=== PATIENT | female | born 1950 | race Caucasian/White ===

== ENCOUNTER → 2016-12-18 | Outpatient (CLI) | payer OTHER ==
[~2016-12-18] MED LIST: ACET-1256 PO; AZO PO; CALC500C70 PO; CYM/30 PO; DILT120C68 PO; GABA-112 PO; GLC/500 PO; METO1TAB69 PO; MULT-506 PO; PARO1TAB29 PO; PRD/1 PO; PRLSR20 PO; TRAM-10 PO; WARF-285 PO; WARF4TAB8 PO
[2016-12-18 17:09] LABS: BASO % 0.3 %; BASO ABS # 0.03 K/uL (0-0.2); COMPLETE YES; EOS % 1.3 %; HEMATOCRIT 38.4 % (37-47); IG% 0.2 %; LYMPH % 11.9 %; LYMPH ABS # 1.03 K/uL (1.2-3.4); MEAN CELL VOLUME 90.8 fL (80-100); MEAN CORPUSCULAR HEMOGLOBIN 29.8 pg (25-34); MEAN CORPUSCULAR HGB CONC 32.8 g/dl (32-36); MEAN PLATELET VOLUME 9.4 fL (7.4-10.4); MONO % 8.4 %; NEUT % 77.9 %; PLATELET COUNT 296 K/uL (130-400); RED BLOOD COUNT 4.23 M/uL (4.2-5.4); WHITE BLOOD COUNT 8.69 K/uL (4.8-10.8)
[2016-12-18 17:24] LABS: ALT/SGPT 23 U/L (12-78); AMYLASE 30 U/L (25-115); BLOOD UREA NITROGEN 15 mg/dl (7-18); CALCIUM 9.6 mg/dl (8.5-10.1); CARBON DIOXIDE 30 mmol/L (21-32); CHLORIDE 102 mmol/L (98-107); CREATININE 0.73 mg/dl (0.60-1.20); GLUCOSE 103 mg/dl (70-99); SODIUM 139 mmol/L (136-145)
[2016-12-18 17:27] LABS: ALB/GLOB RATIO 0.9 (0.9-2); ALKALINE PHOSPHATASE 61 U/L (45-117); AST/SGOT 17 U/L (15-37)
[2016-12-18 17:30] LABS: URINE PROTIEN/CREAT RATIO 0.1 (0-0.2)
[2016-12-18 18:04] LABS: URINE APPEARANCE CLEAR (CLEAR); URINE BILIRUBIN NEG (NEG); URINE COLOR DK YELLOW; URINE EPITHELIAL CELL AUTO >30 /lpf (0-5); URINE NITRITE NEG (NEG); URINE SPECIFIC GRAVITY 1.026 (1.000-1.030); UROBILINOGEN POS (NEG); ZZUR CULT IF INDIC CLEAN CATCH NO
[2016-12-18 18:08] LABS: MANUAL MICROSCOPIC REQUIRED? NO; REVIEW REQ? YES
[2016-12-19 07:22] LABS: ESTIMATED AVERAGE GLUCOSE 120 mg/dl; HA1C FLAG Normal (Normal)
== END | disposition home or self-care (01) ==
LOC: C.LABBC 12:21
PROVIDERS: ATTEND Internal Medicine Geriatric Medicine
DX: E11.29 Type 2 diabetes mellitus with other diabetic kidney complication (principal); R10.9 Unspecified abdominal pain; M19.90 Unspecified osteoarthritis, unspecified site; I10 Essential (primary) hypertension; I48.91 Unspecified atrial fibrillation; M48.00 Spinal stenosis, site unspecified; E55.9 Vitamin D deficiency, unspecified

== ENCOUNTER → 2016-12-25 | Outpatient (CLI) | payer OTHER ==
--- NOTE | 2016-12-25 09:00 | DIAGNOSTIC IMAGING REPORT ---
ABDOMEN COMPLETE (US) CLINICAL HISTORY: Generalized abdominal pain COMPARISON STUDY: Biliary ultrasound dated 10/20/2015, CT scan dated 10/20/2015 FINDINGS: The liver is of increased echogenicity, nonspecific finding most often seen in hepatic steatosis. There is a large gallbladder calculus. There is no gallbladder wall thickening. There is no pericholecystic fluid. The pancreas appears normal as visualized. There is no ductal dilatation. The common bile duct measures 5 mm. The spleen measures 9.8 cm in length. The right kidney measures 10.4 cm in length. The left kidney measures 11.2 cm in length. No renal masses are visualized. There is no hydronephrosis. There is no evidence of abdominal aortic dilatation. The IVC appears patent. IMPRESSION: Cholelithiasis. No evidence of ductal dilatation. Electronically signed by: Andres Grover M.D. 12/25/2016 8:58 AM Dictated Date/Time: 12/25/2016 8:56 AM
== END | disposition home or self-care (01) ==
LOC: C.ULTRBC 08:22
PROVIDERS: ATTEND Internal Medicine Geriatric Medicine
DX: R10.9 Unspecified abdominal pain (principal); K80.20 Calculus of gallbladder without cholecystitis without obstruction

== ENCOUNTER → 2017-01-02 | Outpatient (CLI) | payer OTHER ==
--- NOTE | 2017-01-02 09:54 | DIAGNOSTIC IMAGING REPORT ---
NUCLEAR HEPATOBILIARY SCAN CLINICAL HISTORY: Right upper quadrant abdominal pain. COMPARISON STUDY: Abdominal ultrasound dated 12/25/2016. Nuclear hepatobiliary scan dated 10/21/2015. TECHNIQUE: Dynamic images of the liver and anterior abdomen were obtained every 5 minutes for a total of 60 minutes following the IV administration of 5.4mCi of technetium 99m Choletec. FINDINGS: The hepatobiliary scan shows prompt and homogeneous hepatic uptake. There is visualized activity within the intra and extrahepatic biliary tree at 15 minutes, and within the gallbladder at 45 minutes. There is normal biliary to bowel transit, with small bowel visualized by 30 minutes. IMPRESSION: Unremarkable nuclear hepatobiliary scan. There is no scintigraphic evidence of cholecystitis. Electronically signed by: Geronimo Chapa M.D. 01/02/2017 9:52 AM Dictated Date/Time: 01/02/2017 9:51 AM
== END | disposition home or self-care (01) ==
LOC: C.NUCL 07:36
PROVIDERS: ATTEND Internal Medicine Geriatric Medicine
DX: R10.9 Unspecified abdominal pain (principal)

== ENCOUNTER → 2017-01-10 | Outpatient (CLI) | payer OTHER ==
[~2017-01-10] MED LIST changes: -CYM/30 PO
== END | disposition home or self-care (01) ==
LOC: C.LAB 12:19
PROVIDERS: ATTEND Internal Medicine Rheumatology
DX: M35.3 Polymyalgia rheumatica (principal); Z79.52 Long term (current) use of systemic steroids; M75.100 Unspecified rotator cuff tear or rupture of unspecified shoulder, not specified as traumatic; Z51.81 Encounter for therapeutic drug level monitoring; Z79.01 Long term (current) use of anticoagulants; I48.91 Unspecified atrial fibrillation; M48.06 Spinal stenosis, lumbar region; M54.16 Radiculopathy, lumbar region; M81.0 Age-related osteoporosis without current pathological fracture; M46.1 Sacroiliitis, not elsewhere classified; J45.909 Unspecified asthma, uncomplicated; Z86.73 Personal history of transient ischemic attack (TIA), and cerebral infarction without residual deficits; E78.5 Hyperlipidemia, unspecified; I10 Essential (primary) hypertension; E11.9 Type 2 diabetes mellitus without complications

== ENCOUNTER → 2017-01-16 | Outpatient (CLI) | payer OTHER ==
--- NOTE | 2017-01-16 16:34 | MAMMOGRAPHY REPORT ---
BILATERAL DIGITAL SCREENING MAMMOGRAM WITH CAD: 01/16/2017 CLINICAL HISTORY: Routine screening. Patient has no complaints. TECHNIQUE: Current study was also evaluated with a Computer Aided Detection (CAD) system. Bilatera l CC and MLO views were obtained. COMPARISON: Comparison is made to exams dated: 07/28/2014 mammogram, 10/12/2015 mammogram, 07/26/2013 mammogram, 08/26/2014 mammogram, 07/23/2012 mammogram, and 07/23/2011 mammogram - [facility]. BREAST COMPOSITION: The tissue of both breasts is almost entirely fatty. FINDINGS: No suspicious masses, calcifications, or areas of architectural distortion are noted in e ither breast. There has been no significant interval change compared to prior exams. IMPRESSION: ACR BI-RADS CATEGORY 1: NEGATIVE There is no mammographic evidence of malignancy. A 1 year screening mammogram is recommended. The p atient will receive written notification of the results. Approximately 10% of breast cancers are not detected with mammography. A negative mammographic repor t should not delay biopsy if a clinically suggestive mass is present. Nevaeh Jay M.D. ah/:01/16/2017 15:30:48 Forestry Professor: Lidia SAGE(Heri)(M), [facility] letter sent: Normal 1/2 BI-RADS Code: ACR BI-RADS Category 1: Negative
== END | disposition home or self-care (01) ==
LOC: C.MAMM 14:59
PROVIDERS: ATTEND Internal Medicine Geriatric Medicine
DX: Z12.31 Encounter for screening mammogram for malignant neoplasm of breast (principal)

== ENCOUNTER → 2017-04-02 | Day surgery (SDC) | payer OTHER ==
[2016-12-02 13:50] VITALS: BMI 50.0
[2017-03-27 10:17] VITALS: Ht 160 cm; Wt 129.6 kg
[~2017-04-02] VITALS: Ht 160 cm; Wt 129.6 kg
[~2017-04-02] MED LIST changes: +LIDOCAINE HCL 2% 2 ML VIAL (20MG/ML) ONE; +METO100T44 PO; -METO1TAB69 PO; +PROPOFOL IV EMULSION 10 MG/ML 20 ML VIAL IV ONE; +SODIUM CHLORIDE 0.9% 500ML 500 ML IV ONE
--- NOTE | 2017-04-02 08:38 | Endo History and Physical ---
History & Physical Date of Service: April 02, 2017. Chief Complaint: 5 year f/u colon polyps Referring Physician: Dillon Genao History of Present Illness 66 yo CF who presents for colonoscopy secondary to history of colon polyps. Past Medical History Atrial Fibrillation, Diabetes, Hypertension, Chronic Steroid Use Past Surgical History Hx Cardiac Surgery: No Hx Abdominal Surgery: Yes (D&C , GABI ,LAP BAND OF STOMACH) Hx of Implantable Prosthesis: No Hx Post-Op Nausea and Vomiting: No Hx Cancer Surgery: No Hx Thoracic Surgery: Yes (BRONCHOSCOPY) Hx Orthopedic: Yes (R/L TKA) Hx Urinary Tract Surgery: No Family History Colon CA Social History Smoking Status: Former Smoker Hx Substance Use: No Hx Alcohol Use: No Allergies Coded Allergies: Sulfa Antibiotics (Verified Allergy, Intermediate, RASH, 03/27/17) Current Medications Reported Home Medications Medications Dose Route/Sig Max Daily Dose Days Date Category Dose Instructions Prednisone 1 Mg Tab 2 Mg PO QAM 03/27/17 Reported Paxil (Paroxetine HCl) 40 Mg Tab 40 Mg PO QAM 01/03/17 Reported Jantoven (Warfarin Sodium) 4 Mg Tab 4 Mg PO 2XWK 12/12/16 Reported Friday/ Tiazac (Diltiazem HCl) 120 Mg Capcr 120 Mg PO QPM 12/02/16 Reported [Azo] 1 Tab PO TID 07/18/16 Reported Toprol-Xl (Metoprolol Succinate) 100 Mg Tabcr 100 Mg PO BID 10/20/15 Reported Os-Esdras 500 Plus D (Calcium/Vitamin D) Tab 3 Tab PO HS 01/02/15 Reported Glucophage (Metformin Hcl) 500 Mg Tab 500 Mg PO BIDM 01/02/15 Reported Warfarin Sodium 3 Mg Tab 3 Mg PO 5XWK 01/02/15 Reported Tylenol (Acetaminophen) 500 Mg Tab 500 Mg PO TID PRN 12/04/08 Reported Ultram (Tramadol HCl) 50 Mg Tab 100 Mg PO TID 12/04/08 Reported Multivitamin (Multivitamins) Tab 1 Tablet PO HS 12/04/08 Reported Prilosec (Omeprazole) 20 Mg Capcr 40 Mg PO QAM 12/04/08 Reported Vital Signs Weight (Kilograms): 129.55 Height (Feet): 5 Height (Inches): 3 Date Time Temp Pulse Resp B/P Pulse Ox O2 Delivery O2 Flow Rate FiO2 04/02/17 08:30 36.5 93 18 133/85 93 Room Air Physical Exam General Appearance: WD/WN, no apparent distress Respiratory/Chest: Auscultation: breath sounds normal Cardiovascular: Heart Auscultation: RRR Abdomen: Bowel Sounds: normal Inspection & Palpation: soft, non-distended, no tenderness, guarding & rebound Assessment and Plan Assessment: 66 yo CF who presents for colonoscopy secondary to history of colon polyps. Plan: Proceed with colonoscopy.
--- NOTE | 2017-04-02 09:01 | Discharge Instructions ---
Endoscopy Patient Instructions Date / Procedure(s) Performed April 02, 2017. Colonoscopy Allergy Information Coded Allergies: Sulfa Antibiotics (Verified Allergy, Intermediate, RASH, 03/27/17) Discharge Date / Findings April 02, 2017. Diverticulosis Internal hemorrhoids Fair bowel prep Medication Instructions Stopped Medication(s): Warfarin OK to resume all medications today as prescribed Reported Home Medications Medications Dose Route/Sig Max Daily Dose Days Date Category Dose Instructions Prednisone 1 Mg Tab 2 Mg PO QAM 03/27/17 Reported Paxil (Paroxetine HCl) 40 Mg Tab 40 Mg PO QAM 01/03/17 Reported Jantoven (Warfarin Sodium) 4 Mg Tab 4 Mg PO 2XWK 12/12/16 Reported Friday/ Tiazac (Diltiazem HCl) 120 Mg Capcr 120 Mg PO QPM 12/02/16 Reported [Azo] 1 Tab PO TID 07/18/16 Reported Toprol-Xl (Metoprolol Succinate) 100 Mg Tabcr 100 Mg PO BID 10/20/15 Reported Os-Esdras 500 Plus D (Calcium/Vitamin D) Tab 3 Tab PO HS 01/02/15 Reported Glucophage (Metformin Hcl) 500 Mg Tab 500 Mg PO BIDM 01/02/15 Reported Warfarin Sodium 3 Mg Tab 3 Mg PO 5XWK 01/02/15 Reported Tylenol (Acetaminophen) 500 Mg Tab 500 Mg PO TID PRN 12/04/08 Reported Ultram (Tramadol HCl) 50 Mg Tab 100 Mg PO TID 12/04/08 Reported Multivitamin (Multivitamins) Tab 1 Tablet PO HS 12/04/08 Reported Prilosec (Omeprazole) 20 Mg Capcr 40 Mg PO QAM 12/04/08 Reported Provider Instructions Activity Restrictions - No exercising or heavy lifting for 24 hours. - Do not drink alcohol the day of the procedure. - Do not drive a car or operate machinery until the day after the procedure. - Do not make any important decisions or sign important papers in 24 hours after the procedure. Following Day: - Return to full activity which may include returning to work/school. Diet Start your diet with liquids and light foods (jello, soup, juice, toast). Then eat your usual diet if not nauseated. Treatment For Common After Affects For mild abdominal pain, bloating, or excessive gas: - Rest - Eat lightly - Lie on right side Follow-Up Information Follow-up with Dillon Genao as scheduled Anesthesia Information What You Should Know You have had a procedure that required some medicine to reduce anxiety and discomfort. This treatment is called moderate sedation. After receiving the treatment, you may be sleepy, but you will be able to breathe on your own. The effects of the treatment may last for several hours. Follow these instructions along with Activity/Diet recommendations noted above: * Do NOT do anything where dizziness or clumsiness would be dangerous. * Rest quietly at home today, then you can be up and about tomorrow. * Have a responsible person stay with you the rest of today. * You may have had an I.V. today. If so, you may take the dressing off later today. Recommendations Call your doctor if: * Trouble breathing * Continuous vomiting for more than 24 hours * Temperature above 101 degrees * Severe abdominal pain or bloating * Pain not relieved by pain medicine ordered * There is increased drainage or redness from any incision * A large amount of rectal bleeding greater than 2-3 tablespoons. (If you had a polyp/s removed or have hemorrhoids, a small amount of blood - from the rectum is to be expected.) * You have any unanswered questions or concerns. IN THE EVENT OF A SERIOUS EMERGENCY, GO TO THE NEAREST EMERGENCY ROOM Your discharge instructions were prepared by provider Joe Laird. Patient Instructions Signature Page Jocelyne Hardwick Patient (or Guardian) Signature/Date: I have read and understand the instructions given to me by my caregivers. Caregiver/RN/Doctor Signature/Date: The above-named patient and/or guardian has received patient instructions on this date. + Original Patient Signature Page (only) stays with chart. Please make copy for patient.
--- NOTE | 2017-04-02 09:08 | GI REPORT ---
Procedure Date: 04/02/2017 8:38 AM Procedure: Colonoscopy Indications: High risk colon cancer surveillance: Personal history of colonic polyps Medicines: Monitored Anesthesia Care Complications: No immediate complications. Estimated Blood Loss: Estimated blood loss: none. Procedure: Pre-Anesthesia Assessment: - Prior to the procedure, a History and Physical was performed, and patient medications and allergies were reviewed. The patient's tolerance of previous anesthesia was also reviewed. The risks and benefits of the procedure and the sedation options and risks were discussed with the patient. All questions were answered, and informed consent was obtained. Prior Anticoagulants: The patient has taken Coumadin (warfarin), last dose was 5 days prior to procedure. ASA Grade Assessment: III - A patient with severe systemic disease. After reviewing the risks and benefits, the patient was deemed in satisfactory condition to undergo the procedure. After I obtained informed consent, the scope was passed under direct vision. Throughout the procedure, the patient's blood pressure, pulse, and oxygen saturations were monitored continuously. The scope was introduced through the anus and advanced to the cecum, identified by appendiceal orifice and ileocecal valve. The colonoscopy was performed without difficulty. The patient tolerated the procedure well. The quality of the bowel preparation was fair. The terminal ileum, ileocecal valve, appendiceal orifice, and rectum were photographed. Findings: Multiple small-mouthed diverticula were found in the sigmoid colon. Non-bleeding internal hemorrhoids were found during retroflexion. The hemorrhoids were small. Impression: - Diverticulosis in the sigmoid colon. - Non-bleeding internal hemorrhoids. - No specimens collected. Recommendation: - Resume previous diet. - Continue present medications. - Repeat colonoscopy in 3 months because the bowel preparation was poor. - Return to primary care physician as previously scheduled. Joe Laird DO 04/02/2017 9:07:44 AM This report has been signed electronically. Note Initiated On: 04/02/2017 8:38 AM I attest to the content of the Intraoperative Record and orders documented therein, exceptions below
--- NOTE | 2017-04-02 09:11 | Anesthesiology Progress Note ---
Anesthesia Post Op Note Date & Time April 02, 2017 at 09:11 Vital Signs Vital Signs Past 12 Hours Date Time Temp Pulse Resp B/P Pulse Ox O2 Delivery O2 Flow Rate FiO2 04/02/17 08:30 36.5 93 18 133/85 93 Room Air Notes Mental Status: alert / awake / arousable, participated in evaluation Pt Amnestic to Procedure: Yes Nausea / Vomiting: adequately controlled Pain: adequately controlled Airway Patency, RR, SpO2: stable & adequate BP & HR: stable & adequate Hydration State: stable & adequate Anesthetic Complications: no major complications apparent
[2017-04-02 09:29] VITALS: BP 112/84; PULSE 93; O2SAT 98
== END | disposition home or self-care (01) ==
LOC: C.GI 07:55
PROVIDERS: ATTEND Internal Medicine
DX: Z12.11 Encounter for screening for malignant neoplasm of colon (principal); Z86.010 Personal history of colon polyps; K57.30 Diverticulosis of large intestine without perforation or abscess without bleeding; K64.8 Other hemorrhoids; J45.909 Unspecified asthma, uncomplicated; I48.91 Unspecified atrial fibrillation; I10 Essential (primary) hypertension; E11.9 Type 2 diabetes mellitus without complications; E66.9 Obesity, unspecified; Z68.43 Body mass index [BMI] 50.0-59.9, adult; Z88.2 Allergy status to sulfonamides; Z79.01 Long term (current) use of anticoagulants; Z98.890 Other specified postprocedural states; Z98.49 Cataract extraction status, unspecified eye; Z96.653 Presence of artificial knee joint, bilateral; Z90.89 Acquired absence of other organs; Z79.52 Long term (current) use of systemic steroids; Z80.0 Family history of malignant neoplasm of digestive organs

== ENCOUNTER → 2017-07-15 | Outpatient (CLI) | payer OTHER ==
[~2017-07-15] MED LIST changes: -LIDOCAINE HCL 2% 2 ML VIAL (20MG/ML) ONE; -METO100T44 PO; +METO1TAB69 PO; -PROPOFOL IV EMULSION 10 MG/ML 20 ML VIAL IV ONE; -SODIUM CHLORIDE 0.9% 500ML 500 ML IV ONE
[2017-07-15 16:00] LABS: BLOOD UREA NITROGEN 13 mg/dl (7-18); CALCIUM 9.1 mg/dl (8.5-10.1); CARBON DIOXIDE 30 mmol/L (21-32); CHLORIDE 104 mmol/L (98-107); CHOLESTEROL 164 mg/dl (0-200); CREATININE 0.61 mg/dl (0.60-1.20); GLUCOSE 93 mg/dl (70-99); POTASSIUM 4.3 mmol/L (3.5-5.1); SODIUM 138 mmol/L (136-145); TRIGLYCERIDES 168 mg/dl (0-150); VERY LOW DENSITY LIPOPROT CALC 34 mg/dl
[2017-07-15 16:10] LABS: CHOLESTEROL/HDL RATIO 3.7; HDL CHOLESTEROL 44 mg/dl; LDL CHOLESTEROL CALCULATED 86 mg/dl
[2017-07-15 16:27] LABS: BASO % 0.3 %; BASO ABS # 0.02 K/uL (0-0.2); COMPLETE YES; EOS % 2.1 %; HEMATOCRIT 36.7 % (37-47); IG% 0.3 %; LYMPH % 15.2 %; LYMPH ABS # 1.07 K/uL (1.2-3.4); MEAN CELL VOLUME 92.2 fL (80-100); MEAN CORPUSCULAR HEMOGLOBIN 29.1 pg (25-34); MEAN CORPUSCULAR HGB CONC 31.6 g/dl (32-36); MEAN PLATELET VOLUME 9.1 fL (7.4-10.4); MONO % 8.1 %; PLATELET COUNT 256 K/uL (130-400); RED BLOOD COUNT 3.98 M/uL (4.2-5.4); WHITE BLOOD COUNT 7.06 K/uL (4.8-10.8)
[2017-07-16 07:08] LABS: ESTIMATED AVERAGE GLUCOSE 126 mg/dl; HA1C FLAG Normal (Normal)
== END | disposition home or self-care (01) ==
LOC: C.LAB1850 14:22
PROVIDERS: ATTEND Internal Medicine Rheumatology
DX: I10 Essential (primary) hypertension (principal); Z79.01 Long term (current) use of anticoagulants; I48.2 Chronic atrial fibrillation; E11.29 Type 2 diabetes mellitus with other diabetic kidney complication; M35.3 Polymyalgia rheumatica; Z79.52 Long term (current) use of systemic steroids

== ENCOUNTER → 2018-01-14 | Outpatient (CLI) | payer OTHER ==
[~2018-01-14] MED LIST changes: +METO100T44 PO; -METO1TAB69 PO
[2018-01-14 16:33] LABS: BASO % 0.2 %; BASO ABS # 0.02 K/uL (0-0.2); EOS % 1.1 %; EOS ABS # 0.11 K/uL (0-0.5); HEMATOCRIT 37.6 % (37-47); HEMOGLOBIN 12.1 g/dL (12.0-16.0); IG# 0.01 K/uL (0.00-0.02); LYMPH % 15.3 %; LYMPH ABS # 1.48 K/uL (1.2-3.4); MEAN CELL VOLUME 92.6 fL (80-100); MEAN CORPUSCULAR HEMOGLOBIN 29.8 pg (25-34); MEAN CORPUSCULAR HGB CONC 32.2 g/dl (32-36); MEAN PLATELET VOLUME 8.9 fL (7.4-10.4); MONO % 5.7 %; MONO ABS # 0.55 K/uL (0.11-0.59); NEUT % 77.6 %; NEUT ABS # 7.48 K/uL (1.4-6.5); PLATELET COUNT 267 K/uL (130-400); RED CELL DISTRIBUTION WIDTH CV 14.3 % (11.5-14.5); RED CELL DISTRIBUTION WIDTH SD 47.8 fL (36.4-46.3); WHITE BLOOD COUNT 9.65 K/uL (4.8-10.8)
[2018-01-14 17:15] LABS: ALBUMIN 3.3 gm/dl (3.4-5.0); ALT/SGPT 20 U/L (12-78); BLOOD UREA NITROGEN 17 mg/dl (7-18); CALCIUM 9.2 mg/dl (8.5-10.1); CARBON DIOXIDE 30 mmol/L (21-32); CHOLESTEROL 130 mg/dl (0-200); CREATININE 0.76 mg/dl (0.60-1.20); GLUCOSE 110 mg/dl (70-99); POTASSIUM 4.3 mmol/L (3.5-5.1); SODIUM 140 mmol/L (136-145)
[2018-01-14 17:18] LABS: ALKALINE PHOSPHATASE 60 U/L (45-117); AST/SGOT 12 U/L (15-37); LDL CHOLESTEROL CALCULATED 55 mg/dl; TOTAL PROTEIN 7.6 gm/dl (6.4-8.2)
[2018-01-15 06:40] LABS: HEMOGLOBIN A1C 5.9 % (4.5-5.6)
== END ==
LOC: C.LAB 16:09
PROVIDERS: ATTEND Internal Medicine Geriatric Medicine
DX: I10 Essential (primary) hypertension (principal); M35.3 Polymyalgia rheumatica; Z79.01 Long term (current) use of anticoagulants; M48.00 Spinal stenosis, site unspecified; E55.9 Vitamin D deficiency, unspecified; E11.29 Type 2 diabetes mellitus with other diabetic kidney complication; I48.2 Chronic atrial fibrillation

== ENCOUNTER 2019-10-09 01:02 | Inpatient (IN) ==
[2019-10-09] MEDS ORDERED: SODIUM CHLORIDE 0.9% 1000ML 500 ML IV ONE (01:44)
--- NOTE | 2019-10-09 01:48 | Emergency Department Note ---
History of Present Illness General Chief complaint: Back Injury/Pain Stated complaint: back pain Time Seen by Provider: 10/09/19 01:36 History of Present Illness This is a 68-year-old female that presents to the emergency department via private vehicle with complaints of "back pain". The patient denies any known trauma or fall. She states that she was seen here the other day and diagnosed with fractures of the inferior thoracic spine. She was discharged home with pain medication but unfortunately has not done well secondary to the pain and has not been out of bed for quite some time. The male at bedside is concerned as she is not eating or drinking much. Patient notes the pain is a 10/10. It has worsened but she denies any new trauma or injury. No fevers or chills. Today she developed some abdominal discomfort. Home Medications Home Medications Medication Instructions Recorded Confirmed Type multivitamin 1 tab PO DAILY 08/25/18 10/09/19 History pumpkin seed extract-soy germ [Azo 300 mg PO TID 08/25/18 10/09/19 History Bladder Control] calcium carbonate 500 mg (1,250 1 tab PO HS tab 08/26/18 10/09/19 History mg)-vitamin D3 200 unit tablet acetaminophen 500 mg tablet 1,000 mg PO BID tab 07/20/19 10/09/19 History cholecalciferol (vitamin D3) 50 2,000 units PO DAILY 07/20/19 10/09/19 History mcg (2,000 unit) capsule metoprolol succinate ER 100 mg 100 mg PO Q12 #180 tab 07/20/19 10/09/19 Rx tablet,extended release 24 hr omeprazole 20 mg capsule,delayed 20 mg PO DAILY #90 cap 07/20/19 10/09/19 Rx release gabapentin 300 mg capsule 300 mg PO TID #90 cap 08/13/19 10/09/19 Rx paroxetine 40 mg tablet 40 mg PO DAILY #90 tab 08/16/19 10/09/19 Rx metformin 500 mg tablet 500 mg PO BIDM #90 tab 09/14/19 10/09/19 Rx diltiazem ER 120 mg 120 mg PO QPM #90 tab 10/01/19 10/09/19 Rx tablet,extended release 24 hr tramadol 50 mg tablet 100 mg PO TID PRN #180 tab 10/01/19 10/09/19 Rx atorvastatin 10 mg tablet 10 mg PO DAILY tab 10/06/19 10/09/19 History docusate sodium [Colace] 100 mg PO BID #60 cap 10/06/19 10/09/19 Rx oxycodone 5 mg PO Q6H PRN #14 tab 10/06/19 10/09/19 Rx sennosides [Senokot] 8.6 mg PO HS #30 tab 10/06/19 10/09/19 Rx warfarin 3 mg PO DAILY 10/09/19 10/09/19 History Allergies Allergy/AdvReac Type Severity Reaction Status Date / Time Sulfa (Sulfonamide Allergy Intermediate RASH Verified 10/09/19 01:25 Antibiotics) Past Med/Surg History Medical History Choledocholithiasis Chronic pain Closed fracture of tibia H/O: hysterectomy Herpes zoster Hyperplastic colon polyp Hypertension Osteoarthritis Seborrheic dermatitis Spinal stenosis Trochanteric bursitis Surgical History Hx of laparoscopic gastric banding Family History Other Diabetes Graves disease Uremia Social History Preferred Language: Grenadian Communication Ability: Effective Physician Scribe Required: No Beliefs That Will Affect Care: None marital status: Current Living Situation: Spouse Feels Safe at Home: Yes Smoking Status: Former smoker Hx Alcohol Use: Yes Hx Substance Use: No Review of Systems A total of 10 systems reviewed and were otherwise negative Physical Exam Vital Signs Vital Signs - 24 hr 10/09/19 01:45 10/09/19 02:31 10/09/19 03:59 Temperature 36.3 C L Temperature Source Oral Sepsis Recent Fever Within 48 Hours No Sepsis New/Unexplained Change in Mental Status No Sepsis Action Taken by Nursing No Action Required Pulse Rate 110 H 138 H Pulse Rate [Apical] 111 H Pulse Rate from SpO2 Sensor 125 H Pulse Rhythm Irregular Pulse Rhythm [Apical] Irregular Pulse Strength [Apical] Normal Respiratory Rate 24 22 16 Respiratory Effort / Characteristics Non-Labored Spontaneous Non-Labored Respiratory Depth Normal Normal Respiratory Pattern Regular Regular Blood Pressure 136/100 119/72 Blood Pressure [Left Radial Artery] 112/82 Blood Pressure Mean 112 87 Blood Pressure Mean [Left Radial Artery] 92 Blood Pressure Position Lying Blood Pressure Position [Left Radial Artery] Lying Pulse Oximetry 96 94 97 Oxygen Delivery Method Room Air Room Air 10/09/19 04:00 10/09/19 05:16 10/09/19 05:22 Temperature Temperature Source Sepsis Recent Fever Within 48 Hours Sepsis New/Unexplained Change in Mental Status Sepsis Action Taken by Nursing Pulse Rate 123 H 128 H 126 H Pulse Rate [Apical] Pulse Rate from SpO2 Sensor 118 H 108 H 116 H Pulse Rhythm Pulse Rhythm [Apical] Pulse Strength [Apical] Respiratory Rate 27 H 20 16 Respiratory Effort / Characteristics Respiratory Depth Respiratory Pattern Blood Pressure 95/76 L 128/89 121/72 Blood Pressure [Left Radial Artery] Blood Pressure Mean 82 102 88 Blood Pressure Mean [Left Radial Artery] Blood Pressure Position Blood Pressure Position [Left Radial Artery] Pulse Oximetry 97 97 98 Oxygen Delivery Method 10/09/19 05:30 Temperature Temperature Source Sepsis Recent Fever Within 48 Hours Sepsis New/Unexplained Change in Mental Status Sepsis Action Taken by Nursing Pulse Rate 125 H Pulse Rate [Apical] Pulse Rate from SpO2 Sensor 128 H Pulse Rhythm Pulse Rhythm [Apical] Pulse Strength [Apical] Respiratory Rate 23 Respiratory Effort / Characteristics Respiratory Depth Respiratory Pattern Blood Pressure 100/75 Blood Pressure [Left Radial Artery] Blood Pressure Mean 83 Blood Pressure Mean [Left Radial Artery] Blood Pressure Position Blood Pressure Position [Left Radial Artery] Pulse Oximetry 95 Oxygen Delivery Method VITAL SIGNS - Vital signs and nursing notes were reviewed. She was seen in room B9 GENERAL -68-year-old female appearing her stated age who is in no acute distress but appears to be in pain and slightly groggy. Communicates well with provider and answers questions appropriately. SKIN - Without rashes. HEAD - NC/AT. EYES - PERRL with EOMI bilaterally. Sclera anicteric. EARS - No deformities of external structures noted on gross examination bilaterally. NOSE - Midline and without cyanosis. No epistaxis or purulent drainage noted. Septum midline without deviation or septal hematoma noted. MOUTH/OROPHARYNX - Without perioral cyanosis. Buccal mucosa pink and moist and without leukoplakia. Tongue midline with equal elevation of palate bilaterally. NECK - Neck with FROM. Supple to palpation.No nuchal rigidity. LUNGS - Chest wall symmetric without accessory muscle use, intercostals retractions, or central cyanosis. CARDIAC- Irregular rate and rhythm ABDOMEN - Abdominal contour normal without pulsations or visible masses. BS normoactive all four quadrants. No tenderness, palpable masses, hepatosplenomegaly, or ascites noted. EXTREMITIES - No pretibial edema present. +5/5 strength noted in UE/LE bilaterally. MUSCULOSKELETAL: There is tenderness to palpation overlying the posterior inferior thoracic and superior lumbar spine. NEUROLOGIC - Cranial nerves II through XII grossly intact. Sensory intact to light touch throughout. PSYCH - A&Ox3 and cooperates fully with examiner. Pt is very pleasant and interacts well with examiner. Course Administered Medications Ioversol (Optiray 320 100ml) 93 ml IV ONCE PRN PRN Reason: Interaction Checking Stop: 10/13/19 03:18 Last Admin: 10/09/19 03:19 Dose: 93 ml Documented by: [id number] Ondansetron HCl (Zofran) 4 mg IV Q6H PRN PRN Reason: Nausea Stop: 11/08/19 06:35 Last Admin: 10/09/19 08:14 Dose: 4 mg Documented by: [id number] Discontinued Medications Fentanyl Citrate (Fentanyl Citrate) 25 mcg IV NOW STA Stop: 10/09/19 04:30 Last Admin: 10/09/19 05:17 Dose: 25 mcg Documented by: [id number] Sodium Chloride (Nss 1000ml) 500 mls @ 999 mls/hr IV .Q31M ONE Stop: 10/09/19 02:14 Last Infusion: 10/09/19 03:20 Dose: 0 mls/hr Documented by: [id number] Admin: 10/09/19 02:33 Dose: 999 mls/hr Documented by: [id number] Sodium Chloride (Nss 1000ml) 1,000 mls @ 999 mls/hr IV .Q1H1M BRANDAN Stop: 10/09/19 05:45 Last Infusion: 10/09/19 06:20 Dose: 0 mls/hr Documented by: [id number] Admin: 10/09/19 05:14 Dose: 999 mls/hr Documented by: [id number] Metoprolol Tartrate (Lopressor) 5 mg IV NOW STA Stop: 10/09/19 04:37 Last Admin: 10/09/19 05:50 Dose: 5 mg Documented by: [id number] Medical Decision Making Laboratory Data Result diagrams: 10/09/19 02:21 10/09/19 02:21 Lab Results 10/09/19 10/09/1910/09/19 Range/Units 02:21 02:21 02:21 WBC 12.88 H (4.8-10.8) K/uL RBC 4.59 (4.2-5.4) M/uL Hgb 13.8 (12.0-16.0) g/dL Hct 41.2 (37-47) % MCV 89.8 (80-100) fL MCH 30.1 (25-34) pg MCHC 33.5 (32-36) g/dL RDW Std Deviation 45.9 (36.4-46.3) fL RDW Coeff of Dorita 13.9 (11.5-14.5) % Plt Count 270 (130-400) K/uL MPV 8.8 (7.4-10.4) fL Immature Gran % (Auto) 0.2 % Neut % (Auto) 82.6 % Lymph % (Auto) 8.2 % [place] % (Auto) 8.2 % Eos % (Auto) 0.6 % Baso % (Auto) 0.2 % Immature Gran # (Auto) 0.03 H (0.00-0.02) K/uL Neut # (Auto) 10.63 H (1.4-6.5) K/uL Lymph # (Auto) 1.05 L (1.2-3.4) K/uL [place] # (Auto) 1.06 H (0.11-0.59) K/uL Eos # (Auto) 0.08 (0-0.5) K/uL Baso # (Auto) 0.03 (0-0.2) K/uL PT 38.2 H (9.0-12.0) Seconds INR 4.1 H (0.9-1.1) APTT 52.3 H* (21.0-31.0) Seconds PTT Ratio 1.9 Sodium 138 (136-145) mmol/L Potassium 4.2 (3.5-5.1) mmol/L Chloride 101 (98-107) mmol/L Carbon Dioxide 31 (21-32) mmol/L Anion Gap 6.0 (3-11) BUN 18 (7-18) mg/dl Creatinine 0.71 (0.6-1.2) mg/dl Est Cr Clr Drug Dosing 90.6 ml/min Est GFR ( Amer) 100.0 Est GFR (Non-Af Amer) 86.3 BUN/Creatinine Ratio 26.0 H (10-20) Glucose 121 H (70-99) mg/dl Calcium 9.5 (8.5-10.1) mg/dl Total Bilirubin 1.2 H (0.2-1) mg/dl AST 17 (15-37) U/L ALT 25 (12-78) U/L Alkaline Phosphatase 56 (45-117) U/L Total Creatine Kinase 118 (26-192) U/L Troponin I < 0.015 (0-0.045) ng/ml Total Protein 7.8 (6.4-8.2) gm/dl Albumin 3.2 L (3.4-5.0) gm/dl Globulin 4.6 H (2.5-4.0) gm/dl Albumin/Globulin Ratio 0.7 L (0.9-2) Urine Color Urine Appearance (Clear) Urine pH (4.5-7.5) Ur Specific [place] (1.000-1.030) Urine Protein (Negative) Urine Glucose (UA) (Negative) Urine Ketones (Negative) Urine Blood (Negative) Urine Nitrite (Negative) Urine Bilirubin (Negative) Urine Urobilinogen (Negative) Ur Leukocyte Esterase (Negative) Urine WBC (Auto) (0-5) /hpf Urine RBC (Auto) (0-4) /hpf U Hyaline Cast (Auto) (0-5) /lpf U Epithel Cells (Auto) (0-5) /lpf Urine Bacteria (Auto) (Negative) Hepatitis C Ab Screen (Neg) 10/09/19 10/09/19 Range/Units 02:21 03:05 WBC (4.8-10.8) K/uL RBC (4.2-5.4) M/uL Hgb (12.0-16.0) g/dL Hct (37-47) % MCV (80-100) fL MCH (25-34) pg MCHC (32-36) g/dL RDW Std Deviation (36.4-46.3) fL RDW Coeff of Dorita (11.5-14.5) % Plt Count (130-400) K/uL MPV (7.4-10.4) fL Immature Gran % (Auto) % Neut % (Auto) % Lymph % (Auto) % [place] % (Auto) % Eos % (Auto) % Baso % (Auto) % Immature Gran # (Auto) (0.00-0.02) K/uL Neut # (Auto) (1.4-6.5) K/uL Lymph # (Auto) (1.2-3.4) K/uL [place] # (Auto) (0.11-0.59) K/uL Eos # (Auto) (0-0.5) K/uL Baso # (Auto) (0-0.2) K/uL PT (9.0-12.0) Seconds INR (0.9-1.1) APTT (21.0-31.0) Seconds PTT Ratio Sodium (136-145) mmol/L Potassium (3.5-5.1) mmol/L Chloride (98-107) mmol/L Carbon Dioxide (21-32) mmol/L Anion Gap (3-11) BUN (7-18) mg/dl Creatinine (0.6-1.2) mg/dl Est Cr Clr Drug Dosing ml/min Est GFR ( Amer) Est GFR (Non-Af Amer) BUN/Creatinine Ratio (10-20) Glucose (70-99) mg/dl Calcium (8.5-10.1) mg/dl Total Bilirubin (0.2-1) mg/dl AST (15-37) U/L ALT (12-78) U/L Alkaline Phosphatase (45-117) U/L Total Creatine Kinase (26-192) U/L Troponin I (0-0.045) ng/ml Total Protein (6.4-8.2) gm/dl Albumin (3.4-5.0) gm/dl Globulin (2.5-4.0) gm/dl Albumin/Globulin Ratio (0.9-2) Urine Color Yellow Urine Appearance Clear (Clear) Urine pH 5.0 (4.5-7.5) Ur Specific [place] 1.018 (1.000-1.030) Urine Protein Negative (Negative) Urine Glucose (UA) Negative (Negative) Urine Ketones 2+ H (Negative) Urine Blood 2+ H (Negative) Urine Nitrite Negative (Negative) Urine Bilirubin Negative (Negative) Urine Urobilinogen Negative (Negative) Ur Leukocyte Esterase Trace H (Negative) Urine WBC (Auto) 1-5 (0-5) /hpf Urine RBC (Auto) >30 H (0-4) /hpf U Hyaline Cast (Auto) 1-5 (0-5) /lpf U Epithel Cells (Auto) >30 H (0-5) /lpf Urine Bacteria (Auto) Negative (Negative) Hepatitis C Ab Screen Neg (Neg) Imaging Data Radiologist's Impression: CT ABDOMEN & PELVIS With Contrast: Prior CT abdomen pelvis from 10/20/15, [facility] scan. 01/02/2017, 10/06/19 CT pelvis, lumbar spine Compression deformities of T11 and T12 with approximately 30% height loss and similar to the recent prior 10/06/19. Fracture line noted at the anterosuperior T12 vertebral body. Mild surrounding stranding. Findings likely represent recent T11 and T12 fractures as seen on the recent CT lumbar spine. If there is further concern, MRI may be helpful. No retropulsion. Degenerative changes throughout the lumbosacral spine and mild L5-S1 anterolisthesis. Normal appendix. No free air, free fluid. No bowel obstruction. Gastric band, stable. No hydronephrosis or obstructing calculus. 3 cm gallstone within mildly distended gallbladder. Somewhat similar appearance to the prior. No obvious surrounding inflammatory changes. No biliary dilation. Absent uterus. Moderate atherosclerotic calcifications of the aorta, iliac arteries. Radiologist: Dayanara Rice M.D. Study ready at 03:55 and initial results transmitted at 04:14 MDM Narrative Patient was seen and evaluated as above in room B9. Review was performed of nursing notes and vital signs. After obtaining a thorough history and physical examination the above work up was performed. She presents to us today with back pain. She has a known compression fracture in the inferior T-spine diagnosed on 10/06. She was discharged home on pain medication and notes she has not done well because the pain. She comes to us today with increasing pain. She denies abdominal pain. Labs were drawn. CT scan was obtained as the patient is anticoagulated to rule out internal bleeding. Results as above. There is no hemorrhage. Given the patient's inability to function at home and with her pain level already being quite high noting she took oxycodone at home and even with the fentanyl here it is felt that further evaluation and management is warranted in the inpatient setting. CBC reveals slight leukocytosis of 12.88 without anemia. INR 4.1. Glucose 121. BUN/creatinine ratio 20 point 6T bili 1.2. I discussed options of care with the patient, and through shared decision making it was felt that hospitalization would be warranted as the patient notes that she is not able to function at home. Urinalysis does not suggest infection. Please refer to further documentation regarding her stay. Patient was persistently tachycardic and was ordered 5 mg Lopressor IV, fentanyl 25 mg IV for pain, and fluids. Case was discussed with the attending physician. EKG was reviewed by myself and found to be atrial fibrillation with RVR at a rate of 102 beats per minute and per my interpretation reveals no evidence of OR and when compared with previous no significant change was found. QTc 470. I attest that I have personally reviewed the patient medication list. I attest that I have reviewed the patient's blood pressure and it was found to be elevated likely secondary to presentation. GCS: 15 In the evaluation and treatment of this patient the following differential diagnoses were entertained: Fracture, dislocation, subluxation, electrolyte d isturbance, hemorrhage, among others. Impression & Plan Back pain, Compression fracture, Atrial fibrillation Discharge Plan Visit Data *Final* Discharge Date/Time: 10/09/19 06:08 Chief Complaint: Back Injury/Pain Stated Complaint: back pain ED Provider: Bisi Salazar ED Midlevel Provider: Rick Flores Discharge Problem: Back pain, Compression fracture, Atrial fibrillation Patient Disposition: Admitted As Inpatient Condition: Good Discharge Instructions Interventions: ED Discharge Assessment Last Done: 10/09/19 06:08
[2019-10-09 02:40] LABS: Basophils # (auto) 0.03 K/uL (0-0.2); Basophils % (auto) 0.2 %; Eosinophils # (auto) 0.08 K/uL (0-0.5); Eosinophils % (auto) 0.6 %; Hematocrit (blood only) 41.2 % (37-47); Hemoglobin 13.8 g/dL (12.0-16.0); Immature Granulocytes # (auto) 0.03 K/uL (0.00-0.02); Immature Granulocytes % (auto) 0.2 %; Lymphocytes # (auto) 1.05 K/uL (1.2-3.4); Lymphocytes % (auto) 8.2 %; Mean Corpuscular Hemoglobin 30.1 pg (25-34); Mean Corpuscular Hgb Conc 33.5 g/dL (32-36); Mean Corpuscular Volume 89.8 fL (80-100); Mean Platelet Volume 8.8 fL (7.4-10.4); Monocytes # (auto) 1.06 K/uL (0.11-0.59); Monocytes % (auto) 8.2 %; Neutrophils # (auto) 10.63 K/uL (1.4-6.5); Neutrophils % (auto) 82.6 %; Platelet Count 270 K/uL (130-400); RDW Coefficient of Variation 13.9 % (11.5-14.5); RDW Standard Deviation 45.9 fL (36.4-46.3); Red Blood Count 4.59 M/uL (4.2-5.4); White Blood Count 12.88 K/uL (4.8-10.8)
[2019-10-09 03:04] LABS: Partial Thromboplastin Ratio 1.9; Prothrombin Time 38.2 Seconds (9.0-12.0)
[2019-10-09 03:05] LABS: Alanine Aminotransferase 25 U/L (12-78); Albumin Level 3.2 gm/dl (3.4-5.0); Aspartate Aminotransferase 17 U/L (15-37); Blood Urea Nitrogen 18 mg/dl (7-18); Calcium 9.5 mg/dl (8.5-10.1); Carbon Dioxide 31 mmol/L (21-32); Chloride 101 mmol/L (98-107); Creatinine Clr Calc Pharmacy 90.6 ml/min; Est GFR (Non-African American) 86.3; Glucose 121 mg/dl (70-99); Potassium 4.2 mmol/L (3.5-5.1); Sodium 138 mmol/L (136-145)
[2019-10-09 03:10] LABS: Albumin Globulin Ratio 0.7 (0.9-2); Alkaline Phosphatase 56 U/L (45-117); Bilirubin,Total 1.2 mg/dl (0.2-1); Creatine Kinase 118 U/L (26-192); Globulin 4.6 gm/dl (2.5-4.0); Total Protein 7.8 gm/dl (6.4-8.2); Troponin I < 0.015 ng/ml (0-0.045)
[2019-10-09 03:16] LABS: Partial Thromboplastin Time 52.3 Seconds (21.0-31.0)
[2019-10-09] MEDS ORDERED: IOVERSOL 100ml IV PRN (03:19)
[2019-10-09 03:23] LABS: Appearance Urine Clear (Clear); Bacteria Urine Automated Negative (Negative); Bilirubin Urine Negative (Negative); Blood Urine 2+ (Negative); Color Urine Yellow; Epithelial Cell Urine Auto >30 /lpf (0-5); Glucose Urine UA Negative (Negative); Ketones Urine 2+ (Negative); Leukocyte Esterase Urine Trace (Negative); Nitrite Urine Negative (Negative); Protein Urine Negative (Negative); RBC Urine Automated >30 /hpf (0-4); Specific Gravity Urine 1.018 (1.000-1.030); Urobilinogen Urine Negative (Negative)
[2019-10-09 03:31] LABS: INR 4.1 (0.9-1.1)
[2019-10-09] MEDS ORDERED: fentaNYL citrate 100 MCG/2 ML VIAL IV STA (04:29)
[2019-10-09] MEDS ORDERED: METOPROLOL TARTRATE 1 MG/ML VIAL IV STA (04:36)
[2019-10-09] MEDS ORDERED: SODIUM CHLORIDE 0.9% 1000ML 1,000 ML IV SCH (04:45)
--- NOTE | 2019-10-09 05:39 | History & Physical Report ---
Date of Service October 09, 2019 Assessment & Plan (1) Compression fracture: 68yo F PMH HTN, HLD, T2DM, PMR, chronic pain 2/2 OA, Osteoporosis, Afib presents with intractable back pain 2/2 thoracic compression fracture. Compression fracture/Back pain/Chronic pain -PT/OT consulted -CM referral placed, likely needs placement -Pt given 25mcg fentanyl in ER at ~0530 on 10/09/19 -Has home tramadol and gabapentin, and acetaminophen ordered but further pain relief deferred to day team. Osteoporosis -Recommend continuing calcium vit D; outpatient management Afib -given lopressor in ER for rate control -Cont home meds (dilt,metoprolol) -Supratherapeutic INR of 4.1; holding metformin; recheck INR ordered for 10/10 HTN -dilt/metoprolol as above Hx TIA -Holding warfarin as above -Cont statin Depression -Cont paxil T2DM -On metformin at home; converted to ISS while inpatient Code: Full Dispo: admit obs to med tele DVTP: scd. holding chemoppx due to supratherapeutic INR (2) Back pain: (3) Chronic pain: (4) Mood disorder: (5) Hyperlipidemia: (6) Hypertension: (7) Diabetes mellitus, type II: (8) History of polymyalgia rheumatica: (9) Generalized osteoarthritis: (10) Atrial fibrillation: (11) History of TIA (transient ischemic attack): History of Present Illness Chief Complaint: Intractable back pain Primary Care Provider: Luis Daniel Hall MD Patient is a 68yo F PMH HTN, T2DM, HLD, PMR, afib, osteoporosis, osteoarthritis with chronic pain, TIA, depression presents 3 days after she was found to have an uncomplicated compression fracture in her thoracic spine with intractable back pain and failure to thrive in her home. Patient was discharged from the ER on 10.06.19 after "sliding" injury in tub resulted in T12 spinal fracture and was discharged with oxyIR for pain. She has been taking the oxy along with her chronic pain meds tramadol and gabapentin, and she states the medications help but not fully. reports that she has been unable to care for herself or get out of bed due to the pain, and that the oxycodone made her "out of her head" for a few hours after taking. She has been incontinent of urine in her bed due to not being able to get up to the bathroom. Has been experiencing what appears to be constipation with overflow diarrhea and "upset stomach" which patient states is now resolved. PDMP reviewed, consistent with chronic tramadol use and recent oxyIR script from ER. ER course: AF, HR elevated in 120s, VSS, Labs overall WNL aside from supratherapeutic INR of 4.1. No s/s of active bleeding. Abnormal UA with blood and trace leuks. CT abdomen and pelvis revealed known thoracic fracture. Patient given 1500cc IVF, 25mcg IV fentanyl, 5mg IV lopressor Allergies Allergy/AdvReac Type Severity Reaction Status Date / Time Sulfa (Sulfonamide Allergy Intermediate RASH Verified 10/09/19 01:25 Antibiotics) Home Medications Home Medications Medication Instructions Recorded Confirmed Type multivitamin 1 tab PO DAILY 08/25/18 10/09/19 History pumpkin seed extract-soy germ [Azo 300 mg PO TID 08/25/18 10/09/19 History Bladder Control] calcium carbonate 500 mg (1,250 1 tab PO HS tab 08/26/18 10/09/19 History mg)-vitamin D3 200 unit tablet acetaminophen 500 mg tablet 1,000 mg PO BID tab 07/20/19 10/09/19 History cholecalciferol (vitamin D3) 50 2,000 units PO DAILY 07/20/19 10/09/19 History mcg (2,000 unit) capsule metoprolol succinate ER 100 mg 100 mg PO Q12 #180 tab 07/20/19 10/09/19 Rx tablet,extended release 24 hr omeprazole 20 mg capsule,delayed 20 mg PO DAILY #90 cap 07/20/19 10/09/19 Rx release gabapentin 300 mg capsule 300 mg PO TID #90 cap 08/13/19 10/09/19 Rx paroxetine 40 mg tablet 40 mg PO DAILY #90 tab 08/16/19 10/09/19 Rx metformin 500 mg tablet 500 mg PO BIDM #90 tab 09/14/19 10/09/19 Rx diltiazem ER 120 mg 120 mg PO QPM #90 tab 10/01/19 10/09/19 Rx tablet,extended release 24 hr tramadol 50 mg tablet 100 mg PO TID PRN #180 tab 10/01/19 10/09/19 Rx atorvastatin 10 mg tablet 10 mg PO DAILY tab 10/06/19 10/09/19 History docusate sodium [Colace] 100 mg PO BID #60 cap 10/06/19 10/09/19 Rx oxycodone 5 mg PO Q6H PRN #14 tab 10/06/19 10/09/19 Rx sennosides [Senokot] 8.6 mg PO HS #30 tab 10/06/19 10/09/19 Rx warfarin 3 mg PO DAILY 10/09/19 10/09/19 History Past Med/Surg History Medical History Choledocholithiasis Chronic pain Closed fracture of tibia H/O: hysterectomy Herpes zoster Hyperplastic colon polyp Hypertension Osteoarthritis Seborrheic dermatitis Spinal stenosis Trochanteric bursitis Surgical History Hx of laparoscopic gastric banding Family History Other Diabetes Graves disease Uremia Social History Preferred Language: [place] Communication Ability: Effective 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 Beliefs That Will Affect Care: None marital status: Current Living Situation: Spouse Other Information That Helps Us Care for You: No Feels Safe at Home: Yes Safety Concerns: Feels Safe At This Time Smoking Status: Former smoker Hx Alcohol Use: Yes Hx Substance Use: No Review of Systems Review of Systems: All systems reviewed & are unremarkable except as noted in HPI & below Constitutional: + fatigue, + weakness and + anorexia Respiratory: no cough and no dyspnea Cardiovascular: no chest pain, no radiating jaw, neck or arm pain and no dyspnea at rest Gastrointestinal: + abdominal pain, + change in stools, + constipation and + diarrhea/loose stools Genitourinary: + urinary incontinence; no dysuria, no urinary frequency and no urinary hesitancy Musculoskeletal: + back pain Neurologic: + gait abnormality, + unsteadiness, + generalized weakness and + lack of coordination Physical Exam Constitutional: WD/WN, vitals as above + morbidly obese Eyes: PERRL, conjunctivae normal, anicteric sclerae ENMT: external ear and nose normal, oropharynx normal Neck: normal visual inspection Respiratory: normal respiratory effort, lungs clear to auscultation Cardiovascular: RRR, no murmur, no edema Gastrointestinal (Abdomen): normal bowel sounds, soft, nontender, no hepatosplenomegaly Musculoskeletal: no cyanosis or clubbing, extremities motor strength 5/5 Extremities: + limited ROM of extremities Skin: no rashes, warm and dry Neurologic: PERRL, EOMI, accommodation nl, no face palsy, no dysarthria Psychiatric: A+Ox3, euthymic affect Results & Data Vital Signs (Past 12 Hours) Vital Signs Temp Pulse Pulse Resp BP BP Pulse Ox 10/09/19 05:30 125 H 23 100/75 95 10/09/19 05:22 126 H 16 121/72 98 10/09/19 05:16 128 H 20 128/89 97 10/09/19 04:00 123 H 27 H 95/76 L 97 10/09/19 03:59 138 H 16 119/72 97 10/09/19 02:31 111 H 22 112/82 94 10/09/19 01:45 97.3 F L 110 H 24 136/100 96 Laboratory Results 10/09/19 10/09/19 10/09/19 Range/Units 03:05 02:21 02:21 WBC (4.8-10.8) K/uL RBC (4.2-5.4) M/uL Hgb (12.0-16.0) g/dL Hct (37-47) % MCV (80-100) fL MCH (25-34) pg MCHC (32-36) g/dL RDW Std Deviation (36.4-46.3) fL RDW Coeff of Dorita (11.5-14.5) % Plt Count (130-400) K/uL MPV (7.4-10.4) fL Immature Gran % (Auto) % Neut % (Auto) % Lymph % (Auto) % [place] % (Auto) % Eos % (Auto) % Baso % (Auto) % Immature Gran # (Auto) (0.00-0.02) K/uL Neut # (Auto) (1.4-6.5) K/uL Lymph # (Auto) (1.2-3.4) K/uL [place] # (Auto) (0.11-0.59) K/uL Eos # (Auto) (0-0.5) K/uL Baso # (Auto) (0-0.2) K/uL PT 38.2 H (9.0-12.0) Seconds INR 4.1 H (0.9-1.1) APTT 52.3 H* (21.0-31.0) Seconds PTT Ratio 1.9 Sodium 138 (136-145) mmol/L Potassium 4.2 (3.5-5.1) mmol/L Chloride 101 (98-107) mmol/L Carbon Dioxide 31 (21-32) mmol/L Anion Gap 6.0 (3-11) BUN 18 (7-18) mg/dl Creatinine 0.71 (0.6-1.2) mg/dl Est Cr Clr Drug Dosing 90.6 ml/min Est GFR ( Amer) 100.0 Est GFR (Non-Af Amer) 86.3 BUN/Creatinine Ratio 26.0 H (10-20) Glucose 121 H (70-99) mg/dl Calcium 9.5 (8.5-10.1) mg/dl Total Bilirubin 1.2 H (0.2-1) mg/dl AST 17 (15-37) U/L ALT 25 (12-78) U/L Alkaline Phosphatase 56 (45-117) U/L Total Creatine Kinase 118 (26-192) U/L Troponin I < 0.015 (0-0.045) ng/ml Total Protein 7.8 (6.4-8.2) gm/dl Albumin 3.2 L (3.4-5.0) gm/dl Globulin 4.6 H (2.5-4.0) gm/dl Albumin/Globulin Ratio 0.7 L (0.9-2) Urine Color Yellow Urine Appearance Clear (Clear) Urine pH 5.0 (4.5-7.5) Ur Specific [place] 1.018 (1.000-1.030) Urine Protein Negative (Negative) Urine Glucose (UA) Negative (Negative) Urine Ketones 2+ H (Negative) Urine Blood 2+ H (Negative) Urine Nitrite Negative (Negative) Urine Bilirubin Negative (Negative) Urine Urobilinogen Negative (Negative) Ur Leukocyte Esterase Trace H (Negative) Urine WBC (Auto) 1-5 (0-5) /hpf Urine RBC (Auto) >30 H (0-4) /hpf U Hyaline Cast (Auto) 1-5 (0-5) /lpf U Epithel Cells (Auto) >30 H (0-5) /lpf Urine Bacteria (Auto) Negative (Negative) 10/09/19 Range/Units 02:21 WBC 12.88 H (4.8-10.8) K/uL RBC 4.59 (4.2-5.4) M/uL Hgb 13.8 (12.0-16.0) g/dL Hct 41.2 (37-47) % MCV 89.8 (80-100) fL MCH 30.1 (25-34) pg MCHC 33.5 (32-36) g/dL RDW Std Deviation 45.9 (36.4-46.3) fL RDW Coeff of Dorita 13.9 (11.5-14.5) % Plt Count 270 (130-400) K/uL MPV 8.8 (7.4-10.4) fL Immature Gran % (Auto) 0.2 % Neut % (Auto) 82.6 % Lymph % (Auto) 8.2 % [place] % (Auto) 8.2 % Eos % (Auto) 0.6 % Baso % (Auto) 0.2 % Immature Gran # (Auto) 0.03 H (0.00-0.02) K/uL Neut # (Auto) 10.63 H (1.4-6.5) K/uL Lymph # (Auto) 1.05 L (1.2-3.4) K/uL [place] # (Auto) 1.06 H (0.11-0.59) K/uL Eos # (Auto) 0.08 (0-0.5) K/uL Baso # (Auto) 0.03 (0-0.2) K/uL PT (9.0-12.0) Seconds INR (0.9-1.1) APTT (21.0-31.0) Seconds PTT Ratio Sodium (136-145) mmol/L Potassium (3.5-5.1) mmol/L Chloride (98-107) mmol/L Carbon Dioxide (21-32) mmol/L Anion Gap (3-11) BUN (7-18) mg/dl Creatinine (0.6-1.2) mg/dl Est Cr Clr Drug Dosing ml/min Est GFR ( Amer) Est GFR (Non-Af Amer) BUN/Creatinine Ratio (10-20) Glucose (70-99) mg/dl Calcium (8.5-10.1) mg/dl Total Bilirubin (0.2-1) mg/dl AST (15-37) U/L ALT (12-78) U/L Alkaline Phosphatase (45-117) U/L Total Creatine Kinase (26-192) U/L Troponin I (0-0.045) ng/ml Total Protein (6.4-8.2) gm/dl Albumin (3.4-5.0) gm/dl Globulin (2.5-4.0) gm/dl Albumin/Globulin Ratio (0.9-2) Urine Color Urine Appearance (Clear) Urine pH (4.5-7.5) Ur Specific [place] (1.000-1.030) Urine Protein (Negative) Urine Glucose (UA) (Negative) Urine Ketones (Negative) Urine Blood (Negative) Urine Nitrite (Negative) Urine Bilirubin (Negative) Urine Urobilinogen (Negative) Ur Leukocyte Esterase (Negative) Urine WBC (Auto) (0-5) /hpf Urine RBC (Auto) (0-4) /hpf U Hyaline Cast (Auto) (0-5) /lpf U Epithel Cells (Auto) (0-5) /lpf Urine Bacteria (Auto) (Negative) Code Status & VTE Plan Code Status full VTE Prophylaxis Plan VTE Prophylaxis will be ordered: Yes Supervising Physician Co-Signing Physician Notes Patient was seen and examined by me personally. I reviewed the chart, the orders and discussed the case in detail with Dr. Chela Snyder MD . I read this H&P and agree with its contents to entirety. Resident Activity Tracking Resident Involvement: Resident Care Provided Care Provided: Adult Hospital Medicine (1) Diabetes mellitus, type II Diabetes mellitus complication status: without complication Diabetes mellitus fpc insulin use: without keno terminal operator use Qualified Code(s): E11.9 - Type 2 diabetes mellitus without complications (2) Back pain Back pain laterality: midline Back pain location: low back pain Chronicity: acute Sciatica presence: without sciatica Qualified Code(s): M54.5 - Low back pain (3) Atrial fibrillation Atrial fibrillation type: persistent Qualified Code(s): I48.1 - Persistent atrial fibrillation (4) Hyperlipidemia Hyperlipidemia type: unspecified Qualified Code(s): E78.5 - Hyperlipidemia, unspecified (5) Hypertension Hypertension type: essential hypertension Qualified Code(s): I10 - Essential (primary) hypertension
[2019-10-09] MEDS ORDERED: CARBOHYDRATES FOR HYPOGLYCEMIA PO PRN (06:36)
[2019-10-09] MEDS ORDERED: POLYETHYLENE (MIRALAX) 17 GM PACK PO PRN (06:36)
[2019-10-09] MEDS ORDERED: GLUCAGON FOR INJ 1 MG VIAL SQ PRN (06:36)
[2019-10-09] MEDS ORDERED: GLUCOSE 40% GEL 15 GM TUBE PO PRN (06:36)
[2019-10-09] MEDS ORDERED: ALUMINUM/MAGNESIUM SUSP 30 ML UDC PO PRN (06:36)
[2019-10-09] MEDS ORDERED: GLUCOSE 10 TABS/TUBE PO PRN (06:36)
[2019-10-09] MEDS ORDERED: DEXTROSE 50% 50 ML SYRINGE IV PRN (06:36)
[2019-10-09] MEDS ORDERED: MAGNESIUM HYDROXIDE SUSP 30 ML UDC PO PRN (06:36)
--- NOTE | 2019-10-09 06:53 | Billing Data ---
Coding Level of Care Code 18217 OBS Care - Level 2
--- NOTE | 2019-10-09 07:41 | CT Scan Report ---
CT abd pelvis IV con only CLINICAL HISTORY: Diffuse abdominal and back pain COMPARISON STUDY: October 2015 TECHNIQUE: The patient was scanned in a dynamic helical fashion during intravenous administration of 93 cc of Optiray 320 A dose lowering technique was utilized adhering to the principles of ALARA. CT DOSE: 1584.03 mGy.cm FINDINGS: Lower chest: There are mild dependent atelectatic changes. There is a gastric laparoscopic band prese nt. Liver: The contrast-enhanced liver is normal in size, contour, and attenuation. There is no intrahepa tic biliary ductal dilatation. The hepatic veins and portal veins are patent. Gallbladder: Cholelithiasis. Spleen: Normal in size and attenuation. Pancreas: Unremarkable. Adrenal glands: Unremarkable. Kidneys: There is symmetric renal cortical enhancement. The kidneys are normal in size without hydron ephrosis. Bowel: There are no transition zones indicate bowel obstruction. There is no acute diverticulitis. Th ere is no evidence of acute appendicitis. Peritoneum: There is no intraperitoneal free air or abdominal ascites. There is a small fat-containin g umbilical hernia Vasculature: The abdominal aorta is normal in course and caliber. Adenopathy: None. Pelvic viscera: The uterus appears surgically absent Skeletal structures: No destructive lesions are visualized. There is a grade 1 spinal listhesis of L5 and S1. There are T11 and T12 compression deformities, a finding similar to a prior CT scan of the l umbar spine performed 10/06/2019 IMPRESSION: 1. No evidence of bowel obstruction. No evidence of free air. 2. Gastric band device in place 3. Cholelithiasis. 4. No evidence of acute appendicitis. No evidence of acute diverticulitis. 5. T11 and T12 compression fractures. These are likely acute/subacute as evidence by mild paravertebr al edema Electronically signed by: Andres Grover M.D. 10/09/2019 7:40 AM
[2019-10-09] MEDS: ONDANSETRON INJ 2 MG/ML 2 ML VIAL IV PRN (08:14)
[2019-10-09] MEDS: DOCUSATE SODIUM 100 MG CAP PO SCH ×2 (09:02→20:09)
[2019-10-09] MEDS: PARoxetine HCl 20 MG TAB PO SCH (09:02)
[2019-10-09] MEDS: METOPROLOL SUCC 50MG EXT REL TAB PO SCH ×2 (09:02→20:10)
[2019-10-09] MEDS: ATORVASTATIN 10 MG TAB PO SCH (09:02)
[2019-10-09] MEDS: GABAPENTIN 300 MG CAP PO SCH ×3 (09:03→20:09)
[2019-10-09] MEDS: INSULIN GLARGINE SOLOSTAR 100 UNITS/ML 3 ML PEN SC SCH ×2 (09:04→21:16)
[2019-10-09] MEDS: INSULIN ASPART 100 UNITS/ML 3 ML PEN SC SCH ×4 (09:05→21:15)
[2019-10-09] MEDS: TRAMADOL HCL 50 MG TABLET PO PRN ×2 (09:09→17:34)
--- NOTE | 2019-10-09 15:53 | Hospitalist Progress Note ---
Date of Service October 09, 2019 Assessment & Plan (1) Compression fracture: Admit to [facility] on telemetry Vital signs every 4 hours Consult orthopedics for T11 and T12 compression fracture which is acute/subacute with mild paravertebral edema. Physical and Occupational Therapy Started calcitonin-salmon 1 spray per nostril daily/alternate no nostrils scheduled for compression fracture pain. Continue tramadol only as as needed 100 mg p.o. 3 times daily. Discontinue fentanyl patch 25 MCG's IV DVT prophylaxis: Hold warfarin 3 mg p.o. daily for afibs Continue supratherapeutic of 4.1. Monitor daily INR. Check for bruises, fecal occult blood, internal bleeding. Continue checking CBC daily. Patient is full code Present on Admission?: Yes (2) Back pain: As the above Present on Admission?: Yes (3) Chronic pain: As the above Present on Admission?: Yes (4) Mood disorder: Stable at this point, continue paroxetine 40 mg p.o. daily. Present on Admission?: Yes (5) Hyperlipidemia: Lipid panel pending, continue home dose of atorvastatin 10 mg p.o. daily Present on Admission?: Yes (6) Hypertension: Stable, continue metoprolol succinate 100 mg tablet extended release every 24 hours. Present on Admission?: Yes (7) Diabetes mellitus, type II: Pending A1c, the most recent A1c was in October 2018 6.1. Hold metformin while patient is in the hospital. Accu-Cheks before meals and at bedtime and sliding scale insulin as needed. Present on Admission?: Yes (8) History of polymyalgia rheumatica: It is not an flare. Continue tramadol 50 mg p.o. 3 times daily as needed and started calcitonin salmon 1 spray and a daily. Present on Admission?: Yes (9) Generalized osteoarthritis: As the above, because of chronic pain. Present on Admission?: Yes (10) Atrial fibrillation: Long-term atrial fibrillation persistent. Patient is on warfarin. Supratherapeutic at this point 4.1. Holding warfarin. Recheck INR daily and restart when INR less than 2.5. Present on Admission?: Yes (11) History of TIA (transient ischemic attack): See the management above. Present on Admission?: Yes Subjective Patient seen and examined at the bedside. Reports most multiple whole falls at home and now having uncomplicated compression fracture in her thoracic spine with intractable back pain. Patient is morbidly obese. Patient has several episodes of sliding injury in the tub resulted with T12 spinal fracture for which she takes OxyContin IR for pain. Along with that patient takes tramadol and gabapentin. Per her patient is unable to take care of herself at home. Patient is also incontinent for urine for not being able to get up and go to the bathroom. On occasion patient is severely constipated and I will have bowel movement for days. Patient is pleasant in person but very poor historian. She reports no pain whatsoever today patient reports being able to take a deep breath without any pleurisy pain. Patient stated that she would like to have catheter replaced or Urovac so she does not get wet. Patient denies fever, chills, chest pain, shortness of breath, abdominal pain, frequency, urgency, melena, hematuria, dysuria. Review of Systems Review of Systems: All systems reviewed & are unremarkable except as noted in HPI & below Physical Exam Constitutional: WD/WN, vitals as above well developed and + morbidly obese Eyes: PERRL, conjunctivae normal, anicteric sclerae ENMT: external ear and nose normal, oropharynx normal Neck: trachea midline, no thyromegaly Respiratory: normal respiratory effort, lungs clear to auscultation Cardiovascular: Rate/Rhythm: + irregularly irregular Heart Sounds: normal S1, normal S2 and + murmur Vessels: dorsalis pedis pulses present Gastrointestinal (Abdomen): normal bowel sounds, soft, nontender, no hepatosplenomegaly Musculoskeletal: no cyanosis or clubbing, extremities motor strength 5/5 Skin: Typical bruises all over patient body. Small in size. Neurologic: patellar DTR's 2+ bilat, sensation intact Psychiatric: Orientation: alert, oriented x 3 and cooperative Mood: + dysphoric mood Insight: + limited insight Genitourinary: Incontinent for urine Lymphatic: no cervical or axillary lymphadenopathy Results & Data Vital Signs (Past 12 Hours) Vital Signs Temp Pulse Pulse Resp BP BP BP 10/09/19 12:00 37.3 C 115 H 20 110/77 10/09/19 06:30 37.2 C 115 H 18 133/86 10/09/19 06:00 114 H 18 126/86 10/09/19 05:53 128 H 22 10/09/19 05:50 118 H 118/85 10/09/19 05:45 122 H 21 118/85 10/09/19 05:30 125 H 23 100/75 10/09/19 05:22 126 H 16 121/72 10/09/19 05:16 128 H 20 128/89 10/09/19 04:00 123 H 27 H 95/76 L 10/09/19 03:59 138 H 16 119/72 Pulse Ox 10/09/19 12:00 9 L 10/09/19 06:30 91 10/09/19 06:00 96 10/09/19 05:53 96 10/09/19 05:50 10/09/19 05:45 95 10/09/19 05:30 95 10/09/19 05:22 98 10/09/19 05:16 97 10/09/19 04:00 97 10/09/19 03:59 97 PG Care Time/CCT Total # of Minutes Spent Total Time Spent with Patient: Total time spent is greater than 50% in coordination of care (as documented) at patient's floor/unit and/or counseling patient: (1) Hyperlipidemia Hyperlipidemia type: unspecified Qualified Code(s): E78.5 - Hyperlipidemia, unspecified (2) Hypertension Hypertension type: essential hypertension Qualified Code(s): I10 - Essential (primary) hypertension (3) Diabetes mellitus, type II Diabetes mellitus penitentiary insulin use: without penitentiary use Diabetes mellitus complication status: without complication Qualified Code(s): E11.9 - Type 2 diabetes mellitus without complications
[2019-10-09] MEDS: CALCITONIN SALMON NA 200 IU/AC 3.7 ML BTL SCH (18:11)
[2019-10-09] MEDS: dilTIAZem HCL 120 MG CAPCR PO SCH (20:10)
[2019-10-09] MEDS: SENNA 8.6 MG TAB PO SCH (20:11)
[2019-10-09] MEDS ORDERED: INFLUENZA ADMINISTRATION CHARGE ONE (21:45)
[2019-10-09] MEDS ORDERED: PNEUMOCOCCAL ADMINISTRATION CHARGE ONE (21:45)
[2019-10-09] MEDS ORDERED: INFLUENZA VACCINE HIGH DOSE 65+ 0.5 ML SYR IM ONE (21:45)
[2019-10-09] MEDS ORDERED: PNEUMOCOCCAL POLYSACCHARIDES 25 MCG/0.5 ML VIAL/SYR IM ONE (21:45)
[2019-10-10 06:36] LABS: Basophils # (auto) 0.03 K/uL (0-0.2); Basophils % (auto) 0.3 %; Eosinophils # (auto) 0.18 K/uL (0-0.5); Eosinophils % (auto) 1.9 %; Hematocrit (blood only) 38.5 % (37-47); Hemoglobin 12.3 g/dL (12.0-16.0); Immature Granulocytes # (auto) 0.03 K/uL (0.00-0.02); Immature Granulocytes % (auto) 0.3 %; Lymphocytes # (auto) 1.87 K/uL (1.2-3.4); Lymphocytes % (auto) 19.9 %; Mean Corpuscular Hemoglobin 29.2 pg (25-34); Mean Corpuscular Hgb Conc 31.9 g/dL (32-36); Mean Corpuscular Volume 91.4 fL (80-100); Mean Platelet Volume 9.2 fL (7.4-10.4); Monocytes # (auto) 0.96 K/uL (0.11-0.59); Monocytes % (auto) 10.2 %; Neutrophils # (auto) 6.33 K/uL (1.4-6.5); Neutrophils % (auto) 67.4 %; Platelet Count 271 K/uL (130-400); RDW Coefficient of Variation 14.5 % (11.5-14.5); RDW Standard Deviation 48.7 fL (36.4-46.3); Red Blood Count 4.21 M/uL (4.2-5.4)
[2019-10-10 06:44] LABS: Prothrombin Time 28.6 Seconds (9.0-12.0)
[2019-10-10 07:08] LABS: BUN Creatinine Ratio 25.3 (10-20); Calcium 9.1 mg/dl (8.5-10.1); Creatinine Clr Calc Pharmacy 89.6 ml/min; Est GFR (African American) 101.7; Est GFR (Non-African American) 87.8; Potassium 3.9 mmol/L (3.5-5.1)
[2019-10-10] MEDS: METOPROLOL SUCC 50MG EXT REL TAB PO SCH ×2 (08:34→20:08)
[2019-10-10] MEDS: ATORVASTATIN 10 MG TAB PO SCH (08:34)
[2019-10-10] MEDS: DOCUSATE SODIUM 100 MG CAP PO SCH ×2 (08:34→20:09)
[2019-10-10] MEDS: GABAPENTIN 300 MG CAP PO SCH ×3 (08:34→20:09)
[2019-10-10] MEDS: PARoxetine HCl 20 MG TAB PO SCH (08:35)
[2019-10-10] MEDS: CALCITONIN SALMON NA 200 IU/AC 3.7 ML BTL SCH (08:35)
[2019-10-10] MEDS: INSULIN GLARGINE SOLOSTAR 100 UNITS/ML 3 ML PEN SC SCH ×2 (08:35→20:18)
[2019-10-10] MEDS: INSULIN ASPART 100 UNITS/ML 3 ML PEN SC SCH ×4 (08:36→20:17)
[2019-10-10] MEDS: TRAMADOL HCL 50 MG TABLET PO PRN ×2 (08:41→17:05)
--- NOTE | 2019-10-10 08:42 | Consultation ---
Date of Consultation October 10, 2019 Assessment & Plan (1) Compression fracture: Patient has acute T11 and T12 compression fracture status post fall. We have elected to continue with conservative treatment in light of her multiple medical comorbidities. Activity as tolerated. Would recommend walker when ambulating. Continue with pain control. May start physical therapy when pain is under control. We have discussed bracing, but due to her body habitus and this being quite cumbersome we have elected to forego this. No lifting over 5 pounds. She may follow-up in the office in roughly 2 weeks for updated x-rays. [phone]. Thank you for this consult Supervising Physician Co-Signing Physician Notes Dr. Luis Whitney History of Present Illness This is a pleasant 68-year-old female that we are asked to see in consultation regarding acute/subacute thoracic compression fractures. Patient reports a fall out of a tub a few days ago. Denies loss of consciousness. Reports her helped her get out of the tub. She was in the ER both on October 06 and then October 09 with subsequent admission for back pain. This morning she rates her back pain to be a 5 out of 10. At home she states she ambulates with a cane. She is been doing well with ambulating with a walker while in the hospital. She denies radicular leg pain. Attending Physician: Ishan Carbajal DO Allergies Allergy/AdvReac Type Severity Reaction Status Date / Time Sulfa (Sulfonamide Allergy Intermediate RASH Verified 10/09/19 01:25 Antibiotics) Home Medications Home Medications Medication Instructions Recorded Confirmed Type multivitamin 1 tab PO DAILY 08/25/18 10/09/19 History pumpkin seed extract-soy germ [Azo 300 mg PO TID 08/25/18 10/09/19 History Bladder Control] calcium carbonate 500 mg (1,250 1 tab PO HS tab 08/26/18 10/09/19 History mg)-vitamin D3 200 unit tablet acetaminophen 500 mg tablet 1,000 mg PO BID tab 07/20/19 10/09/19 History cholecalciferol (vitamin D3) 50 2,000 units PO DAILY 07/20/19 10/09/19 History mcg (2,000 unit) capsule metoprolol succinate ER 100 mg 100 mg PO Q12 #180 tab 07/20/19 10/09/19 Rx tablet,extended release 24 hr omeprazole 20 mg capsule,delayed 20 mg PO DAILY #90 cap 07/20/19 10/09/19 Rx release gabapentin 300 mg capsule 300 mg PO TID #90 cap 08/13/19 10/09/19 Rx paroxetine 40 mg tablet 40 mg PO DAILY #90 tab 08/16/19 10/09/19 Rx metformin 500 mg tablet 500 mg PO BIDM #90 tab 09/14/19 10/09/19 Rx diltiazem ER 120 mg 120 mg PO QPM #90 tab 10/01/19 10/09/19 Rx tablet,extended release 24 hr tramadol 50 mg tablet 100 mg PO TID PRN #180 tab 10/01/19 10/09/19 Rx atorvastatin 10 mg tablet 10 mg PO DAILY tab 10/06/19 10/09/19 History docusate sodium [Colace] 100 mg PO BID #60 cap 10/06/19 10/09/19 Rx oxycodone 5 mg PO Q6H PRN #14 tab 10/06/19 10/09/19 Rx sennosides [Senokot] 8.6 mg PO HS #30 tab 10/06/19 10/09/19 Rx warfarin 3 mg PO DAILY 10/09/19 10/09/19 History Patient History Medical History Choledocholithiasis Chronic pain Closed fracture of tibia H/O: hysterectomy Herpes zoster Hyperplastic colon polyp Hypertension Osteoarthritis Seborrheic dermatitis Spinal stenosis Trochanteric bursitis Surgical History Hx of laparoscopic gastric banding Family History Other Diabetes Graves disease Uremia Social History Preferred Language: Portuguese Communication Ability: Effective 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 Alert and oriented x3. No obvious distress. Cooperative with exam. She is able to lean forward so I may examine her thoracolumbar spine. She is tender to patient midline throughout the thoracolumbar spine. No lacerations noted. Strength is 5/ 5 bilateral EHL, dorsiflexion, plantarflexion, quadriceps, hamstrings. Negative logrolling bilateral lower extremities. Calves soft nontender bilateral lower extremity's. Constitutional: WD/WN, vitals as above well developed Eyes: normal visual fernandes by confrontation ENMT: external ear and nose normal, oropharynx normal Neck: normal visual inspection Respiratory: normal respiratory effort Cardiovascular: Vessels: dorsalis pedis pulses present Extremities: normal capillary refill Gastrointestinal (Abdomen): Inspection/Auscultation: abdomen normal to inspection Musculoskeletal: Extremities: strength 5/5 throughout Skin: no rashes, warm and dry Neurologic: patellar DTR's 2+ bilat, sensation intact moves all extremities Psychiatric: A+Ox3, euthymic affect Results & Data Vital Signs (Past 12 Hours) Vital Signs Temp Pulse Resp BP Pulse Ox 10/10/19 07:00 36.7 C 80 20 101/72 92 10/09/19 23:36 37.0 C 102 H 20 101/67 93 Diagnostic Findings [phone] CT Scan Report Patient: DAMI AMEZQUITA Date: 10/06/19 MR#: [id number]: [address] [facility] Acct ID:[id number]: Date: 1950[facility] Zip: [place] [address] Age: 68Location: ED Sex: F Room/Bed: Att Phy:Diagnosis: LT SIDED FLANK PAIN Esperanza Phy: Luis Daniel Hall MDService Date: 10/06/19 Fam Phy:Interpreting Phy: Yuan Somers Admit Phy: Ordering Phy: Jeanmarie Ruelas MD cc: ~ CT lumbar spine wo con HISTORY: 68 years-old Female Pt c/o low back pain acute low back pain without known injury COMPARISON: MR lumbar spine 06/28/2016 TECHNIQUE: Multiple axial CT images of the lumbar spine were obtained without the use of IV contrast. A dose lowering technique was used consistent with the principals of ALARA. FINDINGS: Demineralized appearance the bones. Mild convex left curvature of the lumbar spine. Moderate degenerative changes of the SI joints. The imaged sacrum and iliac bones appear intact. The imaged ribs also appear intact. No acute fracture or subluxation identified. 10 mm anterolisthesis L5 on S1 has mildly progressed from prior study, previously measuring 8 mm. This appears to be secondary to severe facet arthrosis at this interspace. There is severe multilevel facet arthrosis with advanced disc space narrowing, spondylitic spurring and posterior disc osteophyte complex formation. Age-indeterminate 20% anterior endplate compression deformity of T11 with mild superior endplate compression of less than 20% at T12, both of which are new from comparison. Mild paravertebral edema at T12. No acute fracture of the lumbar spine identified. Evaluation of the central canal and neuroforamina is better assessed by MRI. Multilevel foraminal narrowing is noted. Moderate central canal stenosis at L3-L4. At least moderate central canal stenosis at L5-S1. Calcified plaque the abdominal aorta. Partially imaged device is noted adjacent to the proximal stomach. Paraspinal tissues are unremarkable. IMPRESSION: 1. Age-indeterminate compression deformities at T11 and T12, both of which are new from 10/06/2019. Mild paravertebral edema surrounding the T12 vertebral level is suspicious for acute fracture without retropulsion. Correlate clinically. 2. No acute fracture or subluxation of the lumbar spine. 3. Generalized appearance of the bones with advanced multilevel degenerative changes as above. 4. Progressive anterolisthesis at L5-S1 likely secondary to long-standing facet arthrosis. 5. Lumbar levoscoliosis. The above report was generated using voice recognition software. It may contain grammatical, syntax or spelling errors. Electronically signed by: Solis Somers M.D. 10/06/2019 3:19 PM [phone] CT Scan Report Patient: DAMI AMEZQUITA Date: 10/09/19 MR#: [id number]: [address] [facility] [place] Acct ID:[id number]: Date: 1950[place] [address] Age: 68Location: 2N Sex: F Room/Bed: N280-2 Att Phy: Ishan Carbajal, DODiagnosis: THORACIC COMPRESSION FRACUTRE,INTRACTABLE PAIN Esperanza Phy: Luis Daniel Hall, MDService Date: 10/09/19 Fam Phy:Interpreting Phy: Andres Grover MD Admit Phy: Chela Snyder MD Ordering Phy: Rick Flores PA-C cc: ~ CT abd pelvis IV con only CLINICAL HISTORY: Diffuse abdominal and back pain COMPARISON STUDY: October 2015 TECHNIQUE: The patient was scanned in a dynamic helical fashion during intravenous administration of 93 cc of Optiray 320 A dose lowering technique was utilized adhering to the principles of ALARA. CT DOSE: 1584.03 mGy.cm FINDINGS: Lower chest: There are mild dependent atelectatic changes. There is a gastric laparoscopic band present. Liver: The contrast-enhanced liver is normal in size, contour, and attenuation. There is no intrahepatic biliary ductal dilatation. The hepatic veins and portal veins are patent. Gallbladder: Cholelithiasis. Spleen: Normal in size and attenuation. Pancreas: Unremarkable. Adrenal glands: Unremarkable. Kidneys: There is symmetric renal cortical enhancement. The kidneys are normal in size without hydronephrosis. Bowel: There are no transition zones indicate bowel obstruction. There is no acute diverticulitis. There is no evidence of acute appendicitis. Peritoneum: There is no intraperitoneal free air or abdominal ascites. There is a small fat-containing umbilical hernia Vasculature: The abdominal aorta is normal in course and caliber. Adenopathy: None. Pelvic viscera: The uterus appears surgically absent Skeletal structures: No destructive lesions are visualized. There is a grade 1 spinal listhesis of L5 and S1. There are T11 and T12 compression deformities, a finding similar to a prior CT scan of the lumbar spine performed 10/06/2019 IMPRESSION: 1. No evidence of bowel obstruction. No evidence of free air. 2. Gastric band device in place 3. Cholelithiasis. 4. No evidence of acute appendicitis. No evidence of acute diverticulitis. 5. T11 and T12 compression fractures. These are likely acute/subacute as evidence by mild paravertebral edema Electronically signed by: Andres Grover M.D. 10/09/2019 7:40 AM Dictated: 10/09/19 0733
--- NOTE | 2019-10-10 09:25 | Hospitalist Progress Note ---
Date of Service October 10, 2019 Assessment & Plan (1) Compression fracture: Continue admit to [facility] on telemetry Vital signs every 4 hours Consult orthopedics for T11 and T12 compression fracture which is acute/subacute with mild paravertebral edema. Recommendation is to continue conservative treatment in light of her multiple medical comorbidities. They recommended activity as tolerated. Orthopedics also recommended walker when ambulating, pain control. No lifting over 5 pounds. They will follow-up with her in 2 weeks for updated x-rays. Physical and Occupational Therapy Continue calcitonin-salmon 1 spray per nostril daily/alternate no nostrils scheduled for compression fracture pain. Appears that that helps. Continue tramadol only as as needed 100 mg p.o. 3 times daily. Discontinue fentanyl patch 25 MCG's IV DVT prophylaxis: Hold warfarin 3 mg p.o. daily for afibs INR was supratherapeutic of 4.1 yesterday. today 3. Monitor daily INR. Check for bruises, fecal occult blood, internal bleeding. Consider restarting warfarin tomorrow if INR between 2 and 3. Continue checking CBC daily. Patient is full code (2) Back pain: As the above (3) Chronic pain: As the above (4) Mood disorder: Stable at this point, continue paroxetine 40 mg p.o. daily. (5) Hyperlipidemia: Lipid panel: Total cholesterol 146 normal, LDL 92 high for patient comorbidities, HDL low 36. We will increase continue home dose of atorvastatin 10 mg p.o. daily to 20 mg p.o. daily. (6) Hypertension: Stable, continue metoprolol succinate 100 mg tablet extended release every 24 hours. (7) Diabetes mellitus, type II: Pending A1c, the most recent A1c was in October 2018 6.1. Hold metformin while patient is in the hospital. Accu-Cheks before meals and at bedtime and sliding scale insulin as needed. (8) History of polymyalgia rheumatica: It is not an flare. Continue tramadol 50 mg p.o. 3 times daily as needed and started calcitonin salmon 1 spray and a daily. (9) Generalized osteoarthritis: As the above, because of chronic pain. (10) Atrial fibrillation: Long-term atrial fibrillation persistent. Patient is on warfarin. Supratherapeutic at this point 4.1-->3. Holding warfarin. Recheck INR daily and restart when INR between 2-3. (11) History of TIA (transient ischemic attack): See the management above. Subjective Patient seen and examined at the bedside. Patient reports no back pain today. She is resting comfortably in the bed. Patient is afebrile. Patient denies fever, chills, chest pain, shortness of breath, abdominal pain, frequency, urgency, melena, hematuria, dysuria. Review of Systems Review of Systems: All systems reviewed & are unremarkable except as noted in HPI & below Physical Exam Constitutional: WD/WN, vitals as above well developed and + morbidly obese Eyes: PERRL, conjunctivae normal, anicteric sclerae ENMT: external ear and nose normal, oropharynx normal Neck: trachea midline, no thyromegaly Respiratory: normal respiratory effort, lungs clear to auscultation Cardiovascular: Rate/Rhythm: + irregularly irregular Heart Sounds: normal S1, normal S2 and + murmur Vessels: dorsalis pedis pulses present Gastrointestinal (Abdomen): normal bowel sounds, soft, nontender, no hepatosplenomegaly Musculoskeletal: no cyanosis or clubbing, extremities motor strength 5/5 Neurologic: patellar DTR's 2+ bilat, sensation intact Psychiatric: Orientation: alert, oriented x 3 and cooperative Mood: + dysphoric mood Insight: + limited insight Lymphatic: no cervical or axillary lymphadenopathy Results & Data Vital Signs (Past 12 Hours) Vital Signs Temp Pulse Resp BP Pulse Ox 10/10/19 07:00 36.7 C 80 20 101/72 92 10/09/19 23:36 37.0 C 102 H 20 101/67 93 PG Care Time/CCT Total # of Minutes Spent Total Time Spent with Patient: Total time spent is greater than 50% in coordination of care (as documented) at patient's floor/unit and/or counseling patient: (1) Diabetes mellitus, type II Diabetes mellitus complication status: without complication Diabetes mellitus usp insulin use: without intermodal truck driver use Qualified Code(s): E11.9 - Type 2 diabetes mellitus without complications (2) Hyperlipidemia Hyperlipidemia type: unspecified Qualified Code(s): E78.5 - Hyperlipidemia, unspecified (3) Hypertension Hypertension type: essential hypertension Qualified Code(s): I10 - Essential (primary) hypertension
[2019-10-10] MEDS: ACETAMINOPHEN 325 MG TAB PO PRN ×2 (14:22→23:36)
[2019-10-10] MEDS: SENNA 8.6 MG TAB PO SCH (20:08)
[2019-10-10] MEDS: dilTIAZem HCL 120 MG CAPCR PO SCH (20:09)
[2019-10-11 05:36] LABS: Basophils # (auto) 0.03 K/uL (0-0.2); Basophils % (auto) 0.3 %; Hematocrit (blood only) 37.6 % (37-47); Hemoglobin 12.2 g/dL (12.0-16.0); Immature Granulocytes # (auto) 0.02 K/uL (0.00-0.02); Immature Granulocytes % (auto) 0.2 %; Lymphocytes # (auto) 2.18 K/uL (1.2-3.4); Lymphocytes % (auto) 21.8 %; Mean Corpuscular Hemoglobin 29.7 pg (25-34); Mean Corpuscular Hgb Conc 32.4 g/dL (32-36); Mean Corpuscular Volume 91.5 fL (80-100); Mean Platelet Volume 8.9 fL (7.4-10.4); Monocytes # (auto) 1.25 K/uL (0.11-0.59); Monocytes % (auto) 12.5 %; Neutrophils % (auto) 63.2 %; Platelet Count 264 K/uL (130-400); RDW Coefficient of Variation 14.4 % (11.5-14.5); RDW Standard Deviation 48.6 fL (36.4-46.3); Red Blood Count 4.11 M/uL (4.2-5.4); White Blood Count 9.98 K/uL (4.8-10.8)
[2019-10-11 06:47] LABS: Albumin Level 2.6 gm/dl (3.4-5.0); BUN Creatinine Ratio 27.8 (10-20); Calcium 8.9 mg/dl (8.5-10.1); Creatinine Clr Calc Pharmacy 89.2 ml/min; Est GFR (African American) 98.3; Est GFR (Non-African American) 84.9; Potassium 3.7 mmol/L (3.5-5.1)
[2019-10-11 06:49] LABS: Albumin Globulin Ratio 0.6 (0.9-2); Bilirubin,Total 0.7 mg/dl (0.2-1); Globulin 4.6 gm/dl (2.5-4.0); Total Protein 7.2 gm/dl (6.4-8.2)
[2019-10-11 07:29] LABS: Estimated Average Glucose 128 mg/dl; Hemoglobin A1C 6.1 % (4.5-5.6)
[2019-10-11] MEDS: METOPROLOL SUCC 50MG EXT REL TAB PO SCH ×2 (08:06→20:57)
[2019-10-11] MEDS: CALCITONIN SALMON NA 200 IU/AC 3.7 ML BTL SCH (08:06)
[2019-10-11] MEDS: GABAPENTIN 300 MG CAP PO SCH ×3 (08:06→20:59)
[2019-10-11] MEDS: PARoxetine HCl 20 MG TAB PO SCH (08:07)
[2019-10-11] MEDS: ATORVASTATIN 20 MG TAB PO SCH (08:07)
[2019-10-11] MEDS: INSULIN GLARGINE SOLOSTAR 100 UNITS/ML 3 ML PEN SC SCH ×2 (08:07→21:00)
[2019-10-11] MEDS: INSULIN ASPART 100 UNITS/ML 3 ML PEN SC SCH ×4 (08:09→20:58)
[2019-10-11] MEDS: DOCUSATE SODIUM 100 MG CAP PO SCH ×2 (08:11→20:57)
[2019-10-11] MEDS: TRAMADOL HCL 50 MG TABLET PO PRN ×2 (13:36→21:08)
--- NOTE | 2019-10-11 13:48 | Hospitalist Progress Note ---
Date of Service October 11, 2019 Assessment & Plan (1) Compression fracture: 68yo F PMH HTN, HLD, T2DM, PMR, chronic pain 2/2 OA, Osteoporosis, Afib presents with intractable back pain 2/2 thoracic compression fracture. Compression fracture/Back pain/Chronic pain -PT/OT consulted -CM referral placed, likely needs placement -Pt given 25mcg fentanyl in ER at ~0530 on 10/09/19 -Has home tramadol and gabapentin, and acetaminophen ordered but further pain relief deferred to day team. Osteoporosis -Recommend continuing calcium vit D; outpatient management Afib -given lopressor in ER for rate control -Cont home meds (dilt,metoprolol) -Supratherapeutic INR of 4.1; holding metformin; recheck INR ordered for 10/10 HTN -dilt/metoprolol as above Hx TIA -Holding warfarin as above -Cont statin Depression -Cont paxil T2DM -On metformin at home; converted to ISS while inpatient Code: Full Dispo: admit obs to med tele DVTP: scd. holding chemoppx due to supratherapeutic INR (2) Back pain: (3) Chronic pain: (4) Mood disorder: (5) Hyperlipidemia: (6) Hypertension: (7) Diabetes mellitus, type II: (8) History of polymyalgia rheumatica: (9) Generalized osteoarthritis: (10) Atrial fibrillation: (11) History of TIA (transient ischemic attack): Supervising Physician Co-Signing Physician Notes I personally examined the patient and verified all lazar points of history and exam, discussed case, and agree with decision making with Dr Herbert. pain under reasonable control. awaiting approval for rehab. no other new complaints vitals noted nad heent nc at mmm breathing unlabored no accessory muscles good effort no rashes no pallor or icterus no focal neuro deficits presumed osteoporotic compression fracture/intractable pain -doing better/under better control -further osteoporosis management as outpt (D level if one not done recently, likely start a bisphosphonate in a month once she's had a chance to have early healing) -continue micalcin nasal for now -PT/OT eval and treat -anticipate rehab once able to be arranged otherwise as above Subjective Pt continues to have low back pain with movement; feels like her pain is better controlled overall at this time Review of Systems Gastrointestinal: no nausea, no vomiting and no fecal incontinence Genitourinary: no urinary incontinence Physical Exam Constitutional: WD/WN, vitals as above Respiratory: normal respiratory effort, lungs clear to auscultation Cardiovascular: RRR, no murmur, no edema Musculoskeletal: Spine: + limited thoraco-lumbar ROM (secondary to pain) Extremities: extremities normal to inspection and strength 5/5 throughout Results & Data Vital Signs (Past 12 Hours) Vital Signs Temp Pulse Pulse Resp BP BP Pulse Ox 10/11/19 07:25 81 10/11/19 07:19 36.6 C 71 20 118/79 95 10/11/19 04:01 36.6 C 91 H 20 127/84 93 Laboratory Results 10/11/19 10/11/19 10/11/19 Range/Units 11:00 07:32 05:15 WBC (4.8-10.8) K/uL RBC (4.2-5.4) M/uL Hgb (12.0-16.0) g/dL Hct (37-47) % MCV (80-100) fL MCH (25-34) pg MCHC (32-36) g/dL RDW Std Deviation (36.4-46.3) fL RDW Coeff of Dorita (11.5-14.5) % Plt Count (130-400) K/uL MPV (7.4-10.4) fL Immature Gran % (Auto) % Neut % (Auto) % Lymph % (Auto) % [place] % (Auto) % Eos % (Auto) % Baso % (Auto) % Immature Gran # (Auto) (0.00-0.02) K/uL Neut # (Auto) (1.4-6.5) K/uL Lymph # (Auto) (1.2-3.4) K/uL [place] # (Auto) (0.11-0.59) K/uL Eos # (Auto) (0-0.5) K/uL Baso # (Auto) (0-0.2) K/uL Sodium 139 (136-145) mmol/L Potassium 3.7 (3.5-5.1) mmol/L Chloride 103 (98-107) mmol/L Carbon Dioxide 30 (21-32) mmol/L Anion Gap 6.0 (3-11) BUN 20 H (7-18) mg/dl Creatinine 0.72 (0.6-1.2) mg/dl Est Cr Clr Drug Dosing 89.2 ml/min Est GFR ( Amer) 98.3 Est GFR (Non-Af Amer) 84.9 BUN/Creatinine Ratio 27.8 H (10-20) Glucose 86 (70-99) mg/dl POC Glucose 125 H 88 (70-99) Estimat Average Glucose mg/dl Hemoglobin A1c (4.5-5.6) % Calcium 8.9 (8.5-10.1) mg/dl Total Bilirubin 0.7 (0.2-1) mg/dl AST 11 L (15-37) U/L ALT 19 (12-78) U/L Alkaline Phosphatase 52 (45-117) U/L Total Protein 7.2 (6.4-8.2) gm/dl Albumin 2.6 L (3.4-5.0) gm/dl Globulin 4.6 H (2.5-4.0) gm/dl Albumin/Globulin Ratio 0.6 L (0.9-2) 10/11/19 10/10/19 10/10/19 Range/Units 05:15 20:08 17:00 WBC 9.98 (4.8-10.8) K/uL RBC 4.11 L (4.2-5.4) M/uL Hgb 12.2 (12.0-16.0) g/dL Hct 37.6 (37-47) % MCV 91.5 (80-100) fL MCH 29.7 (25-34) pg MCHC 32.4 (32-36) g/dL RDW Std Deviation 48.6 H (36.4-46.3) fL RDW Coeff of Dorita 14.4 (11.5-14.5) % Plt Count 264 (130-400) K/uL MPV 8.9 (7.4-10.4) fL Immature Gran % (Auto) 0.2 % Neut % (Auto) 63.2 % Lymph % (Auto) 21.8 % [place] % (Auto) 12.5 % Eos % (Auto) 2.0 % Baso % (Auto) 0.3 % Immature Gran # (Auto) 0.02 (0.00-0.02) K/uL Neut # (Auto) 6.30 (1.4-6.5) K/uL Lymph # (Auto) 2.18 (1.2-3.4) K/uL [place] # (Auto) 1.25 H (0.11-0.59) K/uL Eos # (Auto) 0.20 (0-0.5) K/uL Baso # (Auto) 0.03 (0-0.2) K/uL Sodium (136-145) mmol/L Potassium (3.5-5.1) mmol/L Chloride (98-107) mmol/L Carbon Dioxide (21-32) mmol/L Anion Gap (3-11) BUN (7-18) mg/dl Creatinine (0.6-1.2) mg/dl Est Cr Clr Drug Dosing ml/min Est GFR ( Amer) Est GFR (Non-Af Amer) BUN/Creatinine Ratio (10-20) Glucose (70-99) mg/dl POC Glucose 148 H 116 H (70-99) Estimat Average Glucose mg/dl Hemoglobin A1c (4.5-5.6) % Calcium (8.5-10.1) mg/dl Total Bilirubin (0.2-1) mg/dl AST (15-37) U/L ALT (12-78) U/L Alkaline Phosphatase (45-117) U/L Total Protein (6.4-8.2) gm/dl Albumin (3.4-5.0) gm/dl Globulin (2.5-4.0) gm/dl Albumin/Globulin Ratio (0.9-2) 10/10/19 Range/Units 06:05 WBC (4.8-10.8) K/uL RBC (4.2-5.4) M/uL Hgb (12.0-16.0) g/dL Hct (37-47) % MCV (80-100) fL MCH (25-34) pg MCHC (32-36) g/dL RDW Std Deviation (36.4-46.3) fL RDW Coeff of Dorita (11.5-14.5) % Plt Count (130-400) K/uL MPV (7.4-10.4) fL Immature Gran % (Auto) % Neut % (Auto) % Lymph % (Auto) % [place] % (Auto) % Eos % (Auto) % Baso % (Auto) % Immature Gran # (Auto) (0.00-0.02) K/uL Neut # (Auto) (1.4-6.5) K/uL Lymph # (Auto) (1.2-3.4) K/uL [place] # (Auto) (0.11-0.59) K/uL Eos # (Auto) (0-0.5) K/uL Baso # (Auto) (0-0.2) K/uL Sodium (136-145) mmol/L Potassium (3.5-5.1) mmol/L Chloride (98-107) mmol/L Carbon Dioxide (21-32) mmol/L Anion Gap (3-11) BUN (7-18) mg/dl Creatinine (0.6-1.2) mg/dl Est Cr Clr Drug Dosing ml/min Est GFR ( Amer) Est GFR (Non-Af Amer) BUN/Creatinine Ratio (10-20) Glucose (70-99) mg/dl POC Glucose (70-99) Estimat Average Glucose 128 mg/dl Hemoglobin A1c 6.1 H (4.5-5.6) % Calcium (8.5-10.1) mg/dl Total Bilirubin (0.2-1) mg/dl AST (15-37) U/L ALT (12-78) U/L Alkaline Phosphatase (45-117) U/L Total Protein (6.4-8.2) gm/dl Albumin (3.4-5.0) gm/dl Globulin (2.5-4.0) gm/dl Albumin/Globulin Ratio (0.9-2) Medications Administered Current Inpatient Medications Acetaminophen (Tylenol) 650 mg PO Q4H PRN PRN Reason: pain/fever Stop: 11/08/19 06:35 Last Admin: 10/10/19 23:36 Dose: 650 mg Documented by: Al Hydrox/Mg Hydrox/Simethicone (Maalox) 30 ml PO Q6H PRN PRN Reason: Dyspepsia Stop: 11/08/19 06:35 Atorvastatin Calcium (Lipitor) 20 mg PO DAILY [facility] Stop: 11/10/19 08:59 Last Admin: 10/11/19 08:07 Dose: 20 mg Documented by: Calcitonin [place] (Fortical) 1 sprays NA DAILY [facility] Stop: 11/08/19 15:44 Last Admin: 10/11/19 08:06 Dose: 1 sprays Documented by: Dextrose (Dextrose 50%) 25 - 50 ml IV UD PRN; Protocol PRN Reason: Hypoglycemia Protocol Stop: 11/08/19 06:35 Diltiazem HCl (Cardizem Cd) 120 mg PO QPM [facility] Stop: 11/08/19 20:59 Last Admin: 10/10/19 20:09 Dose: 120 mg Documented by: Docusate Sodium (Colace) 100 mg PO BID [facility] Stop: 11/08/19 08:59 Last Admin: 10/11/19 08:11 Dose: 100 mg Documented by: Gabapentin (Neurontin) 300 mg PO TID [facility] Stop: 11/08/19 08:59 Last Admin: 10/11/19 13:36 Dose: 300 mg Documented by: Glucagon (Glucagen) 1 mg SQ UD PRN; Protocol PRN Reason: Hypoglycemia Protocol Stop: 11/08/19 06:35 Glucose (Glucose 40%) 15 - 30 gm PO UD PRN; Protocol PRN Reason: Hypoglycemia Protocol Stop: 11/08/19 06:35 Glucose (Dex4 Glucose) 4 - 8 tabs PO UD PRN; Protocol PRN Reason: Hypoglycemia Protocol Stop: 11/08/19 06:35 Insulin Aspart (Novolog Flexpen) 0 units SC ACHS [facility] Stop: 11/08/19 07:29 Last Admin: 10/11/19 12:26 Dose: 5 units Documented by: Insulin Glargine (Lantus Solostar Pen) 10 units SC BID [facility] Stop: 11/08/19 08:59 Last Admin: 10/11/19 08:07 Dose: 10 units Documented by: Ioversol (Optiray 320 100ml) 93 ml IV ONCE PRN PRN Reason: Interaction Checking Stop: 10/13/19 03:18 Last Admin: 10/09/19 03:19 Dose: 93 ml Documented by: Magnesium Hydroxide (Milk Of Magnesia) 30 ml PO Q6H PRN PRN Reason: Constipation Stop: 11/08/19 06:35 Metoprolol Succinate (Toprol Xl) 100 mg PO Q12 [facility] Stop: 11/08/19 08:59 Last Admin: 10/11/19 08:06 Dose: 100 mg Documented by: Miscellaneous (Carbohydrates For Hypoglycemia) 15 - 30 gm PO UD PRN PRN Reason: Hypoglycemia Protocol Stop: 11/08/19 06:35 Ondansetron HCl (Zofran) 4 mg IV Q6H PRN PRN Reason: Nausea Stop: 11/08/19 06:35 Last Admin: 10/09/19 08:14 Dose: 4 mg Documented by: Paroxetine HCl (Paxil) 40 mg PO DAILY [facility] Stop: 11/08/19 08:59 Last Admin: 10/11/19 08:07 Dose: 40 mg Documented by: Polyethylene Glycol (Miralax Powder Packet) 17 gm PO DAILY PRN PRN Reason: Constipation Stop: 11/08/19 06:35 Sennosides (Senokot) 8.6 mg PO HS [facility] Stop: 11/08/19 20:59 Last Admin: 10/10/19 20:08 Dose: 8.6 mg Documented by: Tramadol HCl (Ultram) 100 mg PO TID PRN PRN Reason: pain Stop: 11/08/19 05:22 Last Admin: 10/11/19 13:36 Dose: 100 mg Documented by: Resident Activity Tracking Resident Involvement: Resident Care Provided Care Provided: Adult Hospital Medicine (1) Diabetes mellitus, type II Diabetes mellitus complication status: without complication Diabetes mellitus fdc insulin use: without fdc use Qualified Code(s): E11.9 - Type 2 diabetes mellitus without complications (2) Hyperlipidemia Hyperlipidemia type: unspecified Qualified Code(s): E78.5 - Hyperlipidemia, unspecified (3) Hypertension Hypertension type: essential hypertension Qualified Code(s): I10 - Essential (primary) hypertension
[2019-10-11] MEDS: ACETAMINOPHEN 325 MG TAB PO PRN (15:07)
--- NOTE | 2019-10-11 17:46 | Billing Data ---
Coding Level of Care Code 59819 Subseq Hosp Care Lvl 2
[2019-10-11] MEDS: SENNA 8.6 MG TAB PO SCH (20:57)
[2019-10-11] MEDS: dilTIAZem HCL 120 MG CAPCR PO SCH (20:58)
[2019-10-12] MEDS: TRAMADOL HCL 50 MG TABLET PO PRN (04:40)
[2019-10-12 07:12] LABS: Basophils # (auto) 0.02 K/uL (0-0.2); Basophils % (auto) 0.2 %; Eosinophils # (auto) 0.21 K/uL (0-0.5); Eosinophils % (auto) 1.8 %; Hematocrit (blood only) 36.7 % (37-47); Immature Granulocytes # (auto) 0.05 K/uL (0.00-0.02); Immature Granulocytes % (auto) 0.4 %; Lymphocytes # (auto) 1.69 K/uL (1.2-3.4); Lymphocytes % (auto) 14.3 %; Mean Corpuscular Hemoglobin 29.4 pg (25-34); Mean Corpuscular Hgb Conc 32.7 g/dL (32-36); Mean Platelet Volume 8.8 fL (7.4-10.4); Monocytes # (auto) 1.36 K/uL (0.11-0.59); Monocytes % (auto) 11.5 %; Neutrophils # (auto) 8.46 K/uL (1.4-6.5); Neutrophils % (auto) 71.8 %; Platelet Count 268 K/uL (130-400); RDW Coefficient of Variation 14.2 % (11.5-14.5); RDW Standard Deviation 46.6 fL (36.4-46.3); Red Blood Count 4.08 M/uL (4.2-5.4); White Blood Count 11.79 K/uL (4.8-10.8)
[2019-10-12 07:24] LABS: INR 1.5 (0.9-1.1); Prothrombin Time 15.3 Seconds (9.0-12.0)
[2019-10-12 07:43] LABS: Est GFR (African American) 90.7; Est GFR (Non-African American) 78.2; Potassium 4.2 mmol/L (3.5-5.1)
[2019-10-12 07:44] LABS: Albumin Level 2.5 gm/dl (3.4-5.0); BUN Creatinine Ratio 23.5 (10-20); Calcium 9.2 mg/dl (8.5-10.1); Creatinine Clr Calc Pharmacy 84.3 ml/min
[2019-10-12 07:46] LABS: Albumin Globulin Ratio 0.5 (0.9-2); Bilirubin,Total 0.8 mg/dl (0.2-1); Globulin 4.7 gm/dl (2.5-4.0); Total Protein 7.2 gm/dl (6.4-8.2)
[2019-10-12] MEDS: METOPROLOL SUCC 50MG EXT REL TAB PO SCH ×2 (08:59→21:29)
[2019-10-12] MEDS: PARoxetine HCl 20 MG TAB PO SCH (09:00)
[2019-10-12] MEDS: DOCUSATE SODIUM 100 MG CAP PO SCH ×2 (09:00→21:29)
[2019-10-12] MEDS: GABAPENTIN 300 MG CAP PO SCH ×3 (09:00→21:29)
[2019-10-12] MEDS: LIDOCAINE 5% 1 PATCH TD SCH (09:00)
[2019-10-12] MEDS: ATORVASTATIN 20 MG TAB PO SCH (09:00)
[2019-10-12] MEDS: CALCITONIN SALMON NA 200 IU/AC 3.7 ML BTL SCH (09:01)
[2019-10-12] MEDS: INSULIN ASPART 100 UNITS/ML 3 ML PEN SC SCH ×4 (09:03→21:27)
[2019-10-12] MEDS: INSULIN GLARGINE SOLOSTAR 100 UNITS/ML 3 ML PEN SC SCH ×2 (09:05→21:28)
--- NOTE | 2019-10-12 17:23 | Hospitalist Progress Note ---
Date of Service October 12, 2019 Assessment & Plan (1) Compression fracture: 68yo F PMH HTN, HLD, T2DM, PMR, chronic pain 2/2 OA, Osteoporosis, Afib presents with intractable back pain 2/2 thoracic compression fracture. Compression fracture/Back pain/Chronic pain -CM referral placed, [facility] accepted; awaiting insurance approval/verification -Pt given 25mcg fentanyl in ER at ~0530 on 10/09/19 -has Gabapentin 300mg TID, Lidoderm Q12h, and Fortical for pain Osteoporosis -Recommend continuing calcium vit D; outpatient management Afib -given lopressor in ER for rate control -Cont home meds (dilt,metoprolol) -Supratherapeutic INR of 4.1; holding metformin; recheck INR ordered for 10/10 HTN -dilt/metoprolol as above Hx TIA -Holding warfarin as above -Cont statin Depression -Cont paxil T2DM -On metformin at home; converted to ISS while inpatient Code: Full Dispo: admit obs to med tele DVTP: scd. holding chemoppx due to supratherapeutic INR (2) Back pain: (3) Chronic pain: (4) Mood disorder: (5) Hyperlipidemia: (6) Hypertension: (7) Diabetes mellitus, type II: (8) History of polymyalgia rheumatica: (9) Generalized osteoarthritis: (10) Atrial fibrillation: (11) History of TIA (transient ischemic attack): Supervising Physician Co-Signing Physician Notes I personally examined the patient and verified all lazar points of history and exam, discussed case, and agree with decision making with Dr Herbert. Pain still reasonably controlled, still has a very difficult time walking. Family notes that she actually has an appointment with orthopedics for steroid injection in about 2 days. vitals noted nad heent nc at mmm breathing unlabored no accessory muscles good effort no rashes no pallor or icterus no focal neuro deficits presumed osteoporosis related compression fracture/intractable pain -Continues to have stable pain control, but very poor mobilityappears strongly likely to benefit from rehab -further osteoporosis management as outpt (D level if one not done recently, likely start a bisphosphonate in a month once she's had a chance to have early healing) -continue micalcin nasal for now -PT/OT eval and treat ongoing, definitely not safe to go home -anticipate rehab once able to be arranged otherwise as above Subjective Pt continues to have low back pain with movement; feels like her pain is better controlled overall at this time Review of Systems Constitutional: + fatigue, + weakness and + anorexia Musculoskeletal: + back pain Neurologic: + gait abnormality, + unsteadiness, + generalized weakness and + lack of coordination Physical Exam Constitutional: WD/WN, vitals as above Respiratory: normal respiratory effort, lungs clear to auscultation Cardiovascular: RRR, no murmur, no edema Musculoskeletal: Spine: + limited thoraco-lumbar ROM (secondary to pain) Extremities: extremities normal to inspection and strength 5/5 throughout Results & Data Vital Signs (Past 12 Hours) Vital Signs Temp Pulse Resp BP BP Pulse Ox 10/12/19 15:44 37.0 C 94 H 18 143/83 H 95 10/12/19 11:49 36.6 C 88 162/80 H 94 10/12/19 07:44 36.6 C 96 H 16 134/80 92 Laboratory Results 10/12/19 10/12/19 10/12/19 Range/Units 16:30 11:35 07:22 WBC (4.8-10.8) K/uL RBC (4.2-5.4) M/uL Hgb (12.0-16.0) g/dL Hct (37-47) % MCV (80-100) fL MCH (25-34) pg MCHC (32-36) g/dL RDW Std Deviation (36.4-46.3) fL RDW Coeff of Dorita (11.5-14.5) % Plt Count (130-400) K/uL MPV (7.4-10.4) fL Immature Gran % (Auto) % Neut % (Auto) % Lymph % (Auto) % [place] % (Auto) % Eos % (Auto) % Baso % (Auto) % Immature Gran # (Auto) (0.00-0.02) K/uL Neut # (Auto) (1.4-6.5) K/uL Lymph # (Auto) (1.2-3.4) K/uL [place] # (Auto) (0.11-0.59) K/uL Eos # (Auto) (0-0.5) K/uL Baso # (Auto) (0-0.2) K/uL PT (9.0-12.0) Seconds INR (0.9-1.1) Sodium (136-145) mmol/L Potassium (3.5-5.1) mmol/L Chloride (98-107) mmol/L Carbon Dioxide (21-32) mmol/L Anion Gap (3-11) BUN (7-18) mg/dl Creatinine (0.6-1.2) mg/dl Est Cr Clr Drug Dosing ml/min Est GFR ( Amer) Est GFR (Non-Af Amer) BUN/Creatinine Ratio (10-20) Glucose (70-99) mg/dl POC Glucose 144 H 125 H 129 H (70-99) Calcium (8.5-10.1) mg/dl Total Bilirubin (0.2-1) mg/dl AST (15-37) U/L ALT (12-78) U/L Alkaline Phosphatase (45-117) U/L Total Protein (6.4-8.2) gm/dl Albumin (3.4-5.0) gm/dl Globulin (2.5-4.0) gm/dl Albumin/Globulin Ratio (0.9-2) 10/12/19 10/12/19 10/12/19 Range/Units 06:57 06:57 06:57 WBC 11.79 H (4.8-10.8) K/uL RBC 4.08 L (4.2-5.4) M/uL Hgb 12.0 (12.0-16.0) g/dL Hct 36.7 L (37-47) % MCV 90.0 (80-100) fL MCH 29.4 (25-34) pg MCHC 32.7 (32-36) g/dL RDW Std Deviation 46.6 H (36.4-46.3) fL RDW Coeff of Dorita 14.2 (11.5-14.5) % Plt Count 268 (130-400) K/uL MPV 8.8 (7.4-10.4) fL Immature Gran % (Auto) 0.4 % Neut % (Auto) 71.8 % Lymph % (Auto) 14.3 % [place] % (Auto) 11.5 % Eos % (Auto) 1.8 % Baso % (Auto) 0.2 % Immature Gran # (Auto) 0.05 H (0.00-0.02) K/uL Neut # (Auto) 8.46 H (1.4-6.5) K/uL Lymph # (Auto) 1.69 (1.2-3.4) K/uL [place] # (Auto) 1.36 H (0.11-0.59) K/uL Eos # (Auto) 0.21 (0-0.5) K/uL Baso # (Auto) 0.02 (0-0.2) K/uL PT 15.3 H (9.0-12.0) Seconds INR 1.5 H (0.9-1.1) Sodium 137 (136-145) mmol/L Potassium 4.2 (3.5-5.1) mmol/L Chloride 102 (98-107) mmol/L Carbon Dioxide 30 (21-32) mmol/L Anion Gap 6.0 (3-11) BUN 18 (7-18) mg/dl Creatinine 0.77 (0.6-1.2) mg/dl Est Cr Clr Drug Dosing 84.3 ml/min Est GFR ( Amer) 90.7 Est GFR (Non-Af Amer) 78.2 BUN/Creatinine Ratio 23.5 H (10-20) Glucose 92 (70-99) mg/dl POC Glucose (70-99) Calcium 9.2 (8.5-10.1) mg/dl Total Bilirubin 0.8 (0.2-1) mg/dl AST 10 L (15-37) U/L ALT 17 (12-78) U/L Alkaline Phosphatase 51 (45-117) U/L Total Protein 7.2 (6.4-8.2) gm/dl Albumin 2.5 L (3.4-5.0) gm/dl Globulin 4.7 H (2.5-4.0) gm/dl Albumin/Globulin Ratio 0.5 L (0.9-2) 10/11/19 Range/Units 20:51 WBC (4.8-10.8) K/uL RBC (4.2-5.4) M/uL Hgb (12.0-16.0) g/dL Hct (37-47) % MCV (80-100) fL MCH (25-34) pg MCHC (32-36) g/dL RDW Std Deviation (36.4-46.3) fL RDW Coeff of Dorita (11.5-14.5) % Plt Count (130-400) K/uL MPV (7.4-10.4) fL Immature Gran % (Auto) % Neut % (Auto) % Lymph % (Auto) % [place] % (Auto) % Eos % (Auto) % Baso % (Auto) % Immature Gran # (Auto) (0.00-0.02) K/uL Neut # (Auto) (1.4-6.5) K/uL Lymph # (Auto) (1.2-3.4) K/uL [place] # (Auto) (0.11-0.59) K/uL Eos # (Auto) (0-0.5) K/uL Baso # (Auto) (0-0.2) K/uL PT (9.0-12.0) Seconds INR (0.9-1.1) Sodium (136-145) mmol/L Potassium (3.5-5.1) mmol/L Chloride (98-107) mmol/L Carbon Dioxide (21-32) mmol/L Anion Gap (3-11) BUN (7-18) mg/dl Creatinine (0.6-1.2) mg/dl Est Cr Clr Drug Dosing ml/min Est GFR ( Amer) Est GFR (Non-Af Amer) BUN/Creatinine Ratio (10-20) Glucose (70-99) mg/dl POC Glucose 132 H (70-99) Calcium (8.5-10.1) mg/dl Total Bilirubin (0.2-1) mg/dl AST (15-37) U/L ALT (12-78) U/L Alkaline Phosphatase (45-117) U/L Total Protein (6.4-8.2) gm/dl Albumin (3.4-5.0) gm/dl Globulin (2.5-4.0) gm/dl Albumin/Globulin Ratio (0.9-2) Medications Administered Current Inpatient Medications Acetaminophen (Tylenol) 650 mg PO Q4H PRN PRN Reason: pain/fever Stop: 11/08/19 06:35 Last Admin: 10/11/19 15:07 Dose: 650 mg Documented by: Al Hydrox/Mg Hydrox/Simethicone (Maalox) 30 ml PO Q6H PRN PRN Reason: Dyspepsia Stop: 11/08/19 06:35 Atorvastatin Calcium (Lipitor) 20 mg PO DAILY [facility] Stop: 11/10/19 08:59 Last Admin: 10/12/19 09:00 Dose: 20 mg Documented by: Calcitonin [place] (Fortical) 1 sprays NA DAILY [facility] Stop: 11/08/19 15:44 Last Admin: 10/12/19 09:01 Dose: 1 sprays Documented by: Dextrose (Dextrose 50%) 25 - 50 ml IV UD PRN; Protocol PRN Reason: Hypoglycemia Protocol Stop: 11/08/19 06:35 Diltiazem HCl (Cardizem Cd) 120 mg PO QPM [facility] Stop: 11/08/19 20:59 Last Admin: 10/11/19 20:58 Dose: 120 mg Documented by: Docusate Sodium (Colace) 100 mg PO BID [facility] Stop: 11/08/19 08:59 Last Admin: 10/12/19 09:00 Dose: 100 mg Documented by: Gabapentin (Neurontin) 300 mg PO TID [facility] Stop: 11/08/19 08:59 Last Admin: 10/12/19 14:50 Dose: 300 mg Documented by: Glucagon (Glucagen) 1 mg SQ UD PRN; Protocol PRN Reason: Hypoglycemia Protocol Stop: 11/08/19 06:35 Glucose (Glucose 40%) 15 - 30 gm PO UD PRN; Protocol PRN Reason: Hypoglycemia Protocol Stop: 11/08/19 06:35 Glucose (Dex4 Glucose) 4 - 8 tabs PO UD PRN; Protocol PRN Reason: Hypoglycemia Protocol Stop: 11/08/19 06:35 Insulin Aspart (Novolog Flexpen) 0 units SC ACHS [facility] Stop: 11/08/19 07:29 Last Admin: 10/12/19 12:35 Dose: 4 units Documented by: Insulin Glargine (Lantus Solostar Pen) 10 units SC BID [facility] Stop: 11/08/19 08:59 Last Admin: 10/12/19 09:05 Dose: 10 units Documented by: Ioversol (Optiray 320 100ml) 93 ml IV ONCE PRN PRN Reason: Interaction Checking Stop: 10/13/19 03:18 Last Admin: 10/09/19 03:19 Dose: 93 ml Documented by: Lidocaine (Lidoderm 5%) 1 patch TD QAM [facility] Stop: 11/11/19 08:59 Last Admin: 10/12/19 09:00 Dose: 1 patch Documented by: Magnesium Hydroxide (Milk Of Magnesia) 30 ml PO Q6H PRN PRN Reason: Constipation Stop: 11/08/19 06:35 Metoprolol Succinate (Toprol Xl) 100 mg PO Q12 [facility] Stop: 11/08/19 08:59 Last Admin: 10/12/19 08:59 Dose: 100 mg Documented by: Miscellaneous (Carbohydrates For Hypoglycemia) 15 - 30 gm PO UD PRN PRN Reason: Hypoglycemia Protocol Stop: 11/08/19 06:35 Miscellaneous (Remove Lidoderm Patch) 1 ea N/A DAILY@2100 [facility] Stop: 11/11/19 20:59 Ondansetron HCl (Zofran) 4 mg IV Q6H PRN PRN Reason: Nausea Stop: 11/08/19 06:35 Last Admin: 10/09/19 08:14 Dose: 4 mg Documented by: Paroxetine HCl (Paxil) 40 mg PO DAILY [facility] Stop: 11/08/19 08:59 Last Admin: 10/12/19 09:00 Dose: 40 mg Documented by: Polyethylene Glycol (Miralax Powder Packet) 17 gm PO DAILY PRN PRN Reason: Constipation Stop: 11/08/19 06:35 Sennosides (Senokot) 8.6 mg PO HS [facility] Stop: 11/08/19 20:59 Last Admin: 10/11/19 20:57 Dose: 8.6 mg Documented by: Tramadol HCl (Ultram) 100 mg PO TID PRN PRN Reason: pain Stop: 11/08/19 05:22 Last Admin: 10/12/19 04:40 Dose: 100 mg Documented by: Resident Activity Tracking Resident Involvement: Resident Care Provided Care Provided: Adult Hospital Medicine (1) Diabetes mellitus, type II Diabetes mellitus complication status: without complication Diabetes mellitus fpc insulin use: without fpc use Qualified Code(s): E11.9 - Type 2 diabetes mellitus without complications (2) Hyperlipidemia Hyperlipidemia type: unspecified Qualified Code(s): E78.5 - Hyperlipidemia, unspecified (3) Hypertension Hypertension type: essential hypertension Qualified Code(s): I10 - Essential (primary) hypertension
--- NOTE | 2019-10-12 18:15 | Billing Data ---
Coding Level of Care Code 62665 Subseq Hosp Care Lvl 2
[2019-10-12] MEDS: SENNA 8.6 MG TAB PO SCH (21:30)
[2019-10-12] MEDS: dilTIAZem HCL 120 MG CAPCR PO SCH (21:30)
[2019-10-12] MEDS: KETOROLAC TROMETHAMINE 15 MG/ML VIAL IV PRN (22:17)
[2019-10-13 06:10] LABS: Basophils # (auto) 0.03 K/uL (0-0.2); Basophils % (auto) 0.3 %; Eosinophils # (auto) 0.17 K/uL (0-0.5); Eosinophils % (auto) 1.4 %; Hematocrit (blood only) 34.6 % (37-47); Hemoglobin 11.3 g/dL (12.0-16.0); Immature Granulocytes # (auto) 0.03 K/uL (0.00-0.02); Immature Granulocytes % (auto) 0.3 %; Lymphocytes # (auto) 1.53 K/uL (1.2-3.4); Mean Corpuscular Hemoglobin 29.4 pg (25-34); Mean Corpuscular Hgb Conc 32.7 g/dL (32-36); Mean Corpuscular Volume 89.9 fL (80-100); Monocytes # (auto) 1.28 K/uL (0.11-0.59); Monocytes % (auto) 10.9 %; Neutrophils # (auto) 8.73 K/uL (1.4-6.5); Neutrophils % (auto) 74.1 %; Platelet Count 254 K/uL (130-400); RDW Coefficient of Variation 14.3 % (11.5-14.5); RDW Standard Deviation 47.1 fL (36.4-46.3); Red Blood Count 3.85 M/uL (4.2-5.4); White Blood Count 11.77 K/uL (4.8-10.8)
[2019-10-13 06:19] LABS: INR 1.3 (0.9-1.1); Prothrombin Time 13.1 Seconds (9.0-12.0)
[2019-10-13 06:35] LABS: Albumin Level 2.3 gm/dl (3.4-5.0); Calcium 9.2 mg/dl (8.5-10.1); Creatinine Clr Calc Pharmacy 81.2 ml/min; Est GFR (African American) 87.9; Est GFR (Non-African American) 75.8; Potassium 4.3 mmol/L (3.5-5.1)
[2019-10-13 06:37] LABS: Albumin Globulin Ratio 0.5 (0.9-2); Bilirubin,Total 0.9 mg/dl (0.2-1); Globulin 4.8 gm/dl (2.5-4.0); Total Protein 7.1 gm/dl (6.4-8.2)
[2019-10-13] MEDS: ATORVASTATIN 20 MG TAB PO SCH (08:26)
[2019-10-13] MEDS: GABAPENTIN 300 MG CAP PO SCH ×3 (08:26→20:56)
[2019-10-13] MEDS: DOCUSATE SODIUM 100 MG CAP PO SCH ×2 (08:26→20:55)
[2019-10-13] MEDS: METOPROLOL SUCC 50MG EXT REL TAB PO SCH ×2 (08:27→20:55)
[2019-10-13] MEDS: PARoxetine HCl 20 MG TAB PO SCH (08:27)
[2019-10-13] MEDS: INSULIN GLARGINE SOLOSTAR 100 UNITS/ML 3 ML PEN SC SCH ×2 (08:28→20:56)
[2019-10-13] MEDS: INSULIN ASPART 100 UNITS/ML 3 ML PEN SC SCH ×4 (08:29→20:57)
[2019-10-13] MEDS: LIDOCAINE 5% 1 PATCH TD SCH (08:29)
[2019-10-13] MEDS: CALCITONIN SALMON NA 200 IU/AC 3.7 ML BTL SCH (08:30)
[2019-10-13] MEDS: TRAMADOL HCL 50 MG TABLET PO PRN (08:38)
--- NOTE | 2019-10-13 16:14 | Hospitalist Progress Note ---
Date of Service October 13, 2019 Assessment & Plan (1) Compression fracture: 68yo F PMH HTN, HLD, T2DM, PMR, chronic pain 2/2 OA, Osteoporosis, Afib presents with intractable back pain 2/2 thoracic compression fracture. Compression fracture -likely secondary to osteoporosis induced changes to spinal column -CM referral placed, [facility] accepted; awaiting insurance approval/verification -Pt given 25mcg fentanyl in ER at ~0530 on 10/09/19 -has Gabapentin 300mg TID, Lidoderm Q12h, and Fortical for pain -PT/OT recommends short term nursing Osteoporosis -Recommend continuing calcium vit D; outpatient management Afib -given lopressor in ER for rate control -Cont home meds (dilt,metoprolol) -Supratherapeutic INR of 4.1; holding metformin; recheck INR ordered for 10/10 HTN -dilt/metoprolol as above Hx TIA -Holding warfarin as above -Cont statin Depression -Cont paxil T2DM -On metformin at home; converted to ISS while inpatient Code: Full Dispo: awaiting placement in SNF DVTP: scd (2) Back pain: (3) Chronic pain: (4) Mood disorder: (5) Hyperlipidemia: (6) Hypertension: (7) Diabetes mellitus, type II: (8) History of polymyalgia rheumatica: (9) Generalized osteoarthritis: (10) Atrial fibrillation: (11) History of TIA (transient ischemic attack): Supervising Physician Co-Signing Physician Notes I personally examined the patient and verified all lazar points of history and exam, discussed case, and agree with decision making with Dr Herbert. resting comfortably. vitals noted nad heent nc at mmm breathing unlabored no accessory muscles good effort no rashes no pallor or icterus no focal neuro deficits at rest presumed osteoporosis related compression fracture/intractable pain -continue current pain control -further osteoporosis management as outpt (D level if one not done recently, likely start a bisphosphonate in a month once she's had a chance to have early healing) -continue micalcin nasal for now -PT/OT eval and treat ongoing, definitely not safe to go home -anticipate rehab once able to be arranged - still awaiting approval otherwise as above Subjective Pt continues to have low back pain with movement; feels like her pain was doing better after getting the toradol injection last night; currently unsure if she is getting any benefit from the lidoderm patches as she has so much continued pain when moving. Review of Systems Review of Systems: All systems reviewed & are unremarkable except as noted in HPI & below Physical Exam Constitutional: WD/WN, vitals as above Respiratory: normal respiratory effort, lungs clear to auscultation Cardiovascular: RRR, no murmur, no edema Musculoskeletal: Spine: + limited thoraco-lumbar ROM (secondary to pain) Extremities: extremities normal to inspection and strength 5/5 throughout Results & Data Vital Signs (Past 12 Hours) Vital Signs Temp Pulse Resp BP BP BP Pulse Ox 10/13/19 15:04 37.0 C 89 16 115/63 96 10/13/19 11:50 37 C 74 18 112/73 94 10/13/19 07:45 36.5 C 93 H 18 107/78 95 10/13/19 04:44 37.5 C 102 H 20 106/76 93 Laboratory Results 10/13/19 10/13/19 10/13/19 Range/Units 11:56 08:07 05:34 WBC (4.8-10.8) K/uL RBC (4.2-5.4) M/uL Hgb (12.0-16.0) g/dL Hct (37-47) % MCV (80-100) fL MCH (25-34) pg MCHC (32-36) g/dL RDW Std Deviation (36.4-46.3) fL RDW Coeff of Dorita (11.5-14.5) % Plt Count (130-400) K/uL MPV (7.4-10.4) fL Immature Gran % (Auto) % Neut % (Auto) % Lymph % (Auto) % Yancey % (Auto) % Eos % (Auto) % Baso % (Auto) % Immature Gran # (Auto) (0.00-0.02) K/uL Neut # (Auto) (1.4-6.5) K/uL Lymph # (Auto) (1.2-3.4) K/uL Yancey # (Auto) (0.11-0.59) K/uL Eos # (Auto) (0-0.5) K/uL Baso # (Auto) (0-0.2) K/uL PT 13.1 H (9.0-12.0) Seconds INR 1.3 H (0.9-1.1) Sodium (136-145) mmol/L Potassium (3.5-5.1) mmol/L Chloride (98-107) mmol/L Carbon Dioxide (21-32) mmol/L Anion Gap (3-11) BUN (7-18) mg/dl Creatinine (0.6-1.2) mg/dl Est Cr Clr Drug Dosing ml/min Est GFR ( Amer) Est GFR (Non-Af Amer) BUN/Creatinine Ratio (10-20) Glucose (70-99) mg/dl POC Glucose 91 122 H (70-99) Calcium (8.5-10.1) mg/dl Total Bilirubin (0.2-1) mg/dl AST (15-37) U/L ALT (12-78) U/L Alkaline Phosphatase (45-117) U/L Total Protein (6.4-8.2) gm/dl Albumin (3.4-5.0) gm/dl Globulin (2.5-4.0) gm/dl Albumin/Globulin Ratio (0.9-2) 10/13/19 10/13/19 10/12/19 Range/Units 05:34 05:34 20:28 WBC 11.77 H (4.8-10.8) K/uL RBC 3.85 L (4.2-5.4) M/uL Hgb 11.3 L (12.0-16.0) g/dL Hct 34.6 L (37-47) % MCV 89.9 (80-100) fL MCH 29.4 (25-34) pg MCHC 32.7 (32-36) g/dL RDW Std Deviation 47.1 H (36.4-46.3) fL RDW Coeff of Dorita 14.3 (11.5-14.5) % Plt Count 254 (130-400) K/uL MPV 9.0 (7.4-10.4) fL Immature Gran % (Auto) 0.3 % Neut % (Auto) 74.1 % Lymph % (Auto) 13.0 % Yancey % (Auto) 10.9 % Eos % (Auto) 1.4 % Baso % (Auto) 0.3 % Immature Gran # (Auto) 0.03 H (0.00-0.02) K/uL Neut # (Auto) 8.73 H (1.4-6.5) K/uL Lymph # (Auto) 1.53 (1.2-3.4) K/uL Yancey # (Auto) 1.28 H (0.11-0.59) K/uL Eos # (Auto) 0.17 (0-0.5) K/uL Baso # (Auto) 0.03 (0-0.2) K/uL PT (9.0-12.0) Seconds INR (0.9-1.1) Sodium 136 (136-145) mmol/L Potassium 4.3 (3.5-5.1) mmol/L Chloride 102 (98-107) mmol/L Carbon Dioxide 30 (21-32) mmol/L Anion Gap 5.0 (3-11) BUN 21 H (7-18) mg/dl Creatinine 0.79 (0.6-1.2) mg/dl Est Cr Clr Drug Dosing 81.2 ml/min Est GFR ( Amer) 87.9 Est GFR (Non-Af Amer) 75.8 BUN/Creatinine Ratio 26.0 H (10-20) Glucose 88 (70-99) mg/dl POC Glucose 142 H (70-99) Calcium 9.2 (8.5-10.1) mg/dl Total Bilirubin 0.9 (0.2-1) mg/dl AST 8 L (15-37) U/L ALT 14 (12-78) U/L Alkaline Phosphatase 55 (45-117) U/L Total Protein 7.1 (6.4-8.2) gm/dl Albumin 2.3 L (3.4-5.0) gm/dl Globulin 4.8 H (2.5-4.0) gm/dl Albumin/Globulin Ratio 0.5 L (0.9-2) 10/12/19 Range/Units 16:30 WBC (4.8-10.8) K/uL RBC (4.2-5.4) M/uL Hgb (12.0-16.0) g/dL Hct (37-47) % MCV (80-100) fL MCH (25-34) pg MCHC (32-36) g/dL RDW Std Deviation (36.4-46.3) fL RDW Coeff of Dorita (11.5-14.5) % Plt Count (130-400) K/uL MPV (7.4-10.4) fL Immature Gran % (Auto) % Neut % (Auto) % Lymph % (Auto) % Yancey % (Auto) % Eos % (Auto) % Baso % (Auto) % Immature Gran # (Auto) (0.00-0.02) K/uL Neut # (Auto) (1.4-6.5) K/uL Lymph # (Auto) (1.2-3.4) K/uL Yancey # (Auto) (0.11-0.59) K/uL Eos # (Auto) (0-0.5) K/uL Baso # (Auto) (0-0.2) K/uL PT (9.0-12.0) Seconds INR (0.9-1.1) Sodium (136-145) mmol/L Potassium (3.5-5.1) mmol/L Chloride (98-107) mmol/L Carbon Dioxide (21-32) mmol/L Anion Gap (3-11) BUN (7-18) mg/dl Creatinine (0.6-1.2) mg/dl Est Cr Clr Drug Dosing ml/min Est GFR ( Amer) Est GFR (Non-Af Amer) BUN/Creatinine Ratio (10-20) Glucose (70-99) mg/dl POC Glucose 144 H (70-99) Calcium (8.5-10.1) mg/dl Total Bilirubin (0.2-1) mg/dl AST (15-37) U/L ALT (12-78) U/L Alkaline Phosphatase (45-117) U/L Total Protein (6.4-8.2) gm/dl Albumin (3.4-5.0) gm/dl Globulin (2.5-4.0) gm/dl Albumin/Globulin Ratio (0.9-2) Medications Administered Current Inpatient Medications Acetaminophen (Tylenol) 650 mg PO Q4H PRN PRN Reason: pain/fever Stop: 11/08/19 06:35 Last Admin: 10/11/19 15:07 Dose: 650 mg Documented by: Al Hydrox/Mg Hydrox/Simethicone (Maalox) 30 ml PO Q6H PRN PRN Reason: Dyspepsia Stop: 11/08/19 06:35 Atorvastatin Calcium (Lipitor) 20 mg PO DAILY [facility] Stop: 11/10/19 08:59 Last Admin: 10/13/19 08:26 Dose: 20 mg Documented by: Calcitonin [place] (Fortical) 1 sprays NA DAILY [facility] Stop: 11/08/19 15:44 Last Admin: 10/13/19 08:30 Dose: 1 sprays Documented by: Dextrose (Dextrose 50%) 25 - 50 ml IV UD PRN; Protocol PRN Reason: Hypoglycemia Protocol Stop: 11/08/19 06:35 Diltiazem HCl (Cardizem Cd) 120 mg PO QPM [facility] Stop: 11/08/19 20:59 Last Admin: 10/12/19 21:30 Dose: 120 mg Documented by: Docusate Sodium (Colace) 100 mg PO BID [facility] Stop: 11/08/19 08:59 Last Admin: 10/13/19 08:26 Dose: 100 mg Documented by: Gabapentin (Neurontin) 300 mg PO TID [facility] Stop: 11/08/19 08:59 Last Admin: 10/13/19 14:59 Dose: 300 mg Documented by: Glucagon (Glucagen) 1 mg SQ UD PRN; Protocol PRN Reason: Hypoglycemia Protocol Stop: 11/08/19 06:35 Glucose (Glucose 40%) 15 - 30 gm PO UD PRN; Protocol PRN Reason: Hypoglycemia Protocol Stop: 11/08/19 06:35 Glucose (Dex4 Glucose) 4 - 8 tabs PO UD PRN; Protocol PRN Reason: Hypoglycemia Protocol Stop: 11/08/19 06:35 Insulin Aspart (Novolog Flexpen) 0 units SC ACHS [facility] Stop: 11/08/19 07:29 Last Admin: 10/13/19 13:05 Dose: 3 units Documented by: Insulin Glargine (Lantus Solostar Pen) 10 units SC BID [facility] Stop: 11/08/19 08:59 Last Admin: 10/13/19 08:28 Dose: 10 units Documented by: Ketorolac Tromethamine (Toradol) 15 mg IV Q6H PRN PRN Reason: Pain Stop: 10/17/19 18:23 Last Admin: 10/12/19 22:17 Dose: 15 mg Documented by: Lidocaine (Lidoderm 5%) 1 patch TD QAM [facility] Stop: 11/11/19 08:59 Last Admin: 10/13/19 08:29 Dose: 1 patch Documented by: Magnesium Hydroxide (Milk Of Magnesia) 30 ml PO Q6H PRN PRN Reason: Constipation Stop: 11/08/19 06:35 Metoprolol Succinate (Toprol Xl) 100 mg PO Q12 [facility] Stop: 11/08/19 08:59 Last Admin: 10/13/19 08:27 Dose: 100 mg Documented by: Miscellaneous (Carbohydrates For Hypoglycemia) 15 - 30 gm PO UD PRN PRN Reason: Hypoglycemia Protocol Stop: 11/08/19 06:35 Miscellaneous (Remove Lidoderm Patch) 1 ea N/A DAILY@2100 [facility] Stop: 11/11/19 20:59 Last Admin: 10/12/19 21:32 Dose: 1 ea Documented by: Ondansetron HCl (Zofran) 4 mg IV Q6H PRN PRN Reason: Nausea Stop: 11/08/19 06:35 Last Admin: 10/09/19 08:14 Dose: 4 mg Documented by: Paroxetine HCl (Paxil) 40 mg PO DAILY [facility] Stop: 11/08/19 08:59 Last Admin: 10/13/19 08:27 Dose: 40 mg Documented by: Polyethylene Glycol (Miralax Powder Packet) 17 gm PO DAILY PRN PRN Reason: Constipation Stop: 11/08/19 06:35 Sennosides (Senokot) 8.6 mg PO HS [facility] Stop: 11/08/19 20:59 Last Admin: 10/12/19 21:30 Dose: 8.6 mg Documented by: Tramadol HCl (Ultram) 100 mg PO TID PRN PRN Reason: pain Stop: 11/08/19 05:22 Last Admin: 10/13/19 08:38 Dose: 100 mg Documented by: Resident Activity Tracking Resident Involvement: Resident Care Provided Care Provided: Adult Hospital Medicine (1) Diabetes mellitus, type II Diabetes mellitus complication status: without complication Diabetes mellitus terminal press operator insulin use: without terminal press operator use Qualified Code(s): E11.9 - Type 2 diabetes mellitus without complications (2) Hyperlipidemia Hyperlipidemia type: unspecified Qualified Code(s): E78.5 - Hyperlipidemia, unspecified (3) Hypertension Hypertension type: essential hypertension Qualified Code(s): I10 - Essential (primary) hypertension
--- NOTE | 2019-10-13 19:20 | Billing Data ---
Coding Level of Care Code 46118 Subseq Hosp Care Lvl 2
[2019-10-13] MEDS: ACETAMINOPHEN 325 MG TAB PO PRN (19:27)
[2019-10-13] MEDS: SENNA 8.6 MG TAB PO SCH (20:55)
[2019-10-13] MEDS: dilTIAZem HCL 120 MG CAPCR PO SCH (21:59)
[2019-10-14 06:56] LABS: INR 1.2 (0.9-1.1); Prothrombin Time 11.9 Seconds (9.0-12.0)
[2019-10-14] MEDS: TRAMADOL HCL 50 MG TABLET PO PRN ×2 (08:42→21:16)
[2019-10-14] MEDS: LIDOCAINE 5% 1 PATCH TD SCH (08:42)
[2019-10-14] MEDS: CALCITONIN SALMON NA 200 IU/AC 3.7 ML BTL SCH (08:42)
[2019-10-14] MEDS: GABAPENTIN 300 MG CAP PO SCH ×3 (08:42→21:22)
[2019-10-14] MEDS: DOCUSATE SODIUM 100 MG CAP PO SCH ×2 (08:43→21:18)
[2019-10-14] MEDS: ATORVASTATIN 20 MG TAB PO SCH (08:43)
[2019-10-14] MEDS: PARoxetine HCl 20 MG TAB PO SCH (08:43)
[2019-10-14] MEDS: INSULIN GLARGINE SOLOSTAR 100 UNITS/ML 3 ML PEN SC SCH ×2 (08:44→21:19)
[2019-10-14] MEDS: METOPROLOL SUCC 50MG EXT REL TAB PO SCH ×2 (08:44→21:18)
[2019-10-14] MEDS: INSULIN ASPART 100 UNITS/ML 3 ML PEN SC SCH ×4 (08:48→21:19)
[2019-10-14] MEDS: WARFARIN SOD 3 MG TAB PO SCH (16:09)
--- NOTE | 2019-10-14 17:34 | Hospitalist Progress Note ---
Date of Service October 14, 2019 Assessment & Plan (1) Compression fracture: 68yo F PMH HTN, HLD, T2DM, PMR, chronic pain 2/2 OA, Osteoporosis, Afib presents with intractable back pain 2/2 thoracic compression fracture. Compression fracture -likely secondary to osteoporosis induced changes to spinal column -CM referral placed, [facility] accepted; awaiting insurance approval/verification -Pt given 25mcg fentanyl in ER at ~0530 on 10/09/19 -has Gabapentin 300mg TID, Lidoderm Q12h, and Fortical for pain -PT/OT recommends short term nursing Osteoporosis -Recommend continuing calcium vit D; outpatient management Afib -given lopressor in ER for rate control -Cont home meds (dilt,metoprolol) -Supratherapeutic INR of 4.1 on admission -restarted on warfarin 3mg daily HTN -dilt/metoprolol as above Hx TIA -Holding warfarin as above -Cont statin Depression -Cont paxil T2DM -On metformin at home; converted to ISS while inpatient Code: Full Dispo: awaiting placement in SNF (2) Back pain: (3) Chronic pain: (4) Mood disorder: (5) Hyperlipidemia: (6) Hypertension: (7) Diabetes mellitus, type II: (8) History of polymyalgia rheumatica: (9) Generalized osteoarthritis: (10) Atrial fibrillation: (11) History of TIA (transient ischemic attack): Supervising Physician Co-Signing Physician Notes I personally examined the patient and verified all lazar points of history and exam, discussed case, and agree with decision making with Dr Herbert. resting comfortably, pain still controlled. Still awaiting input from insurance company about going to rehab. Discussed with her anticoagulation doctor who recommended prophylactic dosing of Lovenox given that she is subtherapeutic with her INR, mostly for DVT prophylaxis purposes. vitals noted nad heent nc at mmm breathing unlabored no accessory muscles good effort no rashes no pallor or icterus no focal neuro deficits at rest presumed osteoporosis related compression fracture/intractable pain -Pain seems reasonably controlledcontinue current -further osteoporosis management as outpt (D level if one not done recently, likely start a bisphosphonate in a month once she's had a chance to have early healing) -continue micalcin nasal for now -PT/OT eval and treat ongoing, definitely not safe to go home -anticipate rehab once able to be arranged - still awaiting approval Cynthia aguillon Coumadin. She was supratherapeutic on admission now subtherapeuticas above otherwise.. DVT prophylaxisLovenox since she is subtherapeutic. otherwise as above Subjective Pt continues to have low back pain with movement; feels like her pain was doing better after continuing to get the toradol injections. Continuing to await placement at rehab facility for ultimate improvement in her pain and increase in her overall strength. Review of Systems Constitutional: + fatigue, + weakness and + anorexia Musculoskeletal: + back pain Neurologic: + gait abnormality, + unsteadiness, + generalized weakness and + lack of coordination Physical Exam Constitutional: WD/WN, vitals as above Respiratory: normal respiratory effort, lungs clear to auscultation Cardiovascular: RRR, no murmur, no edema Musculoskeletal: Spine: + limited thoraco-lumbar ROM (secondary to pain) Extremities: extremities normal to inspection and strength 5/5 throughout Results & Data Vital Signs (Past 12 Hours) Vital Signs Temp Pulse Resp BP BP Pulse Ox 10/14/19 15:34 36.5 C 87 22 137/88 97 10/14/19 11:17 36.6 C 69 18 122/83 94 10/14/19 07:31 36.5 C 73 20 127/88 96 Laboratory Results 10/14/19 10/14/19 10/14/19 Range/Units 16:53 11:27 07:50 PT (9.0-12.0) Seconds INR (0.9-1.1) POC Glucose 103 H 101 H 90 (70-99) 10/14/19 10/13/19 Range/Units 06:22 20:25 PT 11.9 (9.0-12.0) Seconds INR 1.2 H (0.9-1.1) POC Glucose 145 H (70-99) Medications Administered Current Inpatient Medications Acetaminophen (Tylenol) 650 mg PO Q4H PRN PRN Reason: pain/fever Stop: 11/08/19 06:35 Last Admin: 10/13/19 19:27 Dose: 650 mg Documented by: Al Hydrox/Mg Hydrox/Simethicone (Maalox) 30 ml PO Q6H PRN PRN Reason: Dyspepsia Stop: 11/08/19 06:35 Atorvastatin Calcium (Lipitor) 20 mg PO DAILY [facility] Stop: 11/10/19 08:59 Last Admin: 10/14/19 08:43 Dose: 20 mg Documented by: Calcitonin [place] (Fortical) 1 sprays NA DAILY [facility] Stop: 11/08/19 15:44 Last Admin: 10/14/19 08:42 Dose: 1 sprays Documented by: Dextrose (Dextrose 50%) 25 - 50 ml IV UD PRN; Protocol PRN Reason: Hypoglycemia Protocol Stop: 11/08/19 06:35 Diltiazem HCl (Cardizem Cd) 120 mg PO QPM [facility] Stop: 11/08/19 20:59 Last Admin: 10/13/19 21:59 Dose: 120 mg Documented by: Docusate Sodium (Colace) 100 mg PO BID [facility] Stop: 11/08/19 08:59 Last Admin: 10/14/19 08:43 Dose: 100 mg Documented by: Gabapentin (Neurontin) 300 mg PO TID [facility] Stop: 11/08/19 08:59 Last Admin: 10/14/19 13:42 Dose: 300 mg Documented by: Glucagon (Glucagen) 1 mg SQ UD PRN; Protocol PRN Reason: Hypoglycemia Protocol Stop: 11/08/19 06:35 Glucose (Glucose 40%) 15 - 30 gm PO UD PRN; Protocol PRN Reason: Hypoglycemia Protocol Stop: 11/08/19 06:35 Glucose (Dex4 Glucose) 4 - 8 tabs PO UD PRN; Protocol PRN Reason: Hypoglycemia Protocol Stop: 11/08/19 06:35 Insulin Aspart (Novolog Flexpen) 0 units SC ACHS [facility] Stop: 11/08/19 07:29 Last Admin: 10/14/19 17:22 Dose: 2 units Documented by: Insulin Glargine (Lantus Solostar Pen) 10 units SC BID [facility] Stop: 11/08/19 08:59 Last Admin: 10/14/19 08:44 Dose: 10 units Documented by: Ketorolac Tromethamine (Toradol) 15 mg IV Q6H PRN PRN Reason: Pain Stop: 10/17/19 18:23 Last Admin: 10/12/19 22:17 Dose: 15 mg Documented by: Lidocaine (Lidoderm 5%) 1 patch TD QAM [facility] Stop: 11/11/19 08:59 Last Admin: 10/14/19 08:42 Dose: 1 patch Documented by: Magnesium Hydroxide (Milk Of Magnesia) 30 ml PO Q6H PRN PRN Reason: Constipation Stop: 11/08/19 06:35 Metoprolol Succinate (Toprol Xl) 100 mg PO Q12 [facility] Stop: 11/08/19 08:59 Last Admin: 10/14/19 08:44 Dose: 100 mg Documented by: Miscellaneous (Carbohydrates For Hypoglycemia) 15 - 30 gm PO UD PRN PRN Reason: Hypoglycemia Protocol Stop: 11/08/19 06:35 Miscellaneous (Remove Lidoderm Patch) 1 ea N/A DAILY@2100 [facility] Stop: 11/11/19 20:59 Last Admin: 10/13/19 20:58 Dose: 1 ea Documented by: Ondansetron HCl (Zofran) 4 mg IV Q6H PRN PRN Reason: Nausea Stop: 11/08/19 06:35 Last Admin: 10/09/19 08:14 Dose: 4 mg Documented by: Paroxetine HCl (Paxil) 40 mg PO DAILY [facility] Stop: 11/08/19 08:59 Last Admin: 10/14/19 08:43 Dose: 40 mg Documented by: Polyethylene Glycol (Miralax Powder Packet) 17 gm PO DAILY PRN PRN Reason: Constipation Stop: 11/08/19 06:35 Sennosides (Senokot) 8.6 mg PO HS [facility] Stop: 11/08/19 20:59 Last Admin: 10/13/19 20:55 Dose: 8.6 mg Documented by: Tramadol HCl (Ultram) 100 mg PO TID PRN PRN Reason: pain Stop: 11/08/19 05:22 Last Admin: 10/14/19 08:42 Dose: 100 mg Documented by: Warfarin Sodium (Coumadin) 3 mg PO DAILY@1600 [facility] Stop: 11/13/19 15:59 Last Admin: 10/14/19 16:09 Dose: 3 mg Documented by: Resident Activity Tracking Resident Involvement: Resident Care Provided Care Provided: Adult Hospital Medicine (1) Diabetes mellitus, type II Diabetes mellitus complication status: without complication Diabetes mellitus mcc insulin use: without mcc use Qualified Code(s): E11.9 - Type 2 diabetes mellitus without complications (2) Hyperlipidemia Hyperlipidemia type: unspecified Qualified Code(s): E78.5 - Hyperlipidemia, unspecified (3) Hypertension Hypertension type: essential hypertension Qualified Code(s): I10 - Essential (primary) hypertension
--- NOTE | 2019-10-14 18:57 | Billing Data ---
Coding Level of Care Code 70091 Initial Inpt Care Lvl 2
[2019-10-14] MEDS: SENNA 8.6 MG TAB PO SCH (21:17)
[2019-10-14] MEDS: dilTIAZem HCL 120 MG CAPCR PO SCH (21:19)
[2019-10-14] MEDS: ENOXAPARIN INJ 120 MG/0.8 ML SYR SQ SCH (21:22)
[2019-10-14] MEDS: KETOROLAC TROMETHAMINE 15 MG/ML VIAL IV PRN (23:35)
[2019-10-15 05:38] LABS: Hematocrit (blood only) 34.5 % (37-47); Hemoglobin 11.3 g/dL (12.0-16.0); Mean Corpuscular Hemoglobin 29.5 pg (25-34); Mean Corpuscular Hgb Conc 32.8 g/dL (32-36); Mean Corpuscular Volume 90.1 fL (80-100); Mean Platelet Volume 8.8 fL (7.4-10.4); Platelet Count 290 K/uL (130-400); RDW Coefficient of Variation 14.1 % (11.5-14.5); RDW Standard Deviation 46.6 fL (36.4-46.3); Red Blood Count 3.83 M/uL (4.2-5.4); White Blood Count 8.79 K/uL (4.8-10.8)
[2019-10-15 05:49] LABS: INR 1.1 (0.9-1.1); Prothrombin Time 11.4 Seconds (9.0-12.0)
[2019-10-15 06:11] LABS: Creatinine Clr Calc Pharmacy 91.7 ml/min; Est GFR (African American) 101.7; Est GFR (Non-African American) 87.8
[2019-10-15] MEDS: METOPROLOL SUCC 50MG EXT REL TAB PO SCH ×2 (08:29→20:52)
[2019-10-15] MEDS: GABAPENTIN 300 MG CAP PO SCH ×3 (08:29→20:52)
[2019-10-15] MEDS: ATORVASTATIN 20 MG TAB PO SCH (08:30)
[2019-10-15] MEDS: LIDOCAINE 5% 1 PATCH TD SCH (08:30)
[2019-10-15] MEDS: DOCUSATE SODIUM 100 MG CAP PO SCH ×2 (08:30→20:48)
[2019-10-15] MEDS: CALCITONIN SALMON NA 200 IU/AC 3.7 ML BTL SCH (08:31)
[2019-10-15] MEDS: INSULIN GLARGINE SOLOSTAR 100 UNITS/ML 3 ML PEN SC SCH ×2 (08:31→20:50)
[2019-10-15] MEDS: INSULIN ASPART 100 UNITS/ML 3 ML PEN SC SCH ×4 (08:31→20:11)
[2019-10-15] MEDS: PARoxetine HCl 20 MG TAB PO SCH (08:34)
[2019-10-15] MEDS: ENOXAPARIN INJ 120 MG/0.8 ML SYR SQ SCH (08:43)
[2019-10-15] MEDS: KETOROLAC TROMETHAMINE 15 MG/ML VIAL IV PRN (14:19)
[2019-10-15] MEDS: WARFARIN SOD 3 MG TAB PO SCH (15:37)
--- NOTE | 2019-10-15 17:34 | Hospitalist Progress Note ---
Date of Service October 15, 2019 Assessment & Plan (1) Compression fracture: 68yo F PMH HTN, HLD, T2DM, PMR, chronic pain 2/2 OA, Osteoporosis, Afib presents with intractable back pain 2/2 thoracic compression fracture. Compression fracture -likely secondary to osteoporosis induced changes to spinal column -CM referral placed, [facility] accepted; awaiting insurance approval/verification -Pt given 25mcg fentanyl in ER at ~0530 on 10/09/19 -has Gabapentin 300mg TID, Lidoderm Q12h, and Fortical for pain -PT/OT recommends short term nursing Osteoporosis -Recommend continuing calcium vit D; outpatient management Afib -given lopressor in ER for rate control -Cont home meds (dilt,metoprolol) -Supratherapeutic INR of 4.1 on admission -continue warfarin 3mg daily -check INR in AM HTN -diltiazem/metoprolol as above Hx TIA -continue warfarin 3mg daily -Cont statin Depression -Cont paxil T2DM -On metformin at home; converted to ISS while inpatient Code: Full Dispo: awaiting placement in SNF (2) Back pain: (3) Chronic pain: (4) Mood disorder: (5) Hyperlipidemia: (6) Hypertension: (7) Diabetes mellitus, type II: (8) History of polymyalgia rheumatica: (9) Generalized osteoarthritis: (10) Atrial fibrillation: (11) History of TIA (transient ischemic attack): Supervising Physician Co-Signing Physician Notes I personally examined the patient and verified all lazar points of history and exam, discussed case, and agree with decision making with Dr Herbert. rehab denied. called to appeal. was told that appeal could be scheduled for peer to peer doc on friday (3 days from now) - d/w pt, rather than sitting for days without true dispo plan vitals noted nad heent nc at mmm breathing unlabored no accessory muscles good effort no rashes no pallor or icterus no focal neuro deficits at rest presumed osteoporosis related compression fracture/intractable pain -continue current pain control -further osteoporosis management as outpt (D level if one not done recently, likely start a bisphosphonate in a month once she's had a chance to have early healing) -continue micalcin nasal for now -PT/OT eval and treat ongoing, definitely not safe to go home -denied rehab, to facilitate getting her better will work to SNF hip pain - was for injection at ortho today - d/w ortho team they'll want to see her in office and can reschedule A. fibtitrate up Coumadin. She was supratherapeutic on admission now subtherapeuticas above otherwise.. DVT prophylaxisLovenox since she is subtherapeutic (doesn't meet criteria for needing bridging for her afib). otherwise as above Subjective Pt continues to have low back pain with movement; feels like her pain was doing better after continuing to get the toradol injections. Continuing to await placement at rehab facility for ultimate improvement in her pain. Physical Exam Constitutional: WD/WN, vitals as above Respiratory: normal respiratory effort, lungs clear to auscultation Cardiovascular: RRR, no murmur, no edema Musculoskeletal: Spine: + limited thoraco-lumbar ROM (secondary to pain) Extremities: extremities normal to inspection and strength 5/5 throughout Results & Data Vital Signs (Past 12 Hours) Vital Signs Temp Pulse Resp BP BP Pulse Ox 10/15/19 15:30 36.7 C 88 18 106/72 96 10/15/19 11:17 36.8 C 62 20 122/63 94 10/15/19 07:28 36.3 C L 74 18 103/72 96 Laboratory Results 10/15/19 10/15/19 10/15/19 Range/Units 16:40 11:28 07:28 WBC (4.8-10.8) K/uL RBC (4.2-5.4) M/uL Hgb (12.0-16.0) g/dL Hct (37-47) % MCV (80-100) fL MCH (25-34) pg MCHC (32-36) g/dL RDW Std Deviation (36.4-46.3) fL RDW Coeff of Dorita (11.5-14.5) % Plt Count (130-400) K/uL MPV (7.4-10.4) fL PT (9.0-12.0) Seconds INR (0.9-1.1) Creatinine (0.6-1.2) mg/dl Est Cr Clr Drug Dosing ml/min Est GFR ( Amer) Est GFR (Non-Af Amer) POC Glucose 104 H 174 H 85 (70-99) 10/15/19 10/15/19 10/15/19 Range/Units 05:18 05:18 05:18 WBC 8.79 (4.8-10.8) K/uL RBC 3.83 L (4.2-5.4) M/uL Hgb 11.3 L (12.0-16.0) g/dL Hct 34.5 L (37-47) % MCV 90.1 (80-100) fL MCH 29.5 (25-34) pg MCHC 32.8 (32-36) g/dL RDW Std Deviation 46.6 H (36.4-46.3) fL RDW Coeff of Dorita 14.1 (11.5-14.5) % Plt Count 290 (130-400) K/uL MPV 8.8 (7.4-10.4) fL PT 11.4 (9.0-12.0) Seconds INR 1.1 (0.9-1.1) Creatinine 0.70 (0.6-1.2) mg/dl Est Cr Clr Drug Dosing 91.7 ml/min Est GFR ( Amer) 101.7 Est GFR (Non-Af Amer) 87.8 POC Glucose (70-99) 10/14/19 Range/Units 20:43 WBC (4.8-10.8) K/uL RBC (4.2-5.4) M/uL Hgb (12.0-16.0) g/dL Hct (37-47) % MCV (80-100) fL MCH (25-34) pg MCHC (32-36) g/dL RDW Std Deviation (36.4-46.3) fL RDW Coeff of Dorita (11.5-14.5) % Plt Count (130-400) K/uL MPV (7.4-10.4) fL PT (9.0-12.0) Seconds INR (0.9-1.1) Creatinine (0.6-1.2) mg/dl Est Cr Clr Drug Dosing ml/min Est GFR ( Amer) Est GFR (Non-Af Amer) POC Glucose 149 H (70-99) Medications Administered Current Inpatient Medications Acetaminophen (Tylenol) 650 mg PO Q4H PRN PRN Reason: pain/fever Stop: 11/08/19 06:35 Last Admin: 10/13/19 19:27 Dose: 650 mg Documented by: Al Hydrox/Mg Hydrox/Simethicone (Maalox) 30 ml PO Q6H PRN PRN Reason: Dyspepsia Stop: 11/08/19 06:35 Atorvastatin Calcium (Lipitor) 20 mg PO DAILY [facility] Stop: 11/10/19 08:59 Last Admin: 10/15/19 08:30 Dose: 20 mg Documented by: Calcitonin [place] (Fortical) 1 sprays NA DAILY [facility] Stop: 11/08/19 15:44 Last Admin: 10/15/19 08:31 Dose: 1 sprays Documented by: Dextrose (Dextrose 50%) 25 - 50 ml IV UD PRN; Protocol PRN Reason: Hypoglycemia Protocol Stop: 11/08/19 06:35 Diltiazem HCl (Cardizem Cd) 120 mg PO QPM [facility] Stop: 11/08/19 20:59 Last Admin: 10/14/19 21:19 Dose: 120 mg Documented by: Docusate Sodium (Colace) 100 mg PO BID [facility] Stop: 11/08/19 08:59 Last Admin: 10/15/19 08:30 Dose: 100 mg Documented by: Enoxaparin Sodium (Lovenox) 40 mg SQ HS [facility] Stop: 11/14/19 20:59 Gabapentin (Neurontin) 300 mg PO TID [facility] Stop: 11/08/19 08:59 Last Admin: 10/15/19 13:36 Dose: 300 mg Documented by: Glucagon (Glucagen) 1 mg SQ UD PRN; Protocol PRN Reason: Hypoglycemia Protocol Stop: 11/08/19 06:35 Glucose (Glucose 40%) 15 - 30 gm PO UD PRN; Protocol PRN Reason: Hypoglycemia Protocol Stop: 11/08/19 06:35 Glucose (Dex4 Glucose) 4 - 8 tabs PO UD PRN; Protocol PRN Reason: Hypoglycemia Protocol Stop: 11/08/19 06:35 Insulin Aspart (Novolog Flexpen) 0 units SC ACHS [facility] Stop: 11/08/19 07:29 Last Admin: 10/15/19 16:58 Dose: 3 units Documented by: Insulin Glargine (Lantus Solostar Pen) 10 units SC BID [facility] Stop: 11/08/19 08:59 Last Admin: 10/15/19 08:31 Dose: 10 units Documented by: Ketorolac Tromethamine (Toradol) 15 mg IV Q6H PRN PRN Reason: Pain Stop: 10/17/19 18:23 Last Admin: 10/15/19 14:19 Dose: 15 mg Documented by: Lidocaine (Lidoderm 5%) 1 patch TD QAM [facility] Stop: 11/11/19 08:59 Last Admin: 10/15/19 08:30 Dose: 1 patch Documented by: Magnesium Hydroxide (Milk Of Magnesia) 30 ml PO Q6H PRN PRN Reason: Constipation Stop: 11/08/19 06:35 Metoprolol Succinate (Toprol Xl) 100 mg PO Q12 [facility] Stop: 11/08/19 08:59 Last Admin: 10/15/19 08:29 Dose: 100 mg Documented by: Miscellaneous (Carbohydrates For Hypoglycemia) 15 - 30 gm PO UD PRN PRN Reason: Hypoglycemia Protocol Stop: 11/08/19 06:35 Miscellaneous (Remove Lidoderm Patch) 1 ea N/A DAILY@2100 [facility] Stop: 11/11/19 20:59 Last Admin: 10/14/19 21:19 Dose: 1 ea Documented by: Ondansetron HCl (Zofran) 4 mg IV Q6H PRN PRN Reason: Nausea Stop: 11/08/19 06:35 Last Admin: 10/09/19 08:14 Dose: 4 mg Documented by: Paroxetine HCl (Paxil) 40 mg PO DAILY [facility] Stop: 11/08/19 08:59 Last Admin: 10/15/19 08:34 Dose: 40 mg Documented by: Polyethylene Glycol (Miralax Powder Packet) 17 gm PO DAILY PRN PRN Reason: Constipation Stop: 11/08/19 06:35 Sennosides (Senokot) 8.6 mg PO HS [facility] Stop: 11/08/19 20:59 Last Admin: 10/14/19 21:17 Dose: 8.6 mg Documented by: Tramadol HCl (Ultram) 100 mg PO TID PRN PRN Reason: pain Stop: 11/08/19 05:22 Last Admin: 10/14/19 21:16 Dose: 100 mg Documented by: Warfarin Sodium (Coumadin) 3 mg PO DAILY@1600 [facility] Stop: 11/13/19 15:59 Last Admin: 11/15/19 15:37 Dose: 3 mg Documented by: Resident Activity Tracking Resident Involvement: Resident Care Provided Care Provided: Adult Hospital Medicine (1) Diabetes mellitus, type II Diabetes mellitus complication status: without complication Diabetes mellitus skilled nursing insulin use: without skilled nursing use Qualified Code(s): E11.9 - Type 2 diabetes mellitus without complications (2) Hyperlipidemia Hyperlipidemia type: unspecified Qualified Code(s): E78.5 - Hyperlipidemia, unspecified (3) Hypertension Hypertension type: essential hypertension Qualified Code(s): I10 - Essential (primary) hypertension
--- NOTE | 2019-10-15 18:02 | Billing Data ---
Coding Level of Care Code 07613 Subseq Hosp Care Lvl 2
[2019-10-15] MEDS: SENNA 8.6 MG TAB PO SCH (20:47)
[2019-10-15] MEDS: dilTIAZem HCL 120 MG CAPCR PO SCH (20:48)
[2019-10-15] MEDS: ENOXAPARIN INJ 40 MG/0.4 ML SYR SQ SCH (20:49)
[2019-10-16 06:32] LABS: INR 1.2 (0.9-1.1); Prothrombin Time 11.9 Seconds (9.0-12.0)
[2019-10-16] MEDS: KETOROLAC TROMETHAMINE 15 MG/ML VIAL IV PRN ×2 (07:31→20:49)
[2019-10-16] MEDS: INSULIN ASPART 100 UNITS/ML 3 ML PEN SC SCH ×4 (08:17→20:47)
[2019-10-16] MEDS: INSULIN GLARGINE SOLOSTAR 100 UNITS/ML 3 ML PEN SC SCH ×2 (08:18→20:46)
[2019-10-16] MEDS: PARoxetine HCl 20 MG TAB PO SCH (08:18)
[2019-10-16] MEDS: CALCITONIN SALMON NA 200 IU/AC 3.7 ML BTL SCH (08:19)
[2019-10-16] MEDS: DOCUSATE SODIUM 100 MG CAP PO SCH ×2 (08:19→20:46)
[2019-10-16] MEDS: LIDOCAINE 5% 1 PATCH TD SCH (08:19)
[2019-10-16] MEDS: METOPROLOL SUCC 50MG EXT REL TAB PO SCH ×2 (08:19→20:48)
[2019-10-16] MEDS: GABAPENTIN 300 MG CAP PO SCH ×3 (08:19→20:47)
[2019-10-16] MEDS: ATORVASTATIN 20 MG TAB PO SCH (08:20)
--- NOTE | 2019-10-16 16:38 | Hospitalist Progress Note ---
Date of Service October 16, 2019 Assessment & Plan (1) Compression fracture: 68yo F PMH HTN, HLD, T2DM, PMR, chronic pain 2/2 OA, Osteoporosis, Afib presents with intractable back pain 2/2 thoracic compression fracture. Compression fracture -likely secondary to osteoporosis induced changes to spinal column -CM referral placed, awaiting approval at [facility] -has Gabapentin 300mg TID, Lidoderm Q12h, and Fortical for pain -PT/OT recommends short term nursing Osteoporosis -Recommend continuing calcium vit D; outpatient management Afib -given lopressor in ER for rate control -Cont home meds (dilt,metoprolol) -Supratherapeutic INR of 4.1 on admission -continue warfarin 3mg daily -check INR in AM HTN -diltiazem/metoprolol as above Hx TIA -continue warfarin 3mg daily -Cont statin Depression -Cont paxil T2DM -On metformin at home; converted to ISS while inpatient Code: Full Dispo: awaiting placement in SNF (2) Back pain: (3) Chronic pain: (4) Mood disorder: (5) Hyperlipidemia: (6) Hypertension: (7) Diabetes mellitus, type II: (8) History of polymyalgia rheumatica: (9) Generalized osteoarthritis: (10) Atrial fibrillation: (11) History of TIA (transient ischemic attack): Supervising Physician Co-Signing Physician Notes I personally examined the patient and verified all lazar points of history and exam, discussed case, and agree with decision making with Dr Herbert. unfortunately no progress towards dispo. no other new problems. vitals noted nad heent nc at mmm breathing unlabored no accessory muscles good effort no rashes no pallor or icterus no focal neuro deficits at rest presumed osteoporosis related compression fracture/intractable pain -pain reasonably controlled continue current care -further osteoporosis management as outpt (D level if one not done recently, likely start a bisphosphonate in a month once she's had a chance to have early healing) -continue micalcin nasal for now -PT/OT eval and treat ongoing, definitely not safe to go home -for SNF once approved hip pain - was for injection at ortho 10/15 - d/w ortho team they'll want to see her in office and can reschedule A. fibtitrating up Coumadin. She was supratherapeutic on admission now subtherapeuticas above otherwise.. DVT prophylaxisLovenox since she is subtherapeutic (doesn't meet criteria for needing bridging for her afib). otherwise as above Subjective Pt continues to have low back pain with movement; able to tolerate getting up to bedside chair throughout the day without too much increased pain; able to get to bathroom with assistance. Continuing to await placement at rehab facility for ultimate improvement in her pain. Physical Exam Respiratory: normal respiratory effort, lungs clear to auscultation Cardiovascular: RRR, no murmur, no edema Musculoskeletal: Spine: + limited thoraco-lumbar ROM (secondary to pain) Extremities: extremities normal to inspection and strength 5/5 throughout Results & Data Vital Signs (Past 12 Hours) Vital Signs Temp Pulse Pulse Resp BP Pulse Ox 10/16/19 16:06 37.1 C 94 H 20 111/77 93 10/16/19 15:04 73 10/16/19 11:46 36.7 C 65 20 117/77 97 10/16/19 08:38 83 10/16/19 07:44 36.7 C 68 20 121/75 96 Laboratory Results 10/16/19 10/16/19 10/16/19 Range/Units 11:32 07:53 05:31 PT 11.9 (9.0-12.0) Seconds INR 1.2 H (0.9-1.1) POC Glucose 129 H 83 (70-99) 10/15/19 10/15/19 Range/Units 19:59 16:40 PT (9.0-12.0) Seconds INR (0.9-1.1) POC Glucose 130 H 104 H (70-99) Medications Administered Current Inpatient Medications Acetaminophen (Tylenol) 650 mg PO Q4H PRN PRN Reason: pain/fever Stop: 11/08/19 06:35 Last Admin: 10/13/19 19:27 Dose: 650 mg Documented by: Al Hydrox/Mg Hydrox/Simethicone (Maalox) 30 ml PO Q6H PRN PRN Reason: Dyspepsia Stop: 11/08/19 06:35 Atorvastatin Calcium (Lipitor) 20 mg PO DAILY [facility] Stop: 11/10/19 08:59 Last Admin: 10/16/19 08:20 Dose: 20 mg Documented by: Calcitonin [place] (Fortical) 1 sprays NA DAILY [facility] Stop: 11/08/19 15:44 Last Admin: 10/16/19 08:19 Dose: 1 sprays Documented by: Dextrose (Dextrose 50%) 25 - 50 ml IV UD PRN; Protocol PRN Reason: Hypoglycemia Protocol Stop: 11/08/19 06:35 Diltiazem HCl (Cardizem Cd) 120 mg PO QPM [facility] Stop: 11/08/19 20:59 Last Admin: 10/15/19 20:48 Dose: 120 mg Documented by: Docusate Sodium (Colace) 100 mg PO BID [facility] Stop: 11/08/19 08:59 Last Admin: 10/16/19 08:19 Dose: 100 mg Documented by: Enoxaparin Sodium (Lovenox) 40 mg SQ HS [facility] Stop: 11/14/19 20:59 Last Admin: 10/15/19 20:49 Dose: 40 mg Documented by: Gabapentin (Neurontin) 300 mg PO TID [facility] Stop: 11/08/19 08:59 Last Admin: 10/16/19 13:21 Dose: 300 mg Documented by: Glucagon (Glucagen) 1 mg SQ UD PRN; Protocol PRN Reason: Hypoglycemia Protocol Stop: 11/08/19 06:35 Glucose (Glucose 40%) 15 - 30 gm PO UD PRN; Protocol PRN Reason: Hypoglycemia Protocol Stop: 11/08/19 06:35 Glucose (Dex4 Glucose) 4 - 8 tabs PO UD PRN; Protocol PRN Reason: Hypoglycemia Protocol Stop: 11/08/19 06:35 Insulin Aspart (Novolog Flexpen) 0 units SC ACHS [facility] Stop: 11/08/19 07:29 Last Admin: 10/16/19 12:41 Dose: 5 units Documented by: Insulin Glargine (Lantus Solostar Pen) 10 units SC BID [facility] Stop: 11/08/19 08:59 Last Admin: 10/16/19 08:18 Dose: 10 units Documented by: Ketorolac Tromethamine (Toradol) 15 mg IV Q6H PRN PRN Reason: Pain Stop: 10/17/19 18:23 Last Admin: 10/16/19 07:31 Dose: 15 mg Documented by: Lidocaine (Lidoderm 5%) 1 patch TD QAM [facility] Stop: 11/11/19 08:59 Last Admin: 10/16/19 08:19 Dose: 1 patch Documented by: Magnesium Hydroxide (Milk Of Magnesia) 30 ml PO Q6H PRN PRN Reason: Constipation Stop: 11/08/19 06:35 Metoprolol Succinate (Toprol Xl) 100 mg PO Q12 [facility] Stop: 11/08/19 08:59 Last Admin: 10/16/19 08:19 Dose: 100 mg Documented by: Miscellaneous (Carbohydrates For Hypoglycemia) 15 - 30 gm PO UD PRN PRN Reason: Hypoglycemia Protocol Stop: 11/08/19 06:35 Miscellaneous (Remove Lidoderm Patch) 1 ea N/A DAILY@2100 [facility] Stop: 11/11/19 20:59 Last Admin: 10/15/19 20:58 Dose: 1 ea Documented by: Ondansetron HCl (Zofran) 4 mg IV Q6H PRN PRN Reason: Nausea Stop: 11/08/19 06:35 Last Admin: 10/09/19 08:14 Dose: 4 mg Documented by: Paroxetine HCl (Paxil) 40 mg PO DAILY [facility] Stop: 11/08/19 08:59 Last Admin: 10/16/19 08:18 Dose: 40 mg Documented by: Polyethylene Glycol (Miralax Powder Packet) 17 gm PO DAILY PRN PRN Reason: Constipation Stop: 11/08/19 06:35 Sennosides (Senokot) 8.6 mg PO HS [facility] Stop: 11/08/19 20:59 Last Admin: 10/15/19 20:47 Dose: 8.6 mg Documented by: Tramadol HCl (Ultram) 100 mg PO TID PRN PRN Reason: pain Stop: 11/08/19 05:22 Last Admin: 10/14/19 21:16 Dose: 100 mg Documented by: Warfarin Sodium (Coumadin) 3 mg PO DAILY@1600 [facility] Stop: 11/13/19 15:59 Last Admin: 10/15/19 15:37 Dose: 3 mg Documented by: Resident Activity Tracking Resident Involvement: Resident Care Provided Care Provided: Adult Hospital Medicine (1) Diabetes mellitus, type II Diabetes mellitus complication status: without complication Diabetes mellitus shelter insulin use: without shelter use Qualified Code(s): E11.9 - Type 2 diabetes mellitus without complications (2) Hyperlipidemia Hyperlipidemia type: unspecified Qualified Code(s): E78.5 - Hyperlipidemia, unspecified (3) Hypertension Hypertension type: essential hypertension Qualified Code(s): I10 - Essential (primary) hypertension
[2019-10-16] MEDS: WARFARIN SOD 3 MG TAB PO SCH (16:54)
--- NOTE | 2019-10-16 17:21 | Billing Data ---
Coding Level of Care Code 96418 Subseq Hosp Care Lvl 1
[2019-10-16] MEDS: dilTIAZem HCL 120 MG CAPCR PO SCH (20:45)
[2019-10-16] MEDS: ENOXAPARIN INJ 40 MG/0.4 ML SYR SQ SCH (20:46)
[2019-10-16] MEDS: SENNA 8.6 MG TAB PO SCH (20:47)
[2019-10-17 06:43] LABS: INR 1.3 (0.9-1.1); Prothrombin Time 13.1 Seconds (9.0-12.0)
[2019-10-17] MEDS: INSULIN ASPART 100 UNITS/ML 3 ML PEN SC SCH ×4 (08:49→21:18)
[2019-10-17] MEDS: KETOROLAC TROMETHAMINE 15 MG/ML VIAL IV PRN ×2 (08:50→17:05)
[2019-10-17] MEDS: DOCUSATE SODIUM 100 MG CAP PO SCH ×2 (08:50→21:13)
[2019-10-17] MEDS: METOPROLOL SUCC 50MG EXT REL TAB PO SCH ×2 (08:51→21:17)
[2019-10-17] MEDS: INSULIN GLARGINE SOLOSTAR 100 UNITS/ML 3 ML PEN SC SCH ×2 (08:51→21:19)
[2019-10-17] MEDS: CALCITONIN SALMON NA 200 IU/AC 3.7 ML BTL SCH (08:51)
[2019-10-17] MEDS: LIDOCAINE 5% 1 PATCH TD SCH (08:52)
[2019-10-17] MEDS: GABAPENTIN 300 MG CAP PO SCH ×3 (08:53→21:11)
[2019-10-17] MEDS: PARoxetine HCl 20 MG TAB PO SCH (08:53)
[2019-10-17] MEDS: ATORVASTATIN 20 MG TAB PO SCH (08:54)
--- NOTE | 2019-10-17 12:51 | Hospitalist Progress Note ---
Date of Service October 17, 2019 Assessment & Plan (1) Compression fracture: 68yo F PMH HTN, HLD, T2DM, PMR, chronic pain 2/2 OA, Osteoporosis, Afib presents with intractable back pain 2/2 thoracic compression fracture. Compression fracture -likely secondary to osteoporosis induced changes to spinal column -CM referral placed, awaiting approval at [facility] -has Gabapentin 300mg TID, Lidoderm Q12h, and Fortical for pain -PT/OT recommends short term nursing Osteoporosis -Recommend continuing calcium vit D; outpatient management Afib -given lopressor in ER for rate control -Cont home meds (dilt,metoprolol) -Supratherapeutic INR of 4.1 on admission -continue warfarin 3mg daily -check INR in AM HTN -diltiazem/metoprolol as above Hx TIA -continue warfarin 3mg daily -Cont statin Depression -Cont paxil T2DM -On metformin at home; converted to ISS while inpatient Code: Full Dispo: awaiting placement in SNF (2) Back pain: (3) Chronic pain: (4) Mood disorder: (5) Hyperlipidemia: (6) Hypertension: (7) Diabetes mellitus, type II: (8) History of polymyalgia rheumatica: (9) Generalized osteoarthritis: (10) Atrial fibrillation: (11) History of TIA (transient ischemic attack): Supervising Physician Co-Signing Physician Notes I personally examined the patient and verified all lazar points of history and exam, discussed case, and agree with decision making with Dr Herbert. had a little more pain again earlier - improved w toradol vitals noted nad heent nc at mmm breathing unlabored no accessory muscles good effort no rashes no pallor or icterus no focal neuro deficits at rest presumed osteoporosis related compression fracture/intractable pain -pain was worse this AM back on track now -further osteoporosis management as outpt (D level if one not done recently, likely start a bisphosphonate in a month once she's had a chance to have early healing) -continue micalcin nasal for now -PT/OT eval and treat ongoing, definitely not safe to go home -for SNF once approved hip pain - was for injection at ortho 10/15 - d/w ortho team on 10/15) they'll want to see her in office and can reschedule once it's clear that she's leaving and where she is going to A. fibtitrating up Coumadin. She was supratherapeutic on admission now subtherapeuticas above otherwise.. DVT prophylaxisLovenox since she is subtherapeutic (doesn't meet criteria for needing bridging for her afib). otherwise as above Subjective Pt continues to have low back pain with movement; today tried to get up more on her own, and subsequently had increased pain in her low back, that responded well to Toradol. Continuing to await placement at rehab facility for ultimate improvement in her pain. Physical Exam Constitutional: WD/WN, vitals as above Respiratory: normal respiratory effort, lungs clear to auscultation Cardiovascular: RRR, no murmur, no edema Results & Data Vital Signs (Past 12 Hours) Vital Signs Temp Pulse Pulse Resp BP BP Pulse Ox 10/17/19 11:26 36.8 C 66 18 115/88 95 10/17/19 09:36 85 10/17/19 07:32 36.6 C 79 18 117/74 95 10/17/19 04:35 81 18 90/55 L 94 Laboratory Results 10/17/19 10/17/19 10/17/19 Range/Units 11:38 07:52 06:12 PT 13.1 H (9.0-12.0) Seconds INR 1.3 H (0.9-1.1) POC Glucose 145 H 81 (70-99) 10/16/19 10/16/19 Range/Units 20:20 17:01 PT (9.0-12.0) Seconds INR (0.9-1.1) POC Glucose 108 H 72 (70-99) Medications Administered Current Inpatient Medications Acetaminophen (Tylenol) 650 mg PO Q4H PRN PRN Reason: pain/fever Stop: 11/08/19 06:35 Last Admin: 10/13/19 19:27 Dose: 650 mg Documented by: Al Hydrox/Mg Hydrox/Simethicone (Maalox) 30 ml PO Q6H PRN PRN Reason: Dyspepsia Stop: 11/08/19 06:35 Atorvastatin Calcium (Lipitor) 20 mg PO DAILY [facility] Stop: 11/10/19 08:59 Last Admin: 10/17/19 08:54 Dose: 20 mg Documented by: Calcitonin [place] (Fortical) 1 sprays NA DAILY [facility] Stop: 11/08/19 15:44 Last Admin: 10/17/19 08:51 Dose: 1 sprays Documented by: Dextrose (Dextrose 50%) 25 - 50 ml IV UD PRN; Protocol PRN Reason: Hypoglycemia Protocol Stop: 11/08/19 06:35 Diltiazem HCl (Cardizem Cd) 120 mg PO QPM [facility] Stop: 11/08/19 20:59 Last Admin: 10/16/19 20:45 Dose: 120 mg Documented by: Docusate Sodium (Colace) 100 mg PO BID [facility] Stop: 11/08/19 08:59 Last Admin: 10/17/19 08:50 Dose: 100 mg Documented by: Enoxaparin Sodium (Lovenox) 40 mg SQ HS [facility] Stop: 11/14/19 20:59 Last Admin: 10/16/19 20:46 Dose: 40 mg Documented by: Gabapentin (Neurontin) 300 mg PO TID [facility] Stop: 11/08/19 08:59 Last Admin: 10/17/19 12:40 Dose: 300 mg Documented by: Glucagon (Glucagen) 1 mg SQ UD PRN; Protocol PRN Reason: Hypoglycemia Protocol Stop: 11/08/19 06:35 Glucose (Glucose 40%) 15 - 30 gm PO UD PRN; Protocol PRN Reason: Hypoglycemia Protocol Stop: 11/08/19 06:35 Glucose (Dex4 Glucose) 4 - 8 tabs PO UD PRN; Protocol PRN Reason: Hypoglycemia Protocol Stop: 11/08/19 06:35 Insulin Aspart (Novolog Flexpen) 0 units SC ACHS [facility] Stop: 11/08/19 07:29 Last Admin: 10/17/19 12:36 Dose: 3 units Documented by: Insulin Glargine (Lantus Solostar Pen) 10 units SC BID [facility] Stop: 11/08/19 08:59 Last Admin: 10/17/19 08:51 Dose: 10 units Documented by: Ketorolac Tromethamine (Toradol) 15 mg IV Q6H PRN PRN Reason: Pain Stop: 10/17/19 18:23 Last Admin: 10/17/19 08:50 Dose: 15 mg Documented by: Lidocaine (Lidoderm 5%) 1 patch TD QAM [facility] Stop: 11/11/19 08:59 Last Admin: 10/17/19 08:52 Dose: 1 patch Documented by: Magnesium Hydroxide (Milk Of Magnesia) 30 ml PO Q6H PRN PRN Reason: Constipation Stop: 11/08/19 06:35 Metoprolol Succinate (Toprol Xl) 100 mg PO Q12 [facility] Stop: 11/08/19 08:59 Last Admin: 10/17/19 08:51 Dose: 100 mg Documented by: Miscellaneous (Carbohydrates For Hypoglycemia) 15 - 30 gm PO UD PRN PRN Reason: Hypoglycemia Protocol Stop: 11/08/19 06:35 Miscellaneous (Remove Lidoderm Patch) 1 ea N/A DAILY@2100 [facility] Stop: 11/11/19 20:59 Last Admin: 10/16/19 20:47 Dose: 1 ea Documented by: Ondansetron HCl (Zofran) 4 mg IV Q6H PRN PRN Reason: Nausea Stop: 11/08/19 06:35 Last Admin: 10/09/19 08:14 Dose: 4 mg Documented by: Paroxetine HCl (Paxil) 40 mg PO DAILY [facility] Stop: 11/08/19 08:59 Last Admin: 10/17/19 08:53 Dose: 40 mg Documented by: Polyethylene Glycol (Miralax Powder Packet) 17 gm PO DAILY PRN PRN Reason: Constipation Stop: 11/08/19 06:35 Sennosides (Senokot) 8.6 mg PO HS [facility] Stop: 11/08/19 20:59 Last Admin: 10/16/19 20:47 Dose: 8.6 mg Documented by: Tramadol HCl (Ultram) 100 mg PO TID PRN PRN Reason: pain Stop: 11/08/19 05:22 Last Admin: 10/14/19 21:16 Dose: 100 mg Documented by: Warfarin Sodium (Coumadin) 3 mg PO DAILY@1600 [facility] Stop: 11/13/19 15:59 Last Admin: 10/16/19 16:54 Dose: 3 mg Documented by: Resident Activity Tracking Resident Involvement: Resident Care Provided Care Provided: Adult Hospital Medicine (1) Diabetes mellitus, type II Diabetes mellitus complication status: without complication Diabetes mellitus intermediate insulin use: without intermission coordinator use Qualified Code(s): E11.9 - Type 2 diabetes mellitus without complications (2) Hyperlipidemia Hyperlipidemia type: unspecified Qualified Code(s): E78.5 - Hyperlipidemia, unspecified (3) Hypertension Hypertension type: essential hypertension Qualified Code(s): I10 - Essential (primary) hypertension
[2019-10-17] MEDS: WARFARIN SOD 3 MG TAB PO SCH (16:46)
--- NOTE | 2019-10-17 17:46 | Billing Data ---
Coding Level of Care Code 55036 Subseq Hosp Care Lvl 2
[2019-10-17] MEDS: SENNA 8.6 MG TAB PO SCH (21:15)
[2019-10-17] MEDS: ENOXAPARIN INJ 40 MG/0.4 ML SYR SQ SCH (21:17)
[2019-10-17] MEDS: dilTIAZem HCL 120 MG CAPCR PO SCH (21:24)
[2019-10-18 05:48] LABS: Hematocrit (blood only) 34.8 % (37-47); Hemoglobin 11.3 g/dL (12.0-16.0); Mean Corpuscular Hemoglobin 29.3 pg (25-34); Mean Corpuscular Hgb Conc 32.5 g/dL (32-36); Mean Corpuscular Volume 90.2 fL (80-100); Mean Platelet Volume 8.7 fL (7.4-10.4); Platelet Count 292 K/uL (130-400); RDW Standard Deviation 46.3 fL (36.4-46.3); Red Blood Count 3.86 M/uL (4.2-5.4); White Blood Count 7.75 K/uL (4.8-10.8)
[2019-10-18 06:36] LABS: Creatinine Clr Calc Pharmacy 110.4 ml/min; Est GFR (African American) 108.2; Est GFR (Non-African American) 93.4
[2019-10-18 08:00] LABS: INR 1.5 (0.9-1.1); Partial Thromboplastin Ratio 1.4; Partial Thromboplastin Time 36.8 Seconds (21.0-31.0); Prothrombin Time 15.2 Seconds (9.0-12.0)
[2019-10-18] MEDS: LIDOCAINE 5% 1 PATCH TD SCH (08:02)
[2019-10-18] MEDS: TRAMADOL HCL 50 MG TABLET PO PRN ×2 (08:04→15:55)
[2019-10-18] MEDS: METOPROLOL SUCC 50MG EXT REL TAB PO SCH (08:05)
[2019-10-18] MEDS: PARoxetine HCl 20 MG TAB PO SCH (08:05)
[2019-10-18] MEDS: CALCITONIN SALMON NA 200 IU/AC 3.7 ML BTL SCH (08:05)
[2019-10-18] MEDS: GABAPENTIN 300 MG CAP PO SCH ×2 (08:06→13:28)
[2019-10-18] MEDS: ATORVASTATIN 20 MG TAB PO SCH (08:06)
[2019-10-18] MEDS: DOCUSATE SODIUM 100 MG CAP PO SCH (08:06)
[2019-10-18] MEDS: INSULIN GLARGINE SOLOSTAR 100 UNITS/ML 3 ML PEN SC SCH (08:09)
[2019-10-18] MEDS: INSULIN ASPART 100 UNITS/ML 3 ML PEN SC SCH ×2 (08:10→13:18)
[2019-10-18] MEDS: ONDANSETRON INJ 2 MG/ML 2 ML VIAL IV PRN (13:27)
--- NOTE | 2019-10-18 15:30 | Discharge Summary ---
Date of Service October 18, 2019 Admission HPI Per Admitting Provider Patient is a 68yo F PMH HTN, T2DM, HLD, PMR, afib, osteoporosis, osteoarthritis with chronic pain, TIA, depression presents 3 days after she was found to have an uncomplicated compression fracture in her thoracic spine with intractable back pain and failure to thrive in her home. Patient was discharged from the ER on ..19 after "sliding" injury in tub resulted in T12 spinal fracture and was discharged with oxyIR for pain. She has been taking the oxy along with her chronic pain meds tramadol and gabapentin, and she states the medications help but not fully. reports that she has been unable to care for herself or get out of bed due to the pain, and that the oxycodone made her "out of her head" for a few hours after taking. She has been incontinent of urine in her bed due to not being able to get up to the bathroom. Has been experiencing what appears to be constipation with overflow diarrhea and "upset stomach" which patient states is now resolved. PDMP reviewed, consistent with chronic tramadol use and recent oxyIR script from ER. ER course: AF, HR elevated in 120s, VSS, Labs overall WNL aside from supratherapeutic INR of 4.1. No s/s of active bleeding. Abnormal UA with blood and trace leuks. CT abdomen and pelvis revealed known thoracic fracture. Patient given 1500cc IVF, 25mcg IV fentanyl, 5mg IV lopressor Admission Exam Per Admitting Provider Constitutional: WD/WN, vitals as above + morbidly obese Eyes: PERRL, conjunctivae normal, anicteric sclerae ENMT: external ear and nose normal, oropharynx normal Neck: normal visual inspection Respiratory: normal respiratory effort, lungs clear to auscultation Cardiovascular: RRR, no murmur, no edema Gastrointestinal (Abdomen): normal bowel sounds, soft, nontender, no hepatosplenomegaly Musculoskeletal: no cyanosis or clubbing, extremities motor strength 5/5 Extremities: + limited ROM of extremities Skin: no rashes, warm and dry Neurologic: PERRL, EOMI, accommodation nl, no face palsy, no dysarthria Psychiatric: A+Ox3, euthymic affect Principal Diagnosis thoracic compression fracture Discharge Exam Constitutional WD/WN, vitals as above Respiratory normal respiratory effort, lungs clear to auscultation Cardiovascular RRR, no murmur, no edema Gastrointestinal (Abdomen) normal bowel sounds, soft, nontender, no hepatosplenomegaly Skin no rashes, warm and dry Psychiatric A+Ox3, euthymic affect Discharge Data Allergies Allergy/AdvReac Type Severity Reaction Status Date / Time Sulfa (Sulfonamide Allergy Intermediate RASH Verified 10/09/19 01:25 Antibiotics) Consultations 10/09/19 04:28 ED Decision to Admit Stat 10/09/19 06:36 Consult Case Management - Discharge Planning Routine 10/09/19 16:37 Consult Orthopedic Surgery Routine Ordered Studies 10/09/19 01:45 CT abd pelvis IV con only Urgent Hospital Course (1) Compression fracture: 68yo F PMH HTN, HLD, DM2, PMR, chronic pain 2/2 OA, Osteoporosis, Afib presents with intractable back pain 2/2 thoracic compression fracture. Compression fracture - Likely secondary to osteoporosis induced changes to spinal column - Will need PT/OT at alf for deconditioning and fracture to increase independence and mobility. - Will need DEXA scan to assess for level of osteoporosis, and should be started on a bisphosphonate like alendronate a month following discharge if Vitamin D level is normal. If not, replete vitamin D. - Tramadol as needed for pain. - Kept on micalcin nasal spray - to consider as outpatient. Osteoporosis - Recommend continuing calcium and vit D; outpatient management as above. - recommend DEXA scan and addition of bisphosphonate as above. Hip pain - Will need orthopedic follow up for hip injections. Afib - Continue home metoprolol and diltiazem. - Supratherapeutic INR of 4.1 on admission; now at INR 1.5. We have been tr eating her with SQ Lovenox. On discharge, pharmacy recommends warfarin 5mg today (Friday) and tomorrow (Friday), followed by return to normal warfarin schedule (4mg Friday, 3mg all other days). - Check INR tomorrow. HTN - Diltiazem/metoprolol as above. Hx TIA -Continue warfarin as described above under "Afib". -Continue statin. Depression -Continue Paxil. T2DM - Continue home metformin. (2) History of TIA (transient ischemic attack): (3) Mood disorder: (4) Osteopenia: (5) Hyperlipidemia: (6) Hypertension: (7) Diabetes mellitus, type II: (8) Generalized osteoarthritis: (9) Atrial fibrillation: (10) History of polymyalgia rheumatica: Total Time Total Time Spent Total Time Spent (In Minutes): see attending attestation. Discharge Plan Discharge Items Patient Disposition: Transfer Senior Living Fac Reason For Visit: THORACIC COMPRESSION FRACUTRE,INTRACTABLE PAIN Discharge Diagnosis: thoracic compression fracture Condition on Discharge: Good Activity: Per Instructions section Non-emergency contact: Primary Care Provider and Hospitalist Call non-emergency contact if: your pain is worsening and your rectal temperature is above 100.4 Follow-up/Referrals: Luis Daniel Hall MD [Primary Care Provider] - Diet: Regular Addtl Attending Provider Instructions: 68yo F PMH HTN, HLD, DM2, PMR, chronic pain 2/2 OA, Osteoporosis, Afib presents with intractable back pain 2/2 thoracic compression fracture. Compression fracture - Likely secondary to osteoporosis induced changes to spinal column - Will need PT/OT at alf for deconditioning and fracture to increase independence and mobility. - Will need orthopedic follow up for hip injections. - Will need DEXA scan to assess for level of osteoporosis, and should be started on a bisphosphonate like alendronate a month following discharge if Vitamin D level is normal. If not, replete vitamin D. - Tramadol as needed for pain. Osteoporosis - Recommend continuing calcium and vit D; outpatient management as above. - recommend DEXA scan and addition of bisphosphonate as above. Afib - Continue home metoprolol and diltiazem. - Supratherapeutic INR of 4.1 on admission; now at INR 1.5. We have been treating her with SQ Lovenox. On discharge, pharmacy recommends warfarin 5mg today (Friday) and tomorrow (Friday), followed by return to normal warfarin schedule (4mg Friday, 3mg all other days). - Check INR tomorrow. HTN - Diltiazem/metoprolol as above. Hx TIA -Continue warfarin as described above under "Afib". -Continue statin. Depression -Continue Paxil. T2DM - Continue home metformin. Pending Studies at Discharge: No Stand-Alone Forms: [employer] Skilled Items Patient informed of condition?: Yes DNR: No Discharge Level of Care: Skilled Communicable Disease: No Discharge Prognosis: Stable Lines: None Urinary Catheter: No Medications and DC Order Prescriptions: New tramadol 50 mg tablet 50 mg PO TID Qty: 14 RF: 0 Continued multivitamin Tablet 1 tab PO DAILY RF: 0 Azo Bladder Control 300 mg Capsule 300 mg PO TID RF: 0 calcium carbonate-vitamin D3 [Os-Esdras 500 + D3] 500 mg(1,250mg) -200 unit tablet 1 tab PO HS RF: 0 acetaminophen [Tylenol Extra Strength] 500 mg tablet 1,000 mg PO BID RF: 0 gabapentin 300 mg capsule 300 mg PO TID Qty: 90 RF: 1 paroxetine HCl [Paxil] 40 mg tablet 40 mg PO DAILY Qty: 90 RF: 3 metformin 500 mg tablet 500 mg PO BIDM Qty: 90 RF: 3 diltiazem HCl 120 mg tablet extended release 24 hr 120 mg PO QPM Qty: 90 RF: 3 cholecalciferol (vitamin D3) 2,000 unit capsule 2,000 units PO DAILY RF: 0 metoprolol succinate 100 mg tablet extended release 24 hr 100 mg PO Q12 Qty: 180 RF: 3 omeprazole 20 mg capsule,delayed release(DR/EC) 20 mg PO DAILY Qty: 90 RF: 3 atorvastatin 10 mg tablet 10 mg PO DAILY RF: 0 warfarin 3 mg tablet 3 mg PO DAILY RF: 0 tramadol 50 mg tablet 100 mg PO TID PRN (Reason: pain) Qty: 180 RF: 0 sennosides [Senokot] 8.6 mg tablet 8.6 mg PO HS Qty: 30 RF: 0 docusate sodium [Colace] 100 mg capsule 100 mg PO BID Qty: 60 RF: 0 Discontinued oxycodone 5 mg tablet 5 mg PO Q6H PRN (Reason: pain) Qty: 14 RF: 0 Discharge Orders: Discharge Order (Routine); Ordered 10/18/19 Ordered By: Winnie Madrigal Admission Data Admit Date/Time: 10/10/19 12:47 Attending Provider: Lesley Lau Admit Provider: Chela Snyder Primary Care Provider: Luis Daniel Hall Other Providers: Ishan Carbajal ; Luis Whitney ; [facility] ; [facility] ; Jerome Mckeon Other Interventions: Discharge Summary Assessment (RN) Last Done: 10/18/19 15:35 DC Date/Time DO NOT enter until pt leaves facility: 10/18/19 16:20 Supervising Physician Co-Signing Physician Notes Resident Physician Supervision Note: I independently interviewed and examined the patient and verified the lazar history and physical, reviewed labs and image studies, discussed the case with the resident Dr. Madrigal and agree with the findings and care plan. Time spent in discharge 35 min Resident Activity Tracking Resident Involvement: Resident Care Provided Care Provided: Adult Hospital Medicine
[2019-10-18] MEDS ORDERED: WARFARIN SOD 5 MG TAB PO SCH (16:00)
== END 2019-10-18 16:20 | DRG 544 ==
LOC: 2N 01:02 → ED 01:02 → 2N 06:08 → SUATTDRO 10-10 12:47

== ENCOUNTER 2021-07-30 19:29 | Inpatient (IN) ==
[2021-07-30] MEDS ORDERED: SODIUM CHLORIDE 0.9% 500 ML IV ONE (21:16)
[2021-07-30] MEDS ORDERED: MECLIZINE HCL 25 MG TAB PO STA (21:16)
--- NOTE | 2021-07-30 21:19 | Emergency Department Note ---
History of Present Illness General Chief complaint: Dizziness Stated complaint: dizzy, nausea, chest pain Time Seen by Provider: 07/30/21 21:01 Source: patient and family ( who is at the bedside) Mode of arrival: ambulatory Limitations: no limitations History of Present Illness This patient is a 70-year-old female who comes in after feeling dizzy. She woke up this way this morning. She says she is okay at rest but if she moves her head or tries to get up she feels like she is spinning. She felt a little bit like that yesterday morning but it went away. She said she felt weak and clammy in her arms bilaterally. She may have had some vague chest pain briefly this morning lasting about an hour. Denies shortness of breath or pleurisy. No difficulty speaking or swallowing. There is no headache associated with this. No ear pain or ringing. She had her gallbladder removed as well as lap band removed on July 19. She is on chronic anticoagulation for A. fib. No fall or trauma. She is followed locally by Dr. Toledo. No blood or melena stool. No dysuria or hematuria. Home Medications Medication Instructions Recorded Confirmed Type multivitamin 1 tab PO QAM 08/25/18 07/30/21 History pumpkin seed extract-soy germ 300 300 mg PO TID 08/25/18 07/30/21 History mg capsule (Azo Bladder Control) calcium carbonate 500 mg (1,250 1 tab PO HS tab 08/26/18 07/30/21 History mg)-vitamin D3 200 unit tablet (Os-Esdras 500 + D3) gabapentin 600 mg tablet 600 mg PO BID #180 tab 01/13/20 07/30/21 Rx omeprazole 20 mg capsule,delayed 20 mg PO QAM #90 cap 08/11/20 07/30/21 Rx release metformin 500 mg tablet 500 mg PO BIDM #180 tab 04/05/21 07/30/21 Rx dicyclomine 10 mg capsule 20 mg PO TID #540 cap 06/04/21 07/30/21 Rx lancets #100 ea 06/05/21 07/30/21 History metoprolol succinate 100 mg 100 mg PO Q12H #180 tab 06/15/21 07/30/21 Rx tablet,extended release 24 hr ondansetron HCl 4 mg tablet 4 mg PO Q8H PRN 4 Days #20 tab 06/21/21 07/30/21 Rx (Zofran) diltiazem HCl 120 mg 120 mg PO QAM 07/11/21 07/30/21 History capsule,extended release 24 hr (Cartia XT) paroxetine HCl 40 mg tablet (Paxil) 40 mg PO QAM 07/11/21 07/30/21 History warfarin 2 mg tablet See Rx Instructions PO DAILY tab 07/18/21 07/30/21 History enoxaparin 100 mg/mL subcutaneous 100 mg SUBCUT Q12H #10 ml 07/19/21 07/30/21 Rx syringe (Lovenox) hydrocodone 5 mg-acetaminophen 325 1 - 2 tab PO .Q4-6h PRN #15 tab 07/19/21 07/30/21 Rx mg tablet MDD 6 tabs Allergies Allergy/AdvReac Type Severity Reaction Status Date / Time Sulfa (Sulfonamide Allergy Severe swelling/hives Verified 07/11/21 09:31 Antibiotics) all over nickel Allergy Mild Rash Verified 07/11/21 09:31 duloxetine AdvReac Intermediate depression Verified 07/11/21 09:31 Past Med/Surg History Medical History Anxiety Atrial fibrillation Dx 5 years ago; on warfarin (managed by PCP) Choledocholithiasis Chronic back pain Depression Diabetes mellitus, type 2 NIDDM Diverticulosis of colon without diverticulitis History of DVT of lower extremity ~1998 r/t hormone therapy History of polymyalgia rheumatica Followed by Rheumatology, previous steroid taper History of TIA (transient ischemic attack) Possible remote (~2010) Hyperlipidemia Hypertension IBS (irritable bowel syndrome) Migraine Osteopenia Polyp of gallbladder Scoliosis Spinal stenosis Surgical History History of bariatric surgery S/p laparascopic gastric band (2011) History of bilateral cataract extraction History of colonoscopy History of dilatation and curettage History of removal of laparoscopic gastric banding device (07/19/21) Laparoscopic Removal Gastric Band, Laparoscopic Cholecystectomy, enterolysis Dr. Liu 07-19-2021 History of tonsillectomy History of total hysterectomy with bilateral salpingo-oophorectomy (BSO) History of wisdom tooth extraction Hx laparoscopic cholecystectomy Laparoscopic Removal Gastric Band, Laparoscopic Cholecystectomy, enterolysis Dr. Liu 07-19-2021 Status post bilateral knee replacements Family History Grandmother (Maternal) Family history of diabetes mellitus Mother Family hx colonic polyps Uremia Father Tachycardia Other Diabetes Graves disease Hypertension No family history of adverse response to anesthesia Denies family history of Ovarian cancer Prostate cancer Myocardial infarction Breast cancer Colorectal cancer Social History Smoking Status: Former smoker Tobacco Type: Cigarettes Second Hand Exposure: No; Hx Alcohol Use: Yes Alcohol type: other Hx Substance Use: No Preferred Language: Algerian Communication Ability: Effective Visual Impairment: No Limitations Hearing Ability: Normal 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 Beliefs That Will Affect Care: None marital status: Current Living Situation: Spouse current occupational status: retired How many Children do You have: 1 Feels Safe at Home: Yes Childhood Exposure to Second-Hand Smoke: No Dental Care, Regularly: Yes Physical Activity Frequency: 1-2 Times per Week Seatbelt Use: never Sunscreen Use: Yes Assistive Devices: Cane Review of Systems A total of 10 systems reviewed and were otherwise negative Physical Exam Vital Signs Vital Signs - 24 hr 07/30/21 19:34 07/30/21 19:56 07/30/21 20:30 Temperature 36.1 C L Temperature Source Temporal Artery Scan Pulse Rate 92 H 85 84 Pulse Rate from SpO2 Sensor 91 H 84 Respiratory Rate 18 17 14 Respiratory Effort / Characteristics Non-Labored Spontaneous Respiratory Depth Normal Blood Pressure 149/91 H 141/108 H 128/98 Blood Pressure Mean 110 119 108 Pulse Oximetry 97 98 97 Oxygen Delivery Method Room Air Sepsis New/Unexplained Change in Mental Status N/A Sepsis Action Taken by Nursing No Action Required 07/30/21 21:00 07/30/21 21:30 07/30/21 22:00 Temperature Temperature Source Pulse Rate 87 84 86 Pulse Rate from SpO2 Sensor 88 82 85 Respiratory Rate 16 15 16 Respiratory Effort / Characteristics Respiratory Depth Blood Pressure 117/97 138/74 123/86 Blood Pressure Mean 103 95 98 Pulse Oximetry 90 98 97 Oxygen Delivery Method Sepsis New/Unexplained Change in Mental Status Sepsis Action Taken by Nursing 07/30/21 23:11 07/30/21 23:30 07/31/21 01:00 Temperature Temperature Source Pulse Rate 88 85 86 Pulse Rate from SpO2 Sensor Respiratory Rate 18 16 16 Respiratory Effort / Characteristics Respiratory Depth Blood Pressure 150/91 H 133/82 131/77 Blood Pressure Mean 110 99 95 Pulse Oximetry 96 97 96 Oxygen Delivery Method Sepsis New/Unexplained Change in Mental Status Sepsis Action Taken by Nursing 07/31/21 01:30 Temperature Temperature Source Pulse Rate 82 Pulse Rate from SpO2 Sensor Respiratory Rate 16 Respiratory Effort / Characteristics Respiratory Depth Blood Pressure 127/80 Blood Pressure Mean 95 Pulse Oximetry 96 Oxygen Delivery Method Sepsis New/Unexplained Change in Mental Status Sepsis Action Taken by Nursing General: Well developed well nourished not ill-appearing older female who appears in no acute distress, breathing comfortably on room air. Normal speech HEENT: Normal cephalic atraumatic. Pupils are equal round and reactive to light. Extraocular movements are intact. Oropharynx is pink with moist mucous membranes. No swelling of the mouth lips or tongue. Neck: Supple with a midline trachea. No meningeal signs or stiffness, no JVD or bruits. No Stridor. Chest: Clear to auscultation bilaterally. No wheezes or rhonchi. No increased work of breathing. Heart: Regular rate and rhythm without murmurs or gallops. Abdomen: Soft nontender, nondistended without rebound guarding or rigidity. Extremities: No cyanosis clubbing or edema. No calf tenderness or assymetry Spine/Back. Non tender to palpation. No CVA tenderness Skin: Good turgor without rashes. Neurologic exam: Cranial nerves two through 12 are intact. Motor and sensation are intact and symmetrical throughout. Finger-nose intact. No pronator drift. No tremor. Course Administered Medications Discontinued Medications Sodium Chloride (Nss) 500 mls @ 999 mls/hr IV .Q31M ONE Stop: 07/30/21 21:46 Last Infusion: 07/30/21 22:02 Dose: 0 mls/hr Documented by: [id number] Admin: 07/30/21 21:23 Dose: 999 mls/hr Documented by: [id number] Ioversol (Optiray 320 125ml) 118 ml IV ONCE ONE Stop: 07/30/21 21:22 Last Admin: 07/30/21 21:21 Dose: 118 ml Documented by: [id number] Meclizine HCl (Meclizine Hcl 25 Mg Tab) 25 mg PO NOW STA Stop: 07/30/21 21:17 Last Admin: 07/30/21 21:22 Dose: 25 mg Documented by: [id number] Medical Decision Making Differential Diagnosis Vertigo, intracranial hemorrhage, CVA, electrolyte or metabolic abnormality, acute coronary syndrome, arrhythmia, anemia, dehydration Medical Records Attestation: I reviewed the patient's medical records. Home Medications Current Medication List: was personally reviewed by me Laboratory Data Attestation: I reviewed the patient's lab results. Result diagrams: 07/30/21 Unknown 07/30/21 Unknown Lab Results 07/30/21 07/30/21 07/30/21 Range/Units Unknown Unknown Unknown WBC 6.02 (4.8-10.8) K/uL RBC 4.14 L (4.2-5.4) M/uL Hgb 12.7 (12.0-16.0) g/dL Hct 38.7 (37-47) % MCV 93.5 (80-100) fL MCH 30.7 (25-34) pg MCHC 32.8 (32-36) g/dL RDW Std Deviation 46.0 (36.4-46.3) fL RDW Coeff of Dorita 13.5 (11.5-14.5) % Plt Count 328 (130-400) K/uL MPV 9.3 (7.4-10.4) fL Immature Gran % (Auto) 0.2 % Neut % (Auto) 63.0 % Lymph % (Auto) 22.6 % [place] % (Auto) 8.0 % Eos % (Auto) 5.5 % Baso % (Auto) 0.7 % Neut # (Auto) 3.80 (1.4-6.5) K/uL Lymph # (Auto) 1.36 (1.2-3.4) K/uL [place] # (Auto) 0.48 (0.11-0.59) K/uL Eos # (Auto) 0.33 (0-0.5) K/uL Baso # (Auto) 0.04 (0-0.2) K/uL Immature Gran # (Auto) 0.01 (0.00-0.02) K/uL PT 14.8 H (9.0-12.0) Seconds INR 1.5 H (0.9-1.1) APTT 45.2 H* (21.0-31.0) Seconds PTT Ratio 1.7 Sodium 140 (136-145) mmol/L Potassium 3.9 (3.5-5.1) mmol/L Chloride 105 (98-107) mmol/L Carbon Dioxide 28 (21-32) mmol/L Anion Gap 6.0 (3-11) BUN 13 (7-18) mg/dl Creatinine 0.58 L (0.6-1.2) mg/dl Est Cr Clr Drug Dosing 79.9 ml/min Est GFR ( Amer) 106.7 ml/min Est GFR (Non-Af Amer) 92.1 ml/min BUN/Creatinine Ratio 21.9 H (10-20) Glucose 86 (70-99) mg/dl Calcium 9.1 (8.5-10.1) mg/dl Total Bilirubin 0.5 (0.2-1) mg/dl AST 16 (15-37) U/L ALT 20 (12-78) U/L Alkaline Phosphatase 54 (45-117) U/L Troponin I < 0.015 (0-0.045) ng/ml Total Protein 7.9 (6.4-8.2) gm/dl Albumin 3.3 L (3.4-5.0) gm/dl Globulin 4.6 H (2.5-4.0) gm/dl Albumin/Globulin Ratio 0.7 L (0.9-2) Lipase 47 L (73-393) U/L Urine Color Urine Appearance (Clear) Urine pH (4.5-7.5) Ur Specific [place] (1.000-1.030) Urine Protein (Negative) Urine Glucose (UA) (Negative) Urine Ketones (Negative) Urine Blood (Negative) Urine Nitrite (Negative) Urine Bilirubin (Negative) Urine Urobilinogen (Negative) Ur Leukocyte Esterase (Negative) COVID-19 Eval Order SARS-CoV-2 (PCR) (Negative) 07/31/21 07/31/21 07/31/21 Range/Units 00:15 00:38 00:38 WBC (4.8-10.8) K/uL RBC (4.2-5.4) M/uL Hgb (12.0-16.0) g/dL Hct (37-47) % MCV (80-100) fL MCH (25-34) pg MCHC (32-36) g/dL RDW Std Deviation (36.4-46.3) fL RDW Coeff of Dorita (11.5-14.5) % Plt Count (130-400) K/uL MPV (7.4-10.4) fL Immature Gran % (Auto) % Neut % (Auto) % Lymph % (Auto) % [place] % (Auto) % Eos % (Auto) % Baso % (Auto) % Neut # (Auto) (1.4-6.5) K/uL Lymph # (Auto) (1.2-3.4) K/uL [place] # (Auto) (0.11-0.59) K/uL Eos # (Auto) (0-0.5) K/uL Baso # (Auto) (0-0.2) K/uL Immature Gran # (Auto) (0.00-0.02) K/uL PT (9.0-12.0) Seconds INR (0.9-1.1) APTT (21.0-31.0) Seconds PTT Ratio Sodium (136-145) mmol/L Potassium (3.5-5.1) mmol/L Chloride (98-107) mmol/L Carbon Dioxide (21-32) mmol/L Anion Gap (3-11) BUN (7-18) mg/dl Creatinine (0.6-1.2) mg/dl Est Cr Clr Drug Dosing ml/min Est GFR ( Amer) ml/min Est GFR (Non-Af Amer) ml/min BUN/Creatinine Ratio (10-20) Glucose (70-99) mg/dl Calcium (8.5-10.1) mg/dl Total Bilirubin (0.2-1) mg/dl AST (15-37) U/L ALT (12-78) U/L Alkaline Phosphatase (45-117) U/L Troponin I (0-0.045) ng/ml Total Protein (6.4-8.2) gm/dl Albumin (3.4-5.0) gm/dl Globulin (2.5-4.0) gm/dl Albumin/Globulin Ratio (0.9-2) Lipase (73-393) U/L Urine Color Yellow Urine Appearance Clear (Clear) Urine pH 6.5 (4.5-7.5) Ur Specific [place] 1.045 H (1.000-1.030) Urine Protein Negative (Negative) Urine Glucose (UA) Negative (Negative) Urine Ketones Trace H (Negative) Urine Blood Negative (Negative) Urine Nitrite Negative (Negative) Urine Bilirubin Negative (Negative) Urine Urobilinogen Negative (Negative) Ur Leukocyte Esterase Negative (Negative) COVID-19 Eval Order Covid19 at [facility] SARS-CoV-2 (PCR) NEGATIVE (Negative) Imaging Data Attestation: I personally reviewed and interpreted this imaging study as follows : Radiologist's Impression: Stat read head CTno acute intracranial abnormality. Stat read CTA of the neckno occlusion or severe stenosis. No aneurysm or dissection. Mild bilateral carotid bulb calcifications. No significant stenosis. Mild para sinus mucosal thickening. CTA of the head. No occlusion or severe stenosis. No aneurysm or dissection. 8 mm left parafalcine hyperdense calcification/nodule. May be small meningioma ECG Data Attestation: I personally reviewed and interpreted this ECG as follows: Indication: + other (dizziness) Rate (beats per minute): 83 Rhythm: + atrial fibrillation ECG Intervals/blocks: + Normal QRS, + Normal QT and + Normal NM ECG [place]: + Left axis deviation ECG ST segments: + Nonspecific ST abnormalities ECG Findings: no PACs Comparison ECG Date: from (05/31/21) Change: no significant change MDM Narrative This patient comes in as described above. She was placed on a groundwater monitoring technician room C2. She is here for treatment evaluation of dizziness. Is worse if she moves. I did a full MACHIN[employer]OL [employer]/stroke type work-up. She was reassessed frequently. EKG shows chronic A. fib. She is anticoagulated with an INR of 1.5. CAT scans of her head with the CTA of the head and neck as well do not show any acute process central neurologically. No definite stroke or any hemorrhage. She has no significant anemia or significant electrolyte or metabolic abnormalities. I do not think there is likely pulmonary embolism she has no shortness of breath or pleurisy and her symptoms are only when she moves her head or tries to walk when she gets dizzy. She was hydrated with normal saline and given meclizine. Despite this she still dizzy and required significant medical staff assistant was with walking I think she is a fall risk. She lives with her who also has health problems and concerned about taking her home. I do think she needs to be admitted/observe for her weakness and dizziness. I have consulted Dr. Char herring to see her in the ER for these measures. Continuous cardiac monitoring: Orders placed in EMR for continuous cardiac monitoring given her dizziness. Upon my interpretation she was noted to be in A. fib with a rate of 80. Impression & Plan Dizziness, Current use of long term acute care registered nurse anticoagulation, Ambulatory dysfunction, Chronic a-fib, S/P cholecystectomy Discharge Plan Visit Data Chief Complaint: Dizziness Stated Complaint: dizzy, nausea, chest pain ED Provider: John Schmitt Discharge Problem: Dizziness, Current use of long term acute care registered nurse anticoagulation, Ambulatory dysfunction, Chronic a-fib, S/P cholecystectomy Discharge Instructions Interventions: ED Discharge Assessment Last Done: 07/31/21 02:03 Forms Stand Alone Forms: [facility] [employer] Prescriptions Prescriptions: No Action multivitamin Tablet 1 tab PO QAM RF: 0 Azo Bladder Control 300 mg Capsule 300 mg PO TID RF: 0 calcium carbonate-vitamin D3 [Os-Esdras 500 + D3] 500 mg(1,250mg) -200 unit tablet 1 tab PO HS RF: 0 omeprazole 20 mg capsule,delayed release(DR/EC) 20 mg PO QAM Qty: 90 RF: 3 metformin 500 mg tablet 500 mg PO BIDM Qty: 180 RF: 3 dicyclomine 10 mg capsule 20 mg PO TID Qty: 540 RF: 3 metoprolol succinate 100 mg tablet extended release 24 hr 100 mg PO Q12H Qty: 180 RF: 3 ondansetron HCl [Zofran] 4 mg tablet 4 mg PO Q8H PRN (Reason: nausea and vomiting) 4 Days Qty: 20 RF: 1 gabapentin 600 mg tablet 600 mg PO BID Qty: 180 RF: 3 (DME) lancets Misc See Rx Instructions ea .ROUTE .MEDSUPPLY Qty: 100 RF: 0 warfarin 2 mg tablet See Rx Instructions PO DAILY RF: 0 diltiazem HCl [Cartia XT] 120 mg capsule,extended release 24hr 120 mg PO QAM RF: 0 paroxetine HCl [Paxil] 40 mg tablet 40 mg PO QAM RF: 0 enoxaparin [Lovenox] 100 mg/mL syringe 100 mg subcut Q12H Qty: 10 RF: 0 hydrocodone-acetaminophen 5-325 mg tablet 1 - 2 tab PO .Q4-6h MDD 6 tabs PRN (Reason: pain, initial therapy) Qty: 15 RF: 0 Referrals Referrals: John Toledo DO [Primary Care Provider] -
[2021-07-30] MEDS ORDERED: OPTIRAY 320 125ml IV ONE (21:21)
[2021-07-30 21:39] LABS: Basophils # (auto) 0.04 K/uL (0-0.2); Basophils % (auto) 0.7 %; Eosinophils # (auto) 0.33 K/uL (0-0.5); Eosinophils % (auto) 5.5 %; Hematocrit (blood only) 38.7 % (37-47); Hemoglobin 12.7 g/dL (12.0-16.0); Immature Granulocytes # (auto) 0.01 K/uL (0.00-0.02); Immature Granulocytes % (auto) 0.2 %; Lymphocytes # (auto) 1.36 K/uL (1.2-3.4); Lymphocytes % (auto) 22.6 %; Mean Corpuscular Hemoglobin 30.7 pg (25-34); Mean Corpuscular Hgb Conc 32.8 g/dL (32-36); Mean Corpuscular Volume 93.5 fL (80-100); Mean Platelet Volume 9.3 fL (7.4-10.4); Monocytes # (auto) 0.48 K/uL (0.11-0.59); Platelet Count 328 K/uL (130-400); RDW Coefficient of Variation 13.5 % (11.5-14.5); Red Blood Count 4.14 M/uL (4.2-5.4); White Blood Count 6.02 K/uL (4.8-10.8)
[2021-07-30 21:47] LABS: Alanine Aminotransferase 20 U/L (12-78); Albumin Level 3.3 gm/dl (3.4-5.0); Aspartate Aminotransferase 16 U/L (15-37); BUN Creatinine Ratio 21.9 (10-20); Blood Urea Nitrogen 13 mg/dl (7-18); Calcium 9.1 mg/dl (8.5-10.1); Carbon Dioxide 28 mmol/L (21-32); Chloride 105 mmol/L (98-107); Creatinine Clr Calc Pharmacy 79.9 ml/min; Est GFR (African American) 106.7 ml/min; Est GFR (Non-African American) 92.1 ml/min; Glucose 86 mg/dl (70-99); Lipase 47 U/L (73-393); Potassium 3.9 mmol/L (3.5-5.1); Sodium 140 mmol/L (136-145)
[2021-07-30 21:51] LABS: Albumin Globulin Ratio 0.7 (0.9-2); Alkaline Phosphatase 54 U/L (45-117); Bilirubin,Total 0.5 mg/dl (0.2-1); Globulin 4.6 gm/dl (2.5-4.0); Total Protein 7.9 gm/dl (6.4-8.2); Troponin I < 0.015 ng/ml (0-0.045)
[2021-07-30 22:06] LABS: INR 1.5 (0.9-1.1); Partial Thromboplastin Ratio 1.7; Prothrombin Time 14.8 Seconds (9.0-12.0)
[2021-07-30 22:09] LABS: Partial Thromboplastin Time 45.2 Seconds (21.0-31.0)
[2021-07-31 00:55] LABS: Appearance Urine Clear (Clear); Bilirubin Urine Negative (Negative); Blood Urine Negative (Negative); Color Urine Yellow; Glucose Urine UA Negative (Negative); Ketones Urine Trace (Negative); Leukocyte Esterase Urine Negative (Negative); Nitrite Urine Negative (Negative); Protein Urine Negative (Negative); Specific Gravity Urine 1.045 (1.000-1.030); Urobilinogen Urine Negative (Negative); pH Urine 6.5 (4.5-7.5)
--- NOTE | 2021-07-31 01:25 | History & Physical Report ---
Date of Service July 31, 2021 Assessment & Plan (1) Dizziness: Plan: Patient is a 70 year old female with PMHx Atrial fibrillation, anxiety, depression, Dm2, Polymyalgia Rheumatic, HLD, HTN, Osteopenia, chronic low back pain that presents with chief complaint of 2 day history of on and off dizziness that worsened this morning. Vertigo -Suspect vertigo in nature, especially with patients worsening with head movements -CT/CTA head negative for acute stroke on statrad. Neck CTA without occlusion on statrad -UA negative for acute infection -Improvement of symptoms with Meclizine in ED -Will continue Meclizine 25mg BID PRN for symptoms -Can consider Milford Hallpike maneuver's if symptoms do not improve -PT/OT ordered as well for patient's ambulatory dysfunction. AFib -Continue Metoprolol succinate 100mg BID -Continue home Diltiazem 120mg QD -Continue Warfarin home dosing, will bridge with Lovenox while subtherapeutic -Current INR 1.5 IBS -Continue home Dicyclomine Chronic Low Back Pain -Hold Oxycodone -Continue home Gabapentin DM2 -SSI -Hold home metformin GERD -Continue home pantoprazole Depression/Anxiety -Continue home Paroxetine Dispo: Med/Surg FEN: HH, DM2 DVT: Lovenox, bridging for Warfarin Code: Full History of Present Illness Chief Complaint: dizziness Primary Care Provider: John Toledo DO Patient is a 70 year old female with PMHx Atrial fibrillation, anxiety, depression, Dm2, Polymyalgia Rheumatic, HLD, HTN, Osteopenia, chronic low back pain that presents with chief complaint of 2 day history of on and off dizziness that worsened this morning. Patient notes that her dizziness tends to be worse with positional changes and especially with turning her lead left or right. She notes that yesterday it improved throughout the day and that she again woke up with it this morning. She notes that it makes it difficult for her to walk and that she had fallen back into her bed this morning due to feeling the room spin around her. She notes that for the earlier this afternoon as well she felt "weak and limp" in her upper extremities bilateral and that she was worried about a stroke. She states that along with her dizziness she has nausea, feels weak, and has some new onset diarrhea the past 2 days. She states she is incontinent of urine at baseline, but has not had any dysuria, hematuria, or noticed any changes in the smell. She notes she did have recent surgery on 07/19/21 where she had a lap stacy in addition to removal of her previous gastric band. She states that she tolerated this well and has not had many issues with it since, though she did not properly resume her warfarin dosing and is currently subtherapeutic. She otherwise denies any fever, chills, SOB, chest pain, abdominal pain. Med Hx: Atrial fibrillation, anxiety, depression, Dm2, Polymyalgia Rheumatic, HLD, HTN, Osteopenia, chronic low back pain Surg Hx: Gastric band (removed), Lap Stacy, Total hysterectomy, b/l knee replacement Soc Hx: Denies tobacco, alcohol, illicit drug use Allergies Allergy/AdvReac Type Severity Reaction Status Date / Time Sulfa (Sulfonamide Allergy Severe swelling/hives Verified 07/11/21 09:31 Antibiotics) all over nickel Allergy Mild Rash Verified 07/11/21 09:31 duloxetine AdvReac Intermediate depression Verified 07/11/21 09:31 Home Medications Medication Instructions Recorded Confirmed Type multivitamin 1 tab PO QAM 08/25/18 07/30/21 History pumpkin seed extract-soy germ 300 300 mg PO TID 08/25/18 07/30/21 History mg capsule (Azo Bladder Control) calcium carbonate 500 mg (1,250 1 tab PO HS tab 08/26/18 07/30/21 History mg)-vitamin D3 200 unit tablet (Os-Esdras 500 + D3) gabapentin 600 mg tablet 600 mg PO BID #180 tab 01/13/20 07/30/21 Rx omeprazole 20 mg capsule,delayed 20 mg PO QAM #90 cap 08/11/20 07/30/21 Rx release metformin 500 mg tablet 500 mg PO BIDM #180 tab 04/05/21 07/30/21 Rx dicyclomine 10 mg capsule 20 mg PO TID #540 cap 06/04/21 07/30/21 Rx lancets #100 ea 06/05/21 07/30/21 History metoprolol succinate 100 mg 100 mg PO Q12H #180 tab 06/15/21 07/30/21 Rx tablet,extended release 24 hr ondansetron HCl 4 mg tablet 4 mg PO Q8H PRN 4 Days #20 tab 06/21/21 07/30/21 Rx (Zofran) diltiazem HCl 120 mg 120 mg PO QAM 07/11/21 07/30/21 History capsule,extended release 24 hr (Cartia XT) paroxetine HCl 40 mg tablet (Paxil) 40 mg PO QAM 07/11/21 07/30/21 History warfarin 2 mg tablet See Rx Instructions PO DAILY tab 07/18/21 07/30/21 History enoxaparin 100 mg/mL subcutaneous 100 mg SUBCUT Q12H #10 ml 07/19/21 07/30/21 Rx syringe (Lovenox) hydrocodone 5 mg-acetaminophen 325 1 - 2 tab PO .Q4-6h PRN #15 tab 07/19/21 07/30/21 Rx mg tablet MDD 6 tabs Past Med/Surg History Medical History Anxiety Atrial fibrillation Dx 5 years ago; on warfarin (managed by PCP) Choledocholithiasis Chronic back pain Depression Diabetes mellitus, type 2 NIDDM Diverticulosis of colon without diverticulitis History of DVT of lower extremity ~1998 r/t hormone therapy History of polymyalgia rheumatica Followed by Rheumatology, previous steroid taper History of TIA (transient ischemic attack) Possible remote (~2010) Hyperlipidemia Hypertension IBS (irritable bowel syndrome) Migraine Osteopenia Polyp of gallbladder Scoliosis Spinal stenosis Surgical History History of bariatric surgery S/p laparascopic gastric band (2011) History of bilateral cataract extraction History of colonoscopy History of dilatation and curettage History of removal of laparoscopic gastric banding device (07/19/21) Laparoscopic Removal Gastric Band, Laparoscopic Cholecystectomy, enterolysis Dr. Liu 07-19-2021 History of tonsillectomy History of total hysterectomy with bilateral salpingo-oophorectomy (BSO) History of wisdom tooth extraction Hx laparoscopic cholecystectomy Laparoscopic Removal Gastric Band, Laparoscopic Cholecystectomy, enterolysis Dr. Liu 07-19-2021 Status post bilateral knee replacements Family History Grandmother (Maternal) Family history of diabetes mellitus Mother Family hx colonic polyps Uremia Father Tachycardia Other Diabetes Graves disease Hypertension No family history of adverse response to anesthesia Denies family history of Ovarian cancer Prostate cancer Myocardial infarction Breast cancer Colorectal cancer Social History Smoking Status: Former smoker Tobacco Type: Cigarettes Second Hand Exposure: Yes; Hx Alcohol Use: Yes Alcohol type: other Hx Substance Use: No Preferred Language: Armenian Communication Ability: Effective Visual Impairment: No Limitations Hearing Ability: Normal Stitcher Feeder Required: No Beliefs That Will Affect Care: None marital status: Current Living Situation: Spouse current occupational status: retired How many Children do You have: 1 Other Information That Helps Us Care for You: No Feels Safe at Home: Yes Safety Concerns: Feels Safe At This Time Childhood Exposure to Second-Hand Smoke: No Dental Care, Regularly: Yes Physical Activity Frequency: 1-2 Times per Week Seatbelt Use: never Sunscreen Use: Yes Assistive Devices: Cane and Walker Review of Systems Review of Systems: ROS as above Physical Exam Constitutional: WD/WN, vitals as above no acute distress and not ill appearing Eyes: PERRL, conjunctivae normal, anicteric sclerae EOM intact bilaterally ENMT: external ear and nose normal, oropharynx normal Ears: no hearing impairment Neck: trachea midline, no thyromegaly Respiratory: normal respiratory effort; no respiratory distress and does not use accessory muscles Cardiovascular: Rate/Rhythm: + irregularly irregular Gastrointestinal (Abdomen): normal bowel sounds, soft, nontender, no hepatosplenomegaly Inspection/Auscultation: + abdominal surgical incision (laproscopic incisions without erythema/drainage ) Skin: no rashes, warm and dry Neurologic: PERRL, EOMI, accommodation nl, no face palsy, no dysarthria moves all extremities and awake Psychiatric: Orientation: alert, oriented x 3 and cooperative Results & Data Results & Data ([facility]) Vital Signs (Past 12 Hours) Vital Signs Temp Pulse Resp BP Pulse Ox 07/31/21 01:00 86 16 131/77 96 07/30/21 23:30 85 16 133/82 97 07/30/21 23:11 88 18 150/91 H 96 07/30/21 22:00 86 16 123/86 97 07/30/21 21:30 84 15 138/74 98 07/30/21 21:00 87 16 117/97 90 07/30/21 20:30 84 14 128/98 97 07/30/21 19:56 85 17 141/108 H 98 07/30/21 19:34 36.1 C L 92 H 18 149/91 H 97 Supervising Physician Co-Signing Physician Notes Attending addendum: I have physically seen this patient, have supervised the medical residents activities, and agree with the H&P unless as otherwise noted. Assessment and Plan: Intractable vertigo/ambulatory dysfunction- CT head, CTA head neck negative Continue meclizine 25 mg p.o. every 6 hours as needed Milford-Hallpike maneuver PT/OT Atrial fibrillation/hypertension- Continue metoprolol succinate, diltiazem CD and warfarin with Lovenox bridge Remaining orders and notations as noted Resident Activity Tracking Resident Involvement: Resident Care Provided Care Provided: Adult Hospital Medicine
[2021-07-31] MEDS ORDERED: ENOXAPARIN 100 MG/1ML SYR SQ SCH (02:24)
[2021-07-31] MEDS ORDERED: GLUCOSE 40% GEL 15 GM TUBE PO PRN (02:24)
[2021-07-31] MEDS ORDERED: ONDANSETRON INJ 2 MG/ML 2 ML VIAL IV PRN (02:24)
[2021-07-31] MEDS ORDERED: DEXTROSE 50% 50 ML SYRINGE IV PRN (02:24)
[2021-07-31] MEDS ORDERED: MECLIZINE HCL 25 MG TAB PO PRN (02:24)
[2021-07-31] MEDS ORDERED: GLUCOSE 10 TABS/TUBE PO PRN (02:24)
[2021-07-31] MEDS ORDERED: GLUCAGON FOR INJ 1 MG VIAL SQ PRN (02:24)
[2021-07-31] MEDS ORDERED: CARBOHYDRATES FOR HYPOGLYCEMIA PO PRN (02:24)
[2021-07-31] MEDS: METOPROLOL SUCC 50MG EXT REL TAB PO SCH ×3 (03:28→20:17)
--- NOTE | 2021-07-31 07:43 | CT Scan Report ---
HEAD CTA HISTORY: dizziness TECHNIQUE: Multiaxial CT images of the head were performed both before and after the intravenous admi nistration of contrast to evaluate the major cerebral vessels. Maximum intensity projection images we re also obtained. A dose lowering technique was utilized adhering to the principles of ALARA. COMPARISON: Head CT 05/25/2020. FINDINGS: There is an 8 mm left parafalcine partially calcified extra-axial nodule. This favors a men ingioma. Mild calcified plaque within the bilateral carotid siphons. Hypoplastic distal right vertebr al artery. Visualized intracranial internal carotid arteries, distal vertebral arteries, and basilar artery are widely patent. There is no significant stenosis, occlusion, or aneurysm seen within the bi lateral ACAs, MCAs, or wad blanking press adjuster. IMPRESSION: No significant stenosis, occlusion, or aneurysm within the [place] band of [place]. ACT 112: Negative or not required by law. Electronically signed by: Aníbal Lopes M.D. 07/31/2021 7:42 AM
[2021-07-31 07:50] LABS: Basophils # (auto) 0.02 K/uL (0-0.2); Basophils % (auto) 0.3 %; Eosinophils # (auto) 0.36 K/uL (0-0.5); Eosinophils % (auto) 5.7 %; Hematocrit (blood only) 35.6 % (37-47); Hemoglobin 11.5 g/dL (12.0-16.0); Immature Granulocytes # (auto) 0.01 K/uL (0.00-0.02); Immature Granulocytes % (auto) 0.2 %; Lymphocytes # (auto) 1.48 K/uL (1.2-3.4); Lymphocytes % (auto) 23.6 %; Mean Corpuscular Hemoglobin 30.1 pg (25-34); Mean Corpuscular Hgb Conc 32.3 g/dL (32-36); Mean Corpuscular Volume 93.2 fL (80-100); Monocytes # (auto) 0.39 K/uL (0.11-0.59); Monocytes % (auto) 6.2 %; Neutrophils # (auto) 4.02 K/uL (1.4-6.5); Platelet Count 273 K/uL (130-400); RDW Coefficient of Variation 13.4 % (11.5-14.5); Red Blood Count 3.82 M/uL (4.2-5.4); White Blood Count 6.28 K/uL (4.8-10.8)
[2021-07-31 08:05] LABS: INR 1.7 (0.9-1.1); Partial Thromboplastin Ratio 1.5; Partial Thromboplastin Time 38.5 Seconds (21.0-31.0); Prothrombin Time 16.9 Seconds (9.0-12.0)
--- NOTE | 2021-07-31 08:20 | CT Scan Report ---
CT head/brain wo con CLINICAL HISTORY: dizziness COMPARISON STUDY: May 25, 2020 TECHNIQUE: Axial CT of the brain is performed from the vertex to the skull base. IV contrast was not administered for this examination. A dose lowering technique was utilized adhering to the principles of ALARA. CT DOSE: FINDINGS: No intra or extra-axial mass lesions are visualized. There is no CT evidence of acute cortical infarc tion. There is no evidence of midline shift. There is no acute hemorrhage. No acute depressed calvar ial fractures are visualized. There are patchy white matter hypodensities likely on a small vessel basis. Minimal atrophic changes of brain parenchyma are seen and associated with ex vacuo dilatation of vent ricles. Air-fluid level is seen within right sphenoid sinus. There rest of visualized paranasal sinuses and m astoid air cells are patent and well-aerated. There is prominent sella measuring 1.2 cm in anterior-posterior dimension, appearance is similar to p rior study. IMPRESSION: 1. No acute intracranial hemorrhage, no midline shift or space occupying lesions. 2. Chronic small vessel ischemia and atrophic changes of brain parenchyma. 3. Inflammatory process/sinusitis involving the right sphenoid sinus. 4. The rest of findings as above. ACT 112: Negative or not required by law. The above report was generated using voice recognition software. It may contain grammatical, syntax o r spelling errors. Electronically signed by: Haylee Menard DO 07/31/2021 8:18 AM
[2021-07-31 08:25] LABS: BUN Creatinine Ratio 19.2 (10-20); Calcium 8.9 mg/dl (8.5-10.1); Creatinine Clr Calc Pharmacy 88.7 ml/min; Est GFR (African American) 102.3 ml/min; Est GFR (Non-African American) 88.3 ml/min; Magnesium 1.5 mg/dl (1.8-2.4); Potassium 3.5 mmol/L (3.5-5.1)
[2021-07-31 08:36] LABS: Thyroid Stimulating Hormone 1.8 uIu/ml (0.300-4.500)
--- NOTE | 2021-07-31 08:41 | XRay Report ---
XR chest 1V portable HISTORY: Atypical Chest Pain COMPARISON: Chest and left rib series 06/22/2020. FINDINGS: There are low lung volumes. No pneumothorax. No pleural effusions. The heart remains mildly enlarged. Stable eventration of the right hemidiaphragm. No new focal lung consolidations to suggest pneumonia. No evidence for pulmonary edema. Old, healed bilateral rib fractures are again noted. IMPRESSION: No significant change compared to the prior study. No acute process. ACT 112: Negative or not required by law. Electronically signed by: Aníbal Lopes M.D. 07/31/2021 8:40 AM
--- NOTE | 2021-07-31 08:49 | CT Scan Report ---
CT angio neck with con CLINICAL HISTORY: dizziness COMPARISON STUDY: No previous studies for comparison. TECHNIQUE: CT angiography was performed from the aortic arch to the skull base. MIP imaging was perfo rmed. The patient was scanned in a dynamic helical fashion during intravenous administration of 118 c c of Optiray. A dose lowering technique was utilized adhering to the principles of ALARA. CT DOSE: 1168.00 mGy.cm Technique: CT angiogram of the carotid and vertebral arteries was obtained using intravenous contrast and 3-D reconstruction. NASCET criteria was utilized. Findings: Bilateral common and internal carotid arteries are extremely tortuous. Small peripheral partially raegan cified plaques within bilateral carotid bulb and supraclinoid aspect of the right and left internal c arotid arteries are seen. Approximately 50% stenosis is seen within supraclinoid aspect of the right and left internal carotid arteries. Vertebral arteries are tortuous. Left predominant vertebral circulation is seen. Diffuse narrowing of the V4 segment of the right vertebral artery is seen without focal occlusion, might represent develo pmental variant. There is no evidence of vertebral dissection. IMPRESSION: 1. Extremely tortuous bilateral carotid and vertebral arteries. 2. Peripheral calcified plaques are seen at supraclinoid of right and left internal carotid arteries associated with approximately 50% stenosis. 3. Mild diffuse narrowing of the V4 segment of the right vertebral artery might represent developmen theron variant. 4. No evidence of focal occlusion, aneurysmal dilatation or dissection of the carotid and vertebral arteries. ACT 112: Negative or not required by law. The above report was generated using voice recognition software. It may contain grammatical, syntax o r spelling errors. Electronically signed by: Haylee Menard DO 07/31/2021 8:47 AM
[2021-07-31] MEDS: PANTOprazole 40 MG TAB PO SCH (08:50)
[2021-07-31] MEDS: PARoxetine HCL 20 MG TAB PO SCH (08:50)
[2021-07-31] MEDS: DICYCLOMINE HCL 10 MG CAP PO SCH ×3 (08:50→20:17)
[2021-07-31] MEDS: dilTIAZem HCL 120 MG CAPCR PO SCH (08:50)
[2021-07-31] MEDS: GABAPENTIN 600 MG TAB PO SCH ×2 (08:50→20:17)
[2021-07-31] MEDS: INSULIN ASPART 100 UNITS/ML 3 ML PEN SC SCH ×4 (08:54→20:19)
[2021-07-31] MEDS: ENOXAPARIN 100 MG/1ML SYR SQ SCH ×2 (08:56→20:18)
[2021-07-31] MEDS ORDERED: NON-FORMULARY MEDICATION (Pumpkin Seed Extract-Soy Germ [Azo Bladder Control] 300 mg Capsu PO SCH (09:00)
[2021-07-31] MEDS ORDERED: ENOXAPARIN 80 MG/0.8 ML SYR SQ SCH (09:00)
[2021-07-31] MEDS: MECLIZINE HCL 25 MG TAB PO SCH ×2 (12:56→20:17)
--- NOTE | 2021-07-31 16:23 | Communication Note ---
Date of Service: July 31, 2021 Bridge note Mrs. Davies is a 70-year-old white female with a past medical history of atrial fibrillation, PMR, HLD, osteopenia, chronic low back pain, IBS, and diabetes mellitus along with chronic anticoagulation therapy. 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 Improvement following 1 dose of meclizine. PT/OT on board. Eye patch provided which did help with symptomatology; however, patient still very unsteady. Sherrie maneuver requested and pending. CT/CTA of the head and neck was unremarkable Lab data unremarkable On exam, patient does have horizontal nystagmus in the left lateral gaze which did reproduce symptomatology. Intractable vertigo -Change Antivert to routine for 24 hours and if improved symptoms, can transition back to as needed -Requested Sherrie maneuver by therapy -Reassess in a.m. and if symptoms improved, consider discharge tomorrow -Otherwise, no added changes. See H&P as outlined
[2021-07-31] MEDS: WARFARIN SOD 4 MG TAB PO SCH (17:03)
[2021-07-31] MEDS ORDERED: ACETAMINOPHEN 500 MG TAB PO PRN (19:56)
--- NOTE | 2021-07-31 20:08 | Billing Data ---
Date of Service July 31, 2021 Coding Level of Care Code INT OBSERVATION CARE 70M LVL 3
--- NOTE | 2021-07-31 23:26 | Electrocardiogram Report ---
Test Reason : Blood Pressure : / mmHG Vent. Rate : 083 BPM Atrial Rate : 079 BPM P-R Int : 000 ms QRS Dur : 088 ms QT Int : 384 ms P-R-T Axes : 000 -45 -11 degrees QTc Int : 451 ms Poor data quality, interpretation may be adversely affected Atrial fibrillation Left anterior fascicular block Nonspecific ST abnormality Abnormal ECG When compared with ECG of 31-MAY-2021 19:03, No significant change was found Confirmed by Rolan Kate ([id number]) on 07/31/2021 11:26:14 PM Referred By: REFERRED SELF Confirmed By:Rolan Kate
[2021-08-01 06:22] LABS: Prothrombin Time 19.5 Seconds (9.0-12.0)
[2021-08-01 06:28] LABS: Basophils # (auto) 0.04 K/uL (0-0.2); Basophils % (auto) 0.8 %; Eosinophils # (auto) 0.32 K/uL (0-0.5); Eosinophils % (auto) 6.1 %; Hematocrit (blood only) 35.8 % (37-47); Hemoglobin 11.5 g/dL (12.0-16.0); Immature Granulocytes # (auto) 0.01 K/uL (0.00-0.02); Immature Granulocytes % (auto) 0.2 %; Lymphocytes # (auto) 1.48 K/uL (1.2-3.4); Mean Corpuscular Hemoglobin 30.1 pg (25-34); Mean Corpuscular Hgb Conc 32.1 g/dL (32-36); Mean Corpuscular Volume 93.7 fL (80-100); Monocytes % (auto) 7.6 %; Neutrophils # (auto) 3.03 K/uL (1.4-6.5); Neutrophils % (auto) 57.3 %; Platelet Count 278 K/uL (130-400); RDW Coefficient of Variation 13.7 % (11.5-14.5); Red Blood Count 3.82 M/uL (4.2-5.4); White Blood Count 5.28 K/uL (4.8-10.8)
[2021-08-01 06:34] LABS: Calcium 8.3 mg/dl (8.5-10.1); Creatinine Clr Calc Pharmacy 78.1 ml/min; Est GFR (African American) 92.3 ml/min; Est GFR (Non-African American) 79.6 ml/min
[2021-08-01] MEDS: PANTOprazole 40 MG TAB PO SCH (09:12)
[2021-08-01] MEDS: dilTIAZem HCL 120 MG CAPCR PO SCH (09:12)
[2021-08-01] MEDS: GABAPENTIN 600 MG TAB PO SCH ×2 (09:12→20:47)
[2021-08-01] MEDS: MECLIZINE HCL 25 MG TAB PO SCH ×3 (09:12→20:46)
[2021-08-01] MEDS: METOPROLOL SUCC 50MG EXT REL TAB PO SCH ×2 (09:12→20:46)
[2021-08-01] MEDS: DICYCLOMINE HCL 10 MG CAP PO SCH ×3 (09:13→20:47)
[2021-08-01] MEDS: PARoxetine HCL 20 MG TAB PO SCH (09:13)
[2021-08-01] MEDS: ENOXAPARIN 100 MG/1ML SYR SQ SCH ×2 (09:13→20:47)
[2021-08-01] MEDS: INSULIN ASPART 100 UNITS/ML 3 ML PEN SC SCH ×4 (09:17→20:40)
[2021-08-01] MEDS ORDERED: GADOBUTROL 65ML VIAL IV ONE (13:01)
--- NOTE | 2021-08-01 13:39 | Magnetic Resonance Report ---
Brain and internal auditory canal MRI WITH AND WITHOUT CONTRAST HISTORY: Dizziness. Headache. r/o vertebrobasilar stroke TECHNIQUE: Multiplanar multisequence MRI of the brain and internal auditory canals were performed bot h before and after the intravenous administration of contrast. COMPARISON STUDY: Head and neck CTA 07/30/2021. FINDINGS: No areas of restricted diffusion to suggest acute infarction. The mastoid air cells are aurelio ar. Trace fluid level within the right sphenoid sinus. Evidence for prior bilateral lens replacement. Incidental note is made of a partially empty sella. The remaining midline structures are intact. The ventricles and sulci demonstrate mild age-related involutional changes. The major vascular flow-void s at the skull base are well-maintained. Patchy foci of T2 hyperintensity seen within the white matte r of the supratentorial brain as well as the alex. This is nonspecific but favors moderate microvascu lar ischemic change. There is no hematoma, midline shift. A 9 mm partially calcified enhancing extra- axial lesion within the anterior left parafalcine location remains unchanged. This favors a partially calcified meningioma. Otherwise, no areas of abnormal enhancement within the brain. No masses or abnormal enhancement within the internal auditory canals the 7th and 8th cranial nerves are normal and course and caliber. IMPRESSION: 1. No acute infarct. 2. Scattered patchy foci of T2 hyperintensity within the white matter is nonspecific but favors moder ate microvascular ischemic change. 3. Normal bilateral internal auditory canals. 4. Trace fluid level within the right sphenoid sinus. ACT 112: Negative or not required by law. Electronically signed by: Aníbal Lopes M.D. 08/01/2021 1:38 PM
[2021-08-01] MEDS ORDERED: WARFARIN SOD 2 MG TAB PO SCH (16:00)
--- NOTE | 2021-08-01 17:13 | Hospitalist Progress Note ---
Date of Service August 01, 2021 Assessment & Plan (1) Vertigo: Plan: -Intractable vertigo despite Sherrie and routine Antivert with progressive nystagmus on exam--> concerning for vertebrobasilar infarct especially in the setting of underlying atrial fibrillation (on Coumadin but subtherapeutic upon admission) -We will proceed with MRI of the brain to rule out vertebrobasilar infarct -Vertigo so intense that she is not steady with ambulation and unsafe for discharge. Will change to full admission (2) Unsteady gait: Plan: -See above. Continue PT/OT (3) Chronic a-fib: Plan: -Rate controlled on diltiazem and metoprolol -Lengthy discussion with patient regarding potential need for transition to a DOAC given her subtherapeutic INR upon presentation and variability with Coumadin. She is very hesitant and declines. If MRI positive for CVA, would strongly encourage transition but will hold off for now (4) Current use of ocean transportation intermediary anticoagulation: Plan: -See above (5) Diabetes mellitus, type II: Plan: -Metformin currently on hold. Continue NovoLog with sliding scale/correction dosing (6) Hypertension: Plan: -Continue diltiazem/metoprolol (7) Hyperlipidemia: Plan: -Plan of care were discussed with Dr. Zelaya. Further orders as warranted. Admission and Anticipated Discharge Date Admission Date: July 31, 2021 Subjective Patient seen on daily rounds today. Overall reports that her vertigo is much worse than it was yesterday afternoon but not quite as bad as it was upon admission. Able to transfer to the chair and symptoms seem improved when he completely still but with any limited movement (i.e. the transfer), symptoms intense. Symptoms are still that of "room is spinning". Did have one Sherrie maneuver yesterday and is now on Antivert routine. Has not had any subsequent nausea. As it stands, patient is still unsteady that therapy is recommending [facility]. Review of Systems Review of Systems: All systems reviewed and are unremarkable except as noted in HPI and below Denies fevers, chills, headache, nasal congestion, sore throat, cough, chest pain, shortness of breath, abdominal pain, nausea, vomiting, dysuria, hematuria, frequency, skin lesions or rashes. Physical Exam Physical Exam: General: Resting comfortably in her bedside chair. Although she reports significant vertigo, she is pleasant and does not appear uncomfortable. NAD. HEENT: Worsening nystagmus appreciated today. Today several beats of nystagmus are noted in the bilateral lateral gaze horizontally but also in the upper gaze vertically (this was not noted yesterday) Neck: No JVD. Negative hepatojugular reflex Cardiac: Irregularly irregular with controlled ventricular rate Lungs: CTA without W/R/R Abdomen: Normoactive X4. Soft and nontender in all quadrants. Extremities: No peripheral clubbing cyanosis or edema Neuro: A&O X4 cranial nerves II through XII are grossly intact no focal neuro deficits Skin: No obvious skin lesions or rashes Results & Data Results & Data ([facility]) Vital Signs (Past 12 Hours) Vital Signs Temp Pulse Pulse Resp BP BP Pulse Ox 08/01/21 15:35 36.6 C 72 20 108/69 93 08/01/21 07:28 36.9 C 73 18 116/83 93 Laboratory Results 08/01/21 05:35 08/01/21 05:35 PG Care Time/CCT Total # of Minutes Spent Total Time Spent with Patient: Total time spent is greater than 50% in coordination of care (as documented) at patient's floor/unit and/or counseling patient: C[place] [address] Subseq Hosp Care Lvl 2 Patient Type Established History Detailed Exam Detailed Medical Decision Making Moderate Complexity Diagnoses Vertigo R42 Unsteady gait R26.81 Chronic a-fib I48.20 Current use of ocean transportation intermediary anticoagulation Z79.01 Diabetes mellitus, type II E11.9 Diabetes mellitus ocean transportation intermediary insulin use: without fpc use Diabetes mellitus complication status: without complication Hypertension I10 Hypertension type: essential hypertension Hyperlipidemia E78.5 Hyperlipidemia type: unspecified (1) Diabetes mellitus, type II Diabetes mellitus fpc insulin use: without fpc use Diabetes mellitus complication status: without complication Qualified Code(s): E11.9 - Type 2 diabetes mellitus without complications (2) Hypertension Hypertension type: essential hypertension Qualified Code(s): I10 - Essential (primary) hypertension (3) Hyperlipidemia Hyperlipidemia type: unspecified Qualified Code(s): E78.5 - Hyperlipidemia, u nspecified
[2021-08-02 06:18] LABS: Prothrombin Time 19.1 Seconds (9.0-12.0)
[2021-08-02] MEDS: DICYCLOMINE HCL 10 MG CAP PO SCH ×2 (09:06→15:14)
[2021-08-02] MEDS: ENOXAPARIN 100 MG/1ML SYR SQ SCH (09:08)
[2021-08-02] MEDS: GABAPENTIN 600 MG TAB PO SCH (09:08)
[2021-08-02] MEDS: PANTOprazole 40 MG TAB PO SCH (09:09)
[2021-08-02] MEDS: PARoxetine HCL 20 MG TAB PO SCH (09:09)
[2021-08-02] MEDS: MECLIZINE HCL 25 MG TAB PO SCH ×2 (09:09→15:14)
[2021-08-02] MEDS: INSULIN ASPART 100 UNITS/ML 3 ML PEN SC SCH ×2 (09:12→13:27)
[2021-08-02] MEDS: METOPROLOL SUCC 50MG EXT REL TAB PO SCH (09:12)
[2021-08-02] MEDS: dilTIAZem HCL 120 MG CAPCR PO SCH (09:12)
[2021-08-02] MEDS: WARFARIN SOD 4 MG TAB PO SCH (15:43)
--- NOTE | 2021-08-02 18:05 | Discharge Summary ---
Date of Service August 02, 2021 Admission HPI Per Admitting Provider Patient is a 70 year old female with PMHx Atrial fibrillation, anxiety, depression, Dm2, Polymyalgia Rheumatic, HLD, HTN, Osteopenia, chronic low back pain that presents with chief complaint of 2 day history of on and off dizziness that worsened this morning. Patient notes that her dizziness tends to be worse with positional changes and especially with turning her lead left or right. She notes that yesterday it improved throughout the day and that she again woke up with it this morning. She notes that it makes it difficult for her to walk and that she had fallen back into her bed this morning due to feeling the room spin around her. She notes that for the earlier this afternoon as well she felt "weak and limp" in her upper extremities bilateral and that she was worried about a stroke. She states that along with her dizziness she has nausea, feels weak, and has some new onset diarrhea the past 2 days. She states she is incontinent of urine at baseline, but has not had any dysuria, hematuria, or noticed any changes in the smell. She notes she did have recent surgery on 07/19/21 where she had a lap stacy in addition to removal of her previous gastric band. She states that she tolerated this well and has not had many issues with it since, though she did not properly resume her warfarin dosing and is currently subtherapeutic. She otherwise denies any fever, chills, SOB, chest pain, abdominal pain. Med Hx: Atrial fibrillation, anxiety, depression, Dm2, Polymyalgia Rheumatic, HLD, HTN, Osteopenia, chronic low back pain Surg Hx: Gastric band (removed), Lap Stacy, Total hysterectomy, b/l knee repl acement Soc Hx: Denies tobacco, alcohol, illicit drug use Principal Diagnosis Vertigo -> Likely BPPV Discharge Exam Constitutional WD/WN, vitals as above Eyes EOM intact bilaterally; no conjunctival abnormality ENMT external ear and nose normal, oropharynx normal Neck trachea midline, no thyromegaly normal visual inspection Respiratory normal respiratory effort, lungs clear to auscultation no respiratory distress Cardiovascular RRR, no murmur, no edema Gastrointestinal (Abdomen) Inspection/Auscultation: abdomen normal to inspection; abdomen not distended Musculoskeletal no cyanosis or clubbing, extremities motor strength 5/5 Skin no rashes, warm and dry Neurologic moves all extremities and awake Psychiatric Orientation: alert, oriented to person and cooperative Discharge Data Allergies Allergy/AdvReac Type Severity Reaction Status Date / Time Sulfa (Sulfonamide Allergy Severe swelling/hives Verified 07/11/21 09:31 Antibiotics) all over nickel Allergy Mild Rash Verified 07/11/21 09:31 duloxetine AdvReac Intermediate depression Verified 07/11/21 09:31 Consultations 07/31/21 00:47 ED Decision to Admit Stat Ordered Studies 07/30/21 21:15 CT angio head w con Urgent CT angio neck with con Urgent CT head/brain wo con Urgent 08/01/21 09:39 MR brain IAC wo/w con Routine Hospital Course (1) Vertigo: Vertigo improved with Sherrie maneuver, but came back the next day. - MRI done on 08/01 for concern for central cause (ie vertebrobasilar infarct) of her vertigo. This was fortunately negative for CVA, but did show right sphenoid sinus fluid. - Second Sherrie maneuver performed on 08/02 which improved the vertigo. This is likely BPPV, though something like labyrinthitis cannot be 100% ruled out, but thought to be unlikely. -> She was discharged with meclizine and instructions on how to perform the Sherrie maneuver at home. Also got referral to PT/OT as outpatient. (2) Unsteady gait: -See above. (3) Chronic a-fib: -Rate controlled on diltiazem and metoprolol -Lengthy discussion with patient regarding potential need for transition to a DOAC given her subtherapeutic INR upon presentation and variability with Coumadin. She is very hesitant and declined. -> Can discuss with PCP or pbx supervisor in the future. (4) Current use of termite treater helper anticoagulation: -See above (5) Diabetes mellitus, type II: -Metformin currently on hold. Continued NovoLog with sliding scale/correction dosing inpatient. - Resume metformin on discharge. (6) Hypertension: -Continue diltiazem/metoprolol (7) Hyperlipidemia: Total Time Total Time Spent Total Time Spent (In Minutes): 35 Discharge Plan Discharge Items Patient Disposition: Home - Self-Care Reason For Visit: DIZZINESS Discharge Diagnosis: 1. Intractable Vertigo (Benign Positional Vertigo) Activity: As commented below Activity Comment: as tolerated Driving/Machine Use: no driving until vertigo resolved Non-emergency contact: Primary Care Provider Call non-emergency contact if: you have any medication questions Follow-up/Referrals: John Toledo DO [Primary Care Provider] - 08/07/21 2:00 pm Diet: Carb Consistent or DM2 Addtl Attending Provider Instructions: - You were hospitalized with Benign Positional Vertigo - CT and MRI of the brain has ruled out stroke - Continue Antivert (Meclizine) as needed for vertigo (this will cause drowsiness) - continue with outpatient Therapy for continued Sherrie Maneuver - If symptoms persistent, would advise referral to ENT for vestibular testing and therapy - return to the ED for new or worsening symptoms Pending Studies at Discharge: No Stand-Alone Forms: My [facility] Medications and DC Order Prescriptions: New meclizine 25 mg Tablet 25 mg PO TID PRN (Reason: vertigo) Qty: 60 RF: 0 Continued multivitamin Tablet 1 tab PO QAM RF: 0 Azo Bladder Control 300 mg Capsule 300 mg PO TID RF: 0 calcium carbonate-vitamin D3 [Os-Esdras 500 + D3] 500 mg(1,250mg) -200 unit tablet 1 tab PO HS RF: 0 omeprazole 20 mg capsule,delayed release(DR/EC) 20 mg PO QAM Qty: 90 RF: 3 metformin 500 mg tablet 500 mg PO BIDM Qty: 180 RF: 3 dicyclomine 10 mg capsule 20 mg PO TID Qty: 540 RF: 3 metoprolol succinate 100 mg tablet extended release 24 hr 100 mg PO Q12H Qty: 180 RF: 3 ondansetron HCl [Zofran] 4 mg tablet 4 mg PO Q8H PRN (Reason: nausea and vomiting) 4 Days Qty: 20 RF: 1 gabapentin 600 mg tablet 600 mg PO BID Qty: 180 RF: 3 (DME) lancets Misc See Rx Instructions ea .ROUTE .MEDSUPPLY Qty: 100 RF: 0 warfarin 2 mg tablet See Rx Instructions PO DAILY RF: 0 diltiazem HCl [Cartia XT] 120 mg capsule,extended release 24hr 120 mg PO QAM RF: 0 paroxetine HCl [Paxil] 40 mg tablet 40 mg PO QAM RF: 0 hydrocodone-acetaminophen 5-325 mg tablet 1 - 2 tab PO .Q4-6h MDD 6 tabs PRN (Reason: pain, initial therapy) Qty: 15 RF: 0 Discontinued enoxaparin [Lovenox] 100 mg/mL syringe 100 mg subcut Q12H Qty: 10 RF: 0 Discharge Orders: Discharge Order (Routine); Ordered 08/02/21 Ordered By: Daya Joseph/Other Patient Handouts: What to Know When TakingWarfarin, Benign Paroxysmal Positional Vertigo Admission Data Admit Date/Time: 08/01/21 16:58 Attending Provider: Feliciano Zelaya Admit Provider: Semaj Baker Primary Care Provider: John Toledo Other Providers: Feliciano Zelaya Other Interventions: Discharge Summary Assessment (RN) Last Done: 08/02/21 16:26 Coding Level of Care Code D/C DAY MANAGEMENT >30 MINS Diagnoses Vertigo R42 Unsteady gait R26.81 Chronic a-fib I48.20 Current use of termite treater helper anticoagulation Z79.01 Diabetes mellitus, type II E11.9 Diabetes mellitus detention insulin use: without detention use Diabetes mellitus complication status: without complication Hypertension I10 Hypertension type: essential hypertension Hyperlipidemia E78.5 Hyperlipidemia type: unspecified
== END 2021-08-02 16:27 | disposition home or self-care (01) | DRG 149 ==
LOC: 3N 19:29 → ED 19:29 → SUATTDRO 07-31 01:42 → 3N 07-31 02:03
DX: Z79.84 Long term (current) use of oral hypoglycemic drugs; F41.8 Other specified anxiety disorders; M35.3 Polymyalgia rheumatica; Z88.2 Allergy status to sulfonamides; Z83.3 Family history of diabetes mellitus; Z86.73 Personal history of transient ischemic attack (TIA), and cerebral infarction without residual deficits; Z88.8 Allergy status to other drugs, medicaments and biological substances; E78.5 Hyperlipidemia, unspecified; Z86.718 Personal history of other venous thrombosis and embolism; Z87.891 Personal history of nicotine dependence; K58.9 Irritable bowel syndrome, unspecified; M54.9 Dorsalgia, unspecified; Z96.653 Presence of artificial knee joint, bilateral; I48.20 Chronic atrial fibrillation, unspecified; K21.9 Gastro-esophageal reflux disease without esophagitis; Z79.01 Long term (current) use of anticoagulants; R26.81 Unsteadiness on feet; E11.9 Type 2 diabetes mellitus without complications; H81.10 Benign paroxysmal vertigo, unspecified ear

== ENCOUNTER 2022-12-30 16:30 | Observation (INO) ==
--- NOTE | 2022-12-30 17:19 | CT Scan Report ---
CT SCAN OF THE BRAIN WITHOUT IV CONTRAST CLINICAL HISTORY: Strokelike symptoms. COMPARISON STUDY: CT of the brain dated 07/30/2021. MRI of the brain dated 08/01/2021. TECHNIQUE: Unenhanced axial CT scan of the brain is performed from the vertex to the skull base. A do se lowering technique was utilized adhering to the principles of ALARA. CT DOSE: 884.08 mGy.cm FINDINGS: Brain parenchyma: There is age-related involutional change noting moderate subcortical and periventri cular microangiopathic disease. There is no hemorrhage, mass effect, or evidence of acute territorial ischemia by CT criteria. Martines-white matter differentiation is preserved. No extra-axial fluid collec tion is seen. Ventricles, sulci, cisterns: Prominent secondary to involutional change. Intracranial vasculature: There is atherosclerotic calcification of the cavernous carotid arteries. Calvarium: Unremarkable. Sinuses and mastoids: There is mild mucosal thickening within the right maxillary antrum. Trace mucos al thickening is noted in the right sphenoid sinus. The remaining paranasal sinuses are clear. The ma stoid air cells are well pneumatized. Orbits: The bony orbits are grossly intact. There are bilateral ocular lens implants. IMPRESSION: There is no hemorrhage, mass effect, or evidence of acute territorial ischemia by CT farideh nieto. ACT 112: Negative or not required by law. Electronically signed by: Geronimo Chapa M.D. 12/30/2022 5:17 PM
[2022-12-30 18:00] LABS: Hematocrit (blood only) 36.9 % (37.0-47.0); Hemoglobin 12.2 g/dl (12.0-16.0); Mean Corpuscular Hemoglobin 29.8 pg (25.0-34.0); Mean Corpuscular Hgb Conc 33.1 g/dL (32.0-36.0); Mean Corpuscular Volume 90.2 fL (80.0-100.0); Mean Platelet Volume 9.4 fL (9.4-12.4); Platelet Count 238 K/uL (130-400); RDW Coefficient of Variation 13.1 % (11.5-14.5); RDW Standard Deviation 43.5 fL (36.4-46.3); Red Blood Count 4.09 M/uL (4.20-5.40); White Blood Count 6.63 K/ul (4.8-10.8)
--- NOTE | 2022-12-30 18:02 | Emergency Department Note ---
Impression & Plan Brain TIA, Dizziness ED Provider Note NAME: DAMI AMEZQUITA AGE: 72 SEX: F : 1950 ARRIVES VIA: Walk-In INFORMANT: Patient, ED PROVIDER(S): Santy Meraz MD CHIEF COMPLAINT: TIA symptom MEDICAL DECISION MAKING: Patient presented due to concern for TIA related symptoms blood work is obtained along with CT of the head and CT angiography of the head neck and EKG. The patient currently does not have any current symptoms. The patient did have extravasation of the IV contrast into her arm. The patient's arm was elevated compresses were applied in addition to a compression bandage. Patient is neurovascular intact distally. An IV was reestablished and the patient did undergo CT angiography of the head neck. Patient has a normal white count and hemoglobin and platelet count is unremarkable. INR is therapeutic at 2.5 normal kidney function. Magnesium slightly low at 1.2. COVID-negative. CT and CT angiography of the head and neck are negative. I did speak with on-call neurology Dr. Sears on do not recom mend aspirin at this time given that there is no significant stenosis or findings on the CT angiography's. He does recommended MRI brain as well as echocardiogram and lipid panel. I did speak with the on-call hospitalist Dr. Junior and the patient was admitted to the medicine service. Prior /Outside records reviewed: I did review the patient's echo from October 2019 which showed moderately dilated LV mild concentric left ventricular hypertrophy with normal function EF 50 to 55%. Patient does have diastolic dysfunction left atrial severely dilated. Differential diagnosis: Infection, dehydration, metabolic abnormality, hypo/hyperglycemia, electrolyte disturbance, anemia, hypoxia, cardiac sources, intracerebral event, toxicologic, neurologic, as well as other pathologies. Diagnostics, as interpreted by me: ECG: A. fib, rate of 76, normal QRS, left axis deviation no ST elevations. Specific ST abnormality. No significant change from comparison July 30, 2021 Cardiac monitoring: An order was placed for continuous cardiac monitoring. The monitor shows a rate of 77 with irregular irregular rhythm. Patient was placed on pulse oximetry Medical decision rules: None Imaging studies: See below HPI: Patient presents for inability to speak appropriately and this occurred around 3 PM and lasted for approximate 30 minutes. The patient states that she was trying to tell her to gather some things together for supper later this evening but was unable to do so and states that nothing she said made any sense that she was having difficulty expressing her words. Patient denies any chest pain shortness of breath nausea vomiting fevers or chills or any upper respiratory symptoms or infectious symptoms. The patient has been taking her Coumadin. The patient does not take an aspirin and does not take anything for cholesterol. Patient does have a known history of A. fib. The patient denies any nausea vomiting or diarrhea. The patient states her appetite has been appropriate. History of TIA with no residual symptoms. No history of seizure. Patient denies any additional exacerbating remitting factors PAST MEDICAL HISTORY: See Below PAST SURGICAL HISTORY: See Below SOCIAL HISTORY: See Below HOME MEDICATIONS: See Below ALLERGIES: See Below VITALS: See Below PHYSICAL EXAMINATION: GENERAL: NAD, wearing a mask, non-toxic. Wearing glasses. EYE EXAM: Normal conjunctiva. PERRL, no anisocoria and EOM's grossly intact w/o pain. NECK: Supple, no nuchal rigidity, no adenopathy, non-tender. No signs of meningismus. FROM of the neck with good chin to chest and neck extension. No stridor. LUNGS: Clear to auscultation. Normal chest wall mechanics. HEART: Regular irregular, no MRG. ABDOMEN: Abdomen soft, non-tender, normo-active bowel sounds, no masses, no rebound or guarding. BACK: No CVA TTP. SKIN: No rashes and no bruising. UPPER EXTREMITIES: Upper extremities are grossly normal. LOWER EXTREMITIES: Grossly normal, left greater than right lower extremity edema with no calf pain or erythema NEURO EXAM: A&O x3, cranial nerves II-XII grossly intact, normal speech, moves all 4 extremities. Good [id number], no drift. No sensory deficits Past Med/Surg History Medical History Ambulatory dysfunction Anxiety Atrial fibrillation Dx 5 years ago; on warfarin (managed by PCP) Choledocholithiasis Chronic back pain Depression Diabetes mellitus, type 2 NIDDM Diverticulosis of colon without diverticulitis History of DVT of lower extremity ~1998 r/t hormone therapy History of polymyalgia rheumatica Followed by Rheumatology, previous steroid taper History of TIA (transient ischemic attack) Possible remote (~2010) Hyperlipidemia Hypertension IBS (irritable bowel syndrome) Migraine Osteopenia Polyp of gallbladder Scoliosis Spinal stenosis Surgical History History of bariatric surgery S/p laparascopic gastric band (2011) History of bilateral cataract extraction History of colonoscopy History of dilatation and curettage History of removal of laparoscopic gastric banding device (07/19/21) Laparoscopic Removal Gastric Band, Laparoscopic Cholecystectomy, enterolysis Dr. Liu 07-19-2021 History of tonsillectomy History of total hysterectomy with bilateral salpingo-oophorectomy (BSO) History of wisdom tooth extraction Hx laparoscopic cholecystectomy Laparoscopic Removal Gastric Band, Laparoscopic Cholecystectomy, enterolysis Dr. Liu 07-19-2021 S/P cholecystectomy Status post bilateral knee replacements Family History Grandmother (Maternal) Family history of diabetes mellitus Mother Family hx colonic polyps Uremia Father , age 95 Tachycardia Other Diabetes Graves disease Hypertension No family history of adverse response to anesthesia Denies family history of Ovarian cancer Prostate cancer Myocardial infarction Breast cancer Colorectal cancer Social History Smoking Status: Former smoker Tobacco Type: Cigarettes Second Hand Exposure: Yes; Hx Alcohol Use: Yes Alcohol type: other Hx Substance Use: No Preferred Language: Guatemalan Communication Ability: Effective Visual Impairment: No Limitations Hearing Ability: Normal Healthcare Advisory Services Manager Required: No Beliefs That Will Affect Care: None marital status: Current Living Situation: Spouse current occupational status: retired How many Children do You have: 1 Feels Safe at Home: Yes Childhood Exposure to Second-Hand Smoke: No Dental Care, Regularly: Yes Physical Activity Frequency: 1-2 Times per Week Seatbelt Use: never Sunscreen Use: Yes Assistive Devices: Walker Allergies Allergies Allergy/AdvReac Type Severity Reaction Status Date / Time Sulfa (Sulfonamide Allergy Severe swelling/hives Verified 12/30/22 19:25 Antibiotics) all over nickel Allergy Intermediate Rash Verified 12/30/22 19:25 duloxetine AdvReac Intermediate depression Verified 12/30/22 19:25 Home Meds Home Medications Medication Instructions Recorded Confirmed lancets #100 ea 06/05/21 12/09/22 ibuprofen 200 mg tablet 400 mg PO BID PRN back pain 06/12/22 12/30/22 acetaminophen 500 mg oral powder 1,000 mg PO Q12H PRN Pain 11/18/22 12/30/22 packet (Tylenol Extra Strength) warfarin 2 mg tablet 3 mg PO QPM 12/09/22 12/30/22 dicyclomine 10 mg capsule 10 mg PO AC 12/30/22 12/30/22 paroxetine HCl 10 mg tablet (Paxil) 10 mg PO DAILY 12/30/22 12/30/22 phenazopyridine 95 mg tablet 95 mg PO DAILY 12/30/22 12/30/22 Previous Rx's Medication Instructions Recorded metformin 500 mg tablet 500 mg PO BIDM #180 tabs 02/06/22 meclizine 25 mg tablet 25 mg PO TID PRN vertigo #60 tabs 02/28/22 omeprazole 20 mg capsule,delayed 20 mg PO QAM #90 caps 07/01/22 release metoprolol succinate 100 mg 100 mg PO Q12H #180 tabs 07/09/22 tablet,extended release 24 hr diltiazem HCl 120 mg 120 mg PO QAM #90 caps 10/18/22 capsule,extended release 24 hr (Cartia XT) Accu-Chek Yuly Plus test strp #100 ea 12/30/22 (blood sugar diagnostic) Results & Data (ED) Vital Signs Vital Signs - 24 hr 12/30/22 16:32 12/30/22 17:49 12/30/22 17:42 Temperature 36.7 C Temperature Source Temporal Artery Scan Pulse Rate 80 75 Pulse Rate [Apical] 76 Pulse Rate from SpO2 Sensor 76 Pulse Rhythm [Apical] Regular Pulse Strength [Apical] Normal Respiratory Rate 18 17 19 Respiratory Effort / Characteristics Non-Labored Spontaneous Respiratory Depth Normal Blood Pressure 117/99 Blood Pressure [Left Arm] 131/80 Blood Pressure Mean 105 Blood Pressure Mean [Left Arm] 97 Blood Pressure Position [Left Arm] Lying Pulse Oximetry 99 99 99 Oxygen Delivery Method Room Air Room Air Sepsis Recent Fever Within 48 Hours No Sepsis New/Unexplained Change in Mental Status No Sepsis Action Taken by Nursing No Action Required 12/30/22 17:50 12/30/22 18:00 12/30/22 18:00 Temperature Temperature Source Pulse Rate 71 69 Pulse Rate [Apical] Pulse Rate from SpO2 Sensor 71 77 Pulse Rhythm [Apical] Pulse Strength [Apical] Respiratory Rate 18 14 Respiratory Effort / Characteristics Respiratory Depth Blood Pressure 125/78 Blood Pressure [Left Arm] Blood Pressure Mean 93 Blood Pressure Mean [Left Arm] Blood Pressure Position [Left Arm] Pulse Oximetry 99 100 Oxygen Delivery Method Sepsis Recent Fever Within 48 Hours Sepsis New/Unexplained Change in Mental Status Sepsis Action Taken by Nursing 12/30/22 18:10 12/30/22 18:20 12/30/22 18:30 Temperature Temperature Source Pulse Rate 74 80 82 Pulse Rate [Apical] Pulse Rate from SpO2 Sensor Pulse Rhythm [Apical] Pulse Strength [Apical] Respiratory Rate 15 19 21 Respiratory Effort / Characteristics Respiratory Depth Blood Pressure Blood Pressure [Left Arm] Blood Pressure Mean Blood Pressure Mean [Left Arm] Blood Pressure Position [Left Arm] Pulse Oximetry Oxygen Delivery Method Sepsis Recent Fever Within 48 Hours Sepsis New/Unexplained Change in Mental Status Sepsis Action Taken by Nursing 12/30/22 18:31 12/30/22 18:31 12/30/22 20:02 Temperature Temperature Source Pulse Rate 79 Pulse Rate [Apical] Pulse Rate from SpO2 Sensor 71 Pulse Rhythm [Apical] Pulse Strength [Apical] Respiratory Rate 25 H Respiratory Effort / Characteristics Respiratory Depth Blood Pressure 140/108 H Blood Pressure [Left Arm] Blood Pressure Mean 118 Blood Pressure Mean [Left Arm] Blood Pressure Position [Left Arm] Pulse Oximetry 87 L Oxygen Delivery Method Sepsis Recent Fever Within 48 Hours Sepsis New/Unexplained Change in Mental Status Sepsis Action Taken by Nursing 12/30/22 20:04 12/30/22 20:04 12/30/22 20:10 Temperature Temperature Source Pulse Rate 84 Pulse Rate [Apical] Pulse Rate from SpO2 Sensor 88 83 Pulse Rhythm [Apical] Pulse Strength [Apical] Respiratory Rate 16 Respiratory Effort / Characteristics Respiratory Depth Blood Pressure 168/111 H Blood Pressure [Left Arm] Blood Pressure Mean 130 Blood Pressure Mean [Left Arm] Blood Pressure Position [Left Arm] Pulse Oximetry 96 97 Oxygen Delivery Method Sepsis Recent Fever Within 48 Hours Sepsis New/Unexplained Change in Mental Status Sepsis Action Taken by Nursing 12/30/22 20:20 12/30/22 20:30 12/30/22 20:32 Temperature Temperature Source Pulse Rate 77 87 Pulse Rate [Apical] Pulse Rate from SpO2 Sensor 83 81 Pulse Rhythm [Apical] Pulse Strength [Apical] Respiratory Rate 20 16 Respiratory Effort / Characteristics Respiratory Depth Blood Pressure Blood Pressure [Left Arm] Blood Pressure Mean 159 Blood Pressure Mean [Left Arm] Blood Pressure Position [Left Arm] Pulse Oximetry 97 100 Oxygen Delivery Method Sepsis Recent Fever Within 48 Hours Sepsis New/Unexplained Change in Mental Status Sepsis Action Taken by Nursing 12/30/22 20:32 12/30/22 20:40 12/30/22 20:50 Temperature Temperature Source Pulse Rate 84 87 77 Pulse Rate [Apical] Pulse Rate from SpO2 Sensor 68 80 78 Pulse Rhythm [Apical] Pulse Strength [Apical] Respiratory Rate 16 17 14 Respiratory Effort / Characteristics Respiratory Depth Blood Pressure Blood Pressure [Left Arm] Blood Pressure Mean Blood Pressure Mean [Left Arm] Blood Pressure Position [Left Arm] Pulse Oximetry 95 96 99 Oxygen Delivery Method Sepsis Recent Fever Within 48 Hours Sepsis New/Unexplained Change in Mental Status Sepsis Action Taken by Nursing 12/30/22 21:00 12/30/22 21:00 12/30/22 21:10 Temperature Temperature Source Pulse Rate 76 85 Pulse Rate [Apical] Pulse Rate from SpO2 Sensor 80 81 Pulse Rhythm [Apical] Pulse Strength [Apical] Respiratory Rate 16 18 Respiratory Effort / Characteristics Respiratory Depth Blood Pressure 168/125 H Blood Pressure [Left Arm] Blood Pressure Mean 139 Blood Pressure Mean [Left Arm] Blood Pressure Position [Left Arm] Pulse Oximetry 94 93 Oxygen Delivery Method Sepsis Recent Fever Within 48 Hours Sepsis New/Unexplained Change in Mental Status Sepsis Action Taken by Nursing 12/30/22 21:20 12/30/22 21:30 12/30/22 21:31 Temperature Temperature Source Pulse Rate 81 81 84 Pulse Rate [Apical] Pulse Rate from SpO2 Sensor 86 87 83 Pulse Rhythm [Apical] Pulse Strength [Apical] Respiratory Rate 16 19 19 Respiratory Effort / Characteristics Respiratory Depth Blood Pressure Blood Pressure [Left Arm] Blood Pressure Mean Blood Pressure Mean [Left Arm] Blood Pressure Position [Left Arm] Pulse Oximetry 73 L 73 L 99 Oxygen Delivery Method Sepsis Recent Fever Within 48 Hours Sepsis New/Unexplained Change in Mental Status Sepsis Action Taken by Nursing 12/30/22 21:31 Temperature Temperature Source Pulse Rate Pulse Rate [Apical] Pulse Rate from SpO2 Sensor Pulse Rhythm [Apical] Pulse Strength [Apical] Respiratory Rate Respiratory Effort / Characteristics Respiratory Depth Blood Pressure 168/109 H Blood Pressure [Left Arm] Blood Pressure Mean 128 Blood Pressure Mean [Left Arm] Blood Pressure Position [Left Arm] Pulse Oximetry Oxygen Delivery Method Sepsis Recent Fever Within 48 Hours Sepsis New/Unexplained Change in Mental Status Sepsis Action Taken by [facility] Medications Current Medication List: was personally reviewed by me Laboratory Data Attestation: I reviewed the patient's lab results. 12/30/22 17:39 12/30/22 17:39 Lab Results 12/30/22 12/30/22 12/30/22 Range/Units 17:39 17:39 17:39 WBC 6.63 (4.8-10.8) K/ul RBC 4.09 L (4.20-5.40) M/uL Hgb 12.2 (12.0-16.0) g/dl Hct 36.9 L (37.0-47.0) % MCV 90.2 (80.0-100.0) fL MCH 29.8 (25.0-34.0) pg MCHC 33.1 (32.0-36.0) g/dL RDW Std Deviation 43.5 (36.4-46.3) fL RDW Coeff of Dorita 13.1 (11.5-14.5) % Plt Count 238 (130-400) K/uL MPV 9.4 (9.4-12.4) fL PT 25.2 H (9.0-12.0) Seconds INR 2.5 H (0.9-1.1) APTT 44.5 H (21.0-31.0) Seconds PTT Ratio 1.6 Sodium 141 (136-145) mmol/L Potassium 4.3 (3.5-5.1) mmol/L Chloride 106 (98-107) mmol/L Carbon Dioxide 29 (21-32) mmol/L Anion Gap 6 (3-11) BUN 20 (6-23) mg/dl Creatinine 0.65 (0.6-1.2) mg/dl Est Cr Clr Drug Dosing 90.0 ml/min Est GFR ( Amer) 101.4 ml/min Est GFR (Non-Af Amer) 87.5 ml/min BUN/Creatinine Ratio 30.8 H (10-20) Glucose 91 (70-99(Fasting)) mg/dl Calcium 9.5 (8.5-10.1) mg/dl Magnesium 1.2 L (1.7-2.4) mg/dl Total Bilirubin 0.4 (0.2-1.0) mg/dl AST 15 (13-39) U/L ALT 11 (7-52) U/L Alkaline Phosphatase 39 (34-104) U/L Total Protein 7.5 (6.0-8.3) gm/dl Albumin 4.0 (3.4-5.0) gm/dl Globulin 3.5 (2.5-4.0) gm/dl Albumin/Globulin Ratio 1.1 (0.9-2) SARS-CoV-2, RNA, NAAT (NEGATIVE) 12/30/22 Range/Units 21:01 WBC (4.8-10.8) K/ul RBC (4.20-5.40) M/uL Hgb (12.0-16.0) g/dl Hct (37.0-47.0) % MCV (80.0-100.0) fL MCH (25.0-34.0) pg MCHC (32.0-36.0) g/dL RDW Std Deviation (36.4-46.3) fL RDW Coeff of Dorita (11.5-14.5) % Plt Count (130-400) K/uL MPV (9.4-12.4) fL PT (9.0-12.0) Seconds INR (0.9-1.1) APTT (21.0-31.0) Seconds PTT Ratio Sodium (136-145) mmol/L Potassium (3.5-5.1) mmol/L Chloride (98-107) mmol/L Carbon Dioxide (21-32) mmol/L Anion Gap (3-11) BUN (6-23) mg/dl Creatinine (0.6-1.2) mg/dl Est Cr Clr Drug Dosing ml/min Est GFR ( Amer) ml/min Est GFR (Non-Af Amer) ml/min BUN/Creatinine Ratio (10-20) Glucose (70-99(Fasting)) mg/dl Calcium (8.5-10.1) mg/dl Magnesium (1.7-2.4) mg/dl Total Bilirubin (0.2-1.0) mg/dl AST (13-39) U/L ALT (7-52) U/L Alkaline Phosphatase (34-104) U/L Total Protein (6.0-8.3) gm/dl Albumin (3.4-5.0) gm/dl Globulin (2.5-4.0) gm/dl Albumin/Globulin Ratio (0.9-2) SARS-CoV-2, RNA, NAAT NEGATIVE (NEGATIVE) Administered Medications Magnesium Sulfate/Dextrose (Magnesium Sulfate / D5w) 1 gm in 100 mls @ 50 mls/hr IV Q2H BRANDAN Stop: 12/31/22 01:59 Last Admin: 12/30/22 22:42 Dose: 50 mls/hr Documented By: STEVE Discontinued Medications Ioversol (Optiray 320 500ml) 107 ml IV ONCE ONE Stop: 12/30/22 19:56 Last Admin: 12/30/22 19:56 Dose: 107 ml Documented By: CAREY Imaging Data Radiologist's Impression: Head CT 12/30/22 16:38 CT SCAN OF THE BRAIN WITHOUT IV CONTRAST CLINICAL HISTORY: Strokelike symptoms. COMPARISON STUDY: CT of the brain dated 07/30/2021. MRI of the brain dated 08/01/2021. TECHNIQUE: Unenhanced axial CT scan of the brain is performed from the vertex to the skull base. A dose lowering technique was utilized adhering to the principles of ALARA. CT DOSE: 884.08 mGy.cm FINDINGS: Brain parenchyma: There is age-related involutional change noting moderate subcortical and periventricular microangiopathic disease. There is no hemorrhage, mass effect, or evidence of acute territorial ischemia by CT criteria. Martines-white matter differentiation is preserved. No extra-axial fluid collection is seen. Ventricles, sulci, cisterns: Prominent secondary to involutional change. Intracranial vasculature: There is atherosclerotic calcification of the cavernous carotid arteries. Calvarium: Unremarkable. Sinuses and mastoids: There is mild mucosal thickening within the right m axillary antrum. Trace mucosal thickening is noted in the right sphenoid sinus. The remaining paranasal sinuses are clear. The mastoid air cells are well pneumatized. Orbits: The bony orbits are grossly intact. There are bilateral ocular lens implants. IMPRESSION: There is no hemorrhage, mass effect, or evidence of acute territorial ischemia by CT criteria. ACT 112: Negative or not required by law. Electronically signed by: Geronimo Chapa M.D. 12/30/2022 5:17 PM Neck CTA 12/30/22 18:01 CT ANGIOGRAM OF THE BRAIN; CT ANGIOGRAM OF THE NECK CLINICAL HISTORY: Transient ischemic attack. COMPARISON STUDY: Unenhanced CT of the brain performed earlier the same day 12/30/2022. CT angiogram of the head and neck dated 07/30/2021. TECHNIQUE: Following the IV administration of 107 of Optiray 320, CT angiogram of the head and neck was performed from the aortic arch to the vertex. Images are reviewed in the axial, sagittal, and coronal planes. 3-D MIPS images are created and assessed. IV contrast was administered without complication. All measurements were calculated based on NASCET criteria. A dose lowering technique was utilized adhering to the principles of ALARA. CT DOSE: 59.40 mGy.cm (accession [id number]), 595.91 mGy.cm (accession [id number]) FINDINGS: Brain parenchyma: There is age-related involutional change noting moderate subcortical and periventricular microangiopathic disease. There is no evidence of hemorrhage, mass effect, or acute territorial ischemia noting angiographic phase technique. There is no evidence of enhancing mass lesion on the angiogram phase images. The ventricles, sulci, and cisterns are prominent secondary to involutional change. Martines-white matter differentiation is preserved. No extra- axial fluid collection is seen. Thoracic aorta: There is mild atherosclerotic calcification of the thoracic aorta. Visualized portions of the thoracic aorta are normal in caliber. The aortic arch demonstrates standard 3-vessel anatomy. Right carotid arterial system: The right common carotid artery is widely patent, as are the right internal and external carotid arteries. Calcified plaque is seen in the carotid bulb. The distal ICA is tortuous. Left carotid arterial system: The left common carotid artery is widely patent, as are the left internal and external carotid arteries. Calcified plaque is seen in the carotid bulb. Vertebral arteries: The vertebral arteries are widely patent bilaterally noting left-sided dominance. Subclavian arteries: Widely patent bilaterally. Intracranial vasculature: The internal carotid arteries are patent at the skull base, as are the anterior and middle cerebral arteries bilaterally. The vertebrobasilar system and posterior cerebral arteries are widely patent. The left vertebral artery is dominant. There is no aneurysm, high-grade stenosis, or focal vessel cut off seen throughout the intracranial circulation. Jugular veins: Patent bilaterally. Dural sinuses: Patent. Lung apices: Mild emphysematous change is seen at the apices. Visualized apical lung parenchyma is otherwise clear. Soft tissues: The visualized pharyngeal soft tissues are normal in appearance noting angiographic phase technique. The oropharyngeal airway appears widely patent. The thyroid gland is heterogeneous. The salivary glands are normal in appearance. No cervical lymphadenopathy is seen. Skeletal structures: The skeletal structures are osteopenic. The calvarium appears intact. The cervical spine is maintained noting multilevel spondylosis. No lytic or blastic lesion is seen. Orbits: The bony orbits are intact. Orbital contents are normal as visualized noting bilateral ocular lens implants. Sinuses and mastoids: There is mild mucosal thickening within the right maxillary antrum. Trace mucosal thickening is seen in the right sphenoid sinus. The remaining paranasal sinuses are clear. The mastoid air cells are well pneumatized. IMPRESSION: 1. There is no evidence of hemorrhage, mass effect, or acute territorial ischemia noting angiographic phase technique. 2. Unremarkable CT angiogram of the brain. 3. Unremarkable CT angiogram of the neck. ACT 112: Negative or not required by law. Electronically signed by: Geronimo Chapa M.D. 12/30/2022 8:17 PM Head CTA 12/30/22 18:07 CT ANGIOGRAM OF THE BRAIN; CT ANGIOGRAM OF THE NECK CLINICAL HISTORY: Transient ischemic attack. COMPARISON STUDY: Unenhanced CT of the brain performed earlier the same day 12/30/2022. CT angiogram of the head and neck dated 07/30/2021. TECHNIQUE: Following the IV administration of 107 of Optiray 320, CT angiogram of the head and neck was performed from the aortic arch to the vertex. Images are reviewed in the axial, sagittal, and coronal planes. 3-D MIPS images are created and assessed. IV contrast was administered without complication. All measurements were calculated based on NASCET criteria. A dose lowering technique was utilized adhering to the principles of ALARA. CT DOSE: 59.40 mGy.cm (accession [id number]), 595.91 mGy.cm (accession [id number]) FINDINGS: Brain parenchyma: There is age-related involutional change noting moderate subcortical and periventricular microangiopathic disease. There is no evidence of hemorrhage, mass effect, or acute territorial ischemia noting angiographic phase technique. There is no evidence of enhancing mass lesion on the angiogram phase images. The ventricles, sulci, and cisterns are prominent secondary to involutional change. Martines-white matter differentiation is preserved. No extra- axial fluid collection is seen. Thoracic aorta: There is mild atherosclerotic calcification of the thoracic aorta. Visualized portions of the thoracic aorta are normal in caliber. The aortic arch demonstrates standard 3-vessel anatomy. Right carotid arterial system: The right common carotid artery is widely patent, as are the right internal and external carotid arteries. Calcified plaque is seen in the carotid bulb. The distal ICA is tortuous. Left carotid arterial system: The left common carotid artery is widely patent, as are the left internal and external carotid arteries. Calcified plaque is seen in the carotid bulb. Vertebral arteries: The vertebral arteries are widely patent bilaterally noting left-sided dominance. Subclavian arteries: Widely patent bilaterally. Intracranial vasculature: The internal carotid arteries are patent at the skull base, as are the anterior and middle cerebral arteries bilaterally. The vertebrobasilar system and posterior cerebral arteries are widely patent. The left vertebral artery is dominant. There is no aneurysm, high-grade stenosis, or focal vessel cut off seen throughout the intracranial circulation. Jugular veins: Patent bilaterally. Dural sinuses: Patent. Lung apices: Mild emphysematous change is seen at the apices. Visualized apical lung parenchyma is otherwise clear. Soft tissues: The visualized pharyngeal soft tissues are normal in appearance noting angiographic phase technique. The oropharyngeal airway appears widely patent. The thyroid gland is heterogeneous. The salivary glands are normal in appearance. No cervical lymphadenopathy is seen. Skeletal structures: The skeletal structures are osteopenic. The calvarium appears intact. The cervical spine is maintained noting multilevel spondylosis. No lytic or blastic lesion is seen. Orbits: The bony orbits are intact. Orbital contents are normal as visualized noting bilateral ocular lens implants. Sinuses and mastoids: There is mild mucosal thickening within the right maxillary antrum. Trace mucosal thickening is seen in the right sphenoid sinus. The remaining paranasal sinuses are clear. The mastoid air cells are well pneumatized. IMPRESSION: 1. There is no evidence of hemorrhage, mass effect, or acute territorial ischemia noting angiographic phase technique. 2. Unremarkable CT angiogram of the brain. 3. Unremarkable CT angiogram of the neck. ACT 112: Negative or not required by law. Electronically signed by: Geronimo Chapa M.D. 12/30/2022 8:17 PM Discharge Plan Visit Data Chief Complaint: TIA Symptoms Stated Complaint: TIA SYMTOMS, REF BY DOC ED Provider: Santy Meraz Discharge Problem: Brain TIA, Dizziness Patient Disposition: Admitted As Inpatient Discharge Instructions Interventions: ED Discharge Assessment Last Done: 12/30/22 23:38
[2022-12-30 18:18] LABS: Albumin Globulin Ratio 1.1 (0.9-2); BUN Creatinine Ratio 30.8 (10-20); Bilirubin,Total 0.4 mg/dl (0.2-1.0); Calcium 9.5 mg/dl (8.5-10.1); Est GFR (African American) 101.4 ml/min; Est GFR (Non-African American) 87.5 ml/min; Globulin 3.5 gm/dl (2.5-4.0); Magnesium 1.2 mg/dl (1.7-2.4); Potassium 4.3 mmol/L (3.5-5.1); Total Protein 7.5 gm/dl (6.0-8.3)
[2022-12-30 18:21] LABS: INR 2.5 (0.9-1.1); Partial Thromboplastin Ratio 1.6; Partial Thromboplastin Time 44.5 Seconds (21.0-31.0); Prothrombin Time 25.2 Seconds (9.0-12.0)
[2022-12-30] MEDS ORDERED: OPTIRAY 320 500ml IV ONE (19:55)
--- NOTE | 2022-12-30 20:19 | CT Scan Report ---
CT ANGIOGRAM OF THE BRAIN; CT ANGIOGRAM OF THE NECK CLINICAL HISTORY: Transient ischemic attack. COMPARISON STUDY: Unenhanced CT of the brain performed earlier the same day 12/30/2022. CT angiogram of the head and neck dated 07/30/2021. TECHNIQUE: Following the IV administration of 107 of Optiray 320, CT angiogram of the head and neck w as performed from the aortic arch to the vertex. Images are reviewed in the axial, sagittal, and fallon nal planes. 3-D MIPS images are created and assessed. IV contrast was administered without complicati on. All measurements were calculated based on NASCET criteria. A dose lowering technique was utilize d adhering to the principles of ALARA. CT DOSE: 59.40 mGy.cm (accession [id number]), 595.91 mGy.cm (accession [id number]) FINDINGS: Brain parenchyma: There is age-related involutional change noting moderate subcortical and periventri cular microangiopathic disease. There is no evidence of hemorrhage, mass effect, or acute territorial ischemia noting angiographic phase technique. There is no evidence of enhancing mass lesion on the a ngiogram phase images. The ventricles, sulci, and cisterns are prominent secondary to involutional ch josé. Martines-white matter differentiation is preserved. No extra-axial fluid collection is seen. Thoracic aorta: There is mild atherosclerotic calcification of the thoracic aorta. Visualized portion s of the thoracic aorta are normal in caliber. The aortic arch demonstrates standard 3-vessel anatomy . Right carotid arterial system: The right common carotid artery is widely patent, as are the right int ernal and external carotid arteries. Calcified plaque is seen in the carotid bulb. The distal ICA is tortuous. Left carotid arterial system: The left common carotid artery is widely patent, as are the left sports management internship al and external carotid arteries. Calcified plaque is seen in the carotid bulb. Vertebral arteries: The vertebral arteries are widely patent bilaterally noting left-sided dominance. Subclavian arteries: Widely patent bilaterally. Intracranial vasculature: The internal carotid arteries are patent at the skull base, as are the ante rior and middle cerebral arteries bilaterally. The vertebrobasilar system and posterior cerebral brittany anam are widely patent. The left vertebral artery is dominant. There is no aneurysm, high-grade steno sis, or focal vessel cut off seen throughout the intracranial circulation. Jugular veins: Patent bilaterally. Dural sinuses: Patent. Lung apices: Mild emphysematous change is seen at the apices. Visualized apical lung parenchyma is ot herwise clear. Soft tissues: The visualized pharyngeal soft tissues are normal in appearance noting angiographic pha se technique. The oropharyngeal airway appears widely patent. The thyroid gland is heterogeneous. The salivary glands are normal in appearance. No cervical lymphadenopathy is seen. Skeletal structures: The skeletal structures are osteopenic. The calvarium appears intact. The cervic al spine is maintained noting multilevel spondylosis. No lytic or blastic lesion is seen. Orbits: The bony orbits are intact. Orbital contents are normal as visualized noting bilateral ocular lens implants. Sinuses and mastoids: There is mild mucosal thickening within the right maxillary antrum. Trace mucos al thickening is seen in the right sphenoid sinus. The remaining paranasal sinuses are clear. The mas toid air cells are well pneumatized. IMPRESSION: 1. There is no evidence of hemorrhage, mass effect, or acute territorial ischemia noting angiographic phase technique. 2. Unremarkable CT angiogram of the brain. 3. Unremarkable CT angiogram of the neck. ACT 112: Negative or not required by law. Electronically signed by: Geronimo Chapa M.D. 12/30/2022 8:17 PM
--- NOTE | 2022-12-30 20:57 | History & Physical Report ---
Date of Service December 30, 2022 Assessment & Plan (1) Dysarthria: Plan: Jocelyne is a 72 year old female w/ PmHx A. fib on warfarin, HTN, T2DM, IBS, HLD, osteopenia admitted for episode of dysarthria and possible TIA. Dysarthria: -CBC WNL, Mg 1.2, kidney and liver function WNL. -CT Head and CTA H&N w/o any acute abnormalities. -Second episode in past few months. -Symptoms subsided w/in 30 minutes of onset, most likely TIA. -MRI w/o contrast ordered in ED. -Complete Echo w/ bubble study ordered. -Started on ASA 81mg, atorvastatin 80mg daily. -Lipid profile and A1c pending. -PT/OT, speech eval ordered. NPO for now. Hypomagnesemia: -Mg 1.2 on arrival. -Repleted 2g on admission. -Continue to monitor. Chronic A. Fib: -Rates controlled while in hospital, continue home diltiazem and metoprolol. -Continue home warfarin 3mg daily. Check INR daily while inpatient. -Continue to monitor on med/tele. HTN: -Continue home metoprolol and diltiazem however may hold if low to allow for permissive hypertension. T2DM: -Last A1c 6.1 in 2019. Ordered repeat. -Glucose 91. Patient NPO. Once cleared by speech and A1c back can determine if need for SSI inpatient. HLD: -Started on atorvastatin 80mg daily. -Lipid profile ordered. IBS: -Continue home dicyclomine. DVT Prophylaxis: Home warfarin 3mg daily. F/E/N/GI: NPO until speech clearance. Code Status: Full code Dispo: Med/sug tele (2) Dizziness: (3) Current use of termite control service representative anticoagulation: (4) Chronic a-fib: (5) Diabetes mellitus, type II: (6) Hypertension: (7) Hyperlipidemia: (8) IBS (irritable bowel syndrome): History of Present Illness Chief Complaint: Dysarthria Primary Care Provider: Aureliano Genao MD Jocelyne is a 72 year old female w/ PmHx A. fib on warfarin, HTN, T2DM, IBS, HLD, osteopenia presenting to the ED for 30 minutes of dysarthria earlier in the day. Patient states that earlier in the day she was looking through her bills and not doing any extraneous activity when she started to have trouble articulating what she wanted to convey to her . She states that she felt some dizziness at the time as well as some body chills. She went to sit on her couch and waited the event out. She said she decided to come to the hospital after this event. She had a similar event with similar symptoms 6 weeks prior however that lasted for about 20 minutes and she did not get checked out for it. She states she has not had any other similar episodes prior to this. She denies any fevers, nausea, vomiting, shortness of breath, chest pain, constipation. She had a CVA event years prior however is not currently on any aspirin or statin at home. In the ED CBC WNL, electrolytes except Mg WNL, Mg 1.2, kidney and liver function WNL, INR 2.5. CT Head and CTA H&N w/o any acute abnormalities. Allergies Allergy/AdvReac Type Severity Reaction Status Date / Time Sulfa (Sulfonamide Allergy Severe swelling/hives Verified 12/30/22 19:25 Antibiotics) all over nickel Allergy Intermediate Rash Verified 12/30/22 19:25 duloxetine AdvReac Intermediate depression Verified 12/30/22 19:25 Home Medications Medication Instructions Recorded Confirmed Type lancets #100 ea 06/05/21 12/09/22 History metformin 500 mg tablet 500 mg PO BIDM #180 tabs 02/06/22 12/30/22 Rx meclizine 25 mg tablet 25 mg PO TID PRN vertigo #60 tabs 02/28/22 12/30/22 Rx ibuprofen 200 mg tablet 400 mg PO BID PRN back pain 06/12/22 12/30/22 History omeprazole 20 mg capsule,delayed 20 mg PO QAM #90 caps 07/01/22 12/30/22 Rx release metoprolol succinate 100 mg 100 mg PO Q12H #180 tabs 07/09/22 12/30/22 Rx tablet,extended release 24 hr diltiazem HCl 120 mg 120 mg PO QAM #90 caps 10/18/22 12/30/22 Rx capsule,extended release 24 hr (Cartia XT) acetaminophen 500 mg oral powder 1,000 mg PO Q12H PRN Pain 11/18/22 12/30/22 History packet (Tylenol Extra Strength) warfarin 2 mg tablet 3 mg PO QPM 12/09/22 12/30/22 History Accu-Chek Yuly Plus test strp #100 ea 12/30/22 Rx (blood sugar diagnostic) dicyclomine 10 mg capsule 10 mg PO AC 12/30/22 12/30/22 History paroxetine HCl 10 mg tablet (Paxil) 10 mg PO DAILY 12/30/22 12/30/22 History phenazopyridine 95 mg tablet 95 mg PO DAILY 12/30/22 12/30/22 History aspirin 81 mg tablet,delayed 81 mg PO QAM 30 days #30 tabs 12/31/22 Rx release rosuvastatin 20 mg tablet 20 mg PO DAILY 30 days #30 tabs 12/31/22 Rx Past Med/Surg History Medical History Ambulatory dysfunction Anxiety Atrial fibrillation Dx 5 years ago; on warfarin (managed by PCP) Choledocholithiasis Chronic back pain Depression Diabetes mellitus, type 2 NIDDM Diverticulosis of colon without diverticulitis History of DVT of lower extremity ~1998 r/t hormone therapy History of polymyalgia rheumatica Followed by Rheumatology, previous steroid taper History of TIA (transient ischemic attack) Possible remote (~2010) Hyperlipidemia Hypertension IBS (irritable bowel syndrome) Migraine Osteopenia Polyp of gallbladder Scoliosis Spinal stenosis Surgical History History of bariatric surgery S/p laparascopic gastric band (2011) History of bilateral cataract extraction History of colonoscopy History of dilatation and curettage History of removal of laparoscopic gastric banding device (07/19/21) Laparoscopic Removal Gastric Band, Laparoscopic Cholecystectomy, enterolysis Dr. Liu 07-19-2021 History of tonsillectomy History of total hysterectomy with bilateral salpingo-oophorectomy (BSO) History of wisdom tooth extraction Hx laparoscopic cholecystectomy Laparoscopic Removal Gastric Band, Laparoscopic Cholecystectomy, enterolysis Dr. Liu 07-19-2021 S/P cholecystectomy Status post bilateral knee replacements Family History Grandmother (Maternal) Family history of diabetes mellitus Mother Family hx colonic polyps Uremia Father , age 95 Tachycardia Other Diabetes Graves disease Hypertension No family history of adverse response to anesthesia Denies family history of Ovarian cancer Prostate cancer Myocardial infarction Breast cancer Colorectal cancer Social History Smoking Status: Former smoker Tobacco Type: Cigarettes Second Hand Exposure: Yes; Hx Alcohol Use: No Hx Substance Use: No Preferred Language: Lao Communication Ability: Effective Visual Impairment: No Limitations Hearing Ability: Normal Automotive Alignment Specialist Required: No Beliefs That Will Affect Care: Voodoo marital status: Current Living Situation: Spouse Current Living Situation Comment: [employer] current occupational status: retired How many Children do You have: 1 Feels Safe at Home: Yes Childhood Exposure to Second-Hand Smoke: No Dental Care, Regularly: Yes Physical Activity Frequency: 1-2 Times per Week Seatbelt Use: never Sunscreen Use: Yes Assistive Devices: Walker Review of Systems Review of Systems: As per HPI. Physical Exam Constitutional: WD/WN, vitals as above Eyes: PERRL, conjunctivae normal, anicteric sclerae Respiratory: normal respiratory effort, lungs clear to auscultation Cardiovascular: Rate/Rhythm: + irregularly irregular Heart Sounds: normal S1 and normal S2 Gastrointestinal (Abdomen): normal bowel sounds, soft, nontender, no hepatosplenomegaly Psychiatric: A+Ox3, euthymic affect Results & Data Results & Data ([facility]) Vital Signs (Past 12 Hours) Vital Signs Temp Pulse Pulse Resp BP BP Pulse Ox 12/30/22 17:49 76 17 131/80 99 12/30/22 16:32 36.7 C 80 18 117/99 99 O2 Del Method 12/30/22 17:49 Room Air 12/30/22 16:32 Room Air Supervising Physician Co-Signing Physician Notes Attending addendum: I have physically seen this patient, have supervised the medical residents activities, and agree with the H&P unless as otherwise noted. Assessment and Plan: Hypomagnesemia- Magnesium 1.2 on admission Replace with IV magnesium as noted, recheck laboratories in a.m. Chronic atrial fibrillation/hypertension- Continue aspirin 81 mg daily, diltiazem extended release 120 mg every morning and metoprolol succinate extended release 100 mg every 12 hours Continue warfarin 3 mg daily, INR therapeutic at 2.5 Follow daily INR while in hospital Diabetes mellitus SSI as noted Hyperlipidemia- Continue atorvastatin 80 mg daily Check a fasting lipid panel Irritable bowel syndrome- Continue dicyclomine 10 mg with meals Remaining orders and notations as noted Resident Activity Tracking Resident Involvement: Resident Care Provided Care Provided: Adult Hospital Medicine (1) Diabetes mellitus, type II Diabetes mellitus complication status: without complication Diabetes mellitus termite control service representative insulin use: without group home use Qualified Code(s): E11.9 - Type 2 diabetes mellitus without complications (2) Hyperlipidemia Hyperlipidemia type: unspecified Qualified Code(s): E78.5 - Hyperlipidemia, unspecified (3) Hypertension Hypertension type: essential hypertension Qualified Code(s): I10 - Essential (primary) hypertension
[2022-12-30] MEDS: MAGNESIUM SULFATE / D5W 1 GM/100 ML BAG IV SCH (22:42)
[2022-12-30] MEDS ORDERED: PHARMACIST DISCHARGE MED REC CONSULT PRN (23:38)
[2022-12-30] MEDS ORDERED: ACETAMINOPHEN 325 MG TAB PO PRN (23:38)
[2022-12-31] MEDS: WARFARIN SOD 3 MG TAB PO SCH ×2 (01:17→15:43)
[2022-12-31] MEDS: METOPROLOL SUCC 50MG EXT REL TAB PO SCH ×2 (01:18→11:17)
[2022-12-31] MEDS: MAGNESIUM SULFATE / D5W 1 GM/100 ML BAG IV SCH (01:21)
[2022-12-31 04:37] LABS: Basophils # (auto) 0.03 K/uL (0-0.2); Basophils % (auto) 0.4 %; Eosinophils # (auto) 0.16 K/uL (0-0.50); Eosinophils % (auto) 2.3 %; Hematocrit (blood only) 33.3 % (37.0-47.0); Immature Granulocytes # (auto) 0.02 K/uL (0.01-0.20); Immature Granulocytes % (auto) 0.3 %; Lymphocytes # (auto) 2.15 K/uL (1.2-3.4); Lymphocytes % (auto) 31.2 %; Mean Corpuscular Hemoglobin 29.6 pg (25.0-34.0); Mean Corpuscular Volume 89.5 fL (80.0-100.0); Mean Platelet Volume 9.2 fL (9.4-12.4); Monocytes # (auto) 0.62 K/uL (0.11-0.59); Neutrophils # (auto) 3.91 K/uL (1.40-6.50); Neutrophils % (auto) 56.8 %; Platelet Count 204 K/uL (130-400); RDW Coefficient of Variation 13.2 % (11.5-14.5); RDW Standard Deviation 43.5 fL (36.4-46.3); Red Blood Count 3.72 M/uL (4.20-5.40); White Blood Count 6.89 K/ul (4.8-10.8)
[2022-12-31 04:57] LABS: Calcium 8.6 mg/dl (8.5-10.1); Est GFR (African American) 110.5 ml/min; Est GFR (Non-African American) 95.3 ml/min; Magnesium 1.7 mg/dl (1.7-2.4); Potassium 3.7 mmol/L (3.5-5.1)
[2022-12-31] MEDS ORDERED: INFLUENZA VACCINE HIGH DOSE PF 65+ 0.7 ML SYR IM ONE (05:35)
[2022-12-31 06:11] LABS: INR 2.4 (0.9-1.1); Prothrombin Time 24.8 Seconds (9.0-12.0)
--- NOTE | 2022-12-31 07:28 | Hospitalist Progress Note ---
Date of Service December 31, 2022 Assessment & Plan (1) Dysarthria: Plan: Jocelyne is a 72 year old female w/ PmHx A. fib on warfarin, HTN, T2DM, IBS, HLD, osteopenia admitted for episode of dysarthria and possible TIA. Dysarthria: -CBC WNL, Mg 1.2, kidney and liver function WNL. -CT Head and CTA H&N w/o any acute abnormalities. -Second episode in past few months. -Symptoms subsided w/in 30 minutes of onset, most likely TIA. -MRI w/o contrast ordered in ED. -Complete Echo w/ bubble study ordered. -Started on ASA 81mg, atorvastatin 80mg daily. -Lipid profile and A1c pending. -PT/OT, speech eval ordered. NPO for now. Hypomagnesemia: -Mg 1.2 on arrival. -Repleted 2g on admission. -Continue to monitor. Chronic A. Fib: -Rates controlled while in hospital, continue home diltiazem and metoprolol. -Continue home warfarin 3mg daily. Check INR daily while inpatient. -Continue to monitor on med/tele. HTN: -Continue home metoprolol and diltiazem however may hold if low to allow for permissive hypertension. T2DM: -Last A1c 6.1 in 2019. Ordered repeat. -Glucose 91. Patient NPO. Once cleared by speech and A1c back can determine if need for SSI inpatient. HLD: -Started on atorvastatin 80mg daily. -Lipid profile ordered. IBS: -Continue home dicyclomine. DVT Prophylaxis: Home warfarin 3mg daily. F/E/N/GI: NPO until speech clearance. Code Status: Full code Dispo: Med/sug tele (2) Dizziness: (3) Current use of terminal manager anticoagulation: (4) Chronic a-fib: (5) Diabetes mellitus, type II: (6) Hypertension: (7) Hyperlipidemia: (8) IBS (irritable bowel syndrome): Admission and Anticipated Discharge Date Admission Date: December 30, 2022 Review of Systems Review of Systems: As per HPI. Physical Exam Physical Exam: Constitutional:J WD/WN, vitals as a dylan Eyes: PERRL, conjunctiva e normal, anicteri c sclerae Respiratory: normal respiratory effort, lungs aurelio ar to auscultation Cardiovascular:J Rate/Rhythm: + irr egularly irregular Heart Sounds: no rmal S1 and normal S2 Gastrointestinal ( Abdomen): normal bowel sound s, soft, nontender , no hepatosplenom egaly Psychiatric: A+Ox3, euthymic af fect Results & Data [facility] ([facility]) Vital Signs (Past 12 Hours) Vital Signs Temp Pulse Pulse Resp BP BP Pulse Ox 12/31/22 06:00 73 16 127/80 97 12/31/22 06:00 127/80 12/31/22 05:30 76 15 93 12/31/22 05:22 75 15 96 12/31/22 05:00 73 21 94 12/31/22 04:30 73 18 94 12/31/22 04:00 72 17 124/90 95 12/31/22 03:30 72 20 92 12/31/22 05:20 36.6 C 70 16 135/80 95 12/31/22 03:00 77 20 93 12/31/22 02:30 80 21 92 12/31/22 02:00 76 20 137/77 94 12/31/22 01:30 86 14 96 12/31/22 01:15 86 21 97 12/31/22 01:15 107/79 12/31/22 01:12 83 18 12/31/22 00:30 83 32 H 97 12/31/22 00:00 84 13 164/83 H 12/30/22 23:59 74 18 164/83 H 94 12/30/22 23:38 12/30/22 23:50 71 20 144/98 H 96 12/30/22 23:44 82 15 98 12/30/22 23:40 95 12/30/22 23:30 97 12/30/22 23:20 93 12/30/22 23:10 88 L 12/30/22 23:04 92 12/30/22 22:50 98 12/30/22 22:48 98 12/30/22 22:48 138/74 12/30/22 21:43 144/97 H 12/30/22 21:36 89 21 99 12/30/22 21:31 168/109 H 12/30/22 21:31 84 19 99 12/30/22 21:30 81 19 73 L 12/30/22 21:20 81 16 73 L 12/30/22 21:10 85 18 93 12/30/22 21:00 76 16 94 12/30/22 21:00 168/125 H 12/30/22 20:50 77 14 99 12/30/22 20:40 87 17 96 12/30/22 20:32 84 16 95 12/30/22 20:30 87 16 100 12/30/22 20:20 77 20 97 12/30/22 20:10 84 16 97 12/30/22 20:04 96 12/30/22 20:04 168/111 H 12/30/22 20:02 87 L O2 Del Method 12/31/22 06:00 12/31/22 06:00 12/31/22 05:30 12/31/22 05:22 12/31/22 05:00 12/31/22 04:30 12/31/22 04:00 12/31/22 03:30 12/31/22 05:20 Room Air 12/31/22 03:00 12/31/22 02:30 12/31/22 02:00 12/31/22 01:30 12/31/22 01:15 12/31/22 01:15 12/31/22 01:12 12/31/22 00:30 12/31/22 00:00 12/30/22 23:59 Room Air 12/30/22 23:38 Room Air 12/30/22 23:50 12/30/22 23:44 12/30/22 23:40 12/30/22 23:30 12/30/22 23:20 12/30/22 23:10 12/30/22 23:04 12/30/22 22:50 12/30/22 22:48 12/30/22 22:48 12/30/22 21:43 12/30/22 21:36 12/30/22 21:31 12/30/22 21:31 12/30/22 21:30 12/30/22 21:20 12/30/22 21:10 12/30/22 21:00 12/30/22 21:00 12/30/22 20:50 12/30/22 20:40 12/30/22 20:32 12/30/22 20:30 12/30/22 20:20 12/30/22 20:10 12/30/22 20:04 12/30/22 20:04 12/30/22 20:02 (1) Diabetes mellitus, type II Diabetes mellitus terminal manager insulin use: without alf use Diabetes mellitus complication status: without complication Qualified Code(s): E11.9 - Type 2 diabetes mellitus without complications (2) Hypertension Hypertension type: essential hypertension Qualified Code(s): I10 - Essential (primary) hypertension (3) Hyperlipidemia Hyperlipidemia type: unspecified Qualified Code(s): E78.5 - Hyperlipidemia, unspecified
[2022-12-31 07:43] LABS: Estimated Average Glucose 111 mg/dl; Hemoglobin A1C 5.5 % (4.5-5.6)
--- NOTE | 2022-12-31 08:42 | Magnetic Resonance Report ---
MRI OF THE BRAIN WITHOUT CONTRAST CLINICAL HISTORY: Transient ischemic attack. COMPARISON STUDY: MRI of the brain August 01, [address] and CTA of the head performed aniya ford today. TECHNIQUE: Utilizing a 1.5 Marina magnet and dedicated coil, multiplanar, multiecho imaging of the bra in was performed without IV contrast. FINDINGS: There are no foci of restricted diffusion to suggest acute infarct. No acute intracranial h emorrhage, midline shift or mass effect is present. Ventricular system is stable. Basal cisterns are patent. There are no extra-axial collections. Flow-voids for the major intracranial vessels are prese nt. There is no intracranial mass on this unenhanced exam. Extensive white matter T2 hyperintense foc i are similar to MRI of August 01, 2021. [place] T2 hyperintensity is unchanged. Findings suggest s mall vessel disease. The appearance of the brain has not significantly changed. Caliber and signal is normal. Mucous retention cyst within the right maxillary sinus is present. Moderate atrophy is again noted. IMPRESSION: No acute intracranial findings. No significant change in appearance of the brain since M RI of August 01, 2021. ACT 112: Negative or not required by law. Electronically signed by: Camilo Gongora M.D. 12/31/2022 8:41 AM
[2022-12-31] MEDS ORDERED: PARoxetine HCL 10 MG TAB PO SCH (09:00)
[2022-12-31] MEDS ORDERED: dilTIAZem HCL 120 MG CAPCR PO SCH (09:00)
[2022-12-31] MEDS ORDERED: ASPIRIN 81 MG ECTAB PO SCH (09:00)
[2022-12-31] MEDS ORDERED: PHENAZOPYRIDINE HCL 100 MG TAB PO SCH (09:00)
[2022-12-31] MEDS ORDERED: ATORVASTATIN 40 MG TAB PO SCH (09:00)
[2022-12-31] MEDS ORDERED: PANTOprazole 40 MG TAB PO SCH (09:00)
--- NOTE | 2022-12-31 10:17 | XCELERA ---
[id number]
--- NOTE | 2022-12-31 10:47 | Discharge Summary ---
Date of Service December 31, 2022 Admission HPI Per Admitting Provider Jocelyne is a 72 year old female w/ PmHx A. fib on warfarin, HTN, T2DM, IBS, HLD, osteopenia presenting to the ED for 30 minutes of dysarthria earlier in the day. Patient states that earlier in the day she was looking through her bills and not doing any extraneous activity when she started to have trouble articulating what she wanted to convey to her . She states that she felt some dizziness at the time as well as some body chills. She went to sit on her couch and waited the event out. She said she decided to come to the hospital after this event. She had a similar event with similar symptoms 6 weeks prior however that lasted for about 20 minutes and she did not get checked out for it. She states she has not had any other similar episodes prior to this. She denies any fevers, nausea, vomiting, shortness of breath, chest pain, constipation. She had a CVA event years prior however is not currently on any aspirin or statin at home. In the ED CBC WNL, electrolytes except Mg WNL, Mg 1.2, kidney and liver function WNL, INR 2.5. CT Head and CTA H&N w/o any acute abnormalities. Admission Exam Per Admitting Provider Constitutional: WD/WN, vitals as above Eyes: PERRL, conjunctivae normal, anicteric sclerae Respiratory: normal respiratory effort, lungs clear to auscultation Cardiovascular: Rate/Rhythm: + irregularly irregular Heart Sounds: normal S1 and normal S2 Gastrointestinal (Abdomen): normal bowel sounds, soft, nontender, no hepatosplenomegaly Psychiatric: A+Ox3, euthymic affect Principal Diagnosis TIA, Stroke r/o Discharge Exam Gen: NAD, alert, interactive, slowed speech HEENT: NCAT Resp:Non-labored, no wheezing/rhonchi/rales, CTAB CV:RRR, normal S1/S2, no M/R/G Abd: Soft, non-distended, no TTP, normoactive bowels, no masses Extr: 2+ dp bilaterally, no edema Skin: No rashes lesions or erythema Neuro: Symmetric strength 5/5 UE and LE bilaterally, sensation intact, CNII-XII grossly intact Discharge Data Allergies Allergy/AdvReac Type Severity Reaction Status Date / Time Sulfa (Sulfonamide Allergy Severe swelling/hives Verified 12/30/22 19:25 Antibiotics) all over nickel Allergy Intermediate Rash Verified 12/30/22 19:25 duloxetine AdvReac Intermediate depression Verified 12/30/22 19:25 Consultations 12/30/22 20:55 ED Decision to Admit Stat Ordered Studies Head CT 12/30/22 16:38 CT SCAN OF THE BRAIN WITHOUT IV CONTRAST CLINICAL HISTORY: Strokelike symptoms. COMPARISON STUDY: CT of the brain dated 07/30/2021. MRI of the brain dated 08/01/2021. TECHNIQUE: Unenhanced axial CT scan of the brain is performed from the vertex to the skull base. A dose lowering technique was utilized adhering to the principles of ALARA. CT DOSE: 884.08 mGy.cm FINDINGS: Brain parenchyma: There is age-related involutional change noting moderate subcortical and periventricular microangiopathic disease. There is no hemorrhage, mass effect, or evidence of acute territorial ischemia by CT criteria. Martines-white matter differentiation is preserved. No extra-axial fluid collection is seen. Ventricles, sulci, cisterns: Prominent secondary to involutional change. Intracranial vasculature: There is atherosclerotic calcification of the cavernous carotid arteries. Calvarium: Unremarkable. Sinuses and mastoids: There is mild mucosal thickening within the right maxillary antrum. Trace mucosal thickening is noted in the right sphenoid sinus. The remaining paranasal sinuses are clear. The mastoid air cells are well pneumatized. Orbits: The bony orbits are grossly intact. There are bilateral ocular lens implants. IMPRESSION: There is no hemorrhage, mass effect, or evidence of acute territorial ischemia by CT criteria. Neck CTA 12/30/22 18:01 CT ANGIOGRAM OF THE BRAIN; CT ANGIOGRAM OF THE NECK CLINICAL HISTORY: Transient ischemic attack. COMPARISON STUDY: Unenhanced CT of the brain performed earlier the same day . CT angiogram of the head and neck dated 07/30/2021. TECHNIQUE: Following the IV administration of 107 of Optiray 320, CT angiogram of the head and neck was performed from the aortic arch to the vertex. Images are reviewed in the axial, sagittal, and coronal planes. 3-D MIPS images are created and assessed. IV contrast was administered without complication. All measurements were calculated based on NASCET criteria. A dose lowering technique was utilized adhering to the principles of ALARA. CT DOSE: 59.40 mGy.cm (accession [id number]), 595.91 mGy.cm (accession [id number]) FINDINGS: Brain parenchyma: There is age-related involutional change noting moderate subcortical and periventricular microangiopathic disease. There is no evidence of hemorrhage, mass effect, or acute territorial ischemia noting angiographic phase technique. There is no evidence of enhancing mass lesion on the angiogram phase images. The ventricles, sulci, and cisterns are prominent secondary to involutional change. Martines-white matter differentiation is preserved. No extra- axial fluid collection is seen. Thoracic aorta: There is mild atherosclerotic calcification of the thoracic aorta. Visualized portions of the thoracic aorta are normal in caliber. The aortic arch demonstrates standard 3-vessel anatomy. Right carotid arterial system: The right common carotid artery is widely patent, as are the right internal and external carotid arteries. Calcified plaque is seen in the carotid bulb. The distal ICA is tortuous. Left carotid arterial system: The left common carotid artery is widely patent, as are the left internal and external carotid arteries. Calcified plaque is seen in the carotid bulb. Vertebral arteries: The vertebral arteries are widely patent bilaterally noting left-sided dominance. Subclavian arteries: Widely patent bilaterally. Intracranial vasculature: The internal carotid arteries are patent at the skull base, as are the anterior and middle cerebral arteries bilaterally. The vertebrobasilar system and posterior cerebral arteries are widely patent. The left vertebral artery is dominant. There is no aneurysm, high-grade stenosis, or focal vessel cut off seen throughout the intracranial circulation. Jugular veins: Patent bilaterally. Dural sinuses: Patent. Lung apices: Mild emphysematous change is seen at the apices. Visualized apical lung parenchyma is otherwise clear. Soft tissues: The visualized pharyngeal soft tissues are normal in appearance noting angiographic phase technique. The oropharyngeal airway appears widely patent. The thyroid gland is heterogeneous. The salivary glands are normal in appearance. No cervical lymphadenopathy is seen. Skeletal structures: The skeletal structures are osteopenic. The calvarium appears intact. The cervical spine is maintained noting multilevel spondylosis. No lytic or blastic lesion is seen. Orbits: The bony orbits are intact. Orbital contents are normal as visualized noting bilateral ocular lens implants. Sinuses and mastoids: There is mild mucosal thickening within the right maxillary antrum. Trace mucosal thickening is seen in the right sphenoid sinus. The remaining paranasal sinuses are clear. The mastoid air cells are well pneumatized. IMPRESSION: 1. There is no evidence of hemorrhage, mass effect, or acute territorial ischemia noting angiographic phase technique. 2. Unremarkable CT angiogram of the brain. 3. Unremarkable CT angiogram of the neck. Head CTA 12/30/22 18:07 CT ANGIOGRAM OF THE BRAIN; CT ANGIOGRAM OF THE NECK CLINICAL HISTORY: Transient ischemic attack. COMPARISON STUDY: Unenhanced CT of the brain performed earlier the same day 12/30/2022. CT angiogram of the head and neck dated 07/30/2021. TECHNIQUE: Following the IV administration of 107 of Optiray 320, CT angiogram of the head and neck was performed from the aortic arch to the vertex. Images are reviewed in the axial, sagittal, and coronal planes. 3-D MIPS images are created and assessed. IV contrast was administered without complication. All measurements were calculated based on NASCET criteria. A dose lowering technique was utilized adhering to the principles of ALARA. CT DOSE: 59.40 mGy.cm (accession [id number]), 595.91 mGy.cm (accession [id number]) FINDINGS: Brain parenchyma: There is age-related involutional change noting moderate subcortical and periventricular microangiopathic disease. There is no evidence of hemorrhage, mass effect, or acute territorial ischemia noting angiographic phase technique. There is no evidence of enhancing mass lesion on the angiogram phase images. The ventricles, sulci, and cisterns are prominent secondary to involutional change. Martines-white matter differentiation is preserved. No extra- axial fluid collection is seen. Thoracic aorta: There is mild atherosclerotic calcification of the thoracic aorta. Visualized portions of the thoracic aorta are normal in caliber. The aortic arch demonstrates standard 3-vessel anatomy. Right carotid arterial system: The right common carotid artery is widely patent, as are the right internal and external carotid arteries. Calcified plaque is seen in the carotid bulb. The distal ICA is tortuous. Left carotid arterial system: The left common carotid artery is widely patent, as are the left internal and external carotid arteries. Calcified plaque is seen in the carotid bulb. Vertebral arteries: The vertebral arteries are widely patent bilaterally noting left-sided dominance. Subclavian arteries: Widely patent bilaterally. Intracranial vasculature: The internal carotid arteries are patent at the skull base, as are the anterior and middle cerebral arteries bilaterally. The vertebrobasilar system and posterior cerebral arteries are widely patent. The left vertebral artery is dominant. There is no aneurysm, high-grade stenosis, or focal vessel cut off seen throughout the intracranial circulation. Jugular veins: Patent bilaterally. Dural sinuses: Patent. Lung apices: Mild emphysematous change is seen at the apices. Visualized apical lung parenchyma is otherwise clear. Soft tissues: The visualized pharyngeal soft tissues are normal in appearance noting angiographic phase technique. The oropharyngeal airway appears widely patent. The thyroid gland is heterogeneous. The salivary glands are normal in appearance. No cervical lymphadenopathy is seen. Skeletal structures: The skeletal structures are osteopenic. The calvarium appears intact. The cervical spine is maintained noting multilevel spondylosis. No lytic or blastic lesion is seen. Orbits: The bony orbits are intact. Orbital contents are normal as visualized noting bilateral ocular lens implants. Sinuses and mastoids: There is mild mucosal thickening within the right maxillary antrum. Trace mucosal thickening is seen in the right sphenoid sinus. The remaining paranasal sinuses are clear. The mastoid air cells are well pneumatized. IMPRESSION: 1. There is no evidence of hemorrhage, mass effect, or acute territorial ischemia noting angiographic phase technique. 2. Unremarkable CT angiogram of the brain. 3. Unremarkable CT angiogram of the neck. Brain MRI 12/30/22 20:43 MRI OF THE BRAIN WITHOUT CONTRAST CLINICAL HISTORY: Transient ischemic attack. COMPARISON STUDY: MRI of the brain August 01, [address] and CTA of the head performed earlier today. TECHNIQUE: Utilizing a 1.5 Marina magnet and dedicated coil, multiplanar, multiecho imaging of the brain was performed without IV contrast. FINDINGS: There are no foci of restricted diffusion to suggest acute infarct. No acute intracranial hemorrhage, midline shift or mass effect is present. Ventricular system is stable. Basal cisterns are patent. There are no extra- axial collections. Flow-voids for the major intracranial vessels are present. There is no intracranial mass on this unenhanced exam. Extensive white matter T2 hyperintense foci are similar to MRI of August 01, 2021. [place] T2 hyperintensity is unchanged. Findings suggest small vessel disease. The appearance of the brain has not significantly changed. Caliber and signal is normal. Mucous retention cyst within the right maxillary sinus is present. Moderate atrophy is again noted. IMPRESSION: No acute intracranial findings. No significant change in appearance of the brain since MRI of August 01, 2021. Hospital Course (1) Dysarthria: (2) Dizziness: (3) Current use of marine oil terminal superintendent anticoagulation: (4) Chronic a-fib: (5) Diabetes mellitus, type II: (6) Hypertension: (7) Hyperlipidemia: (8) IBS (irritable bowel syndrome): Maurisio Casanova is a 72 year old female w/ PmHx A. fib on warfarin, HTN, T2DM, IBS, HLD, osteopenia admitted for episode of dysarthria and possible TIA. Dysarthria: -CBC WNL, Mg 1.2, kidney and liver function WNL. -CT Head and CTA H&N w/o any acute abnormalities. -Second episode in past few months. -Symptoms subsided w/in 30 minutes of onset, most likely TIA. -MRI w/o contrast ordered in ED. -Complete Echo w/ bubble study ordered. -Started on ASA 81mg, Rosuvastatin 20 mg daily -Lipid profile and A1c unremarkable -PT/OT recommending home w/ PT, patient declined home health --- CT Head, CTA neck, MRI brain, and Echocardiogram negative for contributory factors --- No evidence of acute stroke, evidence of some chronic microvascular changes --- Presentation most consistent with TIA, advised Aspirin 81 mg and Rosuvastatin 20mg for secondary prevention --- Advised patient to avoid Ibuprofen use as research suggest increased likelihood of stroke w/ use Hypomagnesemia: -Mg 1.2 on arrival. -Repleted 2g on admission. -Continue to monitor. Chronic A. Fib: -Rates controlled while in hospital, continue home diltiazem and metoprolol. -Continue home warfarin 3mg daily. Check INR daily while inpatient. -Continue to monitor on med/tele. HTN: -Continue home metoprolol and diltiazem however may hold if low to allow for permissive hypertension. T2DM: -Last A1c 6.1 in 2019. Ordered repeat. -Glucose 91. Patient NPO. Once cleared by speech and A1c back can determine if need for SSI inpatient. HLD: -Started on atorvastatin 80mg daily. -Lipid profile ordered. IBS: -Continue home dicyclomine. DVT Prophylaxis: Home warfarin 3mg daily. F/E/N/GI: Advance diet (per speech therapy) Code Status: Full code Dispo: Home Total Time Total Time Spent Total Time Spent (In Minutes): >30 Discharge Plan Discharge Items Patient Disposition: Home - Self-Care Reason For Visit: DYSARTHRIA, STROKE R/O Discharge Diagnosis: Transient Ischemic Attack Stroke Rule Out Activity: Per Instructions section Non-emergency contact: Primary Care Provider Call non-emergency contact if: your symptoms worsen Follow-up/Referrals: Aureliano Genao MD [Primary Care Provider] - Diet: Carb Consistent or DM2 Addtl Attending Provider Instructions: You presented to the hospital after an episode of difficulty speaking. While you were here, a complete workup to rule out stroke was performed. This workup was overwhelmingly reassuring (your CT Head, CTA, MRI, and Echocardiogram were all negative for acute stroke). Your brain MRI was most suggestive of chronic, microvascular (small vessel) changes. These changes occur over time in association with aging. While there was no evidence of tissue damage (stroke) during this admission, having a transient ischemic attack gives us a sign that the vessels in your brain 'can' form a clot and 'could' eventually develop an obstruction which would cause a stroke. We ultimately want to prevent this from occurring because once brain tissue has , we can not get it to come back to life. As a means of secondary prevention, we discussed the addition of 81 mg of Aspirin daily to your home medication regimen as well as the addition of Rosuvastatin 20 mg by mouth daily. I have sent both of these prescriptions to your pharmacy. One of the final things we discussed was your use of Ibuprofen, I would recommend that you stop using Ibuprofen as research has shown that strokes are more likely to occur on days that individuals have taken ibuprofen. A discharge summary will be sent to your primary care physician to ensure continuity of care. Please bring this discharge summary with you to your next office appointment so that your provider can review it at that time. Follow-up appointments: - Make a follow-up appointment with your PCP within the next week. It is very important that you follow up with them shortly after discharge from the hospital. We have requested a follow-up appointment with your primary care physician within one week of discharge. Please call their office if you do not hear from them. Medications: - Add Aspirin - Add Rosuvastatin - Stop Ibuprofen Contact your Primary Care Provider if you experience: - Difficulty following your treatment plan or taking medications Call 911 or go to the emergency department if you experience: - Sudden, severe abdominal pain or nausea/vomiting - Severe chest pain, or chest pain that radiates (moves) to your jaw or arm - Sudden, severe shortness of breath or difficulty breathing It was a pleasure to be a part of your care, Dr. Jose Daniel [place] Guide Provider Instructions: Risk Factors for Stroke: You can reduce your chances of stroke by working with your medical provider to adopt a healthy lifestyle. Some specific ways to lower your chance of stroke are: * If you are a smoker, now is the time to stop smoking cigarettes * If you are diabetic, improve the control of your blood sugars * Avoid excessive amounts of alcohol * Control high blood pressure * Lose weight if you are overweight * Be sure to lead an active lifestyle * Eat a healthy diet low in salt, cholesterol and fat You should know about other risk factors for stroke that you are unable to control. These include: * Age 55 years or older * Male gender * Certain racial groups: , or / * Family History of Stroke, Mini stroke or Heart Attack * Sickle Cell Disease Follow Up: It is important for you to keep your follow up appointments with your medical provider. Who to Call and When: Medical Emergencies: Call 911 immediately if you experience any of the following warning signs and symptoms of Stroke: * Sudden numbness or weakness of the face, arm or leg, especially on one side of the body * Sudden confusion, trouble speaking or understanding * Sudden trouble seeing in one or both eyes * Sudden trouble walking, dizziness, loss of balance or coordination * Sudden severe headache with no cause Do not delay calling 911 if you experience any warning signs or symptoms of a stroke. Delay in seeking medical attention may affect what treatments can be given to you. . Pending Studies at Discharge: No Stand-Alone Forms: [facility] [employer], Smoking Cessation Medications and DC Order Prescriptions: New aspirin 81 mg Tablet,Delayed Release (Dr/Ec) 81 mg PO QAM 30 Days Qty: 30 0RF rosuvastatin 20 mg tablet 20 mg PO DAILY 30 Days Qty: 30 0RF Continued ibuprofen 200 mg tablet 400 mg PO BID PRN (Reason: back pain) Tylenol Extra Strength 500 mg powder in packet 1,000 mg PO Q12H PRN (Reason: Pain) Rx Instructions: 1,000 mg orally every 12 hours as needed; warfarin 2 mg tablet 3 mg PO QPM Rx Instructions: 3mg daily per [facility] orally use as directed; metformin 500 mg tablet 500 mg PO BIDM Qty: 180 3RF meclizine 25 mg tablet 25 mg PO TID PRN (Reason: vertigo) Qty: 60 0RF Rx Instructions: PER PT "NEED A NEW SCRIPT, OUT FOR ABOUT A WEEK". omeprazole 20 mg capsule,delayed release(DR/EC) 20 mg PO QAM Qty: 90 3RF metoprolol succinate 100 mg tablet extended release 24 hr 100 mg PO Q12H Qty: 180 3RF diltiazem HCl [Cartia XT] 120 mg capsule,extended release 24hr 120 mg PO QAM Qty: 90 1RF (DME) Accu-Chek Yuly Plus test strp Strip See Rx Instructions .ROUTE .MEDSUPPLY Qty: 100 3RF Rx Instructions: use to test once daily (DME) lancets Misc See Rx Instructions .ROUTE .MEDSUPPLY Qty: 100 Rx Instructions: As directed paroxetine HCl [Paxil] 10 mg Tablet 10 mg PO DAILY dicyclomine 10 mg capsule 10 mg PO AC Rx Instructions: PER PT "NEED A NEW SCRIPT, HAVE BEEN OUT FOR ABOUT A WEEK OR 2". phenazopyridine 95 mg Tablet 95 mg PO DAILY Discharge Orders: Discharge Order (Routine); Ordered 12/31/22 Ordered By: Jose Daniel Chan Admission Data Admit Date/Time: 12/30/22 21:33 Attending Provider: Jerome Mckeon Admit Provider: Gabo Lo Primary Care Provider: Aureliano Genao Other Providers: Hitesh Olmos Other Interventions: Discharge Summary Assessment (RN) Last Done: 12/31/22 18:00 Supervising Physician Co-Signing Physician Notes I personally examined the patient and verified all lazar points of history and exam, discussed case, and agree with decision making with Dr Chan Feeling better and would like to go home. Extensive discussion aboutdiagnosis of TIA, pathophysiologyparticularly as it relates to strongly suspected small vessel disease mechanism. Secondary risk reduction with medications (aspirin/statin) risk/benefits/side effects/misinterpretation of potential side effects with statin (believes she was on atorvastatin before and believes she had some sort of achesdiscussed that while muscle aches are the most common side effect as it relates to statins there is still actually quite rare, and discussed the vascular benefit of being on a moderate to high intensity statinparticularly as it relates to the risk of having a stroke and possible permanent dysarthria or expressive aphasia versus potentially myalgias that would be reversible with statin cessationand also discussed that in my experience its probably far more common for people to attribute regular aches and pains that they have on a daily basis to a statin far more commonly than getting true statin related myalgiasdiscussed the "phenotype" of what we often see with statin related myalgias), also discussed therapeutic lifestyle changes as it relates to Mediterranean diet/light daily cardiovascular exercise, lastly discussed avoiding NSAIDs given risk of vascular events when they are taken. Separately she discussed low back painseems to be predominantly in her backsounding to at least have a large biomechanical componentdiscussed that there is a good DO physician in her PCPs office, suggested cross referral to him for trial of OMT Stable for home
[2022-12-31] MEDS: DICYCLOMINE HCL 10 MG CAP PO SCH ×3 (11:17→15:43)
--- NOTE | 2022-12-31 15:22 | Electrocardiogram Report ---
Test Reason : Blood Pressure : / mmHG Vent. Rate : 076 BPM Atrial Rate : 120 BPM P-R Int : 000 ms QRS Dur : 090 ms QT Int : 408 ms P-R-T Axes : 000 -42 -13 degrees QTc Int : 459 ms Atrial fibrillation Left axis deviation Nonspecific ST abnormality Abnormal ECG When compared with ECG of 30-JUL-2021 19:42, No significant change was found Confirmed by Rey Dupree ([id number]) on 12/31/2022 3:21:42 PM Referred By: REFERRED SELF Confirmed By:Rey Dupree
[2022-12-31] MEDS ORDERED: STROKE PATIENT DISCHARGE STA (17:52)
--- NOTE | 2022-12-31 19:30 | Billing Data ---
Date of Service December 31, 2022 Coding Level of Care Code HOSP INP/OBS DISCH >30 MIN
--- NOTE | 2023-01-01 03:56 | Billing Data ---
Date of Service January 01, 2023 Coding Level of Care Code 37121 INT INP/OBS CARE
== END 2022-12-31 18:11 | disposition home or self-care (01) | DRG 69 ==
LOC: ED 16:30 → INTOOBSV 21:33 → SUATTDRO 21:33 → EDINP 21:33

== ENCOUNTER 2025-11-14 11:03 | Inpatient (IN) ==
[2025-11-14 11:51] LABS: Hematocrit (blood only) 33.9 % (37.0-47.0); Hemoglobin 10.9 g/dL (12.0-16.0); Immature Granulocytes # (auto) 0.04 K/uL (0.01-0.20); Immature Granulocytes % (auto) 0.6 %; Mean Corpuscular Hemoglobin 29.1 pg (25.0-34.0); Mean Corpuscular Volume 90.4 fL (80.0-100.0); Platelet Count 213 K/uL (130-400); RDW Standard Deviation 46.3 fL (36.4-46.3); Red Blood Count 3.75 M/uL (4.20-5.40); White Blood Count 7.04 K/ul (4.8-10.8)
--- NOTE | 2025-11-14 11:54 | XRay Report ---
SINGLE VIEW PELVIS CLINICAL HISTORY: Trauma. Fall. FINDINGS: An AP, portable, supine pelvic radiograph is compared to study dated 04/22/2023. The skeleta l structures are osteopenic. There is no radiographic evidence of acute fracture involving the hips o r bony pelvis. Mild arthritic change and joint space narrowing is seen in the hips, left greater than right. There is degenerative sclerosis of the sacroiliac joints. Lumbosacral spondylosis is partiall y imaged. A calcified enthesophyte is again seen adjacent to the greater trochanter of the left proxi mal femur. The overlying soft tissues are normal as imaged. Moderate fecal retention is noted through out the imaged colon. IMPRESSION: No acute bony abnormality is identified. Electronically signed by: Geronimo Chapa M.D. 11/14/2025 11:52 AM
--- NOTE | 2025-11-14 11:56 | XRay Report ---
XR chest 1V portable CLINICAL HISTORY: Trauma. COMPARISON STUDY: Chest radiograph and bilateral rib series September 21, 2024. FINDINGS: There is no pneumothorax or pleural effusion. Cardiomegaly is unchanged. There are a few ol d bilateral rib fractures. No acute rib fractures are identified by radiography. Pulmonary vascularit y is normal. IMPRESSION: No acute cardiopulmonary findings. ACT 112: Negative or not required by law. Electronically signed by: Camilo Gongora M.D. 11/14/2025 11:54 AM
[2025-11-14 11:58] LABS: INR 2.2 (0.9-1.1); Prothrombin Time 22.5 Seconds (9.0-12.0)
[2025-11-14 12:06] LABS: Alanine Aminotransferase 10.0 U/L (7-52); Albumin Globulin Ratio 1.1 (0.9-2); Albumin Level 4.0 gm/dl (3.4-5.0); Alkaline Phosphatase 45.0 U/L (34-104); Anion Gap 7.0 (3-11); Bilirubin,Total 0.7 mg/dl (0.2-1.0); Blood Urea Nitrogen 19.0 mg/dl (6-23); Calcium 9.5 mg/dl (8.6-10.3); Carbon Dioxide 29.0 mmol/L (21-32); Chloride 102.0 mmol/L (98-107); Creatine Kinase 137.0 U/L (26-192); Creatinine Clr Calc Pharmacy 93.2 ml/min; Globulin 3.6 gm/dl (2.5-4.0); Glucose 96.0 mg/dl (70-99(Fasting)); Lipase 20.0 U/L (11-82); Magnesium 1.3 mg/dl (1.7-2.4); Potassium 4.4 mmol/L (3.5-5.1); Sodium 138.0 mmol/L (136-145); Total Protein 7.6 gm/dl (6.0-8.3)
[2025-11-14 12:16] LABS: Thyroid Stimulating Hormone 2.413 uIu/ml (0.300-4.500)
--- NOTE | 2025-11-14 12:38 | CT Scan Report ---
CT SCAN OF THE BRAIN WITHOUT IV CONTRAST CLINICAL HISTORY: Trauma. COMPARISON STUDY: Head CT and CTA of the head December 30, 2022. MRI of the brain December 30, 2022. TECHNIQUE: Unenhanced axial CT scan of the brain was performed from the vertex to the skull base. A dose lowering technique was utilized adhering to the principles of ALARA. FINDINGS: Brain parenchyma: No acute intracranial hemorrhage, midline shift or mass effect is present. Martines-whi te matter differentiation is preserved. There are no extra-axial fluid collections. There are no find ings to suggest acute dural sinus thrombosis or acute territorial infarct. White matter hypodensities are unchanged and favor small vessel disease. Ventricles, sulci, cisterns: There is no hydrocephalus. The basal cisterns are patent. Calvarium: No calvarial fractures. Sinuses and mastoids: The visualized paranasal sinuses are clear. The mastoid air cells are well pneu matized. Orbits: The bony orbits are grossly intact. IMPRESSION: 1. No acute intracranial findings. 2. No calvarial fractures. ACT 112: Negative or not required by law. Electronically signed by: Camilo Gongora M.D. 11/14/2025 12:37 PM
--- NOTE | 2025-11-14 12:39 | CT Scan Report ---
CT SCAN OF THE CERVICAL SPINE CLINICAL HISTORY: Trauma. COMPARISON STUDY: Cervical spine CT dated 05/25/2020. TECHNIQUE: CT scan of the cervical spine is performed from the skull base to the upper thoracic spine . Images are reviewed in the axial, sagittal, and coronal planes. IV contrast was not administered fo r this examination. A dose lowering technique was utilized adhering to the principles of ALARA. CT DOSE: 1208.06 mGy.cm FINDINGS: Skeletal structures: The skeletal structures are osteopenic. There is no evidence of fracture or subl uxation involving the cervical spine. Vertebral body height and alignment are maintained. There is mi ld hyperlordosis. Anterior osteophytes are seen throughout. The odontoid process and lateral masses a re intact. The atlantoaxial articulation is preserved noting mild productive degenerative change. The spinous processes appear intact. There is mild multilevel facet arthropathy. Intervertebral discs: There is moderate disc space narrowing at C4-C5, C5-C6, and C6-C7. Mild narrowi ng is seen at the remaining cervical levels. Central canal: Posterior disc osteophyte complexes are seen at all cervical levels between C3-C4 and C6-C7. This likely contributes to multilevel acquired compromise of the central canal. Soft tissues: The prevertebral and paraspinous soft tissues are within normal limits. There is athero sclerotic calcification of the carotid bulbs. Calvarium: The visualized calvarium at the skull base appears intact. Brain parenchyma: Partially visualized brain parenchyma at the skull base is within normal limits. Sinuses and mastoids: There is trace mucosal thickening in the right maxillary antrum. The mastoid ai r cells are well pneumatized. Lung apices: Clear as visualized. IMPRESSION: 1. There is no evidence of cervical spine fracture or subluxation. 2. Osteopenia and spondylotic change as above. ACT 112: Negative or not required by law. Electronically signed by: Geronimo Chapa M.D. 11/14/2025 12:38 PM
[2025-11-14] MEDS: MAGNESIUM SULFATE / D5W 1 GM/100 ML BAG IV SCH ×2 (13:02→15:55)
[2025-11-14] MEDS: SODIUM CHLORIDE 0.9% 1,000 ML IV SCH (13:02)
--- NOTE | 2025-11-14 13:26 | Emergency Department Note ---
Impression & Plan Generalized weakness, Hypomagnesemia, Acute UTI (urinary tract infection) ED Provider Note ED Provider Note NAME: DAMI AMEZQUITA AGE:74 SEX: Female : 1950 ARRIVES VIA: EMS INFORMANT: Patient ED PROVIDER(s): Isha Thompson DO CHIEF COMPLAINT: Fall HPI: This is a 74-year-old female who presents to the emergency department following a fall at home. Patient states she does typically use a cane. She states she felt weak and fell at home and was unable to get up. She states her was unable to help her up and did not want her to call 911. She states she laid there overnight and that this morning and then eventually called 911 because she still cannot get up on her own. Patient does use anticoagulation due to a.fib. She denies any recent change in her medications or diet. No recent change in bowel or bladder function. She denies any fevers, chills, URI symptoms. Patient states when she fell she did hit her head on the carpeted floor although did not lose consciousness. She denies neck or back pain. She denies chest pain, shortness of breath, abdominal pain, nausea or vomiting, vision changes, or paresthesias. PAST MEDICAL HISTORY:See Below PAST SURGICAL HISTORY:See Below FAMILY HISTORY:See Below SOCIAL HISTORY:See Below HOME MEDICATIONS:See Below ALLERGIES:See Below VITALS:See Below PHYSICAL EXAMINATION: Primary Survey Airway: Intact Breathing: Normal, breath sounds equal bilaterally Circulation: Skin warm, distal pulses 2+, capillary refill less than 2 seconds Disability Pupils: Equal and reactive to light, 2 mm, brisk GCS: 15, Motor Function: Moves all extremities. Sensory: No deficits Secondary Survey GENERAL: alert, well appearing, well nourished, no distress, non-toxic HEAD: normal cephalic, atraumatic, no facial bone tenderness, no midface instability EYE EXAM: normal conjunctiva, PERRL and EOM's grossly intact OROPHARYNX: no exudate, no erythema, lips, buccal mucosa, and tongue normal and mucous membranes are moist EARS: TMs clear b/l without hemotympanum NECK: supple, no nuchal rigidity, no adenopathy, non-tender, c-collar present CHEST: stable to compression anteriorly and posteriorly, no crepitus LUNGS: clear to auscultation. Normal chest wall mechanics, no w/r/r HEART: no murmurs, S1 normal and S2 normal ABDOMEN: abdomen soft, non-tender, normo-active bowel sounds, no masses, no rebound or guarding. PELVIS: stable to compression BACK: Back is symmetrical on inspection and there is no deformity, no midline tenderness, no CVA tenderness. UPPER EXTREMITIES: full active and passive range of motion of all joints without tenderness to palpation, no obvious deformities, sensation intact bilaterally, normal pulses bilaterally LOWER EXTREMITIES: full active and passive range of motion of all joints without tenderness to palpation, no obvious deformities, sensation intact bilaterally, normal pulses bilaterally NEURO EXAM: Normal sensorium, cranial nerves II-XII grossly intact, normal speech, no gross weakness of arms, no gross weakness of legs. GCS: 15. Vital Signs: reviewed and remarkable Differential Diagnosis: dehydration, stroke, anemia, hypoglycemia, hyponatremia, hypernatremia, urinary tract infection, pneumonia, bronchitis, sepsis, gastroenteritis, additional abdominal pathology, metabolic abnormalities, as well as others were considered MEDICAL DECISION MAKING: This is a 74 yo female who presents to the ER following a fall at home last night. She was afebrile and VS stable. Labs drawn and sent, IV established, EKG and CXR performed and interpreted at bedside, and patient placed on telemetry. Patient sent for CT imaging and started on IVF additionally. Patient noted to have hypomagnesemia. INR therpeutic. She was started on mag repletion. Given weakness and concern for safe discharge plan as she stated her couldn't help her get up and is older than she is, we discussed further inpatient monitoring and PT/OT eval after mag repletion. Patient eventually provided a urine specimen which was suggestive of UTI also. She was started on IV rocephin and reported improvement. Case discussed with hospitalist team for further evaluation and mgmt. I have a low suspicion for any additional occult traumatic injury at this time. No evidence for SHAY and she denies symptoms more9 suggestive of pyelo or obstructive uropathy. Consultation(s): 1330: Discussed with Dr. Simeon, [place] hospitalist team, for additional evaluation and mgmt. ER Treatment Provided: See below Diagnostics Interpreted By Me: -ECG: Rate 105, leftward axis, normal intervals, nonspecific ST/T wave changes -Cardiac Monitoring: An order was placed for continuous cardiac monitoring. The monitor shows a rate of 88 with a.fib rhythm. -Laboratory studies: As stated above and show below. -Imaging studies: X-ray Chest: A single view study of the chest was reviewed and was negative for cardiomegaly, focal infiltrate, effusion, pulmonary edema, or wide mediastinum. ct head: no ICH Triage Nursing Note Reviewed Prior/Outside Records Reviewed Critical Care: Critical care of 39 min performed to assess and manage high likelihood of life- threatening trauma on warfarin and hypomagnesemia, involving labs and imaging performed with assessment to evaluate weakness and fall diagnosis with frequent reassessment. This time includes bedside time, treatment discussions with patient/family/consultants, documentation time and excludes procedure time. Past Med/Surg History Problem List Acute UTI (urinary tract infection) (Acute) Hypomagnesemia (Acute) Generalized weakness (Acute) Osteoporosis Anemia Permanent atrial fibrillation Type 2 diabetes mellitus with obesity Balance problem Muscular deconditioning Weakness of both legs Adequate anticoagulation on anticoagulant therapy (Chronic) Hyperlipidemia Chronic pain Asthma (Acute 09/08/13) Abnormal gait Urinary incontinence Abdominal pain (Acute) Nausea (Acute) Weight loss Vertigo Brain TIA (Acute) Cerebrovascular disease, unspecified Hypertension Depression Osteopenia Medical History Poor dentition History of asthma "no issues recently, haven't used a rescue inhaler in years" Abdominal pain Abdomen firm on palpation Unsteady gait Ambulatory dysfunction USES WALKER OR CANE Current use of skilled nursing anticoagulation Dizziness "ONGOING, DEPENDING ON HOW FAST SHE CHANGES POSITION" IBS (irritable bowel syndrome) Scoliosis Chronic back pain Anxiety Migraine History of DVT of lower extremity ~1998 r/t hormone therapy Diverticulosis of colon without diverticulitis History of TIA (transient ischemic attack) Possible remote (~2010) Spinal stenosis History of polymyalgia rheumatica Followed by Rheumatology, previous steroid taper Surgical History S/P cholecystectomy History of removal of laparoscopic gastric banding device (07/19/21) Laparoscopic Removal Gastric Band, Laparoscopic Cholecystectomy, enterolysis Dr. Liu 07-19-2021 History of bariatric surgery Hx laparoscopic cholecystectomy Laparoscopic Removal Gastric Band, Laparoscopic Cholecystectomy, enterolysis Dr. Liu 07-19-2021 History of dilatation and curettage History of total hysterectomy with bilateral salpingo-oophorectomy (BSO) History of colonoscopy History of wisdom tooth extraction History of tonsillectomy History of bilateral cataract extraction Status post bilateral knee replacements History of bariatric surgery S/p laparascopic gastric band (2011) Family History Grandmother (Maternal) Family history of diabetes mellitus Mother Family hx colonic polyps Uremia Father , age 95 Tachycardia Other Diabetes Graves disease Hypertension No family history of adverse response to anesthesia Denies family history of Ovarian cancer Prostate cancer Myocardial infarction Breast cancer Colorectal cancer Social History Smoking Status: Former smoker Tobacco Type: Cigarettes Age Started Using Tobacco: 15; Age Quit Using Tobacco: 38; packs per day: 1; Second Hand Exposure: No; Do You Dip or Chew Tobacco: No; Hx Alcohol Use: No Hx Substance Use: No Preferred Language: Romanian Communication Ability: Effective Visual Impairment: Limited Hearing Ability: Normal 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 Arts Required: No Beliefs That Will Affect Care: None marital status: Current Living Situation: Spouse Current Living Situation Comment: current occupational status: retired How many Children do You have: 1 Feels Safe at Home: Yes Childhood Exposure to Second-Hand Smoke: No Diet: other Diet Comment: sugar free caffeine: No during the past year weight has: remained stable Dental Care, Regularly: No Physical Activity Frequency: 1-2 Times per Week Seatbelt Use: always Sunscreen Use: Yes Assistive Devices: Cane, Glasses and Walker Allergies Allergies Allergy/AdvReac Type Severity Reaction Status Date / Time Sulfa (Sulfonamide Allergy Severe swelling/hives Verified 10/24/25 09:32 Antibiotics) all over nickel Allergy Intermediate Rash Verified 10/24/25 09:32 duloxetine AdvReac Intermediate depression Verified 10/24/25 09:32 Home Meds Home Medications Medication Instructions Recorded Confirmed acetaminophen 500 mg tablet 500 mg PO Q6H PRN Pain 03/20/23 11/14/25 multivitamin 1 tab PO DAILY 05/26/23 11/14/25 magnesium oxide 400 mg PO DAILY 03/30/24 11/14/25 mirabegron 25 mg tablet,extended 0 mg PO DAILY 11/14/25 11/14/25 release 24 hr warfarin 2 mg tablet 2 mg PO 5XWK 11/14/25 11/14/25 warfarin 2 mg tablet 4 mg PO 2XWK 11/14/25 11/14/25 Previous Rx's Medication Instructions Recorded fluoxetine 40 mg capsule 40 mg PO QAM #90 caps 06/30/25 rosuvastatin 10 mg tablet 10 mg PO 2XWK #90 tabs 06/30/25 blood glucose control, low (True #1 ea 07/20/25 Metrix Level 1 solution) blood sugar diagnostic (True #100 ea 07/25/25 Metrix Glucose Test Strip) blood-glucose meter (True Metrix #1 ea 07/25/25 Glucose Meter) lancets 28 gauge (TRUEplus Lancets) #100 ea 07/25/25 dicyclomine 10 mg capsule 20 mg (2 x 10 mg) PO TID PRN 08/05/25 diarrhea #540 caps cyanocobalamin (vitamin B-12) 1,000 mcg PO DAILY #90 caps 09/05/25 1,000 mcg capsule metoprolol succinate 100 mg 100 mg PO BID #180 tabs 09/05/25 tablet,extended release 24 hr metformin 500 mg tablet 500 mg PO BID #180 tabs 09/29/25 denosumab 60 mg/mL subcutaneous 60 mg subcut ONCE #1 mL 10/24/25 syringe ([employer]) mometasone 0.1 % topical cream 1 applic topical DAILY PRN exczema 10/24/25 flares 2 weeks #45 grams pantoprazole 20 mg tablet,delayed 20 mg PO DAILY #90 tabs 11/01/25 release Results & Data (ED) Vital Signs Vital Signs - 24 hr 11/14/25 10:54 11/14/25 11:14 11/14/25 12:12 Temperature 36.5 C Temperature Source Oral Pulse Rate 95 H 86 Pulse Rate from SpO2 Sensor Pulse Rhythm Irregular Pulse Strength Normal Respiratory Rate 20 20 Respiratory Effort / Characteristics Non-Labored Spontaneous Respiratory Depth Normal Respiratory Pattern Regular Blood Pressure 150/92 H 133/104 H Blood Pressure Mean 111 124 Blood Pressure Position Sitting Pulse Oximetry 95 98 98 Oxygen Delivery Method Room Air Room Air Sepsis Recent Fever Within 48 Hours No Sepsis New/Unexplained Change in Mental Status No Sepsis Action Taken by Nursing No Action Required 11/14/25 12:12 11/14/25 12:27 11/14/25 12:30 Temperature Temperature Source Pulse Rate 77 85 93 H Pulse Rate from SpO2 Sensor 86 Pulse Rhythm Pulse Strength Respiratory Rate 17 18 Respiratory Effort / Characteristics Respiratory Depth Respiratory Pattern Blood Pressure 133/104 H 126/97 Blood Pressure Mean 124 113 Blood Pressure Position Pulse Oximetry 97 97 Oxygen Delivery Method Sepsis Recent Fever Within 48 Hours Sepsis New/Unexplained Change in Mental Status Sepsis Action Taken by Nursing 11/14/25 13:02 11/14/25 13:31 11/14/25 14:00 Temperature Temperature Source Pulse Rate 90 98 H 84 Pulse Rate from SpO2 Sensor Pulse Rhythm Pulse Strength Respiratory Rate 19 17 20 Respiratory Effort / Characteristics Respiratory Depth Respiratory Pattern Blood Pressure 138/89 125/82 128/77 Blood Pressure Mean 102 88 102 Blood Pressure Position Pulse Oximetry 96 98 95 Oxygen Delivery Method Sepsis Recent Fever Within 48 Hours Sepsis New/Unexplained Change in Mental Status Sepsis Action Taken by Nursing 11/14/25 14:31 Temperature Temperature Source Pulse Rate 81 Pulse Rate from SpO2 Sensor Pulse Rhythm Pulse Strength Respiratory Rate 21 Respiratory Effort / Characteristics Respiratory Depth Respiratory Pattern Blood Pressure 124/53 L Blood Pressure Mean 104 Blood Pressure Position Pulse Oximetry 98 Oxygen Delivery Method Sepsis Recent Fever Within 48 Hours Sepsis New/Unexplained Change in Mental Status Sepsis Action Taken by Nursing Laboratory Data 11/14/25 11:25 11/14/25 11:25 Lab Results 11/14/25 11/14/25 11/14/25 Range/Units 11:25 11:29 13:36 WBC 7.04 (4.8-10.8) K/ul RBC 3.75 L (4.20-5.40) M/uL Hgb 10.9 L (12.0-16.0) g/dL POC Hgb 11.2 L (12.0-16.0) g/dl Hct 33.9 L (37.0-47.0) % POC Hct 33 L (37-47) % MCV 90.4 (80.0-100.0) fL MCH 29.1 (25.0-34.0) pg MCHC 32.2 (32.0-36.0) g/dL RDW Std Deviation 46.3 (36.4-46.3) fL RDW Coeff of Dorita 14.0 (11.5-14.5) % Plt Count 213 (130-400) K/uL MPV 9.0 L (9.4-12.4) fL Immature Gran % (Auto) 0.6 % Neut % (Auto) 79.3 % Lymph % (Auto) 9.8 % Ellsworth % (Auto) 7.4 % Eos % (Auto) 2.3 % Baso % (Auto) 0.6 % Neut # (Auto) 5.59 (1.40-6.50) K/uL Lymph # (Auto) 0.69 L (1.20-3.40) K/uL Ellsworth # (Auto) 0.52 (0.11-0.59) K/uL Eos # (Auto) 0.16 (0.00-0.50) K/uL Baso # (Auto) 0.04 (0.00-0.20) K/uL Immature Gran # (Auto) 0.04 (0.01-0.20) K/uL PT 22.5 H (9.0-12.0) Seconds INR 2.2 H (0.9-1.1) POC Sodium 139 (135-144) mmol/L Sodium 138 (136-145) mmol/L POC Potassium 4.4 (3.3-5.0) mmol/L Potassium 4.4 (3.5-5.1) mmol/L POC Chloride 100 L (101-112) mmol/L Chloride 102 (98-107) mmol/L Carbon Dioxide 29 (21-32) mmol/L POC Total CO2 27 (24-31) mmol/L Anion Gap 7 (3-11) POC Anion Gap 18.0 (16-25) mmol/L POC BUN 21 H (7-18) mg/dl BUN 19 (6-23) mg/dl Creatinine 0.58 L (0.6-1.2) mg/dl POC Creatinine 0.7 (0.6-1.3) mg/dl Est Cr Clr Drug Dosing 93.2 ml/min eGFR 93.73 BUN/Creatinine Ratio 32.8 H (10-20) Glucose 96 (70-99(Fasting)) mg/dl POC Glucose (other) 92 (70-99) mg/dl Calcium 9.5 (8.6-10.3) mg/dl POC Ioniz Calcium Sean 1.23 (1.12-1.32) mmol/l Magnesium 1.3 L (1.7-2.4) mg/dl Total Bilirubin 0.7 (0.2-1.0) mg/dl AST 16 (13-39) U/L ALT 10 (7-52) U/L Alkaline Phosphatase 45 (34-104) U/L Total Creatine Kinase 137 (26-192) U/L Troponin I High Sens 5.7 (0-14) pg/ml Total Protein 7.6 (6.0-8.3) gm/dl Albumin 4.0 (3.4-5.0) gm/dl Globulin 3.6 (2.5-4.0) gm/dl Albumin/Globulin Ratio 1.1 (0.9-2) Lipase 20 (11-82) U/L TSH 2.413 (0.300-4.500) uIu/ml Urine Color Yellow Urine Appearance Clear (Clear) Urine pH 7.0 (4.5-7.5) Ur Specific Hecker 1.021 (1.000-1.030) Urine Protein Negative (Negative) Urine Glucose (UA) Negative (Negative) Urine Ketones Negative (Negative) Urine Blood 1+ H (Negative) Urine Nitrite Positive A (Negative) Urine Bilirubin Negative (Negative) Urine Urobilinogen Negative (Negative) Ur Leukocyte Esterase Negative (Negative) Urine WBC (Auto) 0-5 (0-5) /hpf Urine RBC (Auto) 6-10 H (0-2) /hpf U Hyaline Cast (Auto) 0-2 (0-2) /lpf U Epithel Cells (Auto) 0-2 (0-2) /hpf Urine Bacteria (Auto) 4+ H (None Seen) Urine Comment Administered Medications Sodium Chloride (Nss) 1,000 mls @ 125 mls/hr IV .Q8H BRANDAN Stop: 11/17/25 12:44 Last Admin: 11/14/25 13:02 Dose: 125 mls/hr Documented By: kylie Insulin Aspart (Insulin Aspart Per Unit Charge) 0 units SC ACHS BRANDAN Stop: 12/14/25 16:29 Last Admin: 11/14/25 17:50 Dose: 3 units Documented By: PJ Co-signed By: [email or web address] Metformin HCl (Metformin Hcl 500 Mg Tab) 500 mg PO BIDM BRANDAN Stop: 12/14/25 16:59 Last Admin: 11/14/25 17:51 Dose: 500 mg Documented By: VGS Warfarin Sodium (Warfarin Sod 4 Mg Tab) 4 mg PO MoFr@1600 BRANDAN Stop: 12/14/25 17:29 Last Admin: 11/14/25 17:51 Dose: 4 mg Documented By: VGS Discontinued Medications Magnesium Sulfate/Dextrose (Magnesium Sulfate / D5w) 1 gm in 100 mls @ 100 mls/hr IV Q1H BRANDAN Stop: 11/14/25 14:33 Last Infusion: 11/14/25 15:00 Dose: Infused Documented By: kylie Admin: 11/14/25 14:00 Dose: 100 mls/hr Documented By: kylie Infusion: 11/14/25 13:34 Dose: Infused Documented By: [email or web address] Admin: 11/14/25 13:02 Dose: 100 mls/hr Documented By: kylie Ceftriaxone Sodium (Rocephin) 2,000 mg in 50 mls @ 100 mls/hr IV NOW STA Stop: 11/14/25 15:16 Last Infusion: 11/14/25 15:21 Dose: Infused Documented By: kylie Infusion: 11/14/25 15:21 Dose: 0 mls/hr Documented By: kylie Admin: 11/14/25 15:21 Dose: 100 mls/hr Documented By: kylie Magnesium Sulfate/Dextrose (Magnesium Sulfate / D5w) 1 gm in 100 mls @ 50 mls/hr IV Q2H BRANDAN Stop: 11/14/25 19:14 Last Admin: 11/14/25 17:58 Dose: 50 mls/hr Documented By: Infusion: 11/14/25 17:55 Dose: Infused Documented By: Admin: 11/14/25 15:55 Dose: 50 mls/hr Documented By: kylie Imaging Data Radiologist's Impression: Cervical Spine CT 11/14/25 11:27 CT SCAN OF THE CERVICAL SPINE CLINICAL HISTORY: Trauma. COMPARISON STUDY: Cervical spine CT dated 05/25/2020. TECHNIQUE: CT scan of the cervical spine is performed from the skull base to the upper thoracic spine. Images are reviewed in the axial, sagittal, and coronal planes. IV contrast was not administered for this examination. A dose lowering technique was utilized adhering to the principles of ALARA. CT DOSE: 1208.06 mGy.cm FINDINGS: Skeletal structures: The skeletal structures are osteopenic. There is no evidence of fracture or subluxation involving the cervical spine. Vertebral body height and alignment are maintained. There is mild hyperlordosis. Anterior osteophytes are seen throughout. The odontoid process and lateral masses are intact. The atlantoaxial articulation is preserved noting mild productive degenerative change. The spinous processes appear intact. There is mild multilevel facet arthropathy. Intervertebral discs: There is moderate disc space narrowing at C4-C5, C5-C6, and C6-C7. Mild narrowing is seen at the remaining cervical levels. Central canal: Posterior disc osteophyte complexes are seen at all cervical levels between C3-C4 and C6-C7. This likely contributes to multilevel acquired compromise of the central canal. Soft tissues: The prevertebral and paraspinous soft tissues are within normal limits. There is atherosclerotic calcification of the carotid bulbs. Calvarium: The visualized calvarium at the skull base appears intact. Brain parenchyma: Partially visualized brain parenchyma at the skull base is within normal limits. Sinuses and mastoids: There is trace mucosal thickening in the right maxillary antrum. The mastoid air cells are well pneumatized. Lung apices: Clear as visualized. IMPRESSION: 1. There is no evidence of cervical spine fracture or subluxation. 2. Osteopenia and spondylotic change as above. ACT 112: Negative or not required by law. Electronically signed by: Geronimo Chapa M.D. 11/14/2025 12:38 PM Chest X-Ray 11/14/25 11:27 XR chest 1V portable CLINICAL HISTORY: Trauma. COMPARISON STUDY: Chest radiograph and bilateral rib series September 21, 2024. FINDINGS: There is no pneumothorax or pleural effusion. Cardiomegaly is unchanged. There are a few old bilateral rib fractures. No acute rib fractures are identified by radiography. Pulmonary vascularity is normal. IMPRESSION: No acute cardiopulmonary findings. ACT 112: Negative or not required by law. Electronically signed by: Camilo Gongora M.D. 11/14/2025 11:[address] 11/14/25 11:27 CT SCAN OF THE BRAIN WITHOUT IV CONTRAST CLINICAL HISTORY: Trauma. COMPARISON STUDY: Head CT and CTA of the head December 30, 2022. MRI of the brain December 30, 2022. TECHNIQUE: Unenhanced axial CT scan of the brain was performed from the vertex to the skull base. A dose lowering technique was utilized adhering to the principles of ALARA. FINDINGS: Brain parenchyma: No acute intracranial hemorrhage, midline shift or mass effect is present. Martines-white matter differentiation is preserved. There are no extra- axial fluid collections. There are no findings to suggest acute dural sinus thrombosis or acute territorial infarct. White matter hypodensities are unchanged and favor small vessel disease. Ventricles, sulci, cisterns: There is no hydrocephalus. The basal cisterns are patent. Calvarium: No calvarial fractures. Sinuses and mastoids: The visualized paranasal sinuses are clear. The mastoid air cells are well pneumatized. Orbits: The bony orbits are grossly intact. IMPRESSION: 1. No acute intracranial findings. 2. No calvarial fractures. ACT 112: Negative or not required by law. Electronically signed by: Camilo Gongora M.D. 11/14/2025 12:37 PM Pelvis X-Ray 11/14/25 11:27 SINGLE VIEW PELVIS CLINICAL HISTORY: Trauma. Fall. FINDINGS: An AP, portable, supine pelvic radiograph is compared to study dated 04/22/2023. The skeletal structures are osteopenic. There is no radiographic evidence of acute fracture involving the hips or bony pelvis. Mild arthritic change and joint space narrowing is seen in the hips, left greater than right. There is degenerative sclerosis of the sacroiliac joints. Lumbosacral spondylosis is partially imaged. A calcified enthesophyte is again seen adjacent to the greater trochanter of the left proximal femur. The overlying soft tissues are normal as imaged. Moderate fecal retention is noted throughout the imaged colon. IMPRESSION: No acute bony abnormality is identified. Electronically signed by: Geronmio Chapa M.D. 11/14/2025 11:52 AM Discharge Plan Visit Data Chief Complaint: Weakness Stated Complaint: FALL, WEAKNESS ED Provider: Isha Thompson Discharge Problem: Generalized weakness, Hypomagnesemia, Acute UTI (urinary tract infection) Patient Disposition: Admitted As Inpatient Condition: Fair Discharge Instructions Interventions: ED Discharge Assessment Last Done: 11/14/25 16:20
[2025-11-14 14:45] LABS: Appearance Urine Clear (Clear); Bacteria Urine Automated 4+ (None Seen); Cast Urine Automated 0-2 /lpf (0-2); Epithelial Cell Urine Auto 0-2 /hpf (0-2); Glucose Urine UA Negative (Negative); WBC Urine Automated 0-5 /hpf (0-5)
[2025-11-14] MEDS: cefTRIAXone SODIUM 2,000 MG/50 ML BAG IV STA (15:21)
[2025-11-14] MEDS ORDERED: MELATONIN 3 MG TAB PO PRN (16:20)
[2025-11-14] MEDS ORDERED: WARFARIN SOD 2 MG TAB PO SCH (16:20)
[2025-11-14] MEDS ORDERED: GLUCAGON FOR INJ 1 MG VIAL SQ PRN (16:20)
[2025-11-14] MEDS ORDERED: CARBOHYDRATES FOR HYPOGLYCEMIA PO PRN (16:20)
[2025-11-14] MEDS ORDERED: DICYCLOMINE HCL 10 MG CAP PO PRN (16:20)
[2025-11-14] MEDS ORDERED: ALUMINUM/MAGNESIUM SUSP 30 ML UDC PO PRN (16:20)
[2025-11-14] MEDS ORDERED: DEXTROSE 50% 50 ML SYRINGE IV PRN (16:20)
[2025-11-14] MEDS ORDERED: GLUCOSE 40% GEL 15 GM TUBE PO PRN (16:20)
[2025-11-14] MEDS ORDERED: MAGNESIUM HYDROXIDE SUSP 30 ML UDC PO PRN (16:20)
[2025-11-14] MEDS ORDERED: ONDANSETRON INJ 2 MG/ML 2 ML VIAL IV PRN (16:20)
[2025-11-14] MEDS ORDERED: GLUCOSE 10 TAB/TUBE PO PRN (16:20)
[2025-11-14] MEDS ORDERED: POLYETHYLENE (MIRALAX) 17 GM PACK PO PRN (16:20)
[2025-11-14] MEDS ORDERED: TRIAMCINOLONE ACET 0.1% CR 15 GM TUBE EXT PRN (16:46)
[2025-11-14] MEDS: INSULIN ASPART PER UNIT CHARGE SC SCH (17:50)
[2025-11-14] MEDS: WARFARIN SOD 4 MG TAB PO SCH (17:51)
--- NOTE | 2025-11-14 17:53 | History & Physical Report ---
Date of Service November 14, 2025 Assessment & Plan (1) Acute UTI (urinary tract infection): (2) Hypomagnesemia: (3) Generalized weakness: (4) Permanent atrial fibrillation: (5) Type 2 diabetes mellitus with obesity: Plan 74-year-old woman with type 2 diabetes and permanent atrial fibrillation who fell onto the carpet was unable to get up and spent the night on the floor. It was a mechanical fall. It is possible she has a UTI though she is not symptomatic of anything specific. She has hypomagnesemia, with magnesium of 1.3 on presentation to the ED Fall from standing onto carpet. generalized weakness, ambulatory dysfunction - No apparent injuries. CT head and CT neck were negative for acute findings. She has no pain or tenderness over her C-spine or paraspinous muscles. She has full range of motion obat-bd-thrt and flexion extension of her neck without any pain or tenderness - Monitor overnight for significant injuries or ambulatory dysfunction. - Check CBC in the morning. - PT and OT consults ordered. possible UTI - urine culture pending - she was given a dose of ceftriaxone in the ED, ordered 2 additional doses for possible UTI Hypomagnesemia. - Received 2 g IV magnesium in ED. - Additional 2 g IV magnesium ordered, recheck levels in the morning. Permanent atrial fibrillation. - Continue home dosing of warfarin and metoprolol succinate. - Check orthostatic vital signs. Type 2 diabetes. - A1c in the 5s indicating well-controlled diabetes. - Continue metformin regimen, monitor blood glucose. - Short-acting insulin ordered for premeal use if necessary. Obesity. - BMI 42, history of lap band removal. Urinary incontinence. - Cannot afford mirabegron. - Discuss alternative treatment options. - could have worsened recently if she does have a UTI DVT Prophylaxis: anticoagulated on warfarin Medical Complexity: Medical decision making was moderate for this encounter. Admission and Anticipated Discharge Date Admission Date: November 14, 2025 History of Present Illness Chief Complaint: Fall, could not get up Primary Care Provider: Marlene Alexandra MD Jocelyne is a 74-year-old woman with type 2 diabetes, atrial fibrillation on chronic anticoagulation with warfarin. She came to the ED by EMS after a fall and being unable to get up. She lives at home with her . She experienced weakness/unsteadiness yesterday and fell onto a carpeted floor, bumping the back of her head. Currently, she reports no pain in her head or neck. She remained on the floor overnight as her discouraged her from calling 911 or contacting their son-in-law because he did not think that 911 was necessary and he did not want to bother their relative. In the morning, still unable to rise, she called 911 herself. She has not had any fevers, chills, sore throat, cough, nasal congestion, dyspnea, chest or abdominal pain, nausea, vomiting, diarrhea, suprapubic pain, dysuria, or neurological symptoms. She has chronic urinary incontinence and a new prescription for mirabegron but did not fill it due to cost. Her medical history includes osteoporosis, anemia, permanent atrial fibrillation, type 2 diabetes, obesity, hyperlipidemia, urinary incontinence, TIA, hypertension, history of DVT, and diverticulosis. Allergies Allergy/AdvReac Type Severity Reaction Status Date / Time Sulfa (Sulfonamide Allergy Severe swelling/hives Verified 10/24/25 09:32 Antibiotics) all over nickel Allergy Intermediate Rash Verified 10/24/25 09:32 duloxetine AdvReac Intermediate depression Verified 10/24/25 09:32 Home Medications Medication Instructions Recorded Confirmed Type acetaminophen 500 mg tablet 500 mg PO Q6H PRN Pain 03/20/23 11/14/25 History multivitamin 1 tab PO DAILY 05/26/23 11/14/25 History magnesium oxide 400 mg PO DAILY 03/30/24 11/14/25 History fluoxetine 40 mg capsule 40 mg PO QAM #90 caps 06/30/25 11/14/25 Rx rosuvastatin 10 mg tablet 10 mg PO 2XWK #90 tabs 06/30/25 11/14/25 Rx blood glucose control, low (True #1 ea 07/20/25 10/25/25 Rx Metrix Level 1 solution) blood sugar diagnostic (True #100 ea 07/25/25 10/25/25 Rx Metrix Glucose Test Strip) blood-glucose meter (True Metrix #1 ea 07/25/25 10/25/25 Rx Glucose Meter) lancets 28 gauge (TRUEplus Lancets) #100 ea 07/25/25 10/25/25 Rx dicyclomine 10 mg capsule 20 mg (2 x 10 mg) PO TID PRN 08/05/25 11/14/25 Rx diarrhea #540 caps cyanocobalamin (vitamin B-12) 1,000 mcg PO DAILY #90 caps 09/05/25 11/14/25 Rx 1,000 mcg capsule metoprolol succinate 100 mg 100 mg PO BID #180 tabs 09/05/25 11/14/25 Rx tablet,extended release 24 hr metformin 500 mg tablet 500 mg PO BID #180 tabs 09/29/25 11/14/25 Rx denosumab 60 mg/mL subcutaneous 60 mg subcut ONCE #1 mL 10/24/25 11/14/25 Rx syringe (Prolia) mometasone 0.1 % topical cream 1 applic topical DAILY PRN exczema 10/24/25 11/14/25 Rx flares 2 weeks #45 grams pantoprazole 20 mg tablet,delayed 20 mg PO DAILY #90 tabs 11/01/25 11/14/25 Rx release mirabegron 25 mg tablet,extended 0 mg PO DAILY 11/14/25 11/14/25 History release 24 hr warfarin 2 mg tablet 2 mg PO 5XWK 11/14/25 11/14/25 History warfarin 2 mg tablet 4 mg PO 2XWK 11/14/25 11/14/25 History Past Med/Surg History Problem List Acute UTI (urinary tract infection) (Acute) Hypomagnesemia (Acute) Generalized weakness (Acute) Osteoporosis Anemia Permanent atrial fibrillation Type 2 diabetes mellitus with obesity Balance problem Muscular deconditioning Weakness of both legs Adequate anticoagulation on anticoagulant therapy (Chronic) Hyperlipidemia Chronic pain Asthma (Acute 09/08/13) Abnormal gait Urinary incontinence Abdominal pain (Acute) Nausea (Acute) Weight loss Vertigo Brain TIA (Acute) Cerebrovascular disease, unspecified Hypertension Depression Osteopenia Medical History Poor dentition History of asthma "no issues recently, haven't used a rescue inhaler in years" Abdominal pain Abdomen firm on palpation Unsteady gait Ambulatory dysfunction USES WALKER OR CANE Current use of medical terminologist anticoagulation Dizziness "ONGOING, DEPENDING ON HOW FAST SHE CHANGES POSITION" IBS (irritable bowel syndrome) Scoliosis Chronic back pain Anxiety Migraine History of DVT of lower extremity ~1998 r/t hormone therapy Diverticulosis of colon without diverticulitis History of TIA (transient ischemic attack) Possible remote (~2010) Spinal stenosis History of polymyalgia rheumatica Followed by Rheumatology, previous steroid taper Surgical History S/P cholecystectomy History of removal of laparoscopic gastric banding device (07/19/21) Laparoscopic Removal Gastric Band, Laparoscopic Cholecystectomy, enterolysis Dr. Liu 07-19-2021 History of bariatric surgery Hx laparoscopic cholecystectomy Laparoscopic Removal Gastric Band, Laparoscopic Cholecystectomy, enterolysis Dr. Liu 07-19-2021 History of dilatation and curettage History of total hysterectomy with bilateral salpingo-oophorectomy (BSO) History of colonoscopy History of wisdom tooth extraction History of tonsillectomy History of bilateral cataract extraction Status post bilateral knee replacements History of bariatric surgery S/p laparascopic gastric band (2011) Family History Grandmother (Maternal) Family history of diabetes mellitus Mother Family hx colonic polyps Uremia Father , age 95 Tachycardia Other Diabetes Graves disease Hypertension No family history of adverse response to anesthesia Denies family history of Ovarian cancer Prostate cancer Myocardial infarction Breast cancer Colorectal cancer Social History Smoking Status: Former smoker Tobacco Type: Cigarettes Age Started Using Tobacco: 15; Age Quit Using Tobacco: 38; packs per day: 1; Second Hand Exposure: No; Do You Dip or Chew Tobacco: No; Tobacco Cessation Education Requested by Patient: No Hx Alcohol Use: No Hx Substance Use: No Preferred Language: Faroese Communication Ability: Effective Visual Impairment: Limited Hearing Ability: Normal Social Insurance Analyst Required: No Beliefs That Will Affect Care: None marital status: Current Living Situation: Spouse Current Living Situation Comment: current occupational status: retired How many Children do You have: 1 Other Information That Helps Us Care for You: No Feels Safe at Home: Yes Safety Concerns: Feels Safe At This Time Childhood Exposure to Second-Hand Smoke: No Diet: other Diet Comment: sugar free caffeine: No during the past year weight has: remained stable Dental Care, Regularly: No Physical Activity Frequency: 1-2 Times per Week Seatbelt Use: always Sunscreen Use: Yes Assistive Devices: Cane, Glasses and Walker Review of Systems Review of Systems: All systems reviewed & are unremarkable except as noted in HPI & below Negative for fevers, chills, sore throat, cough, nasal congestion, dyspnea, chest or abdominal pain, nausea, vomiting, diarrhea, suprapubic pain, dysuria, or neurological symptoms. left foot is always cool, No calf claudication with ambulation. Physical Exam Physical Exam: General Appearance: Awake, alert, oriented x4, very pleasant, lying on the gurney in the ED. Vital signs: Reviewed past 24h vital signs in EMR, unremarkable. HEENT: Atraumatic head, moist mucous membranes. Respiratory: Clear to auscultation anteriorly and posteriorly, no rhonchi, rales, or wheezes. Comfortable work of breathing. Cardiovascular: Regular rhythm. No murmurs, rubs, or gallops. No JVD. Gastrointestinal: Abdomen soft, nontender, nondistended. Normoactive bowel sounds. No suprapubic tenderness. Extremities: Right lower extremity warm and well perfused. No foot wounds. Left lower extremity cool to touch. Difficult to find DP pulse, femoral pulses 2+. Skin: Warm, dry, well perfused. deep tissue injury injury on buttocks present on admission. Neurological: AOx4, normal speech and mentation, joshi x 4. Psychiatric: Normal. Results & Data Results & Data Vital Signs (Past 12 Hours) Vital Signs Temp Pulse Pulse Resp BP BP Pulse Ox 11/14/25 17:02 36.7 C 89 89 H 125/78 98 11/14/25 15:00 76 15 137/85 98 11/14/25 14:31 81 21 124/53 L 98 11/14/25 14:00 84 20 128/77 95 11/14/25 13:31 98 H 17 125/82 98 11/14/25 13:02 90 19 138/89 96 11/14/25 12:30 93 H 18 126/97 97 11/14/25 12:27 85 11/14/25 12:12 77 17 133/104 H 97 11/14/25 12:12 86 20 133/104 H 98 11/14/25 11:14 98 11/14/25 10:54 36.5 C 95 H 20 150/92 H 95 O2 Del Method 11/14/25 17:02 Room Air 11/14/25 15:00 11/14/25 14:31 11/14/25 14:00 11/14/25 13:31 11/14/25 13:02 11/14/25 12:30 11/14/25 12:27 11/14/25 12:12 11/14/25 12:12 11/14/25 11:14 Room Air 11/14/25 10:54 Room Air Diagnostic Findings - Labs: - WBC: 7 - Hgb: 10.9 - Platelets: 213 - INR: 2.2 - Na: 138 - K: 4.4 - Anion gap: 7 - BUN: 21 - Cr: 0.58 - Glucose: 96 - Ca: Normal - M.3 - LFTs: Normal - Lipase: 20 - TSH: 2.4 - UA: 1+ blood, positive nitrites, no leukocyte esterase, no WBCs, 6-10 RBCs, 4+ bacteria - Total CK: Normal, high-sensitivity troponin 5.7 - Diagnostic Testing: - I personally reviewed the EKG tracing: Atrial fibrillation, HR 104, septal Q waves, leftward axis, No acute ischemic changes Code Status & VTE Plan VTE Prophylaxis Plan VTE Prophylaxis will be ordered: Yes PG Care Time/CCT Total # of Minutes Spent Total Time Spent with Patient: Total time spent is greater than 50% in coordination of care (as documented) at patient's floor/unit and/or counseling patient: Coding Level of Care Code 93660 INT INP/OBS CARE 2MIN Diagnoses Acute UTI (urinary tract infection) N39.0 Hypomagnesemia E83.42 Generalized weakness R53.1 Permanent atrial fibrillation I48.21 Type 2 diabetes mellitus with obesity E11.69; E66.9
[2025-11-14] MEDS: METOPROLOL SUCC 50MG EXT REL TAB PO SCH (21:18)
--- NOTE | 2025-11-14 22:16 | Ultrasound Report ---
Exam(s): US ARTERIAL LEFT LOWER EXTREMITY EXAM: US Duplex Left Lower Extremity Arteries CLINICAL HISTORY: Reason for exam: cool L foot, poor DP pulse, chronic. OTHER: Other Notes: Cool left foot, poor DP pulse. No occlusions detected within LLE. Mild plaque seen throughout LLE. Triphasic waveforms seen from FINANCE ATTORNEY through distal SFA, monophasic waveforms seen in pop through calf (?triphasic in TRINA). Slightly elevated velocity in left HAND BLOCKER, 159cm/s. PARAMJIT for right DP=1.26, all other PARAMJIT's were non-compressible. TECHNIQUE: Real-time duplex ultrasound scan of the left lower extremity arteries integrating B-mode two-dimensional vascular structure, Doppler spectral analysis and color flow Doppler imaging. COMPARISON: None FINDINGS: Left common femoral artery: No acute findings. No occlusion or significant stenosis on color flow and spectral Doppler imaging. Normal waveform. Left superficial femoral artery: No acute findings. No occlusion or significant stenosis on color flow and spectral Doppler imaging. Normal waveform. Left popliteal artery: Monophasic waveforms. No occlusion or significant stenosis on color flow and spectral Doppler imaging. Left calf/foot arteries: Monophasic waveforms. No occlusion or significant stenosis on color flow and spectral Doppler imaging. Soft tissues: Unremarkable. Other findings: Irregular heart rhythm incidentally noted. Right PARAMJIT is normal at 1.26. Left PARAMJIT could not be determined. IMPRESSION: Monophasic waveforms in the left popliteal artery and calf arteries suggest upstream stenosis. No arterial occlusion. Electronically signed by: Ray Mas M.D. 11/14/25 22:15 PM
[2025-11-15] MEDS: ACETAMINOPHEN 500 MG TAB PO PRN (03:48)
[2025-11-15 07:28] LABS: Anion Gap 5.0 (3-11); Blood Urea Nitrogen 17.0 mg/dl (6-23); Calcium 8.6 mg/dl (8.6-10.3); Carbon Dioxide 27.0 mmol/L (21-32); Chloride 104.0 mmol/L (98-107); Creatinine Clr Calc Pharmacy 82.1 ml/min; Glucose 99.0 mg/dl (70-99(Fasting)); Magnesium 1.9 mg/dl (1.7-2.4); Potassium 4.3 mmol/L (3.5-5.1); Sodium 136.0 mmol/L (136-145)
[2025-11-15 07:37] LABS: INR 2.1 (0.9-1.1); Prothrombin Time 20.9 Seconds (9.0-12.0)
[2025-11-15] MEDS: MAGNESIUM OXIDE 400 MG TAB PO SCH (08:09)
[2025-11-15] MEDS: MULTIVITAMIN TAB PO SCH (08:10)
[2025-11-15] MEDS: CYANOCOBALAMIN (B-12) 500 MCG TABLET PO SCH (08:10)
[2025-11-15 10:36] LABS: Hematocrit (blood only) 30.8 % (37.0-47.0); Hemoglobin 10.0 g/dL (12.0-16.0); Mean Corpuscular Hemoglobin 29.6 pg (25.0-34.0); Mean Corpuscular Volume 91.1 fL (80.0-100.0); Platelet Count 201 K/uL (130-400); RDW Standard Deviation 47.1 fL (36.4-46.3); Red Blood Count 3.38 M/uL (4.20-5.40); White Blood Count 7.70 K/ul (4.8-10.8)
--- NOTE | 2025-11-15 12:19 | XRay Report ---
LEFT KNEE 3 VIEWS CLINICAL HISTORY: Fall with left knee pain. FINDINGS: AP, crosstable lateral, and sunrise views of the left knee are obtained. No prior studies a re available for comparison at the time of dictation. The skeletal structures are osteopenic. No frac ture is seen. A left knee arthroplasty is in near anatomic alignment. No periprosthetic lucency is id entified. There has been undersurface remodeling of the patella. There is chronic deformity of the pr oximal fibular shaft. A joint effusion is observed. Soft tissue swelling is seen around the knee. The re is prepatellar soft tissue calcification. IMPRESSION: 1. Soft tissue swelling and joint effusion with no radiographic evidence of acute fracture. 2. A left knee arthroplasty is in near anatomic alignment. Electronically signed by: Geronimo Chapa M.D. 11/15/2025 12:18 PM
[2025-11-15] MEDS: NYSTATIN POWDER 15GM BTL EXT PRN (13:25)
[2025-11-15] MEDS: cefTRIAXone SODIUM 2,000 MG/50 ML BAG IV SCH (14:04)
[2025-11-15] MEDS: WARFARIN SOD 2 MG TAB PO SCH (16:54)
--- NOTE | 2025-11-15 17:29 | Hospitalist Progress Note ---
"Date of Service November 15, 2025 Assessment & Plan (1) Acute UTI (urinary tract infection): (2) Hypomagnesemia: (3) Generalized weakness: (4) Permanent atrial fibrillation: (5) Type 2 diabetes mellitus with obesity: Plan 74-year-old woman with type 2 diabetes and permanent atrial fibrillation who fell onto the carpet was unable to get up and spent the night on the floor. It was a mechanical fall. It is possible she has a UTI though she is not symptomatic of anything specific. She has hypomagnesemia, with magnesium of 1.3 on presentation to the ED #Mechanical fall | Generalized weakness | Ambulatory dysfunction - No apparent injuries. CT head and CT neck were negative for acute findings. She has no pain or tenderness over her C-spine or paraspinous muscles. She has full range of motion [id number] and flexion extension of her neck without any pain or tenderness - Patitent reported left knee pain /, worse with standing/ambulation. Left knee x-ray notes soft tissue swelling and joint effusion with no radiographic evidence of acute fracture, a left knee arthroplasty is in near anatomic alignment. Consider ortho consult if effusion seems to be worsening - PT and OT recommending rehab, patient agreeable #Acute UTI - Urine culture preliminarily growing E. coli, sensitivities pending - Continue ceftriaxone IV daily #Hypomagnesemia - Mag 1.3 on arrival - repleted with 1 g mag IV x 4. Mag augmented appropriately to 1.9 #Permanent atrial fibrillation - Continue home dosing of warfarin and metoprolol succinate. - Orthostatic vital signs negative #Type 2 diabetes - A1c in the 5s indicating well-controlled diabetes. - Continue metformin regimen, monitor blood glucose. - Short-acting insulin ordered for premeal use if necessary. #Obesity - BMI 42, history of lap band removal. Recommend weight lossWill defer to outpatient provider #Urinary incontinence - Cannot afford mirabegron. - Discuss alternative treatment options. - Could have worsened recently if she does have a UTI DVT Prophylaxis: anticoagulated on warfarin Dispo: Continued inpatient stay. Medically stable. Awaiting rehab placement. No referrals yet made by case management Ordered and reviewed L knee XR Admission and Anticipated Discharge Date Admission Date: November 14, 2025 Subjective Patient seen and evaluated at bedside. She reports left knee pain, worse with standing/ambulation. We discussed the results of her left knee x-ray showing soft tissue swelling and joint effusion, but no evidence of acute fracture or malalignment from her left knee arthroplasty. We also discussed that PT/OT are recommending rehab, she is agreeable to this. No additional complaints or concerns at this time. Physical Exam Physical Exam: General: No acute distress, nondiaphoretic, well-developed, well-nourished. Class III obesity. Skin: Warm, dry. No rashes or pitting peripheral edema noted. Deep tissue injury on buttocks. MSK: Left knee with full active and passive ROM, no increased warmth or abrasions noted. Left knee does not appear larger than right knee but difficult to ascertain secondary to body habitus. Cardiac: Regular rate and rhythm without murmurs gallops or rubs. Pulm: Clear to auscultation bilaterally without wheezes, rales or rhonchi. Normal respiratory effort. 96% on room air Abdominal: Soft, nontender, nondistended. Bowel sounds present. Neuro: A&O x3. No focal neurological deficits. Results & Data Results & Data Vital Signs (Past 12 Hours) Vital Signs Temp Pulse Resp BP Pulse Ox O2 Del Method 11/15/25 07:26 98.2 F 78 18 119/77 96 Room Air Laboratory Results Reviewed CBC, BMP, mag, coagulation studies Diagnostic Findings Reviewed left knee x-ray PG Care Time/CCT Total # of Minutes Spent Total Time Spent with Patient: Total time spent is greater than 50% in coordination of care (as documented) at patient's floor/unit and/or counseling patient: Coding Level of Care Code 76058 SUB INP/OBS CARE 3/50MIN Diagnoses Acute UTI (urinary tract infection) N39.0 Hypomagnesemia E83.42 Generalized weakness R53.1 Permanent atrial fibrillation I48.21 Type 2 diabetes mellitus with obesity E11.69; E66.9"
[2025-11-15] MEDS: ROSUVASTATIN CALCIUM 10 MG TAB PO SCH (20:35)
--- NOTE | 2025-11-16 06:09 | Electrocardiogram Report ---
Test Reason : Blood Pressure : */* mmHG Vent. Rate : 104 BPM Atrial Rate : * BPM P-R Int : * ms QRS Dur : 80 ms QT Int : 352 ms P-R-T Axes : * -40 22 degrees QTcB Int : 463 ms Atrial fibrillation with rapid ventricular response Left axis deviation Septal infarct , age undetermined Abnormal ECG When compared with ECG of 30-Mar-2024 20:43, Septal infarct is now Present Confirmed by Rolan Kate ([id number]) on 11/16/2025 6:09:10 AM Referred By: Confirmed By: Rolan Kate
[2025-11-16] MEDS: MELOXICAM 7.5 MG TAB PO ONE (08:52)
--- NOTE | 2025-11-16 09:39 | XRay Report ---
XR elbow LT min 3V routine CLINICAL HISTORY: Left elbow pain following fall. COMPARISON: None FINDINGS: This exam is mildly compromised given difficulty positioning. No acute fractures are ident ified. Alignment of the left elbow is anatomic. Apparent prominence of the anterior fat pad is likely artifactual. No definite evidence for joint effusion. Irregularity of the lateral condyle is chronic . There are minimal degenerative changes within the left elbow. IMPRESSION: No acute fractures although exam mildly compromised given difficulty positioning. Equivoc al joint effusion. If persistent pain, short-term radiographic follow-up is recommended to exclude an occult fracture. ACT 112: Negative or not required by law. Electronically signed by: Camilo Gongora M.D. 11/16/2025 9:38 AM
[2025-11-16] MEDS: AMOXICILLIN/CLAVULANATE 875 MG TAB PO SCH (10:38)
[2025-11-16] MEDS: MAGNESIUM SULFATE / D5W 1 GM/100 ML BAG IV ONE (10:41)
--- NOTE | 2025-11-16 13:34 | Hospitalist Progress Note ---
"Date of Service November 16, 2025 Assessment & Plan (1) Acute UTI (urinary tract infection): (2) Hypomagnesemia: (3) Generalized weakness: (4) Permanent atrial fibrillation: (5) Type 2 diabetes mellitus with obesity: Plan 74-year-old woman with type 2 diabetes and permanent atrial fibrillation who fell onto the carpet was unable to get up and spent the night on the floor. It was a mechanical fall. It is possible she has a UTI though she is not symptomatic of anything specific. She has hypomagnesemia, with magnesium of 1.3 on presentation to the ED #Mechanical fall | Generalized weakness | Ambulatory dysfunction - CT head and CT neck were negative for acute findings. She has no pain or tenderness over her C-spine or paraspinous muscles. She has full range of motion [id number] and flexion extension of her neck without any pain or tende rness - Left knee x-ray notes soft tissue swelling and joint effusion with no radiographic evidence of acute fracture, a left knee arthroplasty is in near anatomic alignment. Consider ortho consult if effusion seems to be worsening - Left elbow x-ray with no acute fractures, equivocal joint effusion. If persistent pain, recommend short-term x-ray follow-up to exclude an occult fracture -Pain regimen: Tylenol PRN, tramadol 50 mg Q4h PRN. Received meloxicam 7.5 mg x 1 on 11/16 - PT and OT recommending rehab, patient agreeable #Acute UTI - Urine culture grew pansensitive E. coli - Initially treated with IV ceftriaxone, now transitioned to Augmentin BIDM #Hypomagnesemia - Mag 1.3 on arrival - repleted with 1 g mag IV x 4 - Mag mildly low again 1.6 - replete with 1 g mag IV x 1 - Continue mag ox 400 mg daily #Permanent atrial fibrillation - Continue home dosing of warfarin and metoprolol succinate - Orthostatic vital signs negative #Type 2 diabetes - A1c in the 5s indicating well-controlled diabetes - Continue metformin regimen, monitor blood glucose - Short-acting insulin ordered for premeal use if necessary #Obesity - BMI 42, history of lap band removal. Recommend weight loss will defer to outpatient provider #Urinary incontinence - Cannot afford mirabegron. Discuss alternative treatment options. Could have worsened recently given her acute UTI DVT Prophylaxis: anticoagulated on warfarin Dispo: Continued inpatient stay. Medically stable. Awaiting rehab placement, referral pending at [facility] Ordered and reviewed left elbow x-ray Adjusted pain and antibiotic regimens Repleted magnesium Admission and Anticipated Discharge Date Admission Date: November 16, 2025 Supervising Physician Co-Signing Physician Notes Attending Attestation - Chart reviewed, care plan d/w ECHO Whitfield. I agree with the lazar components of her documentation. Richard Rosen MD Subjective Patient seen and evaluated at bedside along with PT. She reports that her left knee pain is improved with pain medication. She does complain of left elbow pain. We discussed the result of her left elbow x-ray not showing an acute fracture, but this x-ray could be repeated in a couple weeks if she persistently has pain to evaluate for an occult fracture. We discussed the adjustments made to her pain and antibiotic regimens. Patient struggled to stand and walk with PT. I strongly encouraged her to go to inpatient rehab as opposed to home with home health services. She is agreeable to this plan. She states a referral has been made to [facility] by her sample case porter. No additional complaints or concerns at this time. Physical Exam Physical Exam: General: No acute distress, nondiaphoretic, well-developed, well-nourished. Class III obesity. Skin: Warm, dry. No rashes or pitting peripheral edema noted. Deep tissue injury on buttocks. MSK: Left knee with full active and passive ROM, no increased warmth or abrasions noted. Left knee does not appear larger than right knee but difficult to ascertain secondary to body habitus. Left elbow with limited ROM secondary to pain. Normal sensation in left upper extremity. Cardiac: Regular rate and rhythm without murmurs gallops or rubs. Pulm: Clear to auscultation bilaterally without wheezes, rales or rhonchi. Normal respiratory effort. 98% on room air Abdominal: Soft, nontender, nondistended. Bowel sounds present. Neuro: A&O x3. No focal neurological deficits. Results & Data Results & Data Vital Signs (Past 12 Hours) Vital Signs Temp Pulse Resp BP Pulse Ox O2 Del Method 11/16/25 07:13 97.7 F 74 18 137/80 98 Room Air Laboratory Results Reviewed [facility] [place] Care Time/CCT Total # of Minutes Spent Total Time Spent with Patient: Total time spent is greater than 50% in coordination of care (as documented) at patient's floor/unit and/or counseling patient: Coding Level of Care Code 54032 SUB INP/OBS CARE 50MIN Diagnoses Acute UTI (urinary tract infection) N39.0 Hypomagnesemia E83.42 Generalized weakness R53.1 Permanent atrial fibrillation I48.21 Type 2 diabetes mellitus with obesity E11.69; E66.9"
[2025-11-17] MEDS: MAGNESIUM SULFATE / D5W 1 GM/100 ML BAG IV SCH (10:18)
--- NOTE | 2025-11-17 14:13 | Hospitalist Progress Note ---
"Date of Service November 17, 2025 Assessment & Plan (1) Acute UTI (urinary tract infection): (2) Hypomagnesemia: (3) Generalized weakness: (4) Permanent atrial fibrillation: (5) Type 2 diabetes mellitus with obesity: Plan 74-year-old woman with type 2 diabetes and permanent atrial fibrillation who fell onto the carpet was unable to get up and spent the night on the floor. It was a mechanical fall. It is possible she has a UTI though she is not symptomatic of anything specific. She has hypomagnesemia, with magnesium of 1.3 on presentation to the ED #Mechanical fall | Generalized weakness | Ambulatory dysfunction - CT head and CT neck were negative for acute findings. She has no pain or tenderness over her C-spine or paraspinous muscles. She has full range of motion [id number] and flexion extension of her neck without any pain or tende rness - Left knee x-ray notes soft tissue swelling and joint effusion with no radiographic evidence of acute fracture, a left knee arthroplasty is in near anatomic alignment. Consider ortho consult if effusion seems to be worsening - Left elbow x-ray with no acute fractures, equivocal joint effusion. If persistent pain, recommend short-term x-ray follow-up to exclude an occult fracture -Pain regimen: Tylenol PRN, tramadol 50 mg Q4h PRN. Received meloxicam 7.5 mg x 1 on 11/16 - PT and OT recommending rehab, patient agreeable #Acute UTI - Urine culture grew pansensitive E. coli - Initially treated with IV ceftriaxone, now transitioned to Augmentin BIDM #Hypomagnesemia - Has received 5 g mag IV total thus far - Mag mildly low again 1.5 - replete with 2 g mag IV x 1 - Continue mag ox 400 mg daily #Permanent atrial fibrillation - Continue home dosing of warfarin and metoprolol succinate - Orthostatic vital signs negative #Type 2 diabetes - A1c in the 5s indicating well-controlled diabetes - Continue metformin regimen, monitor blood glucose - Short-acting insulin ordered for premeal use if necessary #Obesity - BMI 42, history of lap band removal. Recommend weight loss will defer to outpatient provider #Urinary incontinence - Cannot afford mirabegron. Discuss alternative treatment options. Could have worsened recently given her acute UTI DVT Prophylaxis: anticoagulated on warfarin Dispo: Continued inpatient stay. Medically stable. Awaiting rehab placement, referrals pending at [facility] and [facility]. Repleted magnesium IV Admission and Anticipated Discharge Date Admission Date: November 16, 2025 Supervising Physician Co-Signing Physician Notes Attending Attestation - Chart reviewed, care plan d/w ECHO Whitfield. I agree with the lzaar components of her documentation. Richard Rosen MD Subjective Patient seen and evaluated in bedside chair. She reports ongoing left knee and elbow discomfort. She worked with PT earlier today and is making progress. She was able to walk from her bed to the hallway door with her rolling walker and assistance from the physical therapist. She is eager for rehab placement. No additional complaints or concerns at this time. Physical Exam Physical Exam: General: No acute distress, nondiaphoretic, well-developed, well-nourished. Class III obesity. Skin: Warm, dry. No rashes or pitting peripheral edema noted. Deep tissue injury on buttocks. MSK: Left knee with full active and passive ROM, no increased warmth or abrasions noted. Left knee does not appear larger than right knee but difficult to ascertain secondary to body habitus. Left elbow with limited ROM secondary to pain, improving. Normal sensation in left upper extremity. Cardiac: Well-perfused. Rate in 60s. Pulm: Normal respiratory effort. 97% on room air. Neuro: A&O x3. No focal neurological deficits. Results & Data Results & Data Vital Signs (Past 12 Hours) Vital Signs Temp Pulse Resp BP Pulse Ox O2 Del Method 11/17/25 08:00 Room Air 11/17/25 07:08 98.4 F 66 18 131/85 97 Room Air Laboratory Results Reviewed magnesium level PG Care Time/CCT Total # of Minutes Spent Total Time Spent with Patient: Total time spent is greater than 50% in coordination of care (as documented) at patient's floor/unit and/or counseling patient: Coding Level of Care Code 11367 SUB INP/OBS CARE 3/50MIN Diagnoses Acute UTI (urinary tract infection) N39.0 Hypomagnesemia E83.42 Generalized weakness R53.1 Permanent atrial fibrillation I48.21 Type 2 diabetes mellitus with obesity E11.69; E66.9"
[2025-11-17] MEDS: COUGH DROP (SUGAR FREE) LOZ 24 LOZ/1 BOX BUCCAL PRN (21:34)
[2025-11-18 06:35] LABS: INR 1.7 (0.9-1.1); Prothrombin Time 17.2 Seconds (9.0-12.0)
--- NOTE | 2025-11-18 13:06 | Hospitalist Progress Note ---
Date of Service November 18, 2025 Assessment & Plan (1) Acute UTI (urinary tract infection): (2) Hypomagnesemia: (3) Generalized weakness: (4) Permanent atrial fibrillation: (5) Type 2 diabetes mellitus with obesity: Plan 74-year-old woman with type 2 diabetes and permanent atrial fibrillation who fell onto the carpet was unable to get up and spent the night on the floor. It was a mechanical fall. It is possible she has a UTI though she is not symptomatic of anything specific. She has hypomagnesemia, with magnesium of 1.3 on presentation to the ED #Mechanical fall | Generalized weakness | Ambulatory dysfunction - CT head and CT neck were negative for acute findings. She has no pain or tenderness over her C-spine or paraspinous muscles. She has full range of motion [id number] and flexion extension of her neck without any pain or tende rness - Left knee x-ray notes soft tissue swelling and joint effusion with no radiographic evidence of acute fracture, a left knee arthroplasty is in near anatomic alignment. Consider ortho consult if effusion seems to be worsening - Left elbow x-ray with no acute fractures, equivocal joint effusion. If persistent pain, recommend short-term x-ray follow-up to exclude an occult fracture - Pain regimen: Tylenol PRN, tramadol 50 mg Q4h PRN. Received meloxicam 7.5 mg x 1 on 11/16 - PT and OT recommending rehab, patient agreeable #Acute UTI - Urine culture grew pansensitive E. coli - Initially treated with IV ceftriaxone, now transitioned to Augmentin BIDM #Hypomagnesemia - Has received 7 g mag IV total thus far - Mag 1.6 - continue mag ox 400 mg daily - Monitor #Permanent atrial fibrillation - Continue warfarin and metoprolol succinate - Additional 2 mg of warfarin given 11/18 for total of 6 mg due to INR of 1.7 #Type 2 diabetes - A1c in the 5s indicating well-controlled diabetes - Continue metformin regimen, monitor blood glucose - Short-acting insulin ordered for premeal use if necessary #Obesity - BMI 42, history of lap band removal. Recommend weight loss will defer to outpatient provider #Urinary incontinence - Cannot afford mirabegron. Discuss alternative treatment options. Could have worsened recently given her acute UTI DVT Prophylaxis: anticoagulated on warfarin Dispo: Continued inpatient stay. Medically stable. Awaiting rehab placement, referrals pending at [facility] and [facility]. Ordered additional warfarin Admission and Anticipated Discharge Date Admission Date: November 16, 2025 Supervising Physician Co-Signing Physician Notes Attending Attestation - Chart reviewed, care plan d/w ECHO Whitfield. I agree with the lazar components of her documentation. Richard Rosen MD Subjective Patient seen and evaluated at bedside. She reports feeling better today. She states "I have been doing a lot of arm exercises." She is motivated to participate in therapy because she wants to be walking better when her granddaughter visits for the holidays. We discussed that she is getting more warfarin than normal due to her INR level being low today. She denies any complaints or concerns at this time. Physical Exam Physical Exam: General: No acute distress, nondiaphoretic, well-developed, well-nourished. Class III obesity. Skin: Warm, dry. No rashes or pitting peripheral edema noted. Deep tissue injury on buttocks. MSK: Left knee with full active and passive ROM, no increased warmth or abrasi ons noted. Left knee does not appear larger than right knee but difficult to ascertain secondary to body habitus. Left elbow with limited ROM secondary to pain, improving. Normal sensation in left upper extremity. Cardiac: Well-perfused. Rate in 60s. Pulm: Normal respiratory effort. 95% on room air. Neuro: A&O x3. No focal neurological deficits. Results & Data Results & Data Vital Signs (Past 12 Hours) Vital Signs Temp Pulse Resp BP Pulse Ox O2 Del Method 11/18/25 08:39 102 H 132/83 11/18/25 07:15 Room Air 11/18/25 07:09 98.2 F 16 135/87 95 Room Air Laboratory Results Reviewed coagulation studies, chemistries PG Care Time/CCT Total # of Minutes Spent Total Time Spent with Patient: Total time spent is greater than 50% in coordination of care (as documented) at patient's floor/unit and/or counseling patient: Coding Level of Care Code 87278 SUB INP/OBS CARE 3/50MIN Diagnoses Acute UTI (urinary tract infection) N39.0 Hypomagnesemia E83.42 Generalized weakness R53.1 Permanent atrial fibrillation I48.21 Type 2 diabetes mellitus with obesity E11.69; E66.9
[2025-11-18] MEDS: WARFARIN SOD 2 MG TAB PO SCH (16:08)
[2025-11-19 09:47] LABS: INR 2.0 (0.9-1.1); Prothrombin Time 20.2 Seconds (9.0-12.0)
--- NOTE | 2025-11-19 13:50 | Hospitalist Progress Note ---
"Date of Service November 19, 2025 Assessment & Plan (1) Acute UTI (urinary tract infection): (2) Hypomagnesemia: (3) Generalized weakness: (4) Permanent atrial fibrillation: (5) Type 2 diabetes mellitus with obesity: Plan 74-year-old woman with type 2 diabetes and permanent atrial fibrillation who fell onto the carpet was unable to get up and spent the night on the floor. It was a mechanical fall. It is possible she has a UTI though she is not symptomatic of anything specific. She has hypomagnesemia, with magnesium of 1.3 on presentation to the ED #Mechanical fall | Generalized weakness | Ambulatory dysfunction - CT head and CT neck were negative for acute findings. She has no pain or tenderness over her C-spine or paraspinous muscles. She has full range of motion [id number] and flexion extension of her neck without any pain or tende rness - Left knee x-ray notes soft tissue swelling and joint effusion with no radiographic evidence of acute fracture, a left knee arthroplasty is in near anatomic alignment - Left elbow x-ray with no acute fractures, equivocal joint effusion. If persistent pain, recommend short-term x-ray follow-up to exclude an occult fracture. Pain and ROM much improved - Pain regimen: Tylenol PRN, tramadol 50 mg Q4h PRN. Received meloxicam 7.5 mg x 1 on 11/16 - PT and OT recommending rehab, patient agreeable #Acute UTI - Urine culture grew pansensitive E. coli - Initially treated with IV ceftriaxone, now transitioned to Augmentin BIDM #Hypomagnesemia - Has received 7 g mag IV total thus far - Mag 1.6 - continue mag ox 400 mg daily - Monitor #Permanent atrial fibrillation - Continue warfarin and metoprolol succinate - Additional 2 mg of warfarin given 11/18 for total of 6 mg due to INR of 1.7 - INR augmented appropriately, back within therapeutic range #Type 2 diabetes - A1c in the 5s indicating well-controlled diabetes - Continue metformin regimen, monitor blood glucose - Short-acting insulin ordered for premeal use if necessary #Obesity - BMI 42, history of lap band removal. Recommend weight loss will defer to outpatient provider #Urinary incontinence - Cannot afford mirabegron. Discuss alternative treatment options. Could have worsened recently given her acute UTI DVT Prophylaxis: anticoagulated on warfarin Dispo: Medically stable. Awaiting rehab placement, referrals pending at [facility] and [facility]. Admission and Anticipated Discharge Date Admission Date: November 16, 2025 Supervising Physician Co-Signing Physician Notes Attending Attestation - Chart reviewed, care plan d/w ECHO Whitfield. I agree with the lazar components of her documentation. Richard Rosen MD Subjective Patient seen and evaluated in bedside chair. She reports feeling much better today. She notes her left knee pain and left elbow pain has definitely improved. She had a bowel movement earlier. She denies any complaints or conc erns at this time. Her RN reports she was confused overnightcould be some hospital associated delirium setting in. She was not confused at the time of my visit. Physical Exam Physical Exam: General: No acute distress, nondiaphoretic, well-developed, well-nourished. Class III obesity. Skin: Warm, dry. No rashes or pitting peripheral edema noted. Deep tissue injury on buttocks. MSK: Full active and passive ROM of left knee and elbow without significant discomfort. Cardiac: Regular rate and rhythm without murmurs gallops or rubs. Pulm: Clear to auscultation bilaterally without wheezes, rales or rhonchi. Normal respiratory effort. 98% on room air Neuro: A&O x3. No focal neurological deficits. Results & Data Results & Data Vital Signs (Past 12 Hours) Vital Signs Temp Pulse Resp BP Pulse Ox O2 Del Method 11/19/25 08:24 103 H 117/70 11/19/25 07:45 Room Air 11/19/25 07:14 97.9 F 96 H 16 109/75 98 Room Air Laboratory Results Reviewed coagulation studies PG Care Time/CCT Total # of Minutes Spent Total Time Spent with Patient: Total time spent is greater than 50% in coordination of care (as documented) at patient's floor/unit and/or counseling patient: Coding Level of Care Code 01925 SUB INP/OBS CARE 2/35MIN Diagnoses Acute UTI (urinary tract infection) N39.0 Hypomagnesemia E83.42 Generalized weakness R53.1 Permanent atrial fibrillation I48.21 Type 2 diabetes mellitus with obesity E11.69; E66.9"
[2025-11-20 11:15] LABS: INR 2.3 (0.9-1.1); Prothrombin Time 23.5 Seconds (9.0-12.0)
--- NOTE | 2025-11-20 13:38 | Hospitalist Progress Note ---
"Date of Service November 20, 2025 Assessment & Plan (1) Acute UTI (urinary tract infection): (2) Hypomagnesemia: (3) Generalized weakness: (4) Permanent atrial fibrillation: (5) Type 2 diabetes mellitus with obesity: Plan 74-year-old woman with type 2 diabetes and permanent atrial fibrillation who fell onto the carpet was unable to get up and spent the night on the floor. It was a mechanical fall. It is possible she has a UTI though she is not symptomatic of anything specific. She has hypomagnesemia, with magnesium of 1.3 on presentation to the ED #Mechanical fall | Generalized weakness | Ambulatory dysfunction - CT head and CT neck were negative for acute findings. She has no pain or tenderness over her C-spine or paraspinous muscles. She has full range of motion [id number] and flexion extension of her neck without any pain or tende rness - Left knee x-ray notes soft tissue swelling and joint effusion with no radiographic evidence of acute fracture, a left knee arthroplasty is in near anatomic alignment - Left elbow x-ray with no acute fractures, equivocal joint effusion. If persistent pain, recommend short-term x-ray follow-up to exclude an occult fracture. Pain and ROM much improved - Pain regimen: Tylenol PRN, tramadol 50 mg Q4h PRN. Received meloxicam 7.5 mg x 1 on 11/16 - PT and OT recommending rehab, patient agreeable #Acute UTI - Urine culture grew pansensitive E. coli - Initially treated with IV ceftriaxone, then transitioned to Augmentin BIDM. Completed antibiotic course 11/19 #Hypomagnesemia - Has received 7 g mag IV total thus far - Mag 1.6 - continue mag ox 400 mg daily - Monitor #Permanent atrial fibrillation - Continue warfarin and metoprolol succinate - Additional 2 mg of warfarin given 11/18 for total of 6 mg due to INR of 1.7 - INR augmented appropriately, back within therapeutic range #Type 2 diabetes - A1c in the 5s indicating well-controlled diabetes - Continue metformin regimen, monitor blood glucose - Short-acting insulin ordered for premeal use if necessary #Obesity - BMI 42, history of lap band removal. Recommend weight loss will defer to outpatient provider #Urinary incontinence - Cannot afford mirabegron. Discuss alternative treatment options. Could have worsened recently given her acute UTI DVT Prophylaxis: anticoagulated on warfarin Dispo: Medically stable. Awaiting rehab placement, referrals pending at [facility] and [facility]. Updated granddaughter at bedside Admission and Anticipated Discharge Date Admission Date: November 16, 2025 Supervising Physician Co-Signing Physician Notes Attending Attestation - Chart reviewed, care plan d/w ECHO Whitfield. I agree with the lazar components of her documentation. Richard Rosen MD Subjective Patient seen and evaluated in bedside chair with her granddaughter present. She reports feeling well overall. She is eager to be discharged to rehab; hopefully there will be an update regarding rehab placement tomorrow. She denies any pain today. She notes she had a headache earlier but this has since resolved. No acute complaints or concerns at this time. Physical Exam Physical Exam: General: No acute distress, nondiaphoretic, well-developed, well-nourished. Class III obesity. Skin: Warm, dry. No rashes or pitting peripheral edema noted. MSK: Full active and passive ROM of left knee and elbow without significant discomfort. Cardiac: Regular rate and rhythm without murmurs gallops or rubs. Pulm: Clear to auscultation bilaterally without wheezes, rales or rhonchi. Normal respiratory effort. 98% on room air Neuro: A&O x3. No focal neurological deficits. Results & Data Results & Data Vital Signs (Past 12 Hours) Vital Signs Temp Pulse Resp BP Pulse Ox O2 Del Method 11/20/25 08:14 98.4 F 92 H 16 131/87 97 Room Air 11/20/25 07:30 Room Air PG Care Time/CCT Total # of Minutes Spent Total Time Spent with Patient: Total time spent is greater than 50% in coordination of care (as documented) at patient's floor/unit and/or counseling patient: Coding Level of Care Code 71580 SUB INP/OBS CARE 2/35MIN Diagnoses Acute UTI (urinary tract infection) N39.0 Hypomagnesemia E83.42 Generalized weakness R53.1 Permanent atrial fibrillation I48.21 Type 2 diabetes mellitus with obesity E11.69; E66.9"
[2025-11-21 05:01] LABS: Hematocrit (blood only) 28.0 % (37.0-47.0); Hemoglobin 9.2 g/dL (12.0-16.0); Mean Corpuscular Hemoglobin 29.2 pg (25.0-34.0); Mean Corpuscular Volume 88.9 fL (80.0-100.0); Platelet Count 243 K/uL (130-400); RDW Standard Deviation 44.4 fL (36.4-46.3); Red Blood Count 3.15 M/uL (4.20-5.40); White Blood Count 9.02 K/ul (4.8-10.8)
[2025-11-21 05:18] LABS: Anion Gap 8.0 (3-11); Blood Urea Nitrogen 24.0 mg/dl (6-23); Calcium 9.2 mg/dl (8.6-10.3); Carbon Dioxide 27.0 mmol/L (21-32); Chloride 97.0 mmol/L (98-107); Creatinine Clr Calc Pharmacy 65.3 ml/min; Glucose 99.0 mg/dl (70-99(Fasting)); Magnesium 1.1 mg/dl (1.7-2.4); Potassium 4.3 mmol/L (3.5-5.1); Sodium 132.0 mmol/L (136-145)
[2025-11-21] MEDS: MAGNESIUM SULFATE / D5W 1 GM/100 ML BAG IV SCH (09:21)
[2025-11-21 14:37] LABS: Appearance Urine Clear (Clear); Bacteria Urine Automated None Seen (None Seen); Cast Urine Automated 0-2 /lpf (0-2); Glucose Urine UA Negative (Negative); RBC Urine Automated 0-2 /hpf (0-2)
--- NOTE | 2025-11-21 15:48 | Hospitalist Progress Note ---
"Date of Service November 21, 2025 Assessment & Plan (1) Acute UTI (urinary tract infection): (2) Hypomagnesemia: (3) Generalized weakness: (4) Permanent atrial fibrillation: (5) Type 2 diabetes mellitus with obesity: Plan 74-year-old woman with type 2 diabetes and permanent atrial fibrillation who fell onto the carpet was unable to get up and spent the night on the floor. It was a mechanical fall. It is possible she has a UTI though she is not symptomatic of anything specific. She has hypomagnesemia, with magnesium of 1.3 on presentation to the ED #Mechanical fall | Generalized weakness | Ambulatory dysfunction - - CT head and CT neck were negative for acute findings. She has no pain or tenderness over her C-spine or paraspinous muscles. She has full range of motion [id number] and flexion extension of her neck without any pain or tenderness. Left knee x- ray notes soft tissue swelling and joint effusion with no radiographic evidence of acute fracture, a left knee arthroplasty is in near anatomic alignment - Left elbow x-ray with no acute fractures, equivocal joint effusion. If persistent pain, recommend short-term x-ray follow-up to exclude an occult fracture. Pain and ROM much improved - Pain regimen: Tylenol PRN, tramadol 50 mg Q4h PRN. Received meloxicam 7.5 mg x 1 on 11/16 - PT and OT recommending rehab, patient agreeable #Acute UTI - Urine culture grew pansensitive E. coli - Initially treated with IV ceftriaxone, then transitioned to Augmentin BIDM. Completed antibiotic course 11/19 and increased confusion 11/21UA rechecked with, without signs of infection. Possible that her low mag is contributing versus hospital-acquired delirium #Hypomagnesemia - Has received 7 g mag IV total thus far Continue mag ox 400 mg daily Mag 1.1 today - 6g IV mag ordered - recheck tonight AM BMP and Mag #Permanent atrial fibrillation - Continue warfarin and metoprolol succinate - Additional 2 mg of warfarin given 11/18 for total of 6 mg due to INR of 1.7 - INR augmented appropriately, back within therapeutic range #Type 2 diabetes - A1c in the 5s indicating well-controlled diabetes - Continue metformin regimen, monitor blood glucose SSI discontinued, sugars well controlled #Obesity - BMI 42, history of lap band removal. Recommend weight loss will defer to outpatient provider #Urinary incontinence - Cannot afford mirabegron. Discuss alternative treatment options. Could have worsened recently given her acute UTI DVT Prophylaxis: anticoagulated on warfarin Dispo: Medically stable. Awaiting rehab placement, referrals pending at [facility]. attempted to call 11/21, unable to leave Admission and Anticipated Discharge Date Admission Date: November 16, 2025 Supervising Physician Co-Signing Physician Notes Attending Attestation - Chart reviewed, care plan d/w ECHO Sarah. I agree w/ the lazar components of her documentation. Richard Rosen MD Subjective patient seen earlier this morningon the phone with her . She has no acute complaints we discussed about going to rehab she is not sure that she would want to go back [facility] thinks it did not help last time. she is able to answer all my orientation questions appropriately. RN reports that she was confused earlier but she does not recall this Revisited this afternoon and patient was sleeping as RN reported she had another outburst when her granddaughter was here. Patient was able to recall her granddaughter visiting and tell me her granddaughter's name. Review of Systems Review of Systems: All systems reviewed & are unremarkable except as noted in Subjective Physical Exam Physical Exam: General: NAD, VS as above Resp: normal respiratory effort, lungs clear to auscultation anterioly CV: RRR, no murmur, Abd: normal bowel sounds, non tender, soft Neuro: A&O x3, Results & Data Results & Data Vital Signs (Past 12 Hours) Vital Signs Temp Pulse Resp BP Pulse Ox O2 Del Method 11/21/25 14:43 98.2 F 104 H 16 109/72 97 Room Air 11/21/25 07:24 98.6 F 71 16 112/79 98 Room Air Laboratory Results CBC and chemistry reviewed PG Care Time/CCT Total # of Minutes Spent Total Time Spent with Patient: Total time spent is greater than 50% in coordination of care (as documented) at patient's floor/unit and/or counseling patient: Coding Level of Care Code 53660 SUB INP/OBS CARE 2/35MIN Diagnoses Acute UTI (urinary tract infection) N39.0 Hypomagnesemia E83.42 Generalized weakness R53.1 Permanent atrial fibrillation I48.21 Type 2 diabetes mellitus with obesity E11.69; E66.9"
[2025-11-21] MEDS: MELATONIN 3 MG TAB PO SCH (20:46)
[2025-11-21 22:16] LABS: Anion Gap 5.0 (3-11); Blood Urea Nitrogen 22.0 mg/dl (6-23); Calcium 9.1 mg/dl (8.6-10.3); Carbon Dioxide 29.0 mmol/L (21-32); Chloride 99.0 mmol/L (98-107); Creatinine Clr Calc Pharmacy 90.3 ml/min; Glucose 130.0 mg/dl (70-99(Fasting)); Magnesium 2.2 mg/dl (1.7-2.4); Potassium 4.1 mmol/L (3.5-5.1); Sodium 133.0 mmol/L (136-145)
--- NOTE | 2025-11-21 23:03 | CT Scan Report ---
Exam(s): CT HEAD Without Contrast EXAM: CT Head Without Intravenous Contrast CLINICAL HISTORY: Reason for exam: AMS. TECHNIQUE: Axial computed tomography images of the head/brain without intravenous contrast. CTDI is 35.72 mGy and DLP is 547.75 mGy-cm. Automated exposure control was utilized for the study. A dose lowering technique was utilized adhering to the principles of ALARA. COMPARISON: Prior head CT from November 14, 2025. FINDINGS: This study is limited secondary motion artifact. Brain: Unremarkable. No hemorrhage. Moderate nonspecific white matter changes. No edema. Ventricles: Mild ventriculomegaly. Bones/joints: Unremarkable. No acute fracture. Soft tissues: Unremarkable. Sinuses: Unremarkable as visualized. No acute sinusitis. Mastoid air cells: Unremarkable as visualized. No mastoid effusion. IMPRESSION: No evidence of acute intracranial pathology. Electronically signed by: Alicia Maya MD 11/21/25 23:01 PM
[2025-11-22 08:14] LABS: Anion Gap 6.0 (3-11); Blood Urea Nitrogen 19.0 mg/dl (6-23); Calcium 9.0 mg/dl (8.6-10.3); Carbon Dioxide 32.0 mmol/L (21-32); Chloride 100.0 mmol/L (98-107); Creatinine Clr Calc Pharmacy 80.9 ml/min; Glucose 96.0 mg/dl (70-99(Fasting)); Magnesium 1.9 mg/dl (1.7-2.4); Potassium 4.6 mmol/L (3.5-5.1); Sodium 138.0 mmol/L (136-145)
[2025-11-22 08:16] LABS: INR 2.3 (0.9-1.1); Prothrombin Time 23.4 Seconds (9.0-12.0)
--- NOTE | 2025-11-22 14:36 | Hospitalist Progress Note ---
"Date of Service November 22, 2025 Assessment & Plan (1) Acute UTI (urinary tract infection): (2) Hypomagnesemia: (3) Generalized weakness: (4) Permanent atrial fibrillation: (5) Type 2 diabetes mellitus with obesity: Plan 74-year-old woman with type 2 diabetes and permanent atrial fibrillation who fell onto the carpet was unable to get up and spent the night on the floor. It was a mechanical fall. It is possible she has a UTI though she is not symptomatic of anything specific. She has hypomagnesemia, with magnesium of 1.3 on presentation to the ED #Mechanical fall | Generalized weakness | Ambulatory dysfunction - - CT head and CT neck were negative for acute findings. She has no pain or tenderness over her C-spine or paraspinous muscles. She has full range of motion [id number] and flexion extension of her neck without any pain or tenderness. Left knee x- ray notes soft tissue swelling and joint effusion with no radiographic evidence of acute fracture, a left knee arthroplasty is in near anatomic alignment. Confusion workup 11/21 negative [address]A and head CT - suspect delirum. - Left elbow x-ray with no acute fractures, equivocal joint effusion. If persistent pain, recommend short-term x-ray follow-up to exclude an occult fracture. Pain and ROM much improved - Pain regimen: Tylenol PRN, tramadol 50 mg Q4h PRN. Received meloxicam 7.5 mg x 1 on 11/16 - PT and OT recommending rehab, patient agreeable #Acute UTI - Urine culture grew pansensitive E. coli - Initially treated with IV ceftriaxone, then transitioned to Augmentin BIDM. Completed antibiotic course 11/19 #Hypomagnesemia - Has received 13 g mag IV total thus far Continue mag ox 400 mg daily Mag now 1.9 Will hold PPI as cannot decrease dose inpatient - pt has hx of ulcers do not want to discontinue #Permanent atrial fibrillation - Continue warfarin and metoprolol succinate - Additional 2 mg of warfarin given 11/18 for total of 6 mg due to INR of 1.7 - INR augmented appropriately, back within therapeutic range #Type 2 diabetes - A1c in the 5s indicating well-controlled diabetes - Continue metformin regimen, monitor blood glucose SSI discontinued, sugars well controlled #Obesity - BMI 42, history of lap band removal. Recommend weight loss will defer to outpatient provider #Urinary incontinence - Cannot afford mirabegron. Discuss alternative treatment options. Could have worsened recently given her acute UTI DVT Prophylaxis: anticoagulated on warfarin Dispo: Medically stable. Awaiting rehab placement, referrals pending at [facility]. attempted to call 11/21, unable to leave VM Admission and Anticipated Discharge Date Admission Date: November 16, 2025 Supervising Physician Co-Signing Physician Notes Attending Attestation - Chart reviewed, care plan d/w ECHO Sarah. I agree w/ the lazar components of her documentation. Richard Rosen MD Subjective patient seen this morning afterbreakfast - no acute complaints, denies pain knows she in the hospital and needs to go to rehab discussed with RN - no reports of confusion or yelling Review of Systems Review of Systems: All systems reviewed & are unremarkable except as noted in Subjective Physical Exam Physical Exam: General: NAD, VS as above Resp: normal respiratory effort, lungs clear to auscultation anterioly CV: RRR, no murmur, Abd: normal bowel sounds, non tender, soft Neuro: A&O x3, Results & Data Results & Data Vital Signs (Past 12 Hours) Vital Signs Temp Pulse Resp BP Pulse Ox O2 Del Method 11/22/25 07:45 Room Air 11/22/25 07:07 98.1 F 91 H 16 107/76 97 Room Air Laboratory Results INR and BMP reviewed PG Care Time/CCT Total # of Minutes Spent Total Time Spent with Patient: Total time spent is greater than 50% in coordination of care (as documented) at patient's floor/unit and/or counseling patient: Coding Level of Care Code 77510 SUB INP/OBS CARE 12/25MIN Diagnoses Acute UTI (urinary tract infection) N39.0 Hypomagnesemia E83.42 Generalized weakness R53.1 Permanent atrial fibrillation I48.21 Type 2 diabetes mellitus with obesity E11.69; E66.9"
[2025-11-22] MEDS: ALBUTEROL HFA 8 GM INHALER INH PRN (16:46)
--- NOTE | 2025-11-23 10:16 | Hospitalist Progress Note ---
"Date of Service November 23, 2025 Assessment & Plan (1) Acute UTI (urinary tract infection): (2) Hypomagnesemia: (3) Generalized weakness: (4) Permanent atrial fibrillation: (5) Type 2 diabetes mellitus with obesity: Plan 74-year-old woman with type 2 diabetes and permanent atrial fibrillation who fell onto the carpet was unable to get up and spent the night on the floor. It was a mechanical fall. It is possible she has a UTI though she is not symptomatic of anything specific. She has hypomagnesemia, with magnesium of 1.3 on presentation to the ED #Mechanical fall | Generalized weakness | Ambulatory dysfunction - - CT head and CT neck were negative for acute findings. She has no pain or tenderness over her C-spine or paraspinous muscles. She has full range of motion [id number] and flexion extension of her neck without any pain or tenderness. Left knee x- ray notes soft tissue swelling and joint effusion with no radiographic evidence of acute fracture, a left knee arthroplasty is in near anatomic alignment. Left elbow x-ray with no acute fractures, equivocal joint effusion. Confusion workup 11/21 negative UA and head CT - suspect delirium. Pain regimen: Tylenol PRN, tramadol 50 mg Q4h PRN. Received meloxicam 7.5 mg x 1 on 11/16 PT/OT rec rehab, patient agreeable #Acute UTI - - Urine culture grew pansensitive E. coli. Treated with IV ceftriaxone, then transitioned to Augmentin BIDM. Completed antibiotic course 11/19 #Hypomagnesemia - Has received 13 g mag IV total thus far Continue mag ox 400 mg daily Mag now 1.9 Will hold PPI as cannot decrease dose inpatient - pt has hx of ulcers do not want to discontinue #Permanent atrial fibrillation - Continue warfarin and metoprolol succinate - Additional 2 mg of warfarin given 11/18 for total of 6 mg due to INR of 1.7 - INR augmented appropriately, back within therapeutic range #Type 2 diabetes - A1c in the 5s indicating well-controlled diabetes - Continue metformin regimen, monitor blood glucose SSI discontinued, sugars well controlled #Obesity - BMI 42, history of lap band removal. Recommend weight loss will defer to outpatient provider #Urinary incontinence - Cannot afford mirabegron. Discuss alternative treatment options. Could have worsened recently given her acute UTI DVT Prophylaxis: anticoagulated on warfarin Dispo: Medically stable. Awaiting rehab placement, referrals pending at [facility] and [facility]. attempted to call 11/21, unable to leave Admission and Anticipated Discharge Date Admission Date: November 16, 2025 Supervising Physician Co-Signing Physician Notes PA Supervision Note: I did not personally see or examine the patient today, but I verified all lazar points of ECHO Sarah's assessment and plan with the following exceptions/additions: None Subjective Patient seen lying in bed - reports being tired ate all of her breakfast no acute concerns Review of Systems Review of Systems: All systems reviewed & are unremarkable except as noted in Subjective Physical Exam Physical Exam: General: NAD, vitals as above, lying in bed Pulm: breathing unlabored CV: well perfused extremities: moves all extremities Results & Data Results & Data Vital Signs (Past 12 Hours) Vital Signs Temp Pulse Resp BP BP Pulse Ox O2 Del Method 11/23/25 09:35 98 H 109/73 11/23/25 07:56 Room Air 11/23/25 07:25 98.8 F 98 H 20 103/71 93 Room Air 11/23/25 05:46 98.4 F 11/22/25 23:14 98.4 F 11/22/25 23:05 100.2 F H 71 16 112/79 95 Room Air PG Care Time/CCT Total # of Minutes Spent Total Time Spent with Patient: Total time spent is greater than 50% in coordination of care (as documented) at patient's floor/unit and/or counseling patient: Coding Level of Care Code 35246 SUB INP/OBS CARE 12/25MIN Diagnoses Acute UTI (urinary tract infection) N39.0 Hypomagnesemia E83.42 Generalized weakness R53.1 Permanent atrial fibrillation I48.21 Type 2 diabetes mellitus with obesity E11.69; E66.9"
[2025-11-23] MEDS: INSULIN ASPART PER UNIT CHARGE SC STA (11:37)
[2025-11-24 07:41] LABS: INR 2.6 (0.9-1.1); Prothrombin Time 25.9 Seconds (9.0-12.0)
--- NOTE | 2025-11-24 11:42 | Hospitalist Progress Note ---
"Date of Service November 24, 2025 Assessment & Plan (1) Acute UTI (urinary tract infection): (2) Hypomagnesemia: (3) Generalized weakness: (4) Permanent atrial fibrillation: (5) Type 2 diabetes mellitus with obesity: Plan 74-year-old woman with type 2 diabetes and permanent atrial fibrillation who fell onto the carpet was unable to get up and spent the night on the floor. It was a mechanical fall. It is possible she has a UTI though she is not symptomatic of anything specific. She has hypomagnesemia, with magnesium of 1.3 on presentation to the ED #Mechanical fall | Generalized weakness | Ambulatory dysfunction - - CT head and CT neck were negative for acute findings. She has no pain or tenderness over her C-spine or paraspinous muscles. She has full range of motion [id number] and flexion extension of her neck without any pain or tenderness. Left knee x- ray notes soft tissue swelling and joint effusion with no radiographic evidence of acute fracture, a left knee arthroplasty is in near anatomic alignment. Left elbow x-ray with no acute fractures, equivocal joint effusion. Confusion workup 11/21 negative UA and head CT - suspect delirium. Pain regimen: Tylenol PRN, tramadol 50 mg Q4h PRN. Received meloxicam 7.5 mg x 1 on 11/16 PT/OT rec rehab, patient agreeable, awaiting insurance auth #Acute UTI - - Urine culture grew pansensitive E. coli. Treated with IV ceftriaxone, then transitioned to Augmentin BIDM. Completed antibiotic course 11/19 #Hypomagnesemia - Has received 13 g mag IV total thus far Continue mag ox 400 mg daily Mag now 1.9 Will hold PPI as cannot decrease dose inpatient - pt has hx of ulcers do not want to discontinue #Permanent atrial fibrillation - Continue warfarin and metoprolol succinate - Additional 2 mg of warfarin given 11/18 for total of 6 mg due to INR of 1.7 - INR augmented appropriately, back within therapeutic range #Type 2 diabetes - A1c in the 5s indicating well-controlled diabetes - Continue metformin regimen, monitor blood glucose SSI discontinued, sugars well controlled #Obesity - BMI 42, history of lap band removal. Recommend weight loss will defer to outpatient provider #Urinary incontinence - Cannot afford mirabegron. Discuss alternative treatment options. Could have worsened recently given her acute UTI DVT Prophylaxis: anticoagulated on warfarin Dispo: Medically stable. Awaiting rehab placement, awaiting insurance auth attempted to call 11/21, unable to leave Admission and Anticipated Discharge Date Admission Date: November 16, 2025 Supervising Physician Co-Signing Physician Notes PA Supervision Note: I did not personally see or examine the patient today, but I verified all lazar points of ECHO Sarah's assessment and plan with the following exceptions/additions: None Subjective patient seen lying in bed no acute complaints some swellign to her hand but likely from to tight band from lab draw - this was removed Review of Systems Review of Systems: All systems reviewed & are unremarkable except as noted in Subjective Physical Exam Physical Exam: General: NAD, vitals as above, lying in bed Pulm: breathing unlabored CV: well perfused extremities: moves all extremities Results & Data Results & Data Vital Signs (Past 12 Hours) Vital Signs Temp Pulse Resp BP Pulse Ox O2 Del Method 11/24/25 08:34 Room Air 11/24/25 07:30 98.2 F 93 H 16 103/68 94 Room Air 11/24/25 02:34 Room Air 11/24/25 00:14 98.4 F 100 H 16 104/70 95 Room Air Laboratory Results INR reviewed and POC glucose reviewed PG Care Time/CCT Total # of Minutes Spent Total Time Spent with Patient: Total time spent is greater than 50% in coordination of care (as documented) at patient's floor/unit and/or counseling patient: Coding Level of Care Code 00305 SUB INP/OBS CARE 12/25MIN Diagnoses Acute UTI (urinary tract infection) N39.0 Hypomagnesemia E83.42 Generalized weakness R53.1 Permanent atrial fibrillation I48.21 Type 2 diabetes mellitus with obesity E11.69; E66.9"
[2025-11-25 09:34] LABS: Hematocrit (blood only) 27.5 % (37.0-47.0); Hemoglobin 9.1 g/dL (12.0-16.0); Immature Granulocytes # (auto) 0.02 K/uL (0.01-0.20); Immature Granulocytes % (auto) 0.4 %; Mean Corpuscular Hemoglobin 29.3 pg (25.0-34.0); Mean Corpuscular Volume 88.4 fL (80.0-100.0); Platelet Count 280 K/uL (130-400); RDW Standard Deviation 46.1 fL (36.4-46.3); Red Blood Count 3.11 M/uL (4.20-5.40); White Blood Count 5.10 K/ul (4.8-10.8)
[2025-11-25 09:51] LABS: Anion Gap 7.0 (3-11); Blood Urea Nitrogen 22.0 mg/dl (6-23); Calcium 9.0 mg/dl (8.6-10.3); Carbon Dioxide 29.0 mmol/L (21-32); Chloride 101.0 mmol/L (98-107); Creatinine Clr Calc Pharmacy 90.3 ml/min; Glucose 140.0 mg/dl (70-99(Fasting)); Magnesium 1.4 mg/dl (1.7-2.4); Potassium 4.2 mmol/L (3.5-5.1); Sodium 137.0 mmol/L (136-145)
[2025-11-25 10:03] LABS: INR 2.4 (0.9-1.1); Prothrombin Time 24.5 Seconds (9.0-12.0)
[2025-11-25] MEDS: MAGNESIUM SULFATE / D5W 1 GM/100 ML BAG IV SCH (12:10)
--- NOTE | 2025-11-25 17:48 | Hospitalist Progress Note ---
"Date of Service November 25, 2025 Assessment & Plan (1) Acute UTI (urinary tract infection): (2) Hypomagnesemia: (3) Generalized weakness: (4) Permanent atrial fibrillation: (5) Type 2 diabetes mellitus with obesity: Plan 74-year-old woman with type 2 diabetes and permanent atrial fibrillation who fell onto the carpet was unable to get up and spent the night on the floor. It was a mechanical fall. It is possible she has a UTI though she is not symptomatic of anything specific. She has hypomagnesemia, with magnesium of 1.3 on presentation to the ED #Mechanical fall | Generalized weakness | Ambulatory dysfunction - - CT head and CT neck were negative for acute findings. She has no pain or tenderness over her C-spine or paraspinous muscles. She has full range of motion [id number] and flexion extension of her neck without any pain or tenderness. Left knee x- ray notes soft tissue swelling and joint effusion with no radiographic evidence of acute fracture, a left knee arthroplasty is in near anatomic alignment. Left elbow x-ray with no acute fractures, equivocal joint effusion. Confusion workup 11/21 negative UA and head CT - suspect delirium. Pain regimen: Tylenol PRN, tramadol 50 mg Q4h PRN. Received meloxicam 7.5 mg x 1 on 11/16 PT/OT rec rehab, patient agreeable, awaiting insurance auth #Acute UTI - - Urine culture grew pansensitive E. coli. Treated with IV ceftriaxone, then transitioned to Augmentin BIDM. Completed antibiotic course 11/19 #Hypomagnesemia Has received 13 g mag IV total thus far Mag this am 1.4-->replete with 1 gram IV magnesium X 4 oral Magnesium changed to 400mg BID Will hold PPI as cannot decrease dose inpatient - pt has hx of ulcers do not want to discontinue #Permanent atrial fibrillation - Continue warfarin and metoprolol succinate - INR this am 2.4 and therapeutic #Type 2 diabetes - A1c in the 5s indicating well-controlled diabetes - Continue metformin regimen, monitor blood glucose SSI discontinued, sugars well controlled #Obesity - BMI 42, history of lap band removal. Recommend weight loss will defer to outpatient provider #Urinary incontinence - Cannot afford mirabegron. Discuss alternative treatment options. Could have worsened recently given her acute UTI DVT Prophylaxis: anticoagulated on warfarin Dispo: once Magnesium normalized, stable for transfer when labs normal Admission and Anticipated Discharge Date Admission Date: November 16, 2025 Subjective Patient sitting up in bed this am. She has no acute complaints. Eating and drinking well. Review of Systems Review of Systems: All systems reviewed & are unremarkable except as noted in Subjective Physical Exam Physical Exam: GENERAL APPEARANCE: A&O. Sitting comfortably on stretcher. NAD. SKIN: Normal color without rashes or lesions. Normal turgor. HEENT: Head AT/NC. Buccal mucosa is moist and pink. NECK: No jugular venous distention. No thyroid enlargement. There is no lymphadenopathy. HEART: RRR without m/g/r. LUNGS: Normal inspiratory effort. CTA without w/r/r. ABDOMEN: No guarding or rigidity. Normoactive BS in all four quadrants. Abdomen soft and NT. MSK: No bony gross/deformities throughout. ROM intact. EXTREMITIES: No edema, No peripheral cyanosis. Neuro: CN 2-12 grossly intact. No focal neuro deficits PSYCHIATRIC: Normal affect. Eye contact is good. Speech is normal rate and content. Responses are appropriate. Results & Data Results & Data Vital Signs (Past 12 Hours) Vital Signs Temp Pulse Pulse Resp BP BP Pulse Ox 11/25/25 14:13 36.5 C 85 20 110/73 95 11/25/25 08:43 37 C 94 H 20 112/77 95 O2 Del Method 11/25/25 14:13 Room Air 11/25/25 08:43 Room Air Laboratory Results Labs reviewed: PT/INR, CBC, BMP, Mg PG Care Time/CCT Total # of Minutes Spent Total Time Spent with Patient: Total time spent is greater than 50% in coordination of care (as documented) at patient's floor/unit and/or counseling patient: Coding Level of Care Code 50252 SUB INP/OBS CARE 2/35MIN Diagnoses Acute UTI (urinary tract infection) N39.0 Hypomagnesemia E83.42 Generalized weakness R53.1 Permanent atrial fibrillation I48.21 Type 2 diabetes mellitus with obesity E11.69; E66.9"
[2025-11-25] MEDS: MAGNESIUM OXIDE 400 MG TAB PO SCH (20:24)
[2025-11-26 07:21] LABS: INR 2.6 (0.9-1.1); Prothrombin Time 25.7 Seconds (9.0-12.0)
[2025-11-26 07:54] VITALS: RESP 16
[2025-11-26 10:00] LABS: Anion Gap 6.0 (3-11); Blood Urea Nitrogen 19.0 mg/dl (6-23); Calcium 8.7 mg/dl (8.6-10.3); Carbon Dioxide 30.0 mmol/L (21-32); Chloride 100.0 mmol/L (98-107); Creatinine Clr Calc Pharmacy 95.1 ml/min; Glucose 82.0 mg/dl (70-99(Fasting)); Magnesium 1.9 mg/dl (1.7-2.4); Potassium 4.4 mmol/L (3.5-5.1); Sodium 136.0 mmol/L (136-145)
[2025-11-26 10:06] LABS: Hematocrit (blood only) 26.3 % (37.0-47.0); Hemoglobin 8.4 g/dL (12.0-16.0); Immature Granulocytes # (auto) 0.02 K/uL (0.01-0.20); Immature Granulocytes % (auto) 0.4 %; Mean Corpuscular Hemoglobin 28.7 pg (25.0-34.0); Mean Corpuscular Volume 89.8 fL (80.0-100.0); Platelet Count 315 K/uL (130-400); RDW Standard Deviation 46.6 fL (36.4-46.3); Red Blood Count 2.93 M/uL (4.20-5.40); White Blood Count 4.87 K/ul (4.8-10.8)
--- NOTE | 2025-11-26 12:46 | Discharge Summary ---
"Discharge Summary Date of Service November 26, 2025 Principal Dx & Hospital Course #1 = Principal Diagnosis (1) Acute UTI (urinary tract infection): (2) Hypomagnesemia: (3) Generalized weakness: (4) Permanent atrial fibrillation: (5) Type 2 diabetes mellitus with obesity: Plan #Mechanical fall | Generalized weakness | Ambulatory dysfunction - 74 y/o W w/ PMHx significant for T2DM, permanent A-fib, and obesity who experienced a mechanical fall onto her carpet and remained on the floor overnight, unable to get up. On 11/14 both a head and neck CT were performed which we negative for acute findings. A CXR, also at the time of admission was negative for any acute pulmonary findings. Additionally a pelvis XR was preformed on 11/14 which was negative for any acute findings. A Lt Knee XR on 11/15 noted soft tissue swelling and a surrounding joint effusion, no evidence of fracture was seen at that time. Pt seemed to be experiencing confusion during her hospital admission, as a result a confusion work up from 11/21 to include a UA and Head CT were both negative - delirium is the most likely culprit of confusion experienced by patient. Pt was evaluated by PT/OT whom recommended acute rehabilitation follow ing discharge from hospital, which the patient was agreeable to. #Acute UTI - Pt w/ positive urine culture 11/14, E.coli+. Pt initially tx w/ IV ceftriaxone and then transitioned to Augmentin BID w/ tx course completed on 11/19. #Hypomagnesemia - Pt has required a total of 13g IV throughout the duration of her hospital stay. As a result, her Mag was increased to 400mg BID with a Mag of 1.9 the following day. This should be followed closely on an outpatient basis for further evaluation and workup, especially with consideration to Pt's outpati ent PPI therapy. Please follow-up with PCP within one week of discharge. #Permanent atrial fibrillation - 11/14 Duplex scan of lower extremity arteries were without evidence of arterial occlusion. Pt should continue warfarin and metoprolol as prescribed. NOTE: an additional 2mg warfarin given to pt 11/18 which resulted in INR 1.7, which was appropriately augmented and has returned to therapeutic range #Type 2 diabetes - Most recent HbA1c 5.6 08/2025; Continue Metformin as prescribed. #Obesity - BMI >40 w/ hx lap band removal; Weight loss is recommended. Pt should follow-up with outpatient provider #Urinary incontinence - Pt notes that she was unable to afford mirabegron; please discuss alternative treatment options with your PCP. Dispo: [facility]erna Escalera [facility] acute rehab Notes For Next Care Provider Pt has required 13g IV Mag throughout hospital stay, please f/u w/ pt closely, her PO Mag was increased to 400 BID Admission HPI Per Admitting Provider Jocelyne is a 74-year-old woman with type 2 diabetes, atrial fibrillation on chronic anticoagulation with warfarin. She came to the ED by EMS after a fall and being unable to get up. She lives at home with her . She experienced weakness/unsteadiness yesterday and fell onto a carpeted floor, bumping the back of her head. Currently, she reports no pain in her head or neck. She remained on the floor overnight as her discouraged her from calling 911 or contacting their son-in-law because he did not think that 911 was necessary and he did not want to bother their relative. In the morning, still unable to rise, she called 911 herself. She has not had any fevers, chills, sore throat, cough, nasal congestion, dyspnea, chest or abdominal pain, nausea, vomiting, diarrhea, suprapubic pain, dysuria, or neurological symptoms. She has chronic urinary incontinence and a new prescription for mirabegron but did not fill it due to cost. Her medical history includes osteoporosis, anemia, permanent atrial fibrillation, type 2 diabetes, obesity, hyperlipidemia, urinary incontinence, TIA, hypertension, history of DVT, and diverticulosis. Discharge Plan Discharge Items Patient Disposition: Transfer Snf Fac Reason For Visit: FALL, HYPOMAGNESEMIA Discharge Diagnosis: Fall, hypomagnesmia Condition on Discharge: Fair Activity: Resume your previous activity Weightbearing: Full weightbearing Non-emergency contact: Primary Care Provider Call non-emergency contact if: you have any medication questions, your symptoms worsen and your pain is not controlled Follow-up/Referrals: Marlene Alexandra MD [Primary Care Provider] - Diet: Carb Consistent or DM2 Addtl Attending Provider Instructions: Hospital Course: You were admitted to the hospital after experiencing a ground level fall and being unable to get up. While you were in the hospital you received imagin to include a Head CT, Neck CT, Pelvis Xray, Chest Xray which were negative for any acute findings. You additionally received a lt knee xray on 11/25 which demonstrated some soft tissue swelling & joint effusion, but was without evidence of fracture or displacement of prosthetic joint. You additionally experienced a UTI while you were in the hospital which was treated with success. Your magnesium was consistently low and required a lot of IV supplementation throughout your stay. Your regular oral dose was increased to 400mg TWICE daily. Discharge Plan: -Please take your medications as prescribed -Your Magnesium has been increased to 400mg BID with consideration to your continuously low Magnesium during your inpatient stay -You should follow-up with your PCP within one week of discharge for close monitoring of you magnesium levels -Please call your PCP should you have any questions or concerns -You will be discharged to [facility] for acute rehabilitation. Medications: Your medication list has been reviewed and reconciled upon discharge to ensure accuracy and continuity of care. An updated list of all your medications is i ncluded with your hospital discharge paperwork. Please review this list closely, and make note of any changes. Take your medications as instructed; do not skip a dose of your medicines. Make sure all of your doctors know every medicine you are taking (including wjas-fij-orzqfzi medicines, vitamins, and supplements). Call your primary care provider before taking any new medicines (including over- the-counter medicines, vitamins, and supplements), because some of these may interact with your current medications, or may make your symptoms worse. Tell your primary care provider if you cannot afford your medications. Activity: You can do normal everyday activities as your body allows. Take rest breaks if you feel tired. Do not overexert. Stop activity if you have pain, shortness of breath or feel dizzy. Follow-up appointments: Make an appointment with your primary care physician within one week of discharge. A copy of this summary will be sent to them. Every time you see your primary care physician, or any other doctor, bring your medication list, and a list of questions. CONTACT YOUR PRIMARY CARE PROVIDER if you experience any of the following: Shortness of breath or difficulty breathing Fevers or chills Feeling tired with normal activity or experiencing dizziness or fainting Difficulty following your treatment plan, or difficulty taking medications CALL 911 OR GO TO THE EMERGENCY DEPARTMENT if you experience any of the following: Severe abdominal pain or nausea/vomiting Severe chest pain, or chest pain that radiates (moves) to your jaw or arm Sudden, severe shortness of breath or difficulty breathing Thank you for allowing us to participate in your care. Pending Studies at Discharge: No Stand-Alone Forms: [facility] Skilled Items Patient informed of condition?: Yes DNR: Yes Discharge Level of Care: Skilled Communicable Disease: No Discharge Prognosis: Stable Lines: None Urinary Catheter: No Medications and DC Order Prescriptions: Continued multivitamin Tablet 1 tab PO DAILY fluoxetine 40 mg capsule 40 mg PO QAM Qty: 90 3RF rosuvastatin 10 mg tablet 10 mg PO 2XWK Qty: 90 3RF (DME) True Metrix Level 1 Solution See Rx Instructions .Route Qty: 1 0RF Rx Instructions: As directed (DME) blood-glucose meter [True Metrix Glucose Meter] Misc See Rx Instructions .Route Qty: 1 0RF Rx Instructions: Use to test blood sugars once daily (DME) True Metrix Glucose Test Strip Strip See Rx Instructions .Route Qty: 100 3RF Rx Instructions: Used to test blood sugars once daily (DME) lancets [TRUEplus Lancets] 28 gauge misc See Rx Instructions .Route Qty: 100 3RF Rx Instructions: Patient tests once daily dicyclomine 10 mg capsule 20 mg PO TID PRN (Reason: diarrhea) Qty: 540 1RF metformin 500 mg tablet 500 mg PO BID Qty: 180 3RF pantoprazole 20 mg tablet,delayed release (DR/EC) 20 mg PO DAILY Qty: 90 3RF metoprolol succinate 100 mg tablet extended release 24 hr 100 mg PO BID Qty: 180 3RF cyanocobalamin (vitamin B-12) 1,000 mcg capsule 1,000 mcg PO DAILY Qty: 90 3RF mometasone 0.1 % cream 1 applic topical DAILY PRN (Reason: exczema flares) 14 Days Qty: 45 1RF Prolia 60 mg/mL syringe 60 mg subcut ONCE Qty: 1 0RF Rx Instructions: HAS NOT STARTED YET WAITING ON PAR acetaminophen 500 mg Tablet 500 mg PO Q6H PRN (Reason: Pain) warfarin 2 mg tablet 4 mg PO 2XWK Rx Instructions: MONDAYS & FRIDAYS warfarin 2 mg tablet 2 mg PO 5XWK Rx Instructions: 4mg q Friday, Friday; 2mg x 5 days per [facility] orally use as directed; mirabegron 25 mg tablet extended release 24 hr 0 mg PO DAILY Rx Instructions: HAS NOT STARTED YET 11/14/25 Changed magnesium oxide 400 mg magnesium capsule 400 mg PO BID Qty: 60 0RF Discharge Orders: Discharge Order (Routine); Ordered 11/26/25 Ordered By: Toya Joseph/Other Patient Handouts: UTIs, Hypomagnesemia Dc Admission Data Admit Date/Time: 11/16/25 11:09 Attending Provider: Andrea Scott Admit Provider: Suzanne Simeon Primary Care Provider: Marlene Alexandra Other [facility]imeon; [facility] Other Interventions: Discharge Summary Assessment (RN) Last Done: 11/26/25 13:04 Hospital Stay Data Consultations 11/14/25 13:37 ED Decision to Admit Stat Diagnostic Imagining Performed Cervical Spine CT 11/14/25 11:27 CT SCAN OF THE CERVICAL SPINE CLINICAL HISTORY: Trauma. COMPARISON STUDY: Cervical spine CT dated 05/25/2020. TECHNIQUE: CT scan of the cervical spine is performed from the skull base to the upper thoracic spine. Images are reviewed in the axial, sagittal, and coronal planes. IV contrast was not administered for this examination. A dose lowering technique was utilized adhering to the principles of ALARA. CT DOSE: 1208.06 mGy.cm FINDINGS: Skeletal structures: The skeletal structures are osteopenic. There is no evidence of fracture or subluxation involving the cervical spine. Vertebral body height and alignment are maintained. There is mild hyperlordosis. Anterior oste ophytes are seen throughout. The odontoid process and lateral masses are intact. The atlantoaxial articulation is preserved noting mild productive degenerative change. The spinous processes appear intact. There is mild multilevel facet arthropathy. Intervertebral discs: There is moderate disc space narrowing at C4-C5, C5-C6, and C6-C7. Mild narrowing is seen at the remaining cervical levels. Central canal: Posterior disc osteophyte complexes are seen at all cervical levels between C3-C4 and C6-C7. This likely contributes to multilevel acquired compromise of the central canal. Soft tissues: The prevertebral and paraspinous soft tissues are within normal limits. There is atherosclerotic calcification of the carotid bulbs. Calvarium: The visualized calvarium at the skull base appears intact. Brain parenchyma: Partially visualized brain parenchyma at the skull base is within normal limits. Sinuses and mastoids: There is trace mucosal thickening in the right maxillary antrum. The mastoid air cells are well pneumatized. Lung apices: Clear as visualized. IMPRESSION: 1. There is no evidence of cervical spine fracture or subluxation. 2. Osteopenia and spondylotic change as above. ACT 112: Negative or not required by law. Electronically signed by: Geronimo Chapa M.D. 11/14/2025 12:38 PM Chest X-Ray 11/14/25 11:27 XR chest 1V portable CLINICAL HISTORY: Trauma. COMPARISON STUDY: Chest radiograph and bilateral rib series September 21, 2024. FINDINGS: There is no pneumothorax or pleural effusion. Cardiomegaly is unchang ed. There are a few old bilateral rib fractures. No acute rib fractures are identified by radiography. Pulmonary vascularity is normal. IMPRESSION: No acute cardiopulmonary findings. ACT 112: Negative or not required by law. Electronically signed by: Camilo Gongora M.D. 11/14/2025 11:[address] 11/14/25 11:27 CT SCAN OF THE BRAIN WITHOUT IV CONTRAST CLINICAL HISTORY: Trauma. COMPARISON STUDY: Head CT and CTA of the head December 30, 2022. MRI of the brain December 30, 2022. TECHNIQUE: Unenhanced axial CT scan of the brain was performed from the vertex to the skull base. A dose lowering technique was utilized adhering to the principles of ALARA. FINDINGS: Brain parenchyma: No acute intracranial hemorrhage, midline shift or mass effect is present. Martines-white matter differentiation is preserved. There are no extra- axial fluid collections. There are no findings to suggest acute dural sinus thrombosis or acute territorial infarct. White matter hypodensities are unchanged and favor small vessel disease. Ventricles, sulci, cisterns: There is no hydrocephalus. The basal cisterns are patent. Calvarium: No calvarial fractures. Sinuses and mastoids: The visualized paranasal sinuses are clear. The mastoid air cells are well pneumatized. Orbits: The bony orbits are grossly intact. IMPRESSION: 1. No acute intracranial findings. 2. No calvarial fractures. ACT 112: Negative or not required by law. Electronically signed by: Camilo Gongora M.D. 11/14/2025 12:37 PM Pelvis X-Ray 11/14/25 11:27 SINGLE VIEW PELVIS CLINICAL HISTORY: Trauma. Fall. FINDINGS: An AP, portable, supine pelvic radiograph is compared to study dated 04/22/2023. The skeletal structures are osteopenic. There is no radiographic evidence of acute fracture involving the hips or bony pelvis. Mild arthritic change and joint space narrowing is seen in the hips, left greater than right. There is degenerative sclerosis of the sacroiliac joints. Lumbosacral spondylosis is partially imaged. A calcified enthesophyte is again seen adjacent to the greater trochanter of the left proximal femur. The overlying soft tissues are normal as imaged. Moderate fecal retention is noted throughout the imaged colon. IMPRESSION: No acute bony abnormality is identified. Electronically signed by: Geronimo Chapa M.D. 11/14/2025 11:52 AM Duplex Scan Lower Extremity Artery 11/14/25 17:59 Exam(s): US ARTERIAL LEFT LOWER EXTREMITY EXAM: US Duplex Left Lower Extremity Arteries CLINICAL HISTORY: Reason for exam: cool L foot, poor DP pulse, chronic. OTHER: Other Notes: Cool left foot, poor DP pulse. No occlusions detected within LLE. Mild plaque seen throughout LLE. Triphasic waveforms seen from [employer] through distal SFA, monophasic waveforms seen in pop through calf (?triphasic in TRINA). Slightly elevated velocity in left DEHORNER, 159cm/s. PARAMJIT for right DP=1.26, all other PARAMJIT's were non-compressible. TECHNIQUE: Real-time duplex ultrasound scan of the left lower extremity arteries integrating B-mode two-dimensional vascular structure, Doppler spectral analysis and color flow Doppler imaging. COMPARISON: None FINDINGS: Left common femoral artery: No acute findings. No occlusion or significant stenosis on color flow and spectral Doppler imaging. Normal waveform. Left superficial femoral artery: No acute findings. No occlusion or significant stenosis on color flow and spectral Doppler imaging. Normal waveform. Left popliteal artery: Monophasic waveforms. No occlusion or significant stenosis on color flow and spectral Doppler imaging. Left calf/foot arteries: Monophasic waveforms. No occlusion or significant stenosis on color flow and spectral Doppler imaging. Soft tissues: Unremarkable. Other findings: Irregular heart rhythm incidentally noted. Right PARAMJIT is normal at 1.26. Left PARAMJIT could not be determined. IMPRESSION: Monophasic waveforms in the left popliteal artery and calf arteries suggest upstream stenosis. No arterial occlusion. Electronically signed by: Ray Mas M.D. 11/14/25 22:15 PM Knee X-Ray 11/15/25 11:18 LEFT KNEE 3 VIEWS CLINICAL HISTORY: Fall with left knee pain. FINDINGS: AP, crosstable lateral, and sunrise views of the left knee are obtained. No prior studies are available for comparison at the time of dictation. The skeletal structures are osteopenic. No fracture is seen. A left knee arthroplasty is in near anatomic alignment. No periprosthetic lucency is identified. There has been undersurface remodeling of the patella. There is chronic deformity of the proximal fibular shaft. A joint effusion is observed. Soft tissue swelling is seen around the knee. There is prepatellar soft tissue calcification. IMPRESSION: 1. Soft tissue swelling and joint effusion with no radiographic evidence of acute fracture. 2. A left knee arthroplasty is in near anatomic alignment. Electronically signed by: Geronimo Chapa M.D. 11/15/2025 12:18 PM Elbow X-Ray 11/16/25 08:15 XR elbow LT min 3V routine CLINICAL HISTORY: Left elbow pain following fall. COMPARISON: None FINDINGS: This exam is mildly compromised given difficulty positioning. No acute fractures are identified. Alignment of the left elbow is anatomic. Apparent prominence of the anterior fat pad is likely artifactual. No definite evidence for joint effusion. Irregularity of the lateral condyle is chronic. There are minimal degenerative changes within the left elbow. IMPRESSION: No acute fractures although exam mildly compromised given difficulty positioning. Equivocal joint effusion. If persistent pain, short-term radiographic follow-up is recommended to exclude an occult fracture. ACT 112: Negative or not required by law. Electronically signed by: Camilo Gongora M.D. 11/16/2025 9:[address] 11/21/25 17:57 Exam(s): CT HEAD Without Contrast EXAM: CT Head Without Intravenous Contrast CLINICAL HISTORY: Reason for exam: AMS. TECHNIQUE: Axial computed tomography images of the head/brain without intravenous contrast. CTDI is 35.72 mGy and DLP is 547.75 mGy-cm. Automated exposure control was utilized for the study. A dose lowering technique was utilized adhering to the principles of ALARA. COMPARISON: Prior head CT from November 14, 2025. FINDINGS: This study is limited secondary motion artifact. Brain: Unremarkable. No hemorrhage. Moderate nonspecific white matter changes. No edema. Ventricles: Mild ventriculomegaly. Bones/joints: Unremarkable. No acute fracture. Soft tissues: Unremarkable. Sinuses: Unremarkable as visualized. No acute sinusitis. Mastoid air cells: Unremarkable as visualized. No mastoid effusion. IMPRESSION: No evidence of acute intracranial pathology. Electronically signed by: Alicia Maya MD 11/21/25 23:01 PM 11/14/25 11:27 CT cervical spine wo con Stat CT head/brain wo con Stat 11/14/25 17:59 US arterial duplex LE LT Routine 11/21/25 17:[address] [CT head/brain wo con] Urgent Discharge Instructions Given to Patient (Per Discharging Provider) Hospital Course: You were admitted to the hospital after experiencing a ground level fall and being unable to get up. While you were in the hospital you received imagin to include a Head CT, Neck CT, Pelvis Xray, Chest Xray which were negative for any acute findings. You additionally received a lt knee xray on 11/25 which demonstrated some soft tissue swelling & joint effusion, but was without evid ence of fracture or displacement of prosthetic joint. You additionally experienced a UTI while you were in the hospital which was treated with success. Your magnesium was consistently low and required a lot of IV supplementation throughout your stay. Your regular oral dose was increased to 400mg TWICE daily. Discharge Plan: -Please take your medications as prescribed -Your Magnesium has been increased to 400mg BID with consideration to your continuously low Magnesium during your inpatient stay -You should follow-up with your PCP within one week of discharge for close monitoring of you magnesium levels -Please call your PCP should you have any questions or concerns -You will be discharged to [facility] for acute rehabilitation. Medications: Your medication list has been reviewed and reconciled upon discharge to ensure accuracy and continuity of care. An updated list of all your medications is included with your hospital discharge paperwork. Please review this list closely, and make note of any changes. Take your medications as instructed; do not skip a dose of your medicines. Make sure all of your doctors know every medicine you are taking (including niym-tjv-ctsbydp medicines, vitamins, and supplements). Call your primary care provider before taking any new medicines (including over- the-counter medicines, vitamins, and supplements), because some of these may interact with your current medications, or may make your symptoms worse. Tell your primary care provider if you cannot afford your medications. Activity: You can do normal everyday activities as your body allows. Take rest breaks if you feel tired. Do not overexert. Stop activity if you have pain, shortness of breath or feel dizzy. Follow-up appointments: Make an appointment with your primary care physician within one week of discharge. A copy of this summary will be sent to them. Every time you see your primary care physician, or any other doctor, bring your medication list, and a list of questions. CONTACT YOUR PRIMARY CARE PROVIDER if you experience any of the following: Shortness of breath or difficulty breathing Fevers or chills Feeling tired with normal activity or experiencing dizziness or fainting Difficulty following your treatment plan, or difficulty taking medications CALL 911 OR GO TO THE EMERGENCY DEPARTMENT if you experience any of the following: Severe abdominal pain or nausea/vomiting Severe chest pain, or chest pain that radiates (moves) to your jaw or arm Sudden, severe shortness of breath or difficulty breathing Thank you for allowing us to participate in your care. Supervising Physician Co-Signing Physician Notes The patient was not seen by me. Chart reviewed. Case discussed with ECHO Comer. Agree with assessment and plan. Total Time Total Time Spent Total Time Spent (In Minutes): Time spent day of discharge 62 minutes including direct patient care, medication reconciliation, documentation, review of labs and images, and coordination of care. Coding Level of Care Code 49700 INP/OBS DISCH >30 MIN Diagnoses Acute UTI (urinary tract infection) N39.0 Hypomagnesemia E83.42 Generalized weakness R53.1 Permanent atrial fibrillation I48.21 Type 2 diabetes mellitus with obesity E11.69; E66.9"
[2025-11-26 15:39] VITALS: BP 107/77; PULSE 94; TEMP 97.9; O2SAT 96
== END 2025-11-26 17:15 | DRG 690 ==
LOC: EDINP 11:03 → ED 11:03 → SUATTDRO 14:42 → 3W 16:20 → SUATTDRO 11-16 11:09 → 3W 11-21 15:44